=== PATIENT | male | born 1975 | race Caucasian/White ===

== ENCOUNTER 2019-09-16 12:07 | Outpatient (CLI) | payer OTHER, SELFPAY | END 2019-09-16 12:08 | disposition home or self-care (01) | LOC: OPS 18:41 | PROVIDERS: PCP Family Medicine; Visit Provider Surgery | DX: Z76.89 Persons encountering health services in other specified circumstances (principal) ==

== ENCOUNTER 2019-09-16 12:07 | Day surgery (SDC) | payer OTHER, SELFPAY ==
[2019-09-13 11:48] VITALS: BMI 34.4
[2019-09-16] VITALS (26 sets, daily range): BP systolic 115–158; BP diastolic 76–96; PULSE 65–91; RESP 15–24; TEMP 36.5–37.1; O2SAT 90–99
[2019-09-16] MEDS: sodium chloride 0.9% 1,000 ML 30 ML IV (12:28)
--- NOTE | 2019-09-16 12:48 | ANES.PREANE2 ---
Pre-Anesthetic Assessment Pre-Anesthetic Assessment: Height/Weight: Height 1.7 m Weight 99.79 kg Temp Pulse Resp BP Pulse Ox 97.7 F 65 18 115/76 95 09/16/19 12:16 09/16/19 12:16 09/16/19 12:16 09/16/19 12:16 09/16/19 12:16 Preop Diagnosis: Symptomatic cholelithiasis Proposed Procedure: Operation Date: 09/16/19 14:35 Proposed Procedures p Laparoscopic Cholecystectomy 05609/K80.20(Not Applicable) - Nasir Suggs MD Last intake: Intake Last Liquid Date 09/15/19 Last Liquid Time 23:00 Last Solid Date 09/15/19 Last Solid Time 23:00 Social: Social History: Alcohol (occ) and Tobacco Exam: Pre-Anes Outpt Exam: alert, oriented x 3, clear to auscultation bilaterally and regular rate & rhythm Airway: Submandibular: WNL Cervical ROM: WNL MP: 2 Dentition: Other (teeth ok) History/ROS: No significant history except as noted Pulmonary: Pulmonary: None reported CV/HEM: CV/HEM: None reported : : None reported Hepatic: Hepatic: None reported GI: GI: GERD (controlled) Metabolic: Metabolic: None reported Musc/skel: Musc/skel: OA/DJD and RA Neuropsych: Neuropsych: None reported Anesthetic Plan: ASA status: 2 Anesthesia: Anesthesia Evaluation and General Risk of > 500 ml blood loss (7ml/kg in children): No Meds/Allergies Current Medications: Current Medications Generic Name Dose Route Start Last Admin Trade Name Freq PRN Reason Stop Dose Admin Sodium Chloride 1,000 mls @ 30 ml s/hr 09/16/19 12:00 09/16/19 12:28 Sodium Chloride 0.9% IV 09/17/19 11:59 30 mls/hr .Q24H MARIA FERNANDA Administration PFSH Anesthesia PFSH: Medical History Cholelithiasis GERD (gastroesophageal reflux disease) History of colon polyps Hyperlipidemia Surgical History History of colonoscopy with polypectomy (~2018) History of esophagogastroduodenoscopy (EGD) (~2018) History of hernia repair Family History Denies family history of Anesthesia complication Bleeding disorder Social History Smoking and tobacco status: current every day smoker cigarettes Quit status (tobacco): has tried quititng Second hand smoke exposure: No Alcohol intake: current Alcohol intake frequency: holidays/special occasions only Alcohol type: beer Adopted: No Caregiver/support person: Yes Lives independently: Yes Household members: spouse Housing: House Marital status: Highest education level completed: High School Graduate service: No Current occupational status: employed 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
--- NOTE | 2019-09-16 13:41 | PM.HPUD ---
H&P update H&P Update: DATE OF SURGERY/PROCEDURE: 09/16/19 DATE H&P PERFORMED: 09/04/19 H&P UPDATE INFORMATION: H&P completed within last 30 days and No changes to prior documentation PREOP DIAGNOSIS: Symptomatic cholelithiasis PRIMARY INDICATION FOR PROCEDURE: The same PLANNED PROCEDURE: Operation Date: 09/16/19 14:35 Proposed Procedures p Laparoscopic Cholecystectomy 43510/K80.20(Not Applicable) - Nasir Suggs MD Full H&P Medications/Allergies: Current Medications: Current Medications Generic Name Dose Route Start Last Admin Trade Name Freq PRN Reason Stop Dose Admin Sodium Chloride 1,000 mls @ 30 ml s/hr 09/16/19 12:00 09/16/19 12:28 Sodium Chloride 0.9% IV 09/17/19 11:59 30 mls/hr .Q24H MARIA FERNANDA Administration Perinent History: Medical/Surgical History: Medical History (Updated 09/04/19 @ 16:52 by Nasir Suggs MD) Cholelithiasis GERD (gastroesophageal reflux disease) History of colon polyps Hyperlipidemia Family History: Family History (Updated 09/04/19 @ 15:45 by Isela Martins RN) Denies family history of Anesthesia complication Bleeding disorder Social History: Social History Smoking and tobacco status: current every day smoker cigarettes Quit status (tobacco): has tried quititng Second hand smoke exposure: No Alcohol intake: current Alcohol intake frequency: holidays/special occasions only Alcohol type: beer Adopted: No Caregiver/support person: Yes Lives independently: Yes Household members: spouse Housing: House Marital status: Highest education level completed: High School Graduate service: No Current occupational status: employed 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
[2019-09-16] MEDS: lidocaine 2% INJ 20 mL INJECTION (15:10)
--- NOTE | 2019-09-16 16:03 | P.OP_ITS ---
Operative Report Date of procedure: September 16, 2019 Pre-op Diagnosis: Symptomatic cholelithiasis Post-op diagnosis: same Post-op Diagnosis: Fatty liver Scarred down cystic duct Multiple gallbladder stones Post-op Findings: Chronic calculus cholecystitis Procedure Done: Laparoscopic cholecystectomy and placement of large piece of Surgicel and Gel flow for hemostasis Specimens removed/disposition: Gallbladder and contents Surgeon: Nasir Suggs Ice Sculptor: Surgical marlon Rodriguez and Jaycee Medical student Joseluis Event Operations Manager Anesthesia: General (curtains and draperies salesperson Yasmine and Halie) Estimated blood loss (mL): 25 Condition: stable Disposition: same day Brief History: This is a pleasant 44 years old gentleman referred to my office with symptomatic cholelithiasis and history of fatty liver. Plan of care; After thorough history physical examination and reviewing the chart ,I counseled the patient for laparoscopic cholecystectomy possible open, indications risks including but not limited injury to the common bile duct and other viscera.benefits and alternatives all discussed with the patient, and she did agree to proceed. All questions have been answered and all concerns have been addressed to patient's satisfaction. Patient was placed on liquid protein diet prior to surgery to downsize the v olume of the Liver Informed consent per chart Procedure: Patient was identified in the holding area and taken back to the operative suite, placed in supine position intubated by anesthesia . Time-out was done verifying the patient's name/date of /planned procedure and destination after the procedure, all were in agreement. SCDs confirmed to be functioning, preoperative antibiotics administered per protocol, and beta ayanna protocol was confirmed. Patient was appropriately secured to the table, footboard was applied to the OR table, before prep and drape anesthesia was asked to tilt the table back and forth to make sure that the patient is appropriately secured and she was. Prep and drape of the abdomen was done under the usual sterile technique, followed by that supraumbilical skin incision,skin incision was done by a 15 blade knife, and stay sutures were applied to the fascia and Olivares trocar technique was used to enter the abdominal without injuring any abdominal viscera, started by low flow gas insufflation followed by a high flow, started with a 10 mm laparoscope and under direct vision there was no evidence of any i njuries, the scope then switched to a 30? ,10 millimeter scope and under direct visualization 5 millimeter trocar was inserted in the epigastric region followed by two 5 mm trocars were inserted in the right upper quadrant that was done after injection of local lidocaine 2% at all incision sites. Gallbladder showed chronic calculus cholecystitis with extensive scarring &with adhesions Hepatomegaly likely due to fatty liver Patient was then positioned in the head up and tilted to the left dissection started by taking adhesions down using [place] forceps with heat, continued dissection until I identified the critical view of the cystic duct and cystic artery where seen connected to the gallbladder. Clips were applied on the cystic duct towards the common bile duct 1 towards the gallbladder then divided is in sharp scissors, 2 clips were then applied onto the cystic artery and 1 towards the gallbladder and divided by sharp scissors. Endoloop PDS was applied onto the cystic duct stump for extra security Extra clips were applied for traversing vessels Dissection was then carried along of the gallbladder from the gallbladder fossa using cautery as well as sharp dissection with heat energy. The gallbladder then was dissected out from the gallbladder fossa totally , cholecystectomy was then achieved and was placed in an Endo Catch bag and then retrieved from the Olivares trocar site under direct visualization using a 5 mm 30? scope through the epigastric trocar, specimen was then passed to the circulating nurse to go for permanent pathology,irrigation and hemostasis was do ne to the gallbladder fossa after hemostasis was secured, final survey laparoscopy was done that showed no injuries. Suction irrigation was obtained. Gel flow and large piece of Surgicel was applied at the right lobe of the liver where there was small liver laceration after Bovie cauterization was done I elected at this point to place a 15 Turkish round Low drain through the far outer lateral trocar site at the bed of the gallbladder fossa under direct visualization. The supraumbilical fascial defect was then closed using interrupted Vicryl sutures using a fascial closure device ;Balaji Goodman under direct visualization Gas was allowed to deflate,Trocars were then taken out under direct vision there was no evidence of bleeding Specimen was passed to the circulating nurse for permanent pathology. The supraumbilical incision as well as all trocar sites were closed by skin karen to approximate the skin edges of the supraumbilical incision, dressing was applied in the form of Band-Aids and the patient patient got extubated and was taken to recovery area in a stable condition. Count of sponges, needles and instruments were completed at the end of the procedure I was present for the whole entire procedure.
--- NOTE | 2019-09-16 16:14 | SUR.PHASEI ---
PT TO PACU SLEEPY WITH GOOD RESP ORAL AIRWAY IN PLACE ABD LARGE FIRM WITH 4 SITES WITH BANDAIDS AND DRAIN SPONGE TO RT LOWER SITE WITH YAZMIN DRAIN COMPRESSED.
[2019-09-16] MEDS: fentaNYL 50 mcg/mL INJ 2mL IVP ×2 (16:22→16:28)
[2019-09-16] MEDS: morphine 4 mg/mL SDV 1 mL 2 MG IVP ×4 (16:42→16:58)
--- NOTE | 2019-09-16 16:47 | SUR.PHASEI ---
1620 PT AWAKE ABD UNCHANGED YAZMIN DRAIN COMPRESSED PT ORAL AIRWAY OUT , PT ON RA PT RUBBING FACE PT ASSISTED NOT TO RUB FACE SEE PAIN MEDS GIVEN 1645PT STARTING TO RELAX, PT NOW ON 2LNC VSS PT AWAKES EASILY RT DRAIN SITE OOZING, REINFORCED DRAIN SPONGE WITH Abd.tape DR RODRIGUEZ AWARE.
--- NOTE | 2019-09-16 17:34 | SUR.PHASEI ---
1710 PT ALERT SLEEPS OFF AND ON , PT DRAIN SPONGE SATURATED , SOME OOZING TO ABD, PT DRESSING CHANGED WITH NEW DRAIN SPONGE, 4X4 ABD PAPER TAPE, DRAIN COMPRESSED WITH APPROX 15ML NOTED REPORT TO OPS
[2019-09-16] MEDS: HYDROcodone-acetaminophen 5-325 mg Tablet 1 TAB PO (17:45)
--- NOTE | 2019-09-16 18:06 | SUR.PHASEII ---
70 ml serosanguineous drainage emptied
== END 2019-09-16 18:25 | disposition home or self-care (01) ==
LOC: OR 09-18 07:57
PROVIDERS: PCP Family Medicine; Visit Provider Surgery
PROC: 0FT44ZZ Resection of Gallbladder, Percutaneous Endoscopic Approach (ICD-10-PCS; CPT 47562; principal; 2019-09-16 14:35)
DX: K80.10 Calculus of gallbladder with chronic cholecystitis without obstruction (principal); K21.9 Gastro-esophageal reflux disease without esophagitis; M19.90 Unspecified osteoarthritis, unspecified site; M06.9 Rheumatoid arthritis, unspecified; E78.5 Hyperlipidemia, unspecified; F17.210 Nicotine dependence, cigarettes, uncomplicated
CPT/HCPCS: 47562; 12345; 88304; 96365; J0131; J0330; J0690; J1100; J2001; J2270; J2405; J2704; J2710; J3010; J3490; J7030

== ENCOUNTER 2019-09-20 08:40 | Outpatient (REF) | payer OTHER, SELFPAY ==
[2019-09-20 09:09] LABS: Alanine Aminotransferase 60 U/L (0-41); Alkaline Phosphatase 76 IU/L (40-130); Aspartate Amino Transferase 37 U/L (0-40); Globulin 4.1 g/dL (1.3-4.6); Total Bilirubin 0.4 mg/dL (0.15-1.2); Total Protein 8.1 g/dL (6.6-8.7)
== END 2019-09-20 08:41 | disposition home or self-care (01) ==
LOC: LAB 08:40
PROVIDERS: PCP Family Medicine; Visit Provider Surgery
DX: K76.0 Fatty (change of) liver, not elsewhere classified (principal)
CPT/HCPCS: 80076

== ENCOUNTER 2019-10-17 14:41 | Outpatient (CLI) | payer OTHER, SELFPAY ==
--- NOTE | 2019-10-17 15:09 | XR_ITS ---
WS: [id number] Right hand, 3 views, 10/17/2019 Clinical Data: rheumatoid arthritis Comparison: None. Findings: No fractures or dislocations are seen. The soft tissues are unremarkable. The joint space s are normal XR/XR hand RT min 3V* [id number] Impression: Negative right hand.
--- NOTE | 2019-10-17 15:09 | XR_ITS ---
WS: [id number] Left foot, 3 views, 10/17/2019 Clinical Data: rheumatoid arthritis Comparison: None. Findings: No fractures or dislocations are seen. No bone destruction or erosion is noted. The joint spaces and soft tissues are normal. There is a plantar spur. XR/XR foot LT min 3V* [id number] Impression: Negative left foot.
--- NOTE | 2019-10-17 15:09 | XR_ITS ---
WS: [id number] Chest 2 views, 10/17/2019 Clinical Data: rheumatoid arthritis Comparison: None. Findings: No nodules, masses or effusions are seen. The heart is normal. The pulmonary vascularity is not increased. No pneumonia or pneumothorax is seen. XR/XR chest 2V* 13483 Impression: Negative chest.
--- NOTE | 2019-10-17 15:09 | XR_ITS ---
WS: [id number] Left hand, 3 views, 10/17/2019 Clinical Data: rheumatoid arthritis Comparison: None. Findings: No fractures or dislocations are seen. The soft tissues are unremarkable. The joint spaces are normal XR/XR hand LT min 3V* [id number] Impression: Negative left hand.
--- NOTE | 2019-10-17 15:09 | XR_ITS ---
WS: [id number] Right foot, 3 views, 10/17/2019 Clinical Data: rheumatoid arthritis Comparison: None. Findings: No fractures or dislocations are seen. No bone destruction or erosion is noted. The joint spaces and soft tissues are normal. There is a small plantar spur. A small bunion of the head of the right first metatarsal is seen. XR/XR foot RT min 3V* 55085 Impression: Negative right foot.
== END 2019-10-17 14:42 | disposition home or self-care (01) ==
PROVIDERS: PCP Family Medicine; Visit Provider Internal Medicine Rheumatology
DX: Z79.899 Other long term (current) drug therapy; Z11.59 Encounter for screening for other viral diseases; K76.0 Fatty (change of) liver, not elsewhere classified; M05.79 Rheumatoid arthritis with rheumatoid factor of multiple sites without organ or systems involvement; Z11.1 Encounter for screening for respiratory tuberculosis; Z72.89 Other problems related to lifestyle
CPT/HCPCS: 36415; 71046; 73130; 73630; 80076; 82306; 82565; 84550; 85651; 86140; 86480; 86704; 86803; 87340; 99204

== ENCOUNTER → 2019-10-17 14:42 | Outpatient (BNVA) | payer OTHER, SELFPAY | PROVIDERS: PCP Family Medicine; Visit Provider Internal Medicine Rheumatology | DX: M05.9 Rheumatoid arthritis with rheumatoid factor, unspecified (principal); Z79.899 Other long term (current) drug therapy; Z11.59 Encounter for screening for other viral diseases; M05.79 Rheumatoid arthritis with rheumatoid factor of multiple sites without organ or systems involvement; Z71.89 Other specified counseling | CPT/HCPCS: 85025 ==

== ENCOUNTER 2020-05-13 17:30 | Emergency (ER) | payer OTHER, SELFPAY ==
[2020-05-13 17:34] VITALS: BP 133/86; PULSE 106; RESP 20; TEMP 36.6; O2SAT 97; BMI 36.0
[2020-05-13 18:50] LABS: Basophils # 0.1 10^3/uL (0.0-0.1); Basophils % 0.3 %; Eosinophils # 0.1 10^3/uL (0.0-0.8); Eosinophils % 0.5 %; Hematocrit 39.4 % (42.0-52.0); Hemoglobin 13.1 g/dL (11.7-16.6); Lymphocytes % 9.3 %; Mean Corpuscular HGB Conc 33.2 g/dL (30.0-36.0); Mean Corpuscular Hemoglobin 29.8 pg (28.0-34.0); Mean Corpuscular Volume 89.7 fL (80-94); Mean Platelet Volume 9.2 fL (7.4-10.4); Monocytes # 1.4 10^3/uL (0.2-0.9); Monocytes % 6.4 %; Neutrophils # 17.99 10^3/uL (1.8-7.7); Neutrophils % 82.9 %; Nucleated Red Blood Cells % 0 %; Platelet Count 403 10^3/cmm (130-400); Red Blood Count 4.39 10^6/uL (4.1-5.3); Red Cell Distribution Width 12.8 % (12.1-15.1); White Blood Count 21.7 10^3/uL (4.0-10.0)
--- NOTE | 2020-05-13 18:51 | ED_ITS ---
HPI - Abdominal Pain General: Chief Complaint: Abdominal Pain Stated Complaint: ABD PAIN Time Seen by Provider: 05/13/20 18:42 Source: patient Mode of arrival: ambulatory Limitations: no limitations History of Present Illness: HPI narrative: 45-year-old male states he been having lower abdominal pain since yesterday. States pain is sharp in nature and seems to be intermittent. He denies any worsening improving factors. Seen by his PCP and had a high white count since then here. Denies any vomiting. He has had some slight constipation. MD elicited complaint: abdominal pain Associated Symptoms: Denies chills, dysuria and fever(s) Review of Systems Const: Denies: fever(s), chills, body aches or change in appetite Eyes: Denies: blurry vision or eye discomfort ENMT: Denies: throat pain or dental pain Card: Denies: chest pain Resp: Denies: dyspnea GI: Reports: abdominal pain : Denies: dysuria Musc: Denies: neck pain or back pain Skin/Breast: Denies: rash Neuro: Denies: headache(s) Psych: Denies: depression Kelvin/Lymph: Denies: easy bruising All/Imm: Denies: urticaria PFSH ED PFSH: Medical History Cholelithiasis Encounter for screening for other viral diseases GERD (gastroesophageal reflux disease) High risk medication use History of colon polyps Hyperlipidemia Immunization counseling Rheumatoid arthritis with rheumatoid factor Surgical History History of cholecystectomy History of colonoscopy with polypectomy (~2018) History of esophagogastroduodenoscopy (EGD) (~2019) History of hernia repair Family History Other Diabetes Hypertension Denies family history of Systemic lupus erythematosus, unspecified Rheumatoid arthritis Anesthesia complication Bleeding disorder Cancer Stroke Social History Smoking and tobacco status: current every day smoker cigarettes Quit status (tobacco): has tried quititng Second hand smoke exposure: No Alcohol intake: current Alcohol intake frequency: holidays/special occasions only Alcohol type: beer Adopted: No Caregiver/support person: Yes Lives independently: Yes Household members: spouse Housing: House Marital status: Highest education level completed: High School Graduate service: No Current occupational status: employed 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 Current occupational exposures/hazards: No Pets and animals: No History of recent travel: No Sexually active: Yes Current gender identity: Male Neda/Mormonism: Amish Special neda needs: No Agree to transfusion: No Financial difficulty paying for basics: Decline to Answer Physical Exam Const: COMMON NORMALS: no acute distress, patient oriented x3 and healthy appearing HENMT: COMMON NORMALS: normocephalic and atraumatic HEAD & SCALP: normocephalic and atraumatic Eye: COMMON NORMALS: Equal, round and reactive pupils present and EOMs intact bilaterally PUPIL: Yes Equal, round and reactive pupils present Neck/C-Spine: COMMON NORMALS: full ROM and supple Chest: COMMONS NORMALS: normal inspection of the chest and normal palpation of entire chest wall Resp: COMMON NORMALS: normal respiratory effort, No retractions, No use of accessory muscles and clear to auscultation bilaterally AUSCULTATION: clear to auscultation bilaterally Cardio: COMMON NORMALS: regular rate, regular rhythm and No murmurs present ( Cardio) RATE: regular rate RHYTHM: regular rhythm GI: COMMON NORMALS: Normal to inspection, nondistended, normoactive bowel sounds present, Soft to palpation and no masses PALPATION: Yes Soft to palpation OTHER: mild lower abdominal tenderness Extremity: COMMON NORMALS: normal to inspection and full ROM Neuro: COMMON NORMALS: patient oriented x3, moves all extremities and no focal motor deficits Psych: COMMON NORMALS: mental status grossly normal, Normal thought process present and cooperative THOUGHT PROCESS: Normal thought process present Skin: COMMON NORMALS: no rashes or lesions noted and no wounds GENERAL SKIN EXAM: no rashes or lesions noted Course Vital Signs: Vital signs: Vital Signs Temperature 97.8 F 05/13/20 17:34 Pulse Rate 106 H 05/13/20 17:34 Respiratory Rate 20 H 05/13/20 17:34 Blood Pressure 133/86 05/13/20 17:34 Pulse Oximetry 97 05/13/20 17:34 MDM - Abdominal Pain MDM Narrative: Medical decision making narrative: Ciaran presents with abdominal pain. His CT did show diverticulitis. Patient's been pain-free here. I spoke to him about his diverticulitis and offered him admission. He states that he feels much improved like to go home. We will place him on Cipro and Flagyl. I informed her if his pain worsens or he has any vomiting or fever she is to return immediately. He is to follow-up with PCP in 3 to 5 days. He understands and agrees to plan. Lab Data: Labs: Lab Results 05/13/20 05/13/20 Range/Units 18:40 18:40 WBC 21.7 H (4.0-10.0) 10^3/ uL RBC 4.39 (4.1-5.3) 10^6/u L Hgb 13.1 (11.7-16.6) g/dL Hct 39.4 L (42.0-52.0) % MCV 89.7 (80-94) fL MCH 29.8 (28.0-34.0) pg MCHC 33.2 (30.0-36.0) g/dL RDW 12.8 (12.1-15.1) % Plt Count 403 H (130-400) 10^3/c mm MPV 9.2 (7.4-10.4) fL Neut % (Auto) 82.9 % Lymph % (Auto) 9.3 % [place] % (Auto) 6.4 % Eos % (Auto) 0.5 % Baso % (Auto) 0.3 % Neut # (Auto) 17.99 H (1.8-7.7) 10^3/u L Lymph # (Auto) 2.0 (0.8-4.8) 10^3/u L [place] # (Auto) 1.4 H (0.2-0.9) 10^3/u L Eos # (Auto) 0.1 (0.0-0.8) 10^3/u L Baso # (Auto) 0.1 (0.0-0.1) 10^3/u L Nucleated RBC % (a uto) 0 % Nucleated RBCs # 0.0 /100WBC Sodium 130 L (136-145) mmol/L Potassium 3.7 (3.5-5.1) mmol/L Chloride 95 L (98-107) mmol/L Carbon Dioxide 22 (22-29) mmol/L Anion Gap 16.7 (5-19) BUN 16 (6-20) mg/dL Creatinine 1.1 (0.7-1.2) mg/dL GFR Calculation 73.1 L (90-130) mL/min Glucose 118 H (65-115) mg/dL Calculated Osmolal ity 272 L (285-295) mOsm/k g Calcium 9.4 (8.5-10.5) mg/dL Total Bilirubin 0.4 (0.15-1.2) mg/dL AST 14 (0-40) U/L ALT 14 (0-41) U/L Alkaline Phosphata se 84 (40-130) IU/L Total Protein 8.6 (6.6-8.7) g/dL Albumin 3.8 (3.5-5.2) g/dL Globulin 4.8 H (1.3-4.6) g/dL Lipase 30 (13-60) U/L Imaging Data ^: CT Abd/Pel: Attestation: I personally reviewed and interpreted this imaging study as follows: Radiologist's impression: [address] [address] [address] Scan Report Signed with Addenda Patient: Ciaran Lau Unit #: [id number] : 1975 Age/Sex: 45 / M ADM Date: 05/13/20 Loc: ER Room/Bed: Attending Dr: Ordering Provider/Ordering MD: Bandar Adkins MD Date of Service: 05/13/20 Procedure(s): CT abdomen pelvis w con* [id number] Accession Number(s): [id number] Report Number: [id number]/CT abdomen pelvis w con* [id number] THIS REPORT CONTAINS FINDINGS THAT MAY BE CRITICAL TO PATIENT CARE. The findings were verbally communicated via telephone conference with Bandar Field at 8:31 PM CDT on 05/13/2020. The findings were acknowledged and understood. Radiation Dose CTDIVOL = (mGy): DLP = 1571.79 (mGy-cm) Addendum Dictated By: Rajesh Rudd MD Addendum Signed By: Rajesh Rudd MD Signed Date/Time: 05/13/202032 Addendum Cosigned By: PROCEDURE INFORMATION: Exam: CT Abdomen And Pelvis With Contrast Exam date and time: 05/13/2020 8:07 PM Age: 45 years old Clinical indication: Abdominal pain; Localized; Lower; Prior surgery; Surgery type: Egd, hernia, gb TECHNIQUE: Imaging protocol: Computed tomography of the abdomen and pelvis with intravenous contrast. Radiation optimization: All CT scans at this facility use at least one of these dose optimization techniques: automated exposure control; mA and/or kV adjustment per patient size (includes targeted exams where dose is matched to clinical indication); or iterative reconstruction. Contrast material: OMNI 300; Contrast volume: 95 ml; Contrast route: INTRAVENOUS (IV); COMPARISON: ES surgery / GI images 09/16/2019 2:26 PM RADIATION DOSE METRICS: Total DLP (mGy-cm): 1571.79 FINDINGS: Lungs: The lung bases are clear except for subsegmental atelectasis in the right lower lobe. Liver: The liver is mildly fatty but not enlarged. Gallbladder and bile ducts: The gallbladder is surgically absent. Pancreas: Normal. No ductal dilation. Spleen: Incidental splenule near the spleen. Adrenals: Normal. No mass. Kidneys and ureters: Normal. No hydronephrosis. Stomach and bowel: There are multiple diverticula in the distal colon with sigmoid wall thickening and surrounding fatty stranding. There is an extraluminal gas collection in the left lower quadrant near the sigmoid colon consistent with micro perforation. However no generalized free intraperitoneal air and no organized abscess. No bowel obstruction or ileus. Small bowel is normal. The stomach is normal. Appendix: The appendix is normal. Intraperitoneal space: See Stomach and bowel finding. Vasculature: Unremarkable. No abdominal aortic aneurysm. Lymph nodes: Unremarkable. No enlarged lymph nodes. Urinary bladder: Unremarkable as visualized. Reproductive: Unremarkable as visualized. Bones/joints: At L5-S1 there is a unilateral left pars defect with 2 mm of grade 1 degenerative subluxation. Soft tissues: 4.6 cm umbilical hernia consists of noninflamed fatty tissue only. Bilateral small inguinal hernias consist of fatty tissue only. CT/CT abdomen pelvis w con* [id number] IMPRESSION: 1. Acute sigmoid diverticulitis with micro perforation. No abscess or generalized free air. No bowel obstruction or ileus. 2. Other chronic and incidental findings as described. Discharge Plan Discharge Patient Disposition: Home Clinical Impression: Diverticulitis Condition: Stable Prescriptions: [place] 5-325 mg tablet 1 tab PO Q6H PRN (Reason: pain) Qty: 14 RF: 0 ondansetron 4 mg tablet,disintegrating 4 mg PO Q6H PRN (Reason: nausea and vomiting) Qty: 14 RF: 0 Cipro 500 mg tablet 500 mg PO BID Qty: 14 RF: 0 Flagyl 500 mg tablet 500 mg PO Q8H 7 Days Qty: 21 RF: 0 No Action prednisone 2.5 mg tablet 10 mg PO DAILY RF: 0 acetaminophen 500 mg capsule 500 mg PO Q6H PRNRF: 0 sulfasalazine 500 mg tablet 1 gm PO BID Qty: 120 RF: 3 pantoprazole 40 mg tablet,delayed release (DR/EC) 40 mg PO DAILY Qty: 30 RF: 3 ergocalciferol (vitamin D2) [Vitamin D2] 1,250 mcg (50,000 unit) capsule 50,000 unit PO DAILY Qty: 15 RF: 0 Provigil 100 mg tablet 100 mg PO DAILY RF: 0 gemfibrozil 600 mg tablet 600 mg PO BID RF: 0 Discharge Orders: Discharge Order (Routine); Ordered 05/13/20 Ordered By: Bandar Adkins Referrals: Giovanni Oconnell [Primary Care Provider] - 1-3 days Discharge Diet: Advance as tolerated Discharge Activity: Resume usual activity Patient Instructions: Diverticulitis (ED) Coding Level of Care Code ED Evaporator Helper for Chg Fwd Exam Comprehensive
[2020-05-13 19:07] LABS: Alanine Aminotransferase 14 U/L (0-41); Albumin Level 3.8 g/dL (3.5-5.2); Alkaline Phosphatase 84 IU/L (40-130); Anion Gap 16.7 (5-19); Aspartate Amino Transferase 14 U/L (0-40); Blood Urea Nitrogen 16 mg/dL (6-20); Calcium 9.4 mg/dL (8.5-10.5); Carbon Dioxide 22 mmol/L (22-29); Chloride 95 mmol/L (98-107); Globulin 4.8 g/dL (1.3-4.6); Glomerular Filtration Rate 73.1 mL/min (90-130); Glucose 118 mg/dL (65-115); Lipase 30 U/L (13-60); Osmolality Calculated 272 mOsm/kg (285-295); Potassium 3.7 mmol/L (3.5-5.1); Sodium 130 mmol/L (136-145); Total Bilirubin 0.4 mg/dL (0.15-1.2); Total Protein 8.6 g/dL (6.6-8.7)
[2020-05-13] MEDS: morphine 4 mg/mL SDV 1 mL IVP (19:36)
[2020-05-13] MEDS: sodium chloride 0.9% 1,000 ML 999 ML IV (19:36)
[2020-05-13] MEDS: ondansetron 2 mg/ML SDV 2 mL 4 MG IVP (19:36)
[2020-05-13] MEDS: iohexol 300 mg/mL 100 mL Btl IV (20:18)
[2020-05-13] MEDS: metroNIDAZOLE 500 MG Tablet PO (21:11)
[2020-05-13] MEDS: ciprofloxacin 500 mg Tablet PO (21:11)
[2020-05-13 21:13] VITALS: BP 132/76; PULSE 76; RESP 16; O2SAT 99
== END 2020-05-13 21:14 | disposition home or self-care (01) ==
PROVIDERS: Physician Assistant; Emergency Provider Emergency Medicine; PCP Family Medicine
DX: K57.92 Diverticulitis of intestine, part unspecified, without perforation or abscess without bleeding (principal); E78.5 Hyperlipidemia, unspecified; F17.210 Nicotine dependence, cigarettes, uncomplicated
CPT/HCPCS: 12345; 74177; 80053; 83690; 85025; 87040; 96361; 96374; 96375; 99282; 99284; J2270; J2405; J7030; Q9967

== ENCOUNTER 2020-05-17 16:54 | Inpatient (IN) | payer OTHER, MEDICARE, SELFPAY ==
[2020-05-17] VITALS (10 sets, daily range): BP systolic 122–154; BP diastolic 67–99; PULSE 75–90; RESP 17–20; TEMP 36.9–37.2; O2SAT 93–98; BMI 34.4
--- NOTE | 2020-05-17 17:04 | W.ED.ABDPA2 ---
HPI - Abdominal Pain General: Chief Complaint: Abdominal Pain Stated Complaint: Lower Abdominal pain Time Seen by Provider: 05/17/20 17:03 History of Present Illness: HPI narrative: Patient is a 45-year-old male who comes to the ED with left lower quadrant abdominal pain and nausea. Patient was seen here in the ED on May 13 and diagnosed with diverticulitis. He was sent home on Cipro and Flagyl and also a prescription of hydrocodone for pain. Patient has been taking all his medications and his pain has been controlled up until today. Today patient started developing left lower quadrant abdominal pain that became more intense. He did not take hydrocodone today wanted to see if his pain has improved. Pain rated an 8 out of 10. He says the abdominal pain is similar to the level it was when he was seen here in the ED on May 13. Is also feeling nauseous but has not had any episodes of emesis. Reports being constipated but no blood in stool. Denies any fever, chills, hematuria or dysuria. Associated Symptoms: Reports constipation and nausea; Denies chills, diarrhea, dysuria, fever(s), hematochezia, hematuria and vomiting Review of Systems Const: Denies: fever(s), chills or fatigue Eyes: Denies: change in vision or eye discomfort ENMT: Denies: throat pain, odynophagia, nasal discharge or nasal congestion Card: Denies: chest pain, palpitations, edema, swelling of feet/ankles, dyspnea on exertion or orthopnea Resp: Denies: dyspnea, productive cough or non-productive cough GI: Reports: abdominal pain (LLQ), nausea and constipation; Denies: vomiting, diarrhea or hematochezia : Denies: flank pain, difficulty urinating, dysuria or hematuria Musc: Denies: neck pain, back pain or extremity swelling Skin/Breast: Denies: rash or new lesions Neuro: Denies: headache(s), numbness in extremities or weakness in extremities PFSH ED PFSH: Medical History Cholelithiasis Encounter for screening for other viral diseases GERD (gastroesophageal reflux disease) High risk medication use History of colon polyps Hyperlipidemia Immunization counseling Rheumatoid arthritis with rheumatoid factor Surgical History History of cholecystectomy History of colonoscopy with polypectomy (~2019) History of esophagogastroduodenoscopy (EGD) (~2018) History of hernia repair Family History Other Diabetes Hypertension Denies family history of Systemic lupus erythematosus, unspecified Rheumatoid arthritis Anesthesia complication Bleeding disorder Cancer Stroke Social History Smoking and tobacco status: current every day smoker cigarettes Quit status (tobacco): has tried quititng Second hand smoke exposure: No Alcohol intake: current Alcohol intake frequency: holidays/special occasions only Alcohol type: beer Adopted: No Caregiver/support person: Yes Lives independently: Yes Household members: spouse Housing: House Marital status: Highest education level completed: High School Graduate service: No Current occupational status: employed 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 Current occupational exposures/hazards: No Pets and animals: No History of recent travel: No Sexually active: Yes Current gender identity: Male Neda/Adventist: Anabaptist Special neda needs: No Agree to transfusion: No Financial difficulty paying for basics: Decline to Answer Physical Exam Const: COMMON NORMALS: patient oriented x3 and alert GENERAL APPEARANCE: cooperative and in distress (Patient appears to be uncomfortable and in pain) NUTRITIONAL APPEARANCE: overweight HENMT: COMMON NORMALS: normocephalic HEAD & SCALP: normocephalic MOUTH: Normal oral and palatal mucosa present THROAT: posterior oropharynx normal and uvula midline Eye: COMMON NORMALS: Equal, round and reactive pupils present PUPIL: Yes Equal, round and reactive pupils present Neck/C-Spine: COMMON NORMALS: supple GENERAL: Yes normal visual inspection Resp: COMMON NORMALS: normal respiratory effort, No retractions, No use of accessory muscles and clear to auscultation bilaterally AUSCULTATION: clear to auscultation bilaterally Cardio: COMMON NORMALS: regular rate, regular rhythm, S1 normal heart sound present, S2 normal heart sound present, No gallops present (Cardio), No clicks present (Cardio), No murmurs present (Cardio) and Peripheral pulses 2+ throughout RATE: regular rate RHYTHM: regular rhythm HEART SOUNDS: S1 normal heart sound present and S2 normal heart sound present PERIPHERAL PULSES: Peripheral pulses 2+ throughout GI: COMMON NORMALS: Normal to inspection, nondistended, normoactive bowel sounds present, Soft to palpation and no masses INSPECTION: Yes central obesity PALPATION: Yes Soft to palpation and Yes Tenderness to palpation present (GI) Details: LLQ (moderate tenderness) : COMMON NORMALS: Yes no CVA tenderness BLADDER/KIDNEY EXAM: Yes no CVA tenderness Back/Pelvis: COMMON NORMALS: no CVA tenderness Extremity: COMMON NORMALS: normal to inspection and no pedal edema Neuro: COMMON NORMALS: patient oriented x3 SENSORIUM/ORIENTATION: Yes alert GAIT: Yes Normal gait present Skin: COMMON NORMALS: no rashes or lesions noted GENERAL SKIN EXAM: no rashes or lesions noted and dry skin Course Reevaluation(s): Reevaluation #1: Patient's pain was improving with IV fluids, Zofran and 4 mg of morphine. Vital Signs: Vital signs: Vital Signs Temperature 98.8 F 05/17/20 16:55 Pulse Rate 84 05/17/20 19:00 Respiratory Rate 18 05/17/20 19:02 Blood Pressure 124/69 05/17/20 19:00 Pulse Oximetry 98 05/17/20 19:02 MDM - Abdominal Pain MDM Narrative: Medical decision making narrative: Patient is a 45-year-old male who comes to the ED with left lower quadrant abdominal pain and nausea. Patient was seen here in the ED on May 13 and diagnosed with diverticulitis. He was sent home on Cipro and Flagyl and also a prescription of hydrocodone for pain. Patient has been taking all his medications and his pain has been controlled up until today. He decided to not take his pain med today to see how his abdominal pain is improved and says his pain is similar to pain he felt back on May 13. Patient still has moderate to left lower quadrant upon exam. White blood cell count 16.3 which is down from 21.7 on May 13. The rest of CBC and CMP was unremarkable. Lipase 24. CT of the abdomen mid sigmoid acute diverticulitis with perforation. 2. There is been increase in the volume of the extraluminal walled off gas since last evaluation. Increase in the pericolonic fat inflammatory phlegmonous response. Currently no visible loculated fluid collection to suggest formation of any organized abscess. Spoke with Dr. Adkins about patient's case and CT findings and he contacted the Gen surgeon Dr. Toro told him about patient's case. Dr. Toro recommended patient get admitted and put on IV antibiotics. Dr. Adkins contacted hospitalist and placed admitting orders. Lab Data: Attestation: I reviewed the patient's lab results. Labs: Lab Results 05/17/20 05/17/20 05/17/20 Range/Units 17:27 17:27 17:57 WBC 16.3 H (4.0-10.0) 10^3/ uL RBC 4.48 (4.1-5.3) 10^6/u L Hgb 13.2 (11.7-16.6) g/dL Hct 41.2 L (42.0-52.0) % MCV 92.0 (80-94) fL MCH 29.5 (28.0-34.0) pg MCHC 32.0 (30.0-36.0) g/dL RDW 12.9 (12.1-15.1) % Plt Count 478 H (130-400) 10^3/c mm MPV 8.9 (7.4-10.4) fL Neut % (Auto) 76.3 % Lymph % (Auto) 13.6 % [place] % (Auto) 6.8 % Eos % (Auto) 1.4 % Baso % (Auto) 0.6 % Neut # (Auto) 12.48 H (1.8-7.7) 10^3/u L Lymph # (Auto) 2.2 (0.8-4.8) 10^3/u L [place] # (Auto) 1.1 H (0.2-0.9) 10^3/u L Eos # (Auto) 0.2 (0.0-0.8) 10^3/u L Baso # (Auto) 0.1 (0.0-0.1) 10^3/u L Nucleated RBC % (a uto) 0.1 % Nucleated RBCs # 0.0 /100WBC Sodium 133 L (136-145) mmol/L Potassium 4.4 (3.5-5.1) mmol/L Chloride 100 (98-107) mmol/L Carbon Dioxide 23 (22-29) mmol/L Anion Gap 14.4 (5-19) BUN 15 (6-20) mg/dL Creatinine 0.8 (0.7-1.2) mg/dL GFR Calculation 105.5 (90-130) mL/min Glucose 102 (65-115) mg/dL Calculated Osmolal ity 277 L (285-295) mOsm/k g Calcium 9.1 (8.5-10.5) mg/dL Total Bilirubin 0.3 (0.15-1.2) mg/dL AST 24 (0-40) U/L ALT 25 (0-41) U/L Alkaline Phosphata se 78 (40-130) IU/L C-Reactive Protein 56.7 H (0.0-4.9) mg/L Total Protein 8.2 (6.6-8.7) g/dL Albumin 3.9 (3.5-5.2) g/dL Globulin 4.3 (1.3-4.6) g/dL Lipase 24 (13-60) U/L Urine Color Yellow (Yellow) Urine Appearance Clear (CLEAR) Urine pH 5 (5-7) Ur Specific Gravit y 1.020 (1.005-1.030) Urine Protein Neg (Negative) Urine Glucose (UA) Norm (Normal) Urine Ketones Negative (Negative) Urine Blood Neg (Negative) Urine Nitrate Negative (Negative) Urine Bilirubin Neg (Negative) Urine Urobilinogen Norm (Negative) mg/dL Ur Leukocyte Rahel ase Negative (Negative) Imaging Data ^: CT Abd/Pel: Attestation: I personally reviewed and interpreted this imaging study as follows: Radiologist's impression: [address] [address] [address] Scan Report Signed Patient: Ciaran Lau Unit #: [id number] : 1975 Age/Sex: 45 / M ADM Date: 05/17/20 Loc: ER Room/Bed: Attending Dr: Ordering Provider/Ordering MD: Juan Fuentes Date of Service: 05/17/20 Procedure(s): CT abdomen pelvis w con* [id number] Accession Number(s): [id number] Report Number: [id number] PROCEDURE INFORMATION: Exam: CT Abdomen And Pelvis With Contrast Exam date and time: 05/17/2020 6:40 PM Age: 45 years old Clinical indication: Abdominal pain; Localized; Left lower quadrant (llq); Prior surgery; Surgery date: 6+ months; Surgery type: Hernia, gb; Patient HX: C/O worsening llq pain w nausea and diarrhea; Additional info: Llq pain, nause TECHNIQUE: Imaging protocol: Computed tomography of the abdomen and pelvis with intravenous contrast. Radiation optimization: All CT scans at this facility use at least one of these dose optimization techniques: automated exposure control; mA and/or kV adjustment per patient size (includes targeted exams where dose is matched to clinical indication); or iterative reconstruction. Contrast material: OMNI 300; Contrast volume: 95 ml; Contrast route: INTRAVENOUS (IV); COMPARISON: CT abdomen pelvis w con* [id number] 05/13/2020 8:12 PM RADIATION DOSE METRICS: Total DLP (mGy-cm): 1354.82 FINDINGS: Lungs: Minimal dependent right atelectasis. Liver: Hepatomegaly. Liver otherwise unremarkable without visible mass or cystic structure. Gallbladder and bile ducts: Status post cholecystectomy. Pancreas: Normal. No ductal dilation. Spleen: Small splenule. Spleen otherwise unremarkable. Adrenals: Normal. No mass. Kidneys and ureters: Normal. No hydronephrosis. Stomach and bowel: Evidence again of mid sigmoid acute diverticulitis with perforation. There is been increase in the volume of the extraluminal walled off gas since last evaluation. Increase in the pericolonic fat inflammatory phlegmonous response. Currently no visible loculated fluid collection to suggest formation of any organized abscess. No associated bowel obstruction. No visible evidence of significant associated small bowel reactive or adynamic ileus. Appendix: The appendix lies immediately adjacent to the inflammatory sigmoid diverticulitis focus and demonstrates mild reactive inflammatory response. Intraperitoneal space: No visible intraperitoneal ascites. Vasculature: The abdominal aorta is nonaneurysmal. Minimal arterial sclerotic disease. Lymph nodes: No current visible evidence of active mesenteric or retroperitoneal lymphadenopathy. Urinary bladder: Unremarkable as visualized. Reproductive: Unremarkable as visualized. Bones/joints: Degenerative disc disease L5/S1 with vacuum disc phenomenon. No visible acute osseous abnormality. Soft tissues: Small periumbilical hernia containing fat only. Bilateral small inguinal hernias containing fat only. CT/CT abdomen pelvis w con* [id number] IMPRESSION: 1. Evidence again of mid sigmoid acute diverticulitis with perforation. 2. There is been increase in the volume of the extraluminal walled off gas since last evaluation. Increase in the pericolonic fat inflammatory phlegmonous response. Currently no visible loculated fluid collection to suggest formation of any organized abscess. 3. The appendix lies immediately adjacent to the inflammatory sigmoid diverticulitis focus and demonstrates mild reactive inflammatory response. 4. Other nonurgent, nonemergent, chronic, and age related findings as detailed in text above. Radiation Dose CTDIVOL = (mGy): DLP = 1354.82 (mGy-cm) Dictated By: Jacob Juarez Signed By: Jacob Juarez Signed Date/Time: 05/17/201925 DD/ 23 Discharge Plan Discharge Admit Provider: Inna Cerna Coding Level of Care Code ED Commercial Hvac Technician for Chg Fwd Exam Comprehensive
[2020-05-17 17:43] LABS: Basophils # 0.1 10^3/uL (0.0-0.1); Basophils % 0.6 %; Eosinophils # 0.2 10^3/uL (0.0-0.8); Eosinophils % 1.4 %; Hematocrit 41.2 % (42.0-52.0); Hemoglobin 13.2 g/dL (11.7-16.6); Lymphocytes # 2.2 10^3/uL (0.8-4.8); Lymphocytes % 13.6 %; Mean Corpuscular Hemoglobin 29.5 pg (28.0-34.0); Mean Platelet Volume 8.9 fL (7.4-10.4); Monocytes # 1.1 10^3/uL (0.2-0.9); Monocytes % 6.8 %; Neutrophils # 12.48 10^3/uL (1.8-7.7); Neutrophils % 76.3 %; Nucleated Red Blood Cells % 0.1 %; Platelet Count 478 10^3/cmm (130-400); Red Blood Count 4.48 10^6/uL (4.1-5.3); Red Cell Distribution Width 12.9 % (12.1-15.1); White Blood Count 16.3 10^3/uL (4.0-10.0)
[2020-05-17] MEDS: ondansetron 2 mg/ML SDV 2 mL 4 MG IVP (17:47)
[2020-05-17] MEDS: sodium chloride 0.9% 1,000 ML 999 ML IV (17:47)
[2020-05-17] MEDS: morphine 4 mg/mL SDV 1 mL IVP ×2 (17:47→19:02)
[2020-05-17 18:00] LABS: Add Urine Microscopic? NO
[2020-05-17 18:03] LABS: Alanine Aminotransferase 25 U/L (0-41); Albumin Level 3.9 g/dL (3.5-5.2); Alkaline Phosphatase 78 IU/L (40-130); Aspartate Amino Transferase 24 U/L (0-40); Blood Urea Nitrogen 15 mg/dL (6-20); C Reactive Protein 56.7 mg/L (0.0-4.9); Calcium 9.1 mg/dL (8.5-10.5); Carbon Dioxide 23 mmol/L (22-29); Chloride 100 mmol/L (98-107); Globulin 4.3 g/dL (1.3-4.6); Glomerular Filtration Rate 105.5 mL/min (90-130); Glucose 102 mg/dL (65-115); Lipase 24 U/L (13-60); Osmolality Calculated 277 mOsm/kg (285-295); Sodium 133 mmol/L (136-145); Total Bilirubin 0.3 mg/dL (0.15-1.2); Total Protein 8.2 g/dL (6.6-8.7)
[2020-05-17 18:21] LABS: Bilirubin Urine Neg (Negative); Blood Urine Neg (Negative); Glucose Urine UA Norm (Normal); Ketones Urine Negative (Negative); Leukocyte Esterase Urine Negative (Negative); Nitrate Urine Negative (Negative); Protein Urine Neg (Negative); Urine Appearance Clear (CLEAR); Urine Color Yellow (Yellow); Urobilinogen Urine Norm (Negative); pH Urine 5 (5-7)
[2020-05-17 18:27] LABS: Anion Gap 14.4 (5-19); Potassium 4.4 mmol/L (3.5-5.1)
--- NOTE | 2020-05-17 18:29 | CTR_ITS ---
PROCEDURE INFORMATION: Exam: CT Abdomen And Pelvis With Contrast Exam date and time: 05/17/2020 6:40 PM Age: 45 years old Clinical indication: Abdominal pain; Localized; Left lower quadrant (llq); Prior surgery; Surgery date: 6+ months; Surgery type: Hernia, gb; Patient HX: C/O worsening llq pain w nausea and diarrhea; Additional info: Llq pain, nause TECHNIQUE: Imaging protocol: Computed tomography of the abdomen and pelvis with intravenous contrast. Radiation optimization: All CT scans at this facility use at least one of these dose optimization techniques: automated exposure control; mA and/or kV adjustment per patient size (includes targeted exams where dose is matched to clinical indication); or iterative reconstruction. Contrast material: OMNI 300; Contrast volume: 95 ml; Contrast route: INTRAVENOUS (IV); COMPARISON: CT abdomen pelvis w con* [id number] 05/13/2020 8:12 PM RADIATION DOSE METRICS: Total DLP (mGy-cm): 1354.82 FINDINGS: Lungs: Minimal dependent right atelectasis. Liver: Hepatomegaly. Liver otherwise unremarkable without visible mass or cystic structure. Gallbladder and bile ducts: Status post cholecystectomy. Pancreas: Normal. No ductal dilation. Spleen: Small splenule. Spleen otherwise unremarkable. Adrenals: Normal. No mass. Kidneys and ureters: Normal. No hydronephrosis. Stomach and bowel: Evidence again of mid sigmoid acute diverticulitis with perforation. There is been increase in the volume of the extraluminal walled off gas since last evaluation. Increase in the pericolonic fat inflammatory phlegmonous response. Currently no visible loculated fluid collection to suggest formation of any organized abscess. No associated bowel obstruction. No visible evidence of significant associated small bowel reactive or adynamic ileus. Appendix: The appendix lies immediately adjacent to the inflammatory sigmoid diverticulitis focus and demonstrates mild reactive inflammatory response. Intraperitoneal space: No visible intraperitoneal ascites. Vasculature: The abdominal aorta is nonaneurysmal. Minimal arterial sclerotic disease. Lymph nodes: No current visible evidence of active mesenteric or retroperitoneal lymphadenopathy. Urinary bladder: Unremarkable as visualized. Reproductive: Unremarkable as visualized. Bones/joints: Degenerative disc disease L5/S1 with vacuum disc phenomenon. No visible acute osseous abnormality. Soft tissues: Small periumbilical hernia containing fat only. Bilateral small inguinal hernias containing fat only. CT/CT abdomen pelvis w con* [id number] IMPRESSION: 1. Evidence again of mid sigmoid acute diverticulitis with perforation. 2. There is been increase in the volume of the extraluminal walled off gas since last evaluation. Increase in the pericolonic fat inflammatory phlegmonous response. Currently no visible loculated fluid collection to suggest formation of any organized abscess. 3. The appendix lies immediately adjacent to the inflammatory sigmoid diverticulitis focus and demonstrates mild reactive inflammatory response. 4. Other nonurgent, nonemergent, chronic, and age related findings as detailed in text above. Radiation Dose CTDIVOL = (mGy): DLP = 1354.82 (mGy-cm)
[2020-05-17] MEDS: iohexol 300 mg/mL 100 mL Btl IV (18:46)
--- NOTE | 2020-05-17 19:35 | PM.HP ---
Providers/Chief Complaint Primary Care Provider: Giovanni Oconnell Chief Complaint: Lower Abdominal pain History of Present Illness Ciaran Lau is a 45 year old male who carries history of seropositive rheumatoid arthritis, diverticular bleed June 2019 status post colonoscopy with polyp removal (no history of malignancy), came in today for worsening abdominal pain. Patient was seen in the ER about 4 days ago for lower abdominal pain, he was discharged on metronidazole and ciprofloxacin for diverticulitis. He returned today for worsening abdominal pain, he has not noticed any fever, blood bleed per rectum, vomiting. He has been tolerating p.o. diet, he reduced his opioids in fear of masking his worsening of pain. Of note, he started sulfasalazine in October of this year, methotrexate and leflunomide was avoided secondary to hepatic steatosis, he was gaining weight on prednisone. Today diagnosis in the ER revealed leukocytosis, chest improved from last visit, no signs of sepsis, microperforation evident on CT abdomen, Dr. Toro has been consulted, we have started Zosyn along with D5 half-normal saline fluid resuscitation at the time of evaluation patient was stable without any active distress Review of Systems Const: Reports: chills, body aches, change in appetite and fatigue; Denies: fever(s) Eyes: Denies: change in vision ENMT: Denies: throat pain Card: Denies: chest pain Resp: Denies: dyspnea GI: Reports: abdominal pain, nausea and constipation; Denies: vomiting or diarrhea : Denies: flank pain Musc: Reports: back pain, extremity pain, joint pain and joint stiffness; Denies: joint redness or joint warmth Skin/Breast: Denies: rash Neuro: Denies: headache(s) Psych: Denies: anxiety Endo: Denies: polyuria [place]vin/Lymph: Denies: easy bruising All/Imm: Denies: urticaria Medications/Allergies Home Medications Medication Instructions Recorded Confirmed Last Taken Type modafinil 100 mg tablet 100 mg PO DAILY 09/23/19 11/20/19 Unknown History gemfibrozil 600 mg tablet 600 mg PO BID tab 10/17/19 11/20/19 Unknown History pantoprazole 40 mg tablet,delayed 40 mg PO DAILY #30 tab 10/17/19 11/20/19 Unknown Rx release ergocalciferol (vitamin D2) 1,250 50,000 unit PO DAILY #15 cap 10/21/19 11/20/19 Unknown Rx mcg (50,000 unit) capsule acetaminophen 500 mg capsule 500 mg PO Q6H PRN 11/20/19 11/20/19 Unknown History prednisone 2.5 mg tablet 10 mg PO DAILY tab 11/20/19 11/20/19 Unknown History sulfasalazine 500 mg tablet 1 gm PO BID #120 tab 11/20/19 11/20/19 Unknown Rx ciprofloxacin HCl [Cipro] 500 mg PO BID #14 tab 05/13/20 Unknown Rx hydrocodone-acetaminophen [[place]] 1 tab PO Q6H PRN #14 tab 05/13/20 Unknown Rx metronidazole [Flagyl] 500 mg PO Q8H 7 Days #21 tab 05/13/20 Unknown Rx ondansetron 4 mg PO Q6H PRN #14 tab 05/13/20 Unknown Rx Allergies Allergy/AdvReac Type Severity Reaction Status Date / Time No Known Allergies Allergy Verified 05/13/20 17:36 PFSH Acute PFSH: Medical History Cholelithiasis Encounter for screening for other viral diseases GERD (gastroesophageal reflux disease) High risk medication use History of colon polyps Hyperlipidemia Immunization counseling Rheumatoid arthritis with rheumatoid factor Surgical History History of cholecystectomy History of colonoscopy with polypectomy (~2018) History of esophagogastroduodenoscopy (EGD) (~2018) History of hernia repair Family History Other Diabetes Hypertension Denies family history of Systemic lupus erythematosus, unspecified Rheumatoid arthritis Anesthesia complication Bleeding disorder Cancer Stroke Social History Smoking and tobacco status: current every day smoker cigarettes Quit status (tobacco): has tried quititng Second hand smoke exposure: No Alcohol intake: current Alcohol intake frequency: holidays/special occasions only Alcohol type: beer Adopted: No Caregiver/support person: Yes Lives independently: Yes Household members: spouse Housing: House Marital status: Highest education level completed: High School Graduate service: No Current occupational status: employed 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 Current occupational exposures/hazards: No Pets and animals: No History of recent travel: No Sexually active: Yes Current gender identity: Male Neda/Presybeterian: Caodaism Special neda needs: No Agree to transfusion: No Financial difficulty paying for basics: Decline to Answer Vitals/I&O/Wt Last Vital Signs Temp 98.8 F 05/17/20 16:55 Pulse 84 05/17/20 19:00 Resp 18 05/17/20 19:02 BP 124/69 05/17/20 19:00 Pulse Ox 98 05/17/20 19:02 Weight last 48 hrs Weight 102.965 kg Physical Exam Narrative: EXAM NARRATIVE: Patient was laying comfortable in his bed in right lateral position Normal hemodynamics Does not look dehydrated No active respiratory distress Appears stated age EOMI, PERRLA, no neurological deficit S1, S2 no tachycardia or heart failure Abdomen soft distended tenderness on deep palpation, hypogastric region and left lower quadrant, bowel sounds sluggish Lungs are clear to auscultation No active joint swelling or redness No lower extremity edema gangrene or ulcer Appropriate mood and affect Data : 05/17/20 17:27 05/17/20 17:27 A&P Assessment and plan (1) Diverticulitis: Status: Acute (2) Rheumatoid arthritis with rheumatoid factor: Status: Acute Qualifiers: Rheumatoid arthritis location: multiple sites Qualified Code(s): M05.79 - Rheumatoid arthritis with rheumatoid factor of multiple sites without organ or systems involvement (3) High risk medication use: Status: Acute Additional A&P Information Diverticulitis with microabscess Failed outpatient therapy came in with worsening abdominal pain, CT abdomen is revealing microperforations with diverticulitis without abscess formation, He is not septic on admission N.p.o., D5 half-normal saline fluid resuscitation along Zosyn Dr. Toro consulted Conservative management for now He will need another colonoscopy in next few weeks(last colonoscopy was done when he had bright bleed per rectum, diverticular bleed, benign polyp) Rheumatoid arthritis currently on disease modifying agents Started sulfasalazine in October No acute flare Nicotine dependence: Smoking half a pack a day, need reinforcement to quit smoking N.p.o. DVT prophylaxis SCDs in case he would require any surgical intervention because of microabscesses on CT abdomen Full code Attestations Medical Necessity Statement*: He failed outpatient therapy, I am suspecting he will need more than 2 midnights in the hospital for management of micro abscesses and diverticulitis Time Spent in Patient Care: (>than 50% of time spent in counselling and/or direct pt care on unit). 50mins Coding Level of Care Code Acute Sign Shop Supervisor for Svetag Fwd Diagnoses Diverticulitis K57.92 Rheumatoid arthritis with rheumatoid factor M05.79 Rheumatoid arthritis location: multiple sites High risk medication use Z79.899
--- NOTE | 2020-05-17 19:51 | PC.NURSE ---
Blood cultures drawn 1948
[2020-05-17] MEDS: metroNIDAZOLE IV 500 MG/100 ML PREMIX 100 MG IV (20:05)
[2020-05-17] MEDS: levofloxacin-dextrose 5 % 750 MG/150 ML PREMIX 100 MG IV (20:05)
[2020-05-17] MEDS: piperacillin-tazobactam 3.375 GM in sodium chloride 0.9% (plus) 50 ML IV (21:29)
[2020-05-17] MEDS: dextrose 5%-sod chloride 0.45% 1,000 ML 75 ML IV (21:30)
[2020-05-17] MEDS: HYDROmorphone 1 mg/mL INJ 1 mL 2 MG IVP (21:34)
[2020-05-18] VITALS (8 sets, daily range): BP systolic 126–135; BP diastolic 77–86; PULSE 65–87; RESP 16–18; TEMP 36.4–37.7; O2SAT 95–98
[2020-05-18] MEDS: HYDROmorphone 1 mg/mL INJ 1 mL 2 MG IVP ×3 (04:05→19:52)
[2020-05-18] MEDS: acetaminophen 325 mg Tablet 650 MG PO (04:48)
[2020-05-18] MEDS: piperacillin-tazobactam 3.375 GM in sodium chloride 0.9% (plus) 50 ML IV ×3 (04:50→21:23)
[2020-05-18 05:12] LABS: Basophils # 0.1 10^3/uL (0.0-0.1); Basophils % 0.5 %; Eosinophils # 0.2 10^3/uL (0.0-0.8); Hemoglobin 12.3 g/dL (11.7-16.6); Lymphocytes # 2.1 10^3/uL (0.8-4.8); Lymphocytes % 11.6 %; Mean Corpuscular HGB Conc 31.5 g/dL (30.0-36.0); Mean Corpuscular Hemoglobin 29.6 pg (28.0-34.0); Mean Corpuscular Volume 93.8 fL (80-94); Mean Platelet Volume 8.8 fL (7.4-10.4); Monocytes # 1.3 10^3/uL (0.2-0.9); Monocytes % 7.2 %; Neutrophils # 14.54 10^3/uL (1.8-7.7); Neutrophils % 78.6 %; Nucleated Red Blood Cells % 0 %; Platelet Count 421 10^3/cmm (130-400); Red Blood Count 4.16 10^6/uL (4.1-5.3); Red Cell Distribution Width 12.9 % (12.1-15.1); White Blood Count 18.5 10^3/uL (4.0-10.0)
[2020-05-18 05:32] LABS: Anion Gap 14.2 (5-19); Blood Urea Nitrogen 13 mg/dL (6-20); Calcium 9.2 mg/dL (8.5-10.5); Carbon Dioxide 24 mmol/L (22-29); Chloride 102 mmol/L (98-107); Glomerular Filtration Rate 73.1 mL/min (90-130); Glucose 116 mg/dL (65-115); Osmolality Calculated 283 mOsm/kg (285-295); Potassium 4.2 mmol/L (3.5-5.1); Sodium 136 mmol/L (136-145)
--- NOTE | 2020-05-18 07:25 | P.CONIM_ITS ---
Providers/Reason For Consult Consulting Physican/Specialty*: General Surgery David Toro MD Reason for Consult*: Perforated sigmoid diverticulitis. Attending Physician: Rancho Boyer MD Primary Care Provider: Giovanni Oconnell History of Present Illness History of Present Illness Ciaran Lau is a 45 year old male who says he awoke a week ago today with some lower abdominal discomfort. He thought he was constipated and so he took some laxatives. He does not normally have to do this. He was still having problems 2 days later so he was seen at his primary care physician's office. A plain x-ray apparently revealed some mild constipation. His white blood cell count was elevated, however, so he was sent subsequently to the emergency room where a CAT scan showed sigmoid diverticulitis with early evidence of a perforation. He was started on ciprofloxacin and metronidazole as an outpatient. It sounds like he never did really get significantly better. He does mention that he stopped taking pain medication a couple of days ago and woke up yesterday actually feeling better. The pain returned yesterday afternoon, however. He says he ran a fever of a little over 101 degrees last week but otherwise has not noticed any obvious fevers or chills. He is having loose stool without evidence of hematochezia. The patient came back to the emergency room yesterday and another CAT scan showed slightly worsening appearance to the sigmoid colon with more extraluminal air. The patient says he is actually feeling a little bit better today, but has had some pain medication. He is wondering if he can have something to drink. Review of Systems General: Reports: 10 or more systems reviewed and unremarkable except in HPI and below Const: Reports: fever(s) Resp: Reports: non-productive cough GI: Reports: abdominal pain and diarrhea; Denies: hematochezia Meds/Allergies Home Medications and Allergies Home Medications Medication Instructions Recorded Confirmed Last Taken Type ciprofloxacin HCl 500 mg PO BID 05/17/20 05/17/20 1 Day Ago History ~05/16/20 hydrocodone-acetaminophen 1 tab PO Q6H PRN 05/17/20 05/17/20 1 Day Ago History ~05/16/20 metronidazole 500 mg PO Q8H 05/17/20 05/17/20 1 Day Ago History ~05/16/20 Allergies Allergy/AdvReac Type Severity Reaction Status Date / Time No Known Allergies Allergy Verified 05/13/20 17:36 Current Medications Current Medications Generic Name Dose Route Start Last Admin Trade Name Freq PRN Reason Stop Dose Admin Hydromorphone HCl 2 mg 05/17/20 20:41 05/18/20 04:05 Dilaudid Inj IVP 2 mg Q4H PRN Administration abd pain Dextrose/Sodium Chloride 1,000 mls @ 75 mls/hr 05/17/20 20:41 05/17/20 21:30 Dextrose 5%-Sod Chloride 0.45% IV 75 mls/hr .[id number] MARIA FERNANDA Administration Piperacillin Sod/Tazobactam 50 mls @ 12.5 mls/hr 05/17/20 21:00 05/18/20 04:50 Sod 3.375 gm/ Sodium Chloride IV 12.5 mls/hr Q8H MARIA FERNANDA Administration Protocol As Directed PFSH Acute PFSH: Medical History (Updated 05/18/20 @ 08:06 by David Toro MD) Cholelithiasis Colon polyps Encounter for screening for other viral diseases GERD (gastroesophageal reflux disease) High risk medication use History of colon polyps Hyperlipidemia Immunization counseling Rheumatoid arthritis with rheumatoid factor Surgical History (Updated 05/18/20 @ 08:04 by David Toro MD) History of cholecystectomy History of colonoscopy with polypectomy (~2018) Diverticular bleed 2019 status post colonoscopy with polyp removal, benign as per the patient History of esophagogastroduodenoscopy (EGD) (~2019) History of hernia repair Right inguinal hernia repair as a child Family History Other Diabetes Hypertension Denies family history of Systemic lupus erythematosus, unspecified Rheumatoid arthritis Anesthesia complication Bleeding disorder Cancer Stroke Social History Smoking and tobacco status: current every day smoker cigarettes Quit status (tobacco): has tried quititng Second hand smoke exposure: No Alcohol intake: current Alcohol intake frequency: holidays/special occasions only Alcohol type: beer Adopted: No Caregiver/support person: Yes Lives independently: Yes Household members: spouse Housing: House Marital status: Highest education level completed: High School Graduate service: No Current occupational status: employed 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 Current occupational exposures/hazards: No Pets and animals: No History of recent travel: No Sexually active: Yes Current gender identity: Male Neda/Baptist: Mosque Special neda needs: No Agree to transfusion: No Financial difficulty paying for basics: Decline to Answer Vitals/I&O/Wt Last Vital Signs Temp 97.6 F 05/18/20 04:00 Pulse 66 05/18/20 04:00 Resp 16 05/18/20 04:05 BP 134/86 05/18/20 04:00 Pulse Ox 95 05/18/20 04:05 05/17/20 05/18/20 05/18/20 22:59 06:59 14:59 Intake Total 1100 / 1150 50 / 1150 Output Total 0 / 300 300 / 300 Balance 1100 / 850 -250 / 850 Weight last 48 hrs Weight 227 lb Physical Exam Narrative: EXAM NARRATIVE: The patient was encountered in his hospital room. He does not appear to be in any distress. His pupils are equal. No carotid bruits are heard. The lungs are clear anteriorly. The heart is regular. The abdomen is moderately obese and reveals hypoactive bowel sounds. It is soft, but the patient does have some mild to moderate tenderness in the lower midline and left lower quadrant. No obvious masses are palpated. The extremities reveal no edema. Neurologically the patient appears to be grossly intact. Data Micro: Micro: Microbiology 05/17/20 19:50 Blood Culture - Pr eliminary Blood SPECIMEN [facility] Imaging^: CT Abd/Pel: Radiologist's impression: CT abdomen/pelvis 05/17/2020 IMPRESSION: 1. Evidence again of mid sigmoid acute diverticulitis with perforation. 2. There is been increase in the volume of the extraluminal walled off gas since last evaluation. Increase in the pericolonic fat inflammatory phlegmonous response. Currently no visible loculated fluid collection to suggest formation of any organized abscess. 3. The appendix lies immediately adjacent to the inflammatory sigmoid diverticulitis focus and demonstrates mild reactive inflammatory response. A&P Assessment and plan (1) Perforation of sigmoid colon due to diverticulitis: CT reviewed. I agree with the assessment of mid sigmoid diverticulitis with localized perforation. I discussed diverticulitis with the patient in some detail today. We discussed how we always hope these episodes get better with antibiotics alone or surgery has to be entertained and that includes possibilities of colostomies, etc. The patient just had a colonoscopy in June 2019. This was done in [place]. Some polyps were removed and he was told to have another colonoscopy in several years. Continue Zosyn. Subcutaneous heparin. I am going to allow the patient clear liquids for now. Status: Acute Consult Attestations Medical Necessity Statement: See admitting service's notation. Coding Level of Care Code Acute Gun Number for Dillon Kessler Diagnoses Perforation of sigmoid colon due to diverticulitis K57.20
[2020-05-18] MEDS: pantoprazole 40 mg SDV IVP (08:24)
[2020-05-18] MEDS: heparin 5,000 unit/mL INJ 1 mL 5000 UNIT SUBCUT ×2 (08:25→19:58)
[2020-05-18] MEDS: dextrose 5%-sod chloride 0.45% 1,000 ML 75 ML IV (09:02)
--- NOTE | 2020-05-18 09:15 | PC.RESP ---
SMOKING CESSATION INFORMATION SENT TO PATIENT.
--- NOTE | 2020-05-18 09:54 | PC.CHAP ---
Pastoral Care Encounter/Spiritual Assessment Type of Contact [] Declined territory account representative visit [] Patient/Family/Request visit [] Outpatient visit [] Follow-up visit [] Physician referral [] Code/Alert [x] Routine visit [] Staff referral [] Actively dying [] Patient sleeping [] Family support [] [] Out of room [] Palliative care [] [] Receiving care in room [] Pre-surgical visit [] Trauma [] Long length of stay [] ICU visit [] Other: Relational/Emotional Strength [] Patient feels connected with others/family/visitors/staff [] Distress [] Loneliness/isolation [] Abandonment Spirituality of Patient [] Person of Neda [] Attends Mosque of their Neda [] Believes in Prayer [] Reads Bible or Christian materials [] There are Spiritual issues to be addressed Electronic Coils Supervisor Interventions [x] Prayer [x] Active listening [x] Non-anxious presence [x] Spiritual/emotional support [] Crisis/trauma care [] Spiritual counseling [] Bereavement support [] Provided bereavement packet [] Provided Bible/devotional materials [] Provided toy/stuffed animal, coloring book to patient or family member [] Provided Communion [] Anointing/[place] [] Salvation [x] Completed spiritual assessment [] Other: Impact on Illness or Injury [] Angry [] Fearful [] Anxious [] Often cries [] Exhaustion [] Unable to work [] Unable to attend holiness [] Unable to walk/stand [] Unable to read [] Unable to drive [] Unable to eat/drink [] Unable to sleep [] Unable to be with family [] Patient intubated [] Other: Summary discussed causes and dietary changes. Time spent with patient 10 min
[2020-05-18 10:03] LABS: Estmated Average Glucose 120; Hemoglobin A1C 5.8 % (4.0-6.0)
--- NOTE | 2020-05-18 11:16 | P.PN_ITS ---
Subjective Subjective: Interval history: This morning, patient was examined, he is laying in bed, currently with a clear liquid diet tray in front of him, he has tried a little bit, has kept it down, no nausea, no vomiting, did have a bowel movement this morning, clear liquidy green-colored, abdomen feels a bit better, but still having abdominal pain, no fevers, no chills Vitals/I&O/Wt Last Vital Signs Temp 97.5 F L 05/18/20 07:33 Pulse 69 05/18/20 07:33 Resp 18 05/18/20 07:33 BP 130/78 05/18/20 07:33 Pulse Ox 98 05/18/20 07:33 05/17/20 05/18/20 05/18/20 22:59 06:59 14:59 Intake Total 1100 / 1100 50 / 1150 1065 / 1065 Output Total 0 / 0 300 / 300 200 / 200 Balance 1100 / 1100 -250 / 850 865 / 865 Weight last 48 hrs Weight 102.965 kg Physical Exam Const: COMMON NORMALS: no acute distress and patient oriented x3 HENMT: COMMON NORMALS: normocephalic HEAD & SCALP: normocephalic Neck/C-Spine: COMMON NORMALS: no JVD Resp: COMMON NORMALS: normal respiratory effort, No retractions, No use of accessory muscles and clear to auscultation bilaterally AUSCULTATION: clear to auscultation bilaterally Cardio: COMMON NORMALS: no JVD, regular rate, regular rhythm, S1 normal heart sound present and S2 normal heart sound present RATE: regular rate RHYTHM: regular rhythm HEART SOUNDS: S1 normal heart sound present and S2 normal heart sound present GI: COMMON NORMALS: Normal to inspection, nondistended, normoactive bowel sounds present AUSCULTATION: Yes Hypoactive bowel sounds present PALPATION: Yes Tenderness to palpation present (GI) Details: LLQ, RLQ, LUQ and RUQ, No Guarding due to palpation present (GI) and No Rigid due to palpation Extremity: COMMON NORMALS: capillary refill normal, no clubbing, cyanosis or edema, no calf tenderness and no pedal edema Neuro: COMMON NORMALS: patient oriented x3 Psych: COMMON NORMALS: mental status grossly normal Data : 05/18/20 04:28 05/18/20 04:28 Micro: Microbiology 05/17/20 19:50 Blood Culture - Preliminary Blood SPECIMEN COLLECTED A&P Assessment and plan (1) Diverticulitis: Status: Acute (2) Rheumatoid arthritis with rheumatoid factor: Status: Acute Qualifiers: Rheumatoid arthritis location: multiple sites Qualified Code(s): M05.79 - Rheumatoid arthritis with rheumatoid factor of multiple sites without organ or systems involvement (3) High risk medication use: Status: Acute Additional A&P Information Diverticulitis with microabscess Failed outpatient therapy came in with worsening abdominal pain, CT abdomen is revealing microperforations with diverticulitis without abscess formation, He was not septic on admission, white blood cell count 18.5, remains afebrile, CRP 56.7 Currently on a clear liquid diet, continue D5 half-normal saline fluid resuscitation, continue Zosyn Dr. Toro consulted Conservative management for now He will need another colonoscopy in next few weeks(last colonoscopy was done when he had bright bleed per rectum, diverticular bleed, benign polyp) Rheumatoid arthritis currently on disease modifying agents Started sulfasalazine in October No acute flare Nicotine dependence: Smoking half a pack a day, need reinforcement to quit smoking N.p.o. DVT prophylaxis Heparin Full code Attestations Medical Necessity Statement*: Patient requires hospitalization for acute diverticulitis with microperforation Coding Level of Care Code Acute Telephone Interviewer for Dillon Kessler Diagnoses Diverticulitis K57.92 Rheumatoid arthritis with rheumatoid factor M05.79 Rheumatoid arthritis location: multiple sites High risk medication use Z79.899
--- NOTE | 2020-05-18 18:32 | PC.NURSE ---
Addendum entered by Debbie Carpio RN 05/18/20 18:37: pt is A/Ox4 Original Note: END OF SHIFT SUMMARY pt has had an uneventful day with minor pain. pain relieved with dilaudid (see MAR) and has not had pain since. pt is very pleasant and is SBA. patent IV. pt had a two loose, green stools today. pt currently laying in bed, eating, watching TV with call light within reach.
[2020-05-19] VITALS (9 sets, daily range): BP systolic 112–149; BP diastolic 68–104; PULSE 68–89; RESP 16–22; TEMP 36.7–37; O2SAT 93–98
[2020-05-19] MEDS: HYDROmorphone 1 mg/mL INJ 1 mL 2 MG IVP ×3 (02:06→20:06)
[2020-05-19 05:02] LABS: Basophils # 0.1 10^3/uL (0.0-0.1); Basophils % 0.4 %; Eosinophils # 0.2 10^3/uL (0.0-0.8); Eosinophils % 1.1 %; Lymphocytes % 12.4 %; Mean Corpuscular HGB Conc 32.5 g/dL (30.0-36.0); Mean Corpuscular Hemoglobin 29.9 pg (28.0-34.0); Mean Platelet Volume 8.7 fL (7.4-10.4); Monocytes # 1.2 10^3/uL (0.2-0.9); Monocytes % 7.4 %; Neutrophils # 12.41 10^3/uL (1.8-7.7); Neutrophils % 77.7 %; Nucleated Red Blood Cells % 0 %; Platelet Count 443 10^3/cmm (130-400); Red Blood Count 4.35 10^6/uL (4.1-5.3); Red Cell Distribution Width 12.7 % (12.1-15.1)
[2020-05-19] MEDS: piperacillin-tazobactam 3.375 GM in sodium chloride 0.9% (plus) 50 ML IV ×3 (05:25→20:36)
[2020-05-19 05:27] LABS: Anion Gap 11.8 (5-19); Blood Urea Nitrogen 10 mg/dL (6-20); Calcium 9.4 mg/dL (8.5-10.5); Carbon Dioxide 25 mmol/L (22-29); Chloride 98 mmol/L (98-107); Glomerular Filtration Rate 73.1 mL/min (90-130); Glucose 108 mg/dL (65-115); Osmolality Calculated 272 mOsm/kg (285-295); Potassium 3.8 mmol/L (3.5-5.1); Sodium 131 mmol/L (136-145)
[2020-05-19] MEDS: dextrose 5%-sod chloride 0.45% 1,000 ML 75 ML IV (05:51)
[2020-05-19] MEDS: heparin 5,000 unit/mL INJ 1 mL 5000 UNIT SUBCUT ×2 (06:27→20:33)
--- NOTE | 2020-05-19 07:05 | PM.PN ---
Subjective Subjective: Interval history: The patient says he feels better today. He is still having some loose stool. Vitals/I&O/Wt Last Vital Signs Temp 98.3 F 05/19/20 04:00 Pulse 68 05/19/20 04:00 Resp 17 05/19/20 04:00 BP 126/80 05/19/20 04:00 Pulse Ox 93 05/19/20 04:00 05/18/20 05/19/20 05/19/20 22:59 06:59 14:59 Intake Total 1650 / 3065 50 / 3065 Output Total 300 / 2380 1200 / 2380 Balance 1350 / 685 -1150 / 685 Weight last 48 hrs Weight 227 lb Physical Exam Narrative: EXAM NARRATIVE: Patient remains afebrile. Abdomen seems less tender today. Data : 05/19/20 04:09 05/19/20 04:09 Micro: Microbiology 05/17/20 19:50 Blood Culture - Preliminary Blood NEGATIVE TO DATE A&P Assessment and plan (1) Perforation of sigmoid colon due to diverticulitis: Patient appears to be improving. Continue Zosyn. Status: Acute Attestations Medical Necessity Statement*: See admitting service's notation. Coding Level of Care Code Acute Glass Loading Equipment Tender for Dillon Kessler Diagnoses Perforation of sigmoid colon due to diverticulitis K57.20
[2020-05-19] MEDS: pantoprazole 40 mg SDV IVP (09:44)
[2020-05-19] MEDS: sodium chloride 0.9% 1,000 ML 75 ML IV ×2 (12:06→23:50)
--- NOTE | 2020-05-19 15:13 | PM.PN ---
Subjective Subjective: Interval history: Overall patient is doing better this morning, had liquidy bowel movements, abdomen is still a bit tender, tolerating clear liquid diet well, no fevers, no chills, no nausea, no vomiting Vitals/I&O/Wt Last Vital Signs Temp 98.1 F 05/19/20 12:00 Pulse 75 05/19/20 12:00 Resp 16 05/19/20 12:27 BP 112/72 05/19/20 12:00 Pulse Ox 95 05/19/20 12:27 05/19/20 05/19/20 05/19/20 06:59 14:59 22:59 Intake Total 50 / 3065 1010 / 1010 Output Total 1200 / 2380 Balance -1150 / 685 1010 / 1010 Weight last 48 hrs Weight 102.965 kg Physical Exam Const: COMMON NORMALS: no acute distress and patient oriented x3 HENMT: COMMON NORMALS: normocephalic HEAD & SCALP: normocephalic Neck/C-Spine: COMMON NORMALS: no JVD Resp: COMMON NORMALS: normal respiratory effort, No retractions, No use of accessory muscles and clear to auscultation bilaterally AUSCULTATION: clear to auscultation bilaterally Cardio: COMMON NORMALS: no JVD, regular rate, regular rhythm, S1 normal heart sound present and S2 normal heart sound present RATE: regular rate RHYTHM: regular rhythm HEART SOUNDS: S1 normal heart sound present and S2 normal heart sound present GI: COMMON NORMALS: Normal to inspection, nondistended, normoactive bowel sounds present, Soft to palpation, non-tender, No hepatosplenomegaly present, no masses and no bruits AUSCULTATION: Yes Hypoactive bowel sounds present PALPATION: Yes Soft to palpation and Yes No hepatosplenomegaly present Extremity: COMMON NORMALS: capillary refill normal, no clubbing, cyanosis or edema, no calf tenderness and no pedal edema Neuro: COMMON NORMALS: patient oriented x3 Psych: COMMON NORMALS: mental status grossly normal Data : 05/19/20 04:09 05/19/20 04:09 Micro: Microbiology 05/17/20 19:50 Blood Culture - Preliminary Blood NEGATIVE TO DATE A&P Assessment and plan (1) Diverticulitis: Status: Acute (2) Rheumatoid arthritis with rheumatoid factor: Status: Acute Qualifiers: Rheumatoid arthritis location: multiple sites Qualified Code(s): M05.79 - Rheumatoid arthritis with rheumatoid factor of multiple sites without organ or systems involvement (3) High risk medication use: Status: Acute Additional A&P Information Diverticulitis with microabscess Failed outpatient therapy came in with worsening abdominal pain, CT abdomen is revealing microperforations with diverticulitis without abscess formation, He was not septic on admission, white blood cell count 16.0, remains afebrile, CRP 56.7 Currently on a clear liquid diet, continue D5 half-normal saline fluid resuscitation, continue Zosyn Dr. Toro consulted Conservative management for now He will need another colonoscopy in next few weeks(last colonoscopy was done when he had bright bleed per rectum, diverticular bleed, benign polyp) Hyponatremia, sodium 131, switch to normal saline Rheumatoid arthritis currently on disease modifying agents Started sulfasalazine in October No acute flare Nicotine dependence: Smoking half a pack a day, need reinforcement to quit smoking N.p.o. DVT prophylaxis Heparin Full code Attestations Medical Necessity Statement*: Patient requires continued hospitalization for diverticulitis with perforation Coding Level of Care Code Acute Interactive Media Marketing Strategist for iDllon Kessler Diagnoses Diverticulitis K57.92 Rheumatoid arthritis with rheumatoid factor M05.79 Rheumatoid arthritis location: multiple sites High risk medication use Z79.899
[2020-05-20] VITALS (10 sets, daily range): BP systolic 111–146; BP diastolic 65–92; PULSE 73–97; RESP 16–19; TEMP 36.1–37.2; O2SAT 94–97
[2020-05-20] MEDS: HYDROmorphone 1 mg/mL INJ 1 mL 2 MG IVP ×4 (02:40→21:11)
[2020-05-20 02:49] LABS: Basophils # 0.1 10^3/uL (0.0-0.1); Basophils % 0.5 %; Eosinophils # 0.1 10^3/uL (0.0-0.8); Eosinophils % 1.1 %; Hematocrit 39.9 % (42.0-52.0); Hemoglobin 12.8 g/dL (11.7-16.6); Lymphocytes # 2.1 10^3/uL (0.8-4.8); Lymphocytes % 15.7 %; Mean Corpuscular HGB Conc 32.1 g/dL (30.0-36.0); Mean Corpuscular Hemoglobin 29.6 pg (28.0-34.0); Mean Corpuscular Volume 92.4 fL (80-94); Mean Platelet Volume 8.7 fL (7.4-10.4); Monocytes # 1.2 10^3/uL (0.2-0.9); Monocytes % 9.1 %; Neutrophils # 9.58 10^3/uL (1.8-7.7); Neutrophils % 72.7 %; Nucleated Red Blood Cells % 0 %; Platelet Count 424 10^3/cmm (130-400); Red Blood Count 4.32 10^6/uL (4.1-5.3); Red Cell Distribution Width 12.6 % (12.1-15.1); White Blood Count 13.2 10^3/uL (4.0-10.0)
[2020-05-20 03:16] LABS: Anion Gap 12.7 (5-19); Blood Urea Nitrogen 9 mg/dL (6-20); Calcium 9.2 mg/dL (8.5-10.5); Carbon Dioxide 25 mmol/L (22-29); Chloride 100 mmol/L (98-107); Glomerular Filtration Rate 66.1 mL/min (90-130); Glucose 83 mg/dL (65-115); Osmolality Calculated 276 mOsm/kg (285-295); Potassium 3.7 mmol/L (3.5-5.1); Sodium 134 mmol/L (136-145)
[2020-05-20] MEDS: piperacillin-tazobactam 3.375 GM in sodium chloride 0.9% (plus) 50 ML IV ×3 (05:54→20:54)
--- NOTE | 2020-05-20 07:45 | P.PN_ITS ---
Subjective Subjective: Interval history: The patient says he is doing better daily. He ended up getting a little bit more pain yesterday afternoon but it is better again this morning. He continues to have some loose stool. Vitals/I&O/Wt Last Vital Signs Temp 97.3 F L 05/20/20 07:32 Pulse 92 05/20/20 07:32 Resp 18 05/20/20 07:32 BP 141/92 05/20/20 07:32 Pulse Ox 97 05/20/20 07:32 05/19/20 05/20/20 05/20/20 22:59 06:59 14:59 Intake Total 530 / 2470 930 / 2470 Output Total 1250 / 2225 975 / 2225 Balance -720 / 245 -45 / 245 Physical Exam Narrative: EXAM NARRATIVE: The patient remains afebrile. Bowel sounds remain hypoactive but he does appear to be getting less tender daily. Data : 05/20/20 01:45 05/20/20 01:45 A&P Assessment and plan (1) Perforation of sigmoid colon due to diverticulitis: The patient appears to be making progress. I have recommended he stay in the hospital for more intravenous antibiotic therapy and he is agreeable. I am going to start the patient on some oral Augmentin in anticipation of discharge, as he appeared to fail initial outpatient therapy on oral ciprofloxacin and metronidazole. Status: Acute Attestations Medical Necessity Statement*: See admitting service's notation. Coding Level of Care Code Acute Network Coordinator for Dillon Kessler Diagnoses Perforation of sigmoid colon due to diverticulitis K57.20
[2020-05-20] MEDS: heparin 5,000 unit/mL INJ 1 mL 5000 UNIT SUBCUT ×2 (08:09→20:53)
[2020-05-20] MEDS: pantoprazole 40 mg SDV IVP (08:09)
[2020-05-20] MEDS: amoxicillin-clav 875-125 mg Tablet 1 TAB PO ×2 (08:09→17:31)
--- NOTE | 2020-05-20 09:15 | PC.SOCIAL ---
IMM Page 2 of IMM explained to and signed by patient. Initialed, dated, and timed and placed in chart. Copy provided to patient.
--- NOTE | 2020-05-20 15:14 | PM.PN ---
Subjective Subjective: Interval history: Patient remains afebrile overnight, still having left lower quadrant abdominal pain, but improved, passing liquidy bowel movements, passing gas Vitals/I&O/Wt Last Vital Signs Temp 97.0 F L 05/20/20 11:15 Pulse 97 05/20/20 11:15 Resp 18 05/20/20 11:15 BP 146/82 05/20/20 11:15 Pulse Ox 97 05/20/20 11:15 05/20/20 05/20/20 05/20/20 06:59 14:59 22:59 Intake Total 930 / 2470 650 / 650 Output Total 975 / 2225 Balance -45 / 245 650 / 650 Physical Exam Const: COMMON NORMALS: no acute distress and patient oriented x3 HENMT: COMMON NORMALS: normocephalic HEAD & SCALP: normocephalic Neck/C-Spine: COMMON NORMALS: no JVD Resp: COMMON NORMALS: normal respiratory effort, No retractions, No use of accessory muscles and clear to auscultation bilaterally AUSCULTATION: clear to auscultation bilaterally Cardio: COMMON NORMALS: no JVD, regular rate, regular rhythm, S1 normal heart sound present and S2 normal heart sound present RATE: regular rate RHYTHM: regular rhythm HEART SOUNDS: S1 normal heart sound present and S2 normal heart sound present GI: COMMON NORMALS: Normal to inspection, nondistended, normoactive bowel sounds present, Soft to palpation, No hepatosplenomegaly present, no masses and no bruits AUSCULTATION: Yes Hypoactive bowel sounds present PALPATION: Yes Soft to palpation, Yes Tenderness to palpation present (GI) Details: LLQ and Yes No hepatosplenomegaly present Extremity: COMMON NORMALS: capillary refill normal, no clubbing, cyanosis or edema, no calf tenderness and no pedal edema Neuro: COMMON NORMALS: patient oriented x3 Psych: COMMON NORMALS: mental status grossly normal Data : 05/20/20 01:45 05/20/20 01:45 A&P Assessment and plan (1) Diverticulitis: Status: Acute (2) Rheumatoid arthritis with rheumatoid factor: Status: Acute Qualifiers: Rheumatoid arthritis location: multiple sites Qualified Code(s): M05.79 - Rheumatoid arthritis with rheumatoid factor of multiple sites without organ or systems involvement (3) High risk medication use: Status: Acute Additional A&P Information Diverticulitis with microabscess Failed outpatient therapy came in with worsening abdominal pain, CT abdomen is revealing microperforations with diverticulitis without abscess formation, He was not septic on admission, white blood cell count 16.0, remains afebrile, CRP 56.7 Currently on a clear liquid diet, stop IV fluids continue Zosyn Dr. Toor consulted Conservative management for now He will need another colonoscopy in next few weeks(last colonoscopy was done when he had bright bleed per rectum, diverticular bleed, benign polyp) Hyponatremia, sodium 134, switch to normal saline Rheumatoid arthritis currently on disease modifying agents Started sulfasalazine in October No acute flare Nicotine dependence: Smoking half a pack a day, need reinforcement to quit smoking Clear liquid diet DVT prophylaxis Heparin Full code Discharge in the next 24 hours Attestations Medical Necessity Statement*: Patient requires hospitalization for acute diverticulitis with micro perforation Coding Level of Care Code Acute Supervisor Prop Making for Dillon Kessler Diagnoses Diverticulitis K57.92 Rheumatoid arthritis with rheumatoid factor M05.79 Rheumatoid arthritis location: multiple sites High risk medication use Z79.899
[2020-05-21] VITALS (7 sets, daily range): BP systolic 117–135; BP diastolic 72–84; PULSE 72–77; RESP 16–20; TEMP 36.8–37; O2SAT 94–96
[2020-05-21] MEDS: HYDROmorphone 1 mg/mL INJ 1 mL 2 MG IVP ×2 (03:10→08:47)
[2020-05-21 05:11] LABS: Basophils # 0.1 10^3/uL (0.0-0.1); Basophils % 0.5 %; Eosinophils # 0.2 10^3/uL (0.0-0.8); Hematocrit 38.8 % (42.0-52.0); Hemoglobin 12.9 g/dL (11.7-16.6); Lymphocytes # 1.9 10^3/uL (0.8-4.8); Lymphocytes % 11.7 %; Mean Corpuscular HGB Conc 33.2 g/dL (30.0-36.0); Mean Corpuscular Hemoglobin 29.9 pg (28.0-34.0); Mean Platelet Volume 8.5 fL (7.4-10.4); Monocytes # 1.1 10^3/uL (0.2-0.9); Monocytes % 6.7 %; Neutrophils # 12.83 10^3/uL (1.8-7.7); Neutrophils % 79.3 %; Nucleated Red Blood Cells % 0 %; Platelet Count 468 10^3/cmm (130-400); Red Blood Count 4.31 10^6/uL (4.1-5.3); Red Cell Distribution Width 12.5 % (12.1-15.1); White Blood Count 16.2 10^3/uL (4.0-10.0)
[2020-05-21] MEDS: piperacillin-tazobactam 3.375 GM in sodium chloride 0.9% (plus) 50 ML IV (05:42)
[2020-05-21 05:49] LABS: Anion Gap 14.9 (5-19); Blood Urea Nitrogen 10 mg/dL (6-20); Calcium 9.6 mg/dL (8.5-10.5); Carbon Dioxide 23 mmol/L (22-29); Chloride 97 mmol/L (98-107); Glomerular Filtration Rate 66.1 mL/min (90-130); Glucose 113 mg/dL (65-115); Osmolality Calculated 272 mOsm/kg (285-295); Potassium 3.9 mmol/L (3.5-5.1); Sodium 131 mmol/L (136-145)
--- NOTE | 2020-05-21 07:33 | PM.PN ---
Subjective Subjective: Interval history: Patient says his abdomen continues to feel better. He is complaining of right foot/great toe pain this morning. Vitals/I&O/Wt Last Vital Signs Temp 98.2 F 05/21/20 07:21 Pulse 74 05/21/20 07:21 Resp 18 05/21/20 07:21 BP 117/72 05/21/20 07:21 Pulse Ox 96 05/21/20 07:21 05/20/20 05/21/20 05/21/20 22:59 06:59 14:59 Intake Total 530 / 1590 410 / 1590 Output Total 350 / 550 200 / 550 Balance 180 / 1040 210 / 1040 Physical Exam Narrative: EXAM NARRATIVE: The abdomen remains with minimal/mild tenderness in the left lower quadrant/lower midline. The patient's right foot has some swelling and some erythema over the proximal joint at the great toe. Data : 05/21/20 04:41 05/21/20 04:41 A&P Assessment and plan (1) Perforation of sigmoid colon due to diverticulitis: The patient's abdomen continues to improve, but his foot is giving him trouble. He says someone told him in the past that he had gout but he has never had treatment for it. He also has the history of rheumatoid arthritis. Await hospitalist evaluation. I will check a uric acid. Assuming continued improvement of the patient's abdomen, I would recommend he consider a colonoscopy in 6 to 8 weeks. I will be away starting later today, but would be happy to follow-up with him in my office as an outpatient at some point if desired. If he develops further trouble in the hospital, the surgeon evaluation assistant will need to be involved in my absence. Status: Acute Attestations Medical Necessity Statement*: See admitting service's notation. Coding Level of Care Code Acute Gauge Maker Apprentice for [facility] [place] Diagnoses Perforation of sigmoid colon due to diverticulitis K57.20
[2020-05-21] MEDS: amoxicillin-clav 875-125 mg Tablet 1 TAB PO (08:28)
[2020-05-21] MEDS: heparin 5,000 unit/mL INJ 1 mL 5000 UNIT SUBCUT (08:28)
[2020-05-21] MEDS: pantoprazole 40 mg SDV IVP (08:28)
[2020-05-21] MEDS: naproxen 500 mg Tablet PO (08:59)
[2020-05-21] MEDS: predniSONE 20 mg Tablet 40 MG PO (08:59)
--- NOTE | 2020-05-21 11:54 | P.DS_ITS ---
Discharge Providers Date of Admission: 05/17/20 19:35 Date of Discharge: May 21, 2020 Attending Provider at Admission: Inna Cerna MD Attending Provider at Discharge: Murphy Vaughn MD Primary Care Provider: Giovanni Oconnell Diagnoses at Discharge Discharge Diagnosis (1) Perforation of sigmoid colon due to diverticulitis: Status: Acute Reason for Visit Reason for Visit: Lower Abdominal pain Hospital Course Discharge Summary: This is a 45-year-old male with a past medical history of rheumatoid arthritis, who presents to [facility] due to left lower quadrant pain, and failure of outpatient therapy for diverticulitis. Patient was admitted to [facility] for diverticulitis with microabscess, CT abdomen showed microperforations with diverticulitis without abscess formation, he is not septic on admission, received broad-spectrum antibiotics, kept n.p.o., surgery was consulted. Patient clinically improved, abdominal symptoms improved, had regular bowel movements, remained afebrile. On discharge patient had some degree of left lower quadrant pain, but significantly improved compared to admission, discharged on 14 days of Augmentin, [place] for pain, and a close follow-up with primary care provider in 1 week, follow-up with Dr. Toro in 1 month. Patient was advised if he were to have fevers, worsening abdominal pain, decreased stooling come back to the emergency room. Patient also had a gouty attack in his right great toe during his hospitalization, which is not uncommon during times of infection, received prednisone, naproxen. Patient was advised to follow-up with primary care provider in 1 month for consideration of allopurinol therapy. Discharged on prednisone and naproxen. Physical Exam Const: COMMON NORMALS: no acute distress and patient oriented x3 HENMT: COMMON NORMALS: normocephalic HEAD & SCALP: normocephalic Neck/C-Spine: COMMON NORMALS: no JVD Resp: COMMON NORMALS: normal respiratory effort, No retractions, No use of accessory muscles and clear to auscultation bilaterally AUSCULTATION: clear to auscultation bilaterally Cardio: COMMON NORMALS: no JVD, regular rate, regular rhythm, S1 normal heart sound present and S2 normal heart sound present RATE: regular rate RHYTHM: regular rhythm HEART SOUNDS: S1 normal heart sound present and S2 normal heart sound present GI: COMMON NORMALS: Normal to inspection, nondistended, normoactive bowel sounds present, Soft to palpation, no masses and no bruits PALPATION: Yes Soft to palpation and Yes Tenderness to palpation present (GI) Details: LLQ Extremity: COMMON NORMALS: capillary refill normal, no clubbing, cyanosis or edema, no calf tenderness and no pedal edema OTHER: right toe swelling, hot, warm, right ankle swelling Neuro: COMMON NORMALS: patient oriented x3 Psych: COMMON NORMALS: mental status grossly normal Discharge Data Data Completed and Pending: Completed Studies During Hospitalization Category Date Time Status CT abdomen pelvis w con* [id number] Urge nt Cat Scan 05/17/20 18:29 Completed Pending at discharge Category Date Time Status Blood Culture Sta t Lab 05/17/20 19:50 Results Uric Acid Routine Lab 05/21/20 07:33 Ordered Labs from last 24 hours 05/21/20 05/21/20 04:41 04:41 WBC 16.2 H RBC 4.31 Hgb 12.9 Hct 38.8 L MCV 90.0 MCH 29.9 MCHC 33.2 RDW 12.5 Plt Count 468 H MPV 8.5 Neut % (Auto) 79.3 Lymph % (Auto) 11.7 [place] % (Auto) 6.7 Eos % (Auto) 1.0 Baso % (Auto) 0.5 Neut # (Auto) 12.83 H Lymph # (Auto) 1.9 [place] # (Auto) 1.1 H Eos # (Auto) 0.2 Baso # (Auto) 0.1 Nucleated RBC % (a uto) 0 Nucleated RBCs # 0.0 Sodium 131 L Potassium 3.9 Chloride 97 L Carbon Dioxide 23 Anion Gap 14.9 BUN 10 Creatinine 1.2 GFR Calculation 66.1 L Glucose 113 Calculated Osmolal ity 272 L Calcium 9.6 Vitals: Last Vital Signs Temp 98.2 F 05/21/20 11:21 Pulse 72 05/21/20 11:21 Resp 18 05/21/20 11:21 BP 128/80 05/21/20 11:21 Pulse Ox 96 05/21/20 11:21 Discharge Plan Discharge Patient Disposition: Home Condition: Stable Prescriptions: New prednisone 20 mg Tablet 40 mg PO DAILY 5 Days Qty: 5 RF: 0 naproxen 500 mg Tablet 500 mg PO Q12H PRN (Reason: Pain) 14 Days Qty: 28 RF: 0 amoxicillin-pot clavulanate 875-125 mg Tablet 1 tab PO BID 14 Days Qty: 28 RF: 0 hydrocodone-acetaminophen 5-325 mg tablet 1 tab PO Q8H PRN (Reason: Abdominal Pain) 7 Days Qty: 21 RF: 0 Discontinued ciprofloxacin HCl 500 mg tablet 500 mg PO BID RF: 0 metronidazole 500 mg tablet 500 mg PO Q8H RF: 0 Discharge Orders: Discharge Order (Routine); Ordered 05/21/20 Ordered By: Murphy Vaughn Referrals: David Toro MD [Physician] - 1 month Discharge Diet: GI Soft Discharge Activity: Resume usual activity Patient Instructions: Diverticulitis (DC) Activity Restrictions/Additional Instructions: -Monitor for fevers or chills and if so come back to the emergency room -If you have sudden worsening of abdominal pain, and he stopped stooling come back to the emergency room -Continue Augmentin for the next 14 days -Hydrocodone as needed for pain -For of gouty attack take prednisone 40 mg for the next 5 days, naproxen as needed -Follow-up with primary care for consideration for allopurinol therapy -Follow-up with Dr. 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
--- NOTE | 2020-05-21 13:49 | PC.NURSE ---
IV removed from right AC, catheter intact, discharge teaching provided, patient verbalized understanding, denies questions or needs at this time, signature obtained, paper scripts given
== END 2020-05-21 14:20 | disposition home or self-care (01) | DRG 392 ==
LOC: ER 17:05 → MEDSURG 20:05
PROVIDERS: Physician Assistant; Surgery; Admitting Provider Internal Medicine; PCP Family Medicine; Visit Provider Family Medicine
DX: K57.20 Diverticulitis of large intestine with perforation and abscess without bleeding (principal); E87.1 Hypo-osmolality and hyponatremia; M05.9 Rheumatoid arthritis with rheumatoid factor, unspecified; K76.0 Fatty (change of) liver, not elsewhere classified; K21.9 Gastro-esophageal reflux disease without esophagitis; E78.5 Hyperlipidemia, unspecified; F17.210 Nicotine dependence, cigarettes, uncomplicated; Z79.899 Other long term (current) drug therapy; M10.9 Gout, unspecified
CPT/HCPCS: 12345; 36415; 74177; 80048; 80053; 81003; 83036; 83690; 85025; 86140; 87040; 96372; 96375; 99283; C9113; J1170; J1644; J1956; J2270; J2405; J2543; J7030; J7512; J7799; Q9967; S0030

== ENCOUNTER 2020-06-05 12:47 | Outpatient (CLI) | payer OTHER, SELFPAY ==
--- NOTE | 2020-06-05 12:52 | CT_ITS ---
WS: [id number] CT scan of the abdomen and pelvis with Oral and with and without IV contrast. Additional two-dimensio nal coronal and sagittal reconstruction was performed. 06/05/2020 Clinical Data: DIVERTICULITIS Comparison: CT abdomen and pelvis, 05/17/2020. DLP: 1668.[address] scans at [facility] use at least one of these dose optimization techniques: automat ed exposure control; mA and/or kV adjustment per patient size (includes targeted exams where dose is matched to clinical indication); or iterative reconstruction. Findings: The lower lungs show no nodules, masses or effusions. The liver, spleen, adrenal glands and pancreas are normal. There are clips in the gallbladder fossa f rom a cholecystectomy. The kidneys show equal bilateral contrast excretion with no cyst or masses. No renal calculi or hydro nephrosis is seen. The abdominal aorta is normal in size. No appendicitis is noted. However there is still sigmoid diverticulitis with evidence of perforation and mesenteric fluid. No definite abscess is seen. Oral contrast is in the stomach and small bowel an d there is no bowel dilatation. No abscess, adenopathy, ascites, mass, obstruction or free air is see n. The bladder is unremarkable. No inguinal hernia is seen. The bones of the lower thorax, lumbar spine, pelvis, and hips show minimal osteoarthritis of the lowe r thoracic vertebral bodies.. CT/CT abdomen pelvis wo/w [id number] Impression: 1. Sigmoid diverticulitis with perforation but no abscess unchanged. 2. No other acute abdominal or pelvic changes are seen.
[2020-06-05] MEDS: iohexol 300 mg/mL 50 mL Btl PO (13:21)
[2020-06-05] MEDS: iohexol 300 mg/mL 100 mL Btl IV (14:18)
== END 2020-06-05 12:48 | disposition home or self-care (01) ==
PROVIDERS: PCP Family Medicine; Visit Provider Nurse Practitioner
DX: K57.92 Diverticulitis of intestine, part unspecified, without perforation or abscess without bleeding (principal)
CPT/HCPCS: 74178; Q9967

== ENCOUNTER 2020-07-08 09:03 | Outpatient (CLI) | payer OTHER, SELFPAY ==
--- NOTE | 2020-07-08 09:09 | CT_ITS ---
WS: [id number] CT ABDOMEN PELVIS TECHNIQUE: Noncontrast CT of the abdomen and contrast-enhanced CT of the abdomen and pelvis with anthony nal and sagittal reformatted images. CLINICAL INFORMATION: FOLLOW UP ACUTE DIVERTICULITIS WITH PERFORATION COMPARISON: June 05, 2020, May 17, 2020, and May 13, 2020 DLP: 1790.[address] scans at [facility] use at least one of these dose optimization techniques: automat ed exposure control; mA and/or kV adjustment per patient size (includes targeted exams where dose is matched to clinical indication); or iterative reconstruction. FINDINGS: Previously described sigmoid diverticulitis has improved with mild residual thickening and surroundin g inflammation. Small diverticular perforation with abscess has improved. No drainable fluid collecti ons. Small air-fluid collection measures 10 mm. No evidence of high-grade small or large bowel obstruction. Diffuse fatty infiltration of the liver. Cholecystectomy clips. Normal spleen. Normal GE junction. Mild fatty atrophy of the pancreas. Adrenal glands are normal. No hydronephrosis in either kidney. Normal caliber abdominal aorta. Lung bases are well aerated. Slight anterolisthesis L5 on S1 with chr onic bilateral pars defects. Incidental fat-containing umbilical hernia CT/CT abdomen pelvis wo/w [id number] IMPRESSION: 1. Improved sigmoid diverticulitis with improved small adjacent fluid collecti on. No evidence of drainable abscess or fluid collection. 2. Diffuse fatty infiltration liver. Cholecystectomy clips. 3. Slight anterolisthesis L5 on S1 with chronic bilateral pars defects. 4. No other significant changes from previous.
[2020-07-08] MEDS: iohexol 300 mg/mL 50 mL Btl PO (09:41)
[2020-07-08] MEDS: iohexol 300 mg/mL 100 mL Btl IV (10:51)
== END 2020-07-08 09:04 | disposition home or self-care (01) ==
LOC: RADWPI 09:08
PROVIDERS: PCP Family Medicine; Visit Provider Family Medicine
DX: K57.92 Diverticulitis of intestine, part unspecified, without perforation or abscess without bleeding (principal); K76.0 Fatty (change of) liver, not elsewhere classified
CPT/HCPCS: 74178; Q9967

== ENCOUNTER 2021-04-29 00:41 | Emergency (ER) | payer OTHER, SELFPAY ==
[2021-04-29 01:21] VITALS: BP 163/100; PULSE 81; RESP 16; TEMP 37.6; O2SAT 96; BMI 34.0
--- NOTE | 2021-04-29 01:33 | ED_ITS ---
Documented by User: RANDY Del Rio 04/29/21 03:35 HPI - Abdominal Pain General: Chief Complaint: Abdominal Pain Stated Complaint: abd pain,trouble having a BM Time Seen by Provider: 04/29/21 00:57 History of Present Illness: HPI narrative: Patient is a 46-year-old male comes to the ED with abdominal pain. Patient has a history of diverticulitis. Abdominal pain started on Monday. Pain is located in the left lower quadrant of the abdomen. He rates the pain currently a 7 out of 10. Says he has been constipated for the past couple days and said he is only had 2 bowel movements since Monday and his last bowel movement was this morning. Took some Benefiber over the past couple days along with his bowel movements. Denies any blood in the stool or any diarrhea. He does endorse having some nausea but denies any emesis. Denies fever, chills, chest pain, shortness of breath, bladder symptoms. Associated Symptoms: Reports constipation and nausea; Denies chills, diarrhea, dysuria, fever(s), hematochezia, hematuria and vomiting Review of Systems Const: Denies: fever(s), chills or fatigue Eyes: Denies: change in vision or eye discomfort ENMT: Denies: throat pain, odynophagia, nasal discharge or nasal congestion Card: Denies: chest pain, palpitations, edema, swelling of feet/ankles, dyspnea on exertion or orthopnea Resp: Denies: dyspnea, productive cough or non-productive cough GI: Reports: abdominal pain (LLQ), nausea and constipation; Denies: vomiting, diarrhea or hematochezia : Denies: flank pain, difficulty urinating, dysuria or hematuria Musc: Denies: neck pain, back pain or extremity swelling Skin/Breast: Denies: rash or new lesions Neuro: Denies: headache(s), numbness in extremities or weakness in extremities PFSH ED PFSH: Medical History Acute diverticulitis Cholelithiasis Colon polyps Encounter for screening for other viral diseases GERD (gastroesophageal reflux disease) High risk medication use History of colon polyps Hyperlipidemia Immunization counseling Rheumatoid arthritis with rheumatoid factor Surgical History History of cholecystectomy History of colonoscopy with polypectomy (~2019) Diverticular bleed 2019 status post colonoscopy with polyp removal, benign as per the patient History of esophagogastroduodenoscopy (EGD) (~2019) History of hernia repair Right inguinal hernia repair as a child Family History Other Diabetes Hypertension Denies family history of Systemic lupus erythematosus, unspecified Rheumatoid arthritis Anesthesia complication Bleeding disorder Cancer Stroke Social History Smoking and tobacco status: current every day smoker cigarettes Quit status (tobacco): has tried quititng Second hand smoke exposure: No Alcohol intake: current Alcohol intake frequency: holidays/special occasions only Alcohol type: beer Adopted: No Caregiver/support person: Yes Lives independently: Yes Household members: spouse Housing: House Marital status: Highest education level completed: High School Graduate service: No Current occupational status: employed 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 Current occupational exposures/hazards: No Pets and animals: No History of recent travel: No Sexually active: Yes Current gender identity: Male Neda/Anabaptism: Zoroastrianism Special neda needs: No Agree to transfusion: No Financial difficulty paying for basics: Decline to Answer Physical Exam Const: COMMON NORMALS: no acute distress, patient oriented x3 and alert GENERAL APPEARANCE: cooperative and comfortable HENMT: COMMON NORMALS: normocephalic HEAD & SCALP: normocephalic MOUTH: Normal oral and palatal mucosa present THROAT: posterior oropharynx normal and uvula midline Eye: COMMON NORMALS: Equal, round and reactive pupils present PUPIL: Yes Equal, round and reactive pupils present Neck/C-Spine: COMMON NORMALS: supple GENERAL: Yes normal visual inspection Resp: COMMON NORMALS: normal respiratory effort, No retractions, No use of accessory muscles and clear to auscultation bilaterally AUSCULTATION: clear to auscultation bilaterally Cardio: COMMON NORMALS: regular rate, regular rhythm, S1 normal heart sound present, S2 normal heart sound present, No gallops present (Cardio), No clicks present (Cardio), No murmurs present (Cardio) and Peripheral pulses 2+ throughout RATE: regular rate RHYTHM: regular rhythm HEART SOUNDS: S1 normal heart sound present and S2 normal heart sound present PERIPHERAL PULSES: Peripheral pulses 2+ throughout GI: COMMON NORMALS: Normal to inspection, nondistended, normoactive bowel sounds present, Soft to palpation and no masses INSPECTION: Yes central obesity PALPATION: Yes Soft to palpation and Yes Tenderness to palpation present (GI) Details: LLQ and RLQ : COMMON NORMALS: Yes no CVA tenderness BLADDER/KIDNEY EXAM: Yes no CVA tenderness Back/Pelvis: COMMON NORMALS: no CVA tenderness Extremity: COMMON NORMALS: normal to inspection Neuro: COMMON NORMALS: patient oriented x3 SENSORIUM/ORIENTATION: Yes alert GAIT: Yes Normal gait present Skin: GENERAL SKIN EXAM: dry skin Course ED course: Patient case was transferred over to Dr. Ghosh at 330. I told Dr. Ghosh about patient case and that I am awaiting the CT results. Dr. Ghosh accepted care of patient @0331. Juan Fuentes PA-C Reevaluation(s): Reevaluation #1: Patient's pain has improved and better controlled after the IV fluids, morphine and Zofran. Time: 03:25 Vital Signs: Vital signs: Vital Signs Temperature 99.7 F H 04/29/21 01:21 Pulse Rate 84 04/29/21 04:44 Respiratory Rate 16 04/29/21 04:44 Blood Pressure 154/78 04/29/21 04:44 Pulse Oximetry 96 04/29/21 04:44 MDM - Abdominal Pain Lab Data: Attestation: I reviewed the patient's lab results. Labs: Lab Results 04/29/21 04/29/21 04/29/21 01:30 01:50 01:50 WBC 12.7 10^3/uL H 10 ^3/uL (4.0-10.0) RBC 4.78 10^6/uL 10^6 /uL (4.1-5.3) Hgb 14.5 g/dL g/dL (11.7-16.6) Hct 42.7 % % (42.0-52.0) MCV 89.3 fl fl (80-94) MCH 30.3 pg pg (28.0-34.0) MCHC 34.0 g/dL g/dL (30.0-36.0) RDW 12.3 % % (12.1-15.1) Plt Count 314 10^3/cmm 10^3 /cmm (130-400) MPV 9.3 fL fL (7.4-10.4) Neut % (Auto) 75.6 % % Lymph % (Auto) 14.0 % % [place] % (Auto) 8.3 % % Eos % (Auto) 1.4 % % Baso % (Auto) 0.5 % % Neut # (Auto) 9.59 10^3/uL H 10 ^3/uL (1.8-7.7) Lymph # (Auto) 1.8 10^3/uL 10^3/ uL (0.8-4.8) [place] # (Auto) 1.1 10^3/uL H 10^ 3/uL (0.2-0.9) Eos # (Auto) 0.2 10^3/uL 10^3/ uL (0.0-0.8) Baso # (Auto) 0.1 10^3/uL 10^3/ uL (0.0-0.1) Nucleated RBC % (a uto) 0 % % Nucleated RBCs # 0.0 /100WBC /100W BC Sodium 136 mmol/L mmol/L (136-145) Potassium 3.7 mmol/L mmol/L (3.5-5.1) Chloride 100 mmol/L mmol/L (98-107) Carbon Dioxide 26 mmol/L mmol/L (22-29) Anion Gap 13.7 (5-19) BUN 11 mg/dL mg/dL (6-20) Creatinine 0.8 mg/dL mg/dL (0.7-1.2) GFR Calculation 105.0 mL/min mL/m in (90-130) Glucose 120 mg/dL H mg/dL (65-115) Calculated Osmolal ity 283 mOsm/kg L mOs m/kg (285-295) Calcium 9.0 mg/dL mg/dL (8.5-10.5) Total Bilirubin 0.5 mg/dL mg/dL (0.15-1.2) AST 21 U/L U/L (0-40) ALT 30 U/L U/L (0-41) Alkaline Phosphata se 66 IU/L IU/L (40-130) Total Protein 7.8 g/dL g/dL (6.6-8.7) Albumin 3.9 g/dL g/dL (3.5-5.2) Globulin 3.9 g/dL g/dL (1.3-4.6) Lipase 29 U/L U/L (13-60) Urine Color Yellow (Yellow) Urine Appearance Clear (CLEAR) Urine pH 6.5 (5-7) Ur Specific Gravit y 1.015 (1.005-1.030) Urine Protein Neg (Negative) Urine Glucose (UA) Norm (Normal) Urine Ketones Negative (Negative) Urine Blood Neg (Negative) Urine Nitrate Negative (Negative) Urine Bilirubin Neg (Negative) Urine Urobilinogen Norm mg/dL mg/dL (Negative) Ur Leukocyte Rahel ase Negative (Negative) Discharge Plan Discharge Patient Disposition: Home Clinical Impression: Diverticulitis Condition: Stable Prescriptions: New Augmentin 875-125 mg tablet 1 tab PO BID 10 Days Qty: 20 RF: 0 Zofran 4 mg tablet 4 mg PO Q8H PRN (Reason: nausea and vomiting) 4 Days Qty: 12 RF: 0 No Action amoxicillin-pot clavulanate 875-125 mg tablet 1 tab PO BID 10 Days Qty: 20 RF: 0 prednisone 20 mg tablet 60 mg PO DAILY 5 Days Qty: 15 RF: 0 Discharge Orders: Discharge ED (Routine); Ordered 04/29/21 Ordered By: Maria Ghosh Referrals: Giovanni Oconnell [Primary Care Provider] - Discharge Diet: Advance as tolerated Discharge Activity: Resume usual activity Patient Instructions: Diverticulitis (ED) Activity Restrictions/Additional Instructions: Come back to the emergency room if you have any fever/chills, difficulty tolerating p.o., or any new concerning complaints. You have diverticulitis toda y. Sign Out Sign Out Data: Patient Sign Out occurred on 04/29/21 at 03:30. Patient's care was discussed, and care was transferred from to Maria Ghosh MD. Coding Level of Care Code ED Rn Procedures for Chg Fwd Exam Comprehensive Documented by User: Maria Ghosh MD 04/30/21 01:44 HPI - Abdominal Pain General: Chief Complaint: Abdominal Pain Stated Complaint: abd pain,trouble having a BM Time Seen by Provider: 04/29/21 00:57 PFSH ED PFSH: Medical History Acute diverticulitis Cholelithiasis Colon polyps Encounter for screening for other viral diseases GERD (gastroesophageal reflux disease) High risk medication use History of colon polyps Hyperlipidemia Immunization counseling Rheumatoid arthritis with rheumatoid factor Surgical History History of cholecystectomy History of colonoscopy with polypectomy (~2018) Diverticular bleed 2019 status post colonoscopy with polyp removal, benign as per the patient History of esophagogastroduodenoscopy (EGD) (~2018) History of hernia repair Right inguinal hernia repair as a child Family History Other Diabetes Hypertension Denies family history of Systemic lupus erythematosus, unspecified Rheumatoid arthritis Anesthesia complication Bleeding disorder Cancer Stroke Social History Smoking and tobacco status: current every day smoker cigarettes Quit status (tobacco): has tried quititng Second hand smoke exposure: No Alcohol intake: current Alcohol intake frequency: holidays/special occasions only Alcohol type: beer Adopted: No Caregiver/support person: Yes Lives independently: Yes Household members: spouse Housing: House Marital status: Highest education level completed: High School Graduate service: No Current occupational status: employed 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 Current occupational exposures/hazards: No Pets and animals: No History of recent travel: No Sexually active: Yes Current gender identity: Male Neda/Anabaptism: Zoroastrianism Special neda needs: No Agree to transfusion: No Financial difficulty paying for basics: Decline to Answer Course Vital Signs: Vital signs: Vital Signs Temperature 99.7 F H 04/29/21 01:21 Pulse Rate 84 04/29/21 04:44 Respiratory Rate 16 04/29/21 04:44 Blood Pressure 154/78 04/29/21 04:44 Pulse Oximetry 96 04/29/21 04:44 MDM - Abdominal Pain Lab Data: Lab results narrative: CT scan patient was found to have diverticulitis. Patient is afebrile, white count noted to be 12.7. Patient is able to tolerate p.o. Pain is well controlled. We will treat outpatient with Augmentin BID x 7 days. Disposition: Discharge. Patient is given strict precautions for any signs of fever/chills, nausea/vomiting, any new or concerning complaints. Labs: Lab Results 04/29/21 04/29/21 04/29/21 01:30 01:50 01:50 WBC 12.7 10^3/uL H 10 ^3/uL (4.0-10.0) RBC 4.78 10^6/uL 10^6 /uL (4.1-5.3) Hgb 14.5 g/dL g/dL (11.7-16.6) Hct 42.7 % % (42.0-52.0) MCV 89.3 fl fl (80-94) MCH 30.3 pg pg (28.0-34.0) MCHC 34.0 g/dL g/dL (30.0-36.0) RDW 12.3 % % (12.1-15.1) Plt Count 314 10^3/cmm 10^3 /cmm (130-400) MPV 9.3 fL fL (7.4-10.4) Neut % (Auto) 75.6 % % Lymph % (Auto) 14.0 % % [place] % (Auto) 8.3 % % Eos % (Auto) 1.4 % % Baso % (Auto) 0.5 % % Neut # (Auto) 9.59 10^3/uL H 10 ^3/uL (1.8-7.7) Lymph # (Auto) 1.8 10^3/uL 10^3/ uL (0.8-4.8) [place] # (Auto) 1.1 10^3/uL H 10^ 3/uL (0.2-0.9) Eos # (Auto) 0.2 10^3/uL 10^3/ uL (0.0-0.8) Baso # (Auto) 0.1 10^3/uL 10^3/ uL (0.0-0.1) Nucleated RBC % (a uto) 0 % % Nucleated RBCs # 0.0 /100WBC /100W BC Sodium 136 mmol/L mmol/L (136-145) Potassium 3.7 mmol/L mmol/L (3.5-5.1) Chloride 100 mmol/L mmol/L (98-107) Carbon Dioxide 26 mmol/L mmol/L (22-29) Anion Gap 13.7 (5-19) BUN 11 mg/dL mg/dL (6-20) Creatinine 0.8 mg/dL mg/dL (0.7-1.2) GFR Calculation 105.0 mL/min mL/m in (90-130) Glucose 120 mg/dL H mg/dL (65-115) Calculated Osmolal ity 283 mOsm/kg L mOs m/kg (285-295) Calcium 9.0 mg/dL mg/dL (8.5-10.5) Total Bilirubin 0.5 mg/dL mg/dL (0.15-1.2) AST 21 U/L U/L (0-40) ALT 30 U/L U/L (0-41) Alkaline Phosphata se 66 IU/L IU/L (40-130) Total Protein 7.8 g/dL g/dL (6.6-8.7) Albumin 3.9 g/dL g/dL (3.5-5.2) Globulin 3.9 g/dL g/dL (1.3-4.6) Lipase 29 U/L U/L (13-60) Urine Color Yellow (Yellow) Urine Appearance Clear (CLEAR) Urine pH 6.5 (5-7) Ur Specific Gravit y 1.015 (1.005-1.030) Urine Protein Neg (Negative) Urine Glucose (UA) Norm (Normal) Urine Ketones Negative (Negative) Urine Blood Neg (Negative) Urine Nitrate Negative (Negative) Urine Bilirubin Neg (Negative) Urine Urobilinogen Norm mg/dL mg/dL (Negative) Ur Leukocyte Rahel ase Negative (Negative) Imaging Data ^: Other Imaging: Radiologist's impression: [address] [id number] Scan ReportSigned Patient: Ciaran LauUnit #: [id number]: [id number]#:[id number]/Sex: 46 / MADM Date: 04/29/21Loc: ERRoom/Bed:Attending Dr: Ordering Provider/Ordering MD: Juan Fuentes Date of Service: 04/29/21 Procedure(s): CT abdomen pelvis w con* [id number] Accession Number(s): [id number] Report Number: [id number] PROCEDURE INFORMATION: Exam: CT Abdomen And Pelvis With Contrast Exam date and time: 04/29/2021 1:41 AM Age: 46 years old Clinical indication: Abdominal pain; Localized; Left lower quadrant (llq); Prior surgery; Surgery type: Gb; Patient HX: Llq pain. History of diverticulitis. ; Additional info: Llq tenderness and nausea, history of diverticulitis TECHNIQUE: Imaging protocol: Computed tomography of the abdomen and pelvis with contrast. Radiation optimization: All CT scans at this facility use at least one of these dose optimization techniques: automated exposure control; mA and/or kV adjustment per patient size (includes targeted exams where dose is matched to clinical indication); or iterative reconstruction. Contrast material: OMNI 300; Contrast volume: 95 ml; Contrast route: INTRAVENOUS (IV); COMPARISON: CT abdomen pelvis wo/w [id number] 07/08/2020 10:46 AM RADIATION DOSE METRICS: Total DLP (mGy-cm): 1928.3 FINDINGS: Lungs: Atelectasis and linear scarring at the lung bases. Liver: There is diffuse low attenuation throughout the liver consistent with fatty infiltration. No masses. The liver is enlarged, measuring 20.4 cm. Gallbladder and bile ducts: The patient has had a cholecystectomy. Pancreas: Normal. No ductal dilation. Spleen: Normal. No splenomegaly. Adrenal glands: Normal. No mass. Kidneys and ureters: Normal. No hydronephrosis. Stomach and bowel: Scattered diverticula throughout the colon with moderate wall thickening and surrounding inflammation in the sigmoid colon consistent with diverticulitis. No evidence of perforation or abscess. Appendix: No evidence of appendicitis. Intraperitoneal space: Unremarkable. No free air. No significant fluid collection. Vasculature: Unremarkable. No abdominal aortic aneurysm. Lymph nodes: Unremarkable. No enlarged lymph nodes. Urinary bladder: Unremarkable as visualized. Reproductive: Unremarkable as visualized. Bones/joints: Bilateral pars defects at L5. Soft tissues: Small para umbilical ventral hernia containing mesenteric fat but no bowel. CT/CT abdomen pelvis w con* [id number] IMPRESSION: Diverticulitis in the sigmoid colon without evidence of perforation or abscess. Scarring in the adjacent mesentery at the site of the previous abscess. Fatty hepatomegaly. Status post cholecystectomy. Pars defects at L5. Para umbilical ventral hernia. Radiation Dose CTDIVOL = (mGy): DLP = 1928.3 (mGy-cm) Dictated By:Torin Guevara MDSigned By:Torin Guevara MDSigned Date/Time:04/29/21 0403DD/ 0401 Discharge Plan Discharge Patient Disposition: Home Clinical Impression: Diverticulitis Condition: Stable Prescriptions: New Augmentin 875-125 mg tablet 1 tab PO BID 10 Days Qty: 20 RF: 0 Zofran 4 mg tablet 4 mg PO Q8H PRN (Reason: nausea and vomiting) 4 Days Qty: 12 RF: 0 No Action amoxicillin-pot clavulanate 875-125 mg tablet 1 tab PO BID 10 Days Qty: 20 RF: 0 prednisone 20 mg tablet 60 mg PO DAILY 5 Days Qty: 15 RF: 0 Discharge Orders: Discharge ED (Routine); Ordered 04/29/21 Ordered By: Maria Ghosh Referrals: Giovanni Oconnell [Primary Care Provider] - Discharge Diet: Advance as tolerated Discharge Activity: Resume usual activity Patient Instructions: Diverticulitis (ED) Activity Restrictions/Additional Instructions: Come back to the emergency room if you have any fever/chills, difficulty tolerating p.o., or any new concerning complaints. You have diverticulitis today. Sign Out Sign Out Data: Patient Sign Out occurred on 04/29/21 at 03:30. Patient's care was discussed, and care was transferred from to Maria Ghosh MD. Coding Level of Care Code ED Rn Procedures for Svetag Fwd Exam Comprehensive
[2021-04-29 01:39] LABS: Add Urine Microscopic? NO; Charge for UA Resulting for Rev
--- NOTE | 2021-04-29 01:41 | CTR_ITS ---
PROCEDURE INFORMATION: Exam: CT Abdomen And Pelvis With Contrast Exam date and time: 04/29/2021 1:41 AM Age: 46 years old Clinical indication: Abdominal pain; Localized; Left lower quadrant (llq); Prior surgery; Surgery type: Gb; Patient HX: Llq pain. History of diverticulitis. ; Additional info: Llq tenderness and nausea, history of diverticulitis TECHNIQUE: Imaging protocol: Computed tomography of the abdomen and pelvis with contrast. Radiation optimization: All CT scans at this facility use at least one of these dose optimization techniques: automated exposure control; mA and/or kV adjustment per patient size (includes targeted exams where dose is matched to clinical indication); or iterative reconstruction. Contrast material: OMNI 300; Contrast volume: 95 ml; Contrast route: INTRAVENOUS (IV); COMPARISON: CT abdomen pelvis wo/w [id number] 07/08/2020 10:46 AM RADIATION DOSE METRICS: Total DLP (mGy-cm): 1928.3 FINDINGS: Lungs: Atelectasis and linear scarring at the lung bases. Liver: There is diffuse low attenuation throughout the liver consistent with fatty infiltration. No masses. The liver is enlarged, measuring 20.4 cm. Gallbladder and bile ducts: The patient has had a cholecystectomy. Pancreas: Normal. No ductal dilation. Spleen: Normal. No splenomegaly. Adrenal glands: Normal. No mass. Kidneys and ureters: Normal. No hydronephrosis. Stomach and bowel: Scattered diverticula throughout the colon with moderate wall thickening and surrounding inflammation in the sigmoid colon consistent with diverticulitis. No evidence of perforation or abscess. Appendix: No evidence of appendicitis. Intraperitoneal space: Unremarkable. No free air. No significant fluid collection. Vasculature: Unremarkable. No abdominal aortic aneurysm. Lymph nodes: Unremarkable. No enlarged lymph nodes. Urinary bladder: Unremarkable as visualized. Reproductive: Unremarkable as visualized. Bones/joints: Bilateral pars defects at L5. Soft tissues: Small para umbilical ventral hernia containing mesenteric fat but no bowel. CT/CT abdomen pelvis w con* [id number] IMPRESSION: Diverticulitis in the sigmoid colon without evidence of perforation or abscess. Scarring in the adjacent mesentery at the site of the previous abscess. Fatty hepatomegaly. Status post cholecystectomy. Pars defects at L5. Para umbilical ventral hernia. Radiation Dose CTDIVOL = (mGy): DLP = 1928.3 (mGy-cm)
[2021-04-29 01:43] LABS: Bilirubin Urine Neg (Negative); Blood Urine Neg (Negative); Glucose Urine UA Norm (Normal); Ketones Urine Negative (Negative); Leukocyte Esterase Urine Negative (Negative); Nitrate Urine Negative (Negative); Protein Urine Neg (Negative); Specific Gravity, Urine 1.015 (1.005-1.030); Urine Appearance Clear (CLEAR); Urine Color Yellow (Yellow); Urobilinogen Urine Norm (Negative); pH Urine 6.5 (5-7)
[2021-04-29] MEDS: iohexol 300 mg/mL 100 mL Btl IV (02:22)
[2021-04-29 02:23] LABS: Basophils # 0.1 10^3/uL (0.0-0.1); Basophils % 0.5 %; Eosinophils # 0.2 10^3/uL (0.0-0.8); Eosinophils % 1.4 %; Hematocrit 42.7 % (42.0-52.0); Hemoglobin 14.5 g/dL (11.7-16.6); Lymphocytes # 1.8 10^3/uL (0.8-4.8); Mean Corpuscular Hemoglobin 30.3 pg (28.0-34.0); Mean Corpuscular Volume 89.3 fl (80-94); Mean Platelet Volume 9.3 fL (7.4-10.4); Monocytes # 1.1 10^3/uL (0.2-0.9); Monocytes % 8.3 %; Neutrophils # 9.59 10^3/uL (1.8-7.7); Neutrophils % 75.6 %; Nucleated Red Blood Cells % 0 %; Platelet Count 314 10^3/cmm (130-400); Red Blood Count 4.78 10^6/uL (4.1-5.3); Red Cell Distribution Width 12.3 % (12.1-15.1); White Blood Count 12.7 10^3/uL (4.0-10.0)
[2021-04-29] MEDS: morphine 4 mg/mL SDV 1 mL IVP (02:25)
[2021-04-29] MEDS: ondansetron 2 mg/ML SDV 2 mL 4 MG IVP (02:26)
[2021-04-29] MEDS: sodium chloride 0.9% 1,000 ML 999 ML IV (02:29)
[2021-04-29 02:43] LABS: Alanine Aminotransferase 30 U/L (0-41); Albumin Level 3.9 g/dL (3.5-5.2); Alkaline Phosphatase 66 IU/L (40-130); Anion Gap 13.7 (5-19); Aspartate Amino Transferase 21 U/L (0-40); Blood Urea Nitrogen 11 mg/dL (6-20); Carbon Dioxide 26 mmol/L (22-29); Chloride 100 mmol/L (98-107); Creatinine Clr Calc Pharmacy 140.2507; Globulin 3.9 g/dL (1.3-4.6); Glucose 120 mg/dL (65-115); Lipase 29 U/L (13-60); Osmolality Calculated 283 mOsm/kg (285-295); Potassium 3.7 mmol/L (3.5-5.1); Sodium 136 mmol/L (136-145); Total Bilirubin 0.5 mg/dL (0.15-1.2); Total Protein 7.8 g/dL (6.6-8.7)
[2021-04-29 03:12] VITALS: BP 146/89; PULSE 84; RESP 14; O2SAT 93
[2021-04-29 04:10] VITALS: RESP 18; O2SAT 98
[2021-04-29] MEDS: HYDROmorphone 1 mg/mL INJ 1 mL 0.5 MG IVP (04:10)
[2021-04-29] MEDS: amoxicillin-clav 875-125 mg Tablet 1 TAB PO (04:43)
[2021-04-29 04:44] VITALS: BP 154/78; PULSE 84; RESP 16; O2SAT 96
== END 2021-04-29 04:40 | disposition home or self-care (01) ==
PROVIDERS: Physician Assistant; Emergency Provider Emergency Medicine; PCP Family Medicine
DX: K57.92 Diverticulitis of intestine, part unspecified, without perforation or abscess without bleeding (principal); E78.5 Hyperlipidemia, unspecified; F17.210 Nicotine dependence, cigarettes, uncomplicated
CPT/HCPCS: 74177; 80053; 81003; 83690; 85025; 87040; 96361; 96374; 96375; 99283; J1170; J2270; J2405; J7030; Q9967

== ENCOUNTER → 2021-07-15 10:49 | Outpatient (BNVA) | payer MEDICARE, SELFPAY | PROVIDERS: PCP Family Medicine; Visit Provider Internal Medicine | DX: R76.8 Other specified abnormal immunological findings in serum (principal); M25.50 Pain in unspecified joint; Z11.59 Encounter for screening for other viral diseases; Z11.1 Encounter for screening for respiratory tuberculosis; Z87.891 Personal history of nicotine dependence | CPT/HCPCS: 99214 ==

== ENCOUNTER 2021-09-06 13:37 | Emergency (ER) | payer OTHER, SELFPAY ==
[2021-09-06 13:47] VITALS: BP 153/101; PULSE 71; RESP 18; TEMP 36.7; O2SAT 97; BMI 34.3
[2021-09-06 14:40] LABS: Basophils # 0.1 10^3/uL (0.0-0.1); Basophils % 0.7 %; Eosinophils # 0.3 10^3/uL (0.0-0.8); Eosinophils % 2.7 %; Hemoglobin 15.5 g/dL (11.7-16.6); Lymphocytes % 19.5 %; Mean Corpuscular HGB Conc 33.7 g/dL (30.0-36.0); Mean Corpuscular Hemoglobin 30.3 pg (28.0-34.0); Mean Platelet Volume 9.2 fL (7.4-10.4); Monocytes # 0.6 10^3/uL (0.2-0.9); Monocytes % 5.7 %; Neutrophils # 7.37 10^3/uL (1.8-7.7); Neutrophils % 70.9 %; Nucleated Red Blood Cells % 0 %; Platelet Count 306 10^3/cmm (130-400); Red Blood Count 5.11 10^6/uL (4.1-5.3); Red Cell Distribution Width 12.4 % (12.1-15.1); White Blood Count 10.4 10^3/uL (4.0-10.0)
--- NOTE | 2021-09-06 15:27 | ED_ITS ---
Documented by User: RANDY Del Rio 09/07/21 07:07 HPI - Abdominal Pain General: Chief Complaint: Abdominal Pain Stated Complaint: Upper right abd pain Time Seen by Provider: 09/06/21 15:14 History of Present Illness: Patient is a 46-year-old male that comes to the ED with abdominal pain. Patient has a past medical history of diverticulitis and has had cholecystectomy. Abdominal pain started last night and around 3 AM. Pain is similar to his previous gallbladder issues before it was removed. Pain is rated an 8 out of 10 and is in the right upper quadrant of the abdomen. Pain then radiates to his back as well. Endorses having nausea but has not had any episodes of emesis. Denies any fever, chills, diarrhea, constipation, dysuria or hematuria. Associated Symptoms: Reports nausea; Denies chills, constipation, diarrhea, dysuria, fever(s), hematochezia, hematuria and vomiting Review of Systems Const: Denies: fever(s), chills or fatigue Eyes: Denies: change in vision or eye discomfort ENMT: Denies: throat pain, odynophagia, nasal discharge or nasal congestion Card: Denies: chest pain, palpitations, edema, swelling of feet/ankles, dyspnea on exertion or orthopnea Resp: Denies: dyspnea, productive cough or non-productive cough GI: Reports: abdominal pain and nausea; Denies: vomiting, diarrhea, constipation or hematochezia : Denies: flank pain, difficulty urinating, dysuria or hematuria Musc: Denies: neck pain, back pain or extremity swelling Skin/Breast: Denies: rash or new lesions Neuro: Denies: headache(s) PFS ED PFSH: Medical History Acute diverticulitis Cholelithiasis Colon polyps Encounter for screening for other viral diseases GERD (gastroesophageal reflux disease) High risk medication use History of colon polyps Hyperlipidemia Immunization counseling Rheumatoid arthritis with rheumatoid factor Surgical History History of cholecystectomy History of colonoscopy with polypectomy (~2018) Diverticular bleed 2019 status post colonoscopy with polyp removal, benign as per the patient History of esophagogastroduodenoscopy (EGD) (~2018) History of hernia repair Right inguinal hernia repair as a child Family History Brother Cancer prostate Father Diabetes Hypertension Hyperlipidemia Grandmother Hypertension Heart attack Denies family history of Systemic lupus erythematosus, unspecified Rheumatoid arthritis Lupus Anesthesia complication Bleeding disorder Stroke Social History Quit status (tobacco): has quit using tobacco Second hand smoke exposure: No Alcohol intake: current Alcohol intake frequency: few times a week Alcohol type: beer Adopted: No Caregiver/support person: Yes Lives independently: Yes Household members: spouse Housing: House Marital status: Highest education level completed: High School Graduate service: No Current occupational status: employed 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 Current occupational exposures/hazards: No Pets and animals: No History of recent travel: No Sexually active: Yes Current gender identity: Male Neda/Hinduism: [employer] Special neda needs: No Agree to transfusion: No Financial difficulty paying for basics: Decline to Answer Physical Exam Const: COMMON NORMALS: patient oriented x3 and alert GENERAL APPEARANCE: cooperative HENMT: COMMON NORMALS: normocephalic HEAD & SCALP: normocephalic MOUTH: Normal oral and palatal mucosa present THROAT: posterior oropharynx normal and uvula midline Eye: COMMON NORMALS: Equal, round and reactive pupils present and conjunctivae normal CONJUNCTIVA: Yes conjunctivae normal PUPIL: Yes Equal, round and reactive pupils present Neck/C-Spine: COMMON NORMALS: supple GENERAL: Yes normal visual inspection Resp: COMMON NORMALS: normal respiratory effort, No retractions, No use of accessory muscles and clear to auscultation bilaterally AUSCULTATION: clear to auscultation bilaterally Cardio: COMMON NORMALS: regular rate, regular rhythm, S1 normal heart sound present, S2 normal heart sound present, No gallops present (Cardio), No clicks present (Cardio), No murmurs present (Cardio) and Peripheral pulses 2+ throughout RATE: regular rate RHYTHM: regular rhythm HEART SOUNDS: S1 normal heart sound present and S2 normal heart sound present PERIPHERAL PULSES: Peripheral pulses 2+ throughout GI: COMMON NORMALS: Normal to inspection, nondistended, normoactive bowel sounds present, Soft to palpation and no masses PALPATION: Yes Soft to palpation and Yes Tenderness to palpation present (GI) Details: RUQ : COMMON NORMALS: Yes no CVA tenderness BLADDER/KIDNEY EXAM: Yes no CVA tenderness Back/Pelvis: COMMON NORMALS: no CVA tenderness Extremity: COMMON NORMALS: normal to inspection Neuro: COMMON NORMALS: patient oriented x3 SENSORIUM/ORIENTATION: Yes alert GAIT: Yes Normal gait present Skin: GENERAL SKIN EXAM: dry skin Course Vital Signs: Vital signs: Vital Signs Temperature 98.1 F 09/06/21 13:47 Pulse Rate 70 09/06/21 18:48 Respiratory Rate 16 09/06/21 18:48 Blood Pressure 150/97 09/06/21 18:48 Pulse Oximetry 96 09/06/21 18:48 MDM - Abdominal Pain Lab Data I reviewed the patient's lab results. : 09/06/21 14:29 09/06/21 16:50 Labs/Radiology: Radiology Impressions Gallbladder Ultrasound 09/06/21 15:28 IMPRESSION: 1. Technically limited evaluation of RIGHT upper quadrant due to the habitus. 2. Prior cholecystectomy. 3. Severe hepatic steatosis and hepatomegaly. Abdomen/Pelvis CT 09/06/21 16:32 IMPRESSION: 1. Mild sigmoid diverticulitis. 2. Mild hepatomegaly and hepatic steatosis. Laboratory Results WBC 10.4 10^3/uL (4.0-10.0) H 09/06/21 14:29 RBC 5.11 10^6/uL (4.1-5.3) 09/06/21 14:29 Hgb 15.5 g/dL (11.7-16.6) 09/06/21 14:29 Hct 46.0 % (42.0-52.0) 09/06/21 14:29 MCV 90.0 fl (80-94) 09/06/21 14:29 MCH 30.3 pg (28.0-34.0) 09/06/21 14:29 MCHC 33.7 g/dL (30.0-36.0) 09/06/21 14:29 RDW 12.4 % (12.1-15.1) 09/06/21 14:29 Plt Count 306 10^3/cmm (130-400) 09/06/21 14:29 MPV 9.2 fL (7.4-10.4) 09/06/21 14:29 Neut % (Auto) 70.9 % 09/06/21 14:29 Lymph % (Auto) 19.5 % 09/06/21 14:29 [place] % (Auto) 5.7 % 09/06/21 14:29 Eos % (Auto) 2.7 % 09/06/21 14:29 Baso % (Auto) 0.7 % 09/06/21 14:29 Neut # (Auto) 7.37 10^3/uL (1.8-7.7) 09/06/21 14: Lymph # (Auto) 2.0 10^3/uL (0.8-4.8) 09/06/21 14:29 [place] # (Auto) 0.6 10^3/uL (0.2-0.9) 09/06/21 14: Eos # (Auto) 0.3 10^3/uL (0.0-0.8) 09/06/21 14: Baso # (Auto) 0.1 10^3/uL (0.0-0.1) 09/06/21 14: Nucleated RBC % (auto) 0 % 09/06/21 14: Nucleated RBCs # 0.0 /100WBC 09/06/21 14:29 Sodium 139 mmol/L (136-145) 09/06/21 16:50 Potassium 3.5 mmol/L (3.5-5.1) 09/06/21 16:50 Chloride 104 mmol/L (98-107) 09/06/21 16:50 Carbon Dioxide 22 mmol/L (22-29) 09/06/21 16:50 Anion Gap 16.5 (5-19) 09/06/21 16:50 BUN 9 mg/dL (6-20) 09/06/21 16:50 Creatinine 0.7 mg/dL (0.7-1.2) 09/06/21 16:50 GFR Calculation 122.5 mL/min (90-130) 09/06/21 16:50 Glucose 83 mg/dL (65-115) 09/06/21 16:50 Calculated Osmolality 286 mOsm/kg (285-295) 09/06/21 16:50 Calcium 9.0 mg/dL (8.5-10.5) 09/06/21 16:50 Total Bilirubin 0.4 mg/dL (0.15-1.2) 09/06/21 16:50 AST 38 U/L (0-40) 09/06/21 16:50 ALT 59 U/L (0-41) H 09/06/21 16:50 Alkaline Phosphatase 60 IU/L (40-130) 09/06/21 16:50 Total Protein 7.1 g/dL (6.6-8.7) 09/06/21 16:50 Albumin 4.1 g/dL (3.5-5.2) 09/06/21 16:50 Globulin 3.0 g/dL (1.3-4.6) 09/06/21 16:50 Lipase 20 U/L (13-60) 09/06/21 16:50 Urine Color Yellow (Yellow) 09/06/21 15:26 Urine Appearance Clear (CLEAR) 09/06/21 15:26 Urine pH 8 (5-7) H 09/06/21 15:26 Ur Specific [place] 1.010 (1.005-1.030) 09/06/21 15:26 Urine Protein Neg (Negative) 09/06/21 15:26 Urine Glucose (UA) Norm (Normal) 09/06/21 15:26 Urine Ketones Negative (Negative) 09/06/21 15:26 Urine Blood Neg (Negative) 09/06/21 15:26 Urine Nitrate Negative (Negative) 09/06/21 15:26 Urine Bilirubin Neg (Negative) 09/06/21 15:26 Prot Sulfosalicylic Acd Negative (Negative) 09/06/21 15:26 Urine Urobilinogen Norm mg/dL (Negative) 09/06/21 15:26 Ur Leukocyte Esterase Negative (Negative) 09/06/21 15:26 Discharge Plan Discharge Patient Disposition: Home Clinical Impression: Right upper quadrant abdominal pain of unknown etiology, Diverticulitis of sigmoid colon Condition: Stable Prescriptions: New Zofran 4 mg tablet 4 mg PO Q6H PRN (Reason: nausea and vomiting) Qty: 14 0RF tramadol 50 mg tablet 50 mg PO Q6H PRN (Reason: pain) Qty: 10 0RF No Action ibuprofen 200 mg tablet 1,000 mg PO BID PRN0RF naproxen 250 mg tablet 500 mg PO BID PRN0RF Label Comments: Pt says he takes 2-3 QD as needed acetaminophen 500 mg capsule 1,000 mg PO BID PRN0RF omeprazole 40 mg capsule,delayed release(DR/EC) 40 mg PO DAILY 0RF tamsulosin 0.4 mg capsule 0.4 mg PO DAILY 0RF Discharge Orders: Discharge ED (Routine); Ordered 09/06/21 Ordered By: Amy Cooper Referrals: Giovanni Oconnell [Primary Care Provider] - Patient Instructions: Abdominal Pain (ED), Opioid Safety Activity Restrictions/Additional Instructions: [facility] is committed to fighting the nationwide opiate epidemic. We are providing ALL patients with information regarding opiate safety. If you received opiate pain medication during your stay or if you received a prescription for opiate pain medication-please review this handout. If not, you may disregard. Thank you. As we discussed please follow-up with Dr. Suggs on Monday as scheduled. You may do a bland liquid diet over the next 24 to 48 hours and advance as tolerated to see if this helps with your abdominal discomfort. As we discussed your CT imaging and labs today are unremarkable but that clinical courses can change abruptly. You need to return to the emergency department for worsening abdominal pains, fevers, inability to hold down food or medications, repetitive episodes of vomiting or diarrhea, or any other concerns you may have. Hope you begin to feel better soon. Sign Out Sign Out Data: Patient Sign Out occurred on 09/06/21 at 17:05. Patient's care was discussed, and care was transferred from to RANDY Mari. Coding Level of Care Code ED Rest Room Attendant for Chg Fwd Exam Comprehensive Documented by User: RANDY Mari 09/06/21 18:14 HPI - Abdominal Pain General: Chief Complaint: Abdominal Pain Stated Complaint: Upper right abd pain Time Seen by Provider: 09/06/21 15:14 PFS ED PFSH: Medical History Acute diverticulitis Cholelithiasis Colon polyps Encounter for screening for other viral diseases GERD (gastroesophageal reflux disease) High risk medication use History of colon polyps Hyperlipidemia Immunization counseling Rheumatoid arthritis with rheumatoid factor Surgical History History of cholecystectomy History of colonoscopy with polypectomy (~2019) Diverticular bleed 2019 status post colonoscopy with polyp removal, benign as per the patient History of esophagogastroduodenoscopy (EGD) (~2019) History of hernia repair Right inguinal hernia repair as a child Family History Brother Cancer prostate Father Diabetes Hypertension Hyperlipidemia Grandmother Hypertension Heart attack Denies family history of Systemic lupus erythematosus, unspecified Rheumatoid arthritis Lupus Anesthesia complication Bleeding disorder Stroke Social History Quit status (tobacco): has quit using tobacco Second hand smoke exposure: No Alcohol intake: current Alcohol intake frequency: few times a week Alcohol type: beer Adopted: No Caregiver/support person: Yes Lives independently: Yes Household members: spouse Housing: House Marital status: Highest education level completed: High School Graduate service: No Current occupational status: employed 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 Patient is a 46-year-old male who presented to the ED today with right upper quadrant abdominal pain starting today. He has had nausea but no episodes of emesis. He has not noticed any changes to bowel movements. He is not having any urinary complaints. No fevers, chills, body aches. Patient is not having any shortness of breath, cough, or difficulty breathing. Patient does have a history of recurrent/chronic sigmoid diverticulitis that he is following up with Dr. Suggs for. He has a plan for upcoming sigmoid colectomy. He actually has a follow-up appointment with Dr. Suggs on Monday. Patient states he still continues to have intermittent left lower quadrant pain related to this but this has not changed in frequency or intensity recently. Patient's vital signs are stable. His labs are overall unremarkable. CT imaging shows mild sigmoid diverticulitis. Patient states his pain today is not characteristic of the diverticulitis pains he has had in the past. At this point I do not think we need to place patient on antibiotics for this finding as again this seems to be an ongoing chronic issue for patient and his pain to his left lower abdomen has not changed at all. We will treat patient's RUQ pain and nausea and recommend he follow-up with Dr. Suggs on Monday as scheduled. Strict return to ED precautions given. Lab Data : 09/06/21 14:29 09/06/21 16:50 Labs/Radiology: Radiology Impressions Gallbladder Ultrasound 09/06/21 15:28 IMPRESSION: 1. Technically limited evaluation of RIGHT upper quadrant due to the habitus. 2. Prior cholecystectomy. 3. Severe hepatic steatosis and hepatomegaly. Abdomen/Pelvis CT 09/06/21 16:32 IMPRESSION: 1. Mild sigmoid diverticulitis. 2. Mild hepatomegaly and hepatic steatosis. Laboratory Results WBC 10.4 10^3/uL (4.0-10.0) H 09/06/21 14: RBC 5.11 10^6/uL (4.1-5.3) 09/06/21 14:29 Hgb 15.5 g/dL (11.7-16.6) 09/06/21 14:29 Hct 46.0 % (42.0-52.0) 09/06/21 14:29 MCV 90.0 fl (80-94) 09/06/21 14:29 MCH 30.3 pg (28.0-34.0) 09/06/21 14:29 MCHC 33.7 g/dL (30.0-36.0) 09/06/21 14:29 RDW 12.4 % (12.1-15.1) 09/06/21 14:29 Plt Count 306 10^3/cmm (130-400) 09/06/21 14:29 MPV 9.2 fL (7.4-10.4) 09/06/21 14:29 Neut % (Auto) 70.9 % 09/06/21 14:29 Lymph % (Auto) 19.5 % 09/06/21 14:29 [place] % (Auto) 5.7 % 09/06/21 14:29 Eos % (Auto) 2.7 % 09/06/21 14:29 Baso % (Auto) 0.7 % 09/06/21 14:29 Neut # (Auto) 7.37 10^3/uL (1.8-7.7) 09/06/21 14:29 Lymph # (Auto) 2.0 10^3/uL (0.8-4.8) 09/06/21 14:29 [place] # (Auto) 0.6 10^3/uL (0.2-0.9) 09/06/21 14:29 Eos # (Auto) 0.3 10^3/uL (0.0-0.8) 09/06/21 14: Baso # (Auto) 0.1 10^3/uL (0.0-0.1) 09/06/21 14: Nucleated RBC % (auto) 0 % 09/06/21 14: Nucleated RBCs # 0.0 /100WBC 09/06/21 14:29 Sodium 139 mmol/L (136-145) 09/06/21 16:50 Potassium 3.5 mmol/L (3.5-5.1) 09/06/21 16:50 Chloride 104 mmol/L (98-107) 09/06/21 16:50 Carbon Dioxide 22 mmol/L (22-29) 09/06/21 16:50 Anion Gap 16.5 (5-19) 09/06/21 16:50 BUN 9 mg/dL (6-20) 09/06/21 16:50 Creatinine 0.7 mg/dL (0.7-1.2) 09/06/21 16:50 GFR Calculation 122.5 mL/min (90-130) 09/06/21 16:50 Glucose 83 mg/dL (65-115) 09/06/21 16:50 Calculated Osmolality 286 mOsm/kg (285-295) 09/06/21 16:50 Calcium 9.0 mg/dL (8.5-10.5) 09/06/21 16:50 Total Bilirubin 0.4 mg/dL (0.15-1.2) 09/06/21 16:50 AST 38 U/L (0-40) 09/06/21 16:50 ALT 59 U/L (0-41) H 09/06/21 16:50 Alkaline Phosphatase 60 IU/L (40-130) 09/06/21 16:50 Total Protein 7.1 g/dL (6.6-8.7) 09/06/21 16:50 Albumin 4.1 g/dL (3.5-5.2) 09/06/21 16:50 Globulin 3.0 g/dL (1.3-4.6) 09/06/21 16:50 Lipase 20 U/L (13-60) 09/06/21 16:50 Urine Color Yellow (Yellow) 09/06/21 15:26 Urine Appearance Clear (CLEAR) 09/06/21 15:26 Urine pH 8 (5-7) H 09/06/21 15:26 Ur Specific [place] 1.010 (1.005-1.030) 09/06/21 15:26 Urine Protein Neg (Negative) 09/06/21 15:26 Urine Glucose (UA) Norm (Normal) 09/06/21 15:26 Urine Ketones Negative (Negative) 09/06/21 15:26 Urine Blood Neg (Negative) 09/06/21 15:26 Urine Nitrate Negative (Negative) 09/06/21 15:26 Urine Bilirubin Neg (Negative) 09/06/21 15:26 Prot Sulfosalicylic Acd Negative (Negative) 09/06/21 15:26 Urine Urobilinogen Norm mg/dL (Negative) 09/06/21 15:26 Ur Leukocyte Esterase Negative (Negative) 09/06/21 15:26 Discharge Plan Discharge Patient Disposition: Home Clinical Impression: Right upper quadrant abdominal pain of unknown etiology, Diverticulitis of sigmoid colon Condition: Stable Prescriptions: New Zofran 4 mg tablet 4 mg PO Q6H PRN (Reason: nausea and vomiting) Qty: 14 0RF tramadol 50 mg tablet 50 mg PO Q6H PRN (Reason: pain) Qty: 10 0RF No Action ibuprofen 200 mg tablet 1,000 mg PO BID PRN0RF naproxen 250 mg tablet 500 mg PO BID PRN0RF Label Comments: Pt says he takes 2-3 QD as needed acetaminophen 500 mg capsule 1,000 mg PO BID PRN0RF omeprazole 40 mg capsule,delayed release(DR/EC) 40 mg PO DAILY 0RF tamsulosin 0.4 mg capsule 0.4 mg PO DAILY 0RF Discharge Orders: Discharge ED (Routine); Ordered 09/06/21 Ordered By: Amy Cooper Referrals: Giovanni Oconnell [Primary Care Provider] - Patient Instructions: Abdominal Pain (ED), Opioid Safety Activity Restrictions/Additional Instructions: [facility] is committed to fighting the nationwide opiate epidemic. We are providing ALL patients with information regarding opiate safety. If you received opiate pain medication during your stay or if you received a prescription for opiate pain medication-please review this handout. If not, you may disregard. Thank you. As we discussed please follow-up with Dr. Suggs on Monday as scheduled. You may do a bland liquid diet over the next 24 to 48 hours and advance as tolerated to see if this helps with your abdominal discomfort. As we discussed your CT imaging and labs today are unremarkable but that clinical courses can change abruptly. You need to return to the emergency department for worsening abdominal pains, fevers, inability to hold down food or medications, repetitive episodes of vomiting or diarrhea, or any other concerns you may have. Hope you begin to feel better soon. Sign Out Sign Out Data: Patient Sign Out occurred on 09/06/21 at 17:05. Patient's care was discussed, and care was transferred from to RANDY Mari. Coding Level of Care Code ED Rest Room Attendant for [place] Fwd Exam Comprehensive
--- NOTE | 2021-09-06 15:28 | US_ITS ---
WS: [id number] RIGHT UPPER QUADRANT ULTRASOUND HISTORY: RUQ pain and nausea COMPARISON: None available. Liver: 21.3 cm in length. Markedly enlarged liver with increased echogenicity and poor penetration fr om hepatic steatosis. The entire liver is not very well visualized. No mass identified. Portal Vein: Normal hepatopetal flow with monophasic waveform. Gallbladder: Prior cholecystectomy. CBD: 0.4 cm Pancreas: Head and tail are poorly visualized. The body is normal. Right kidney: 11.8 cm in length. Normal size and echogenicity. No hydronephrosis or mass. Aorta and IVC: Unremarkable abdominal aorta and IVC. No ascites. US/US gall bladder [id number] IMPRESSION: 1. Technically limited evaluation of RIGHT upper quadrant due to the habitus. 2. Prior cholecystectomy. 3. Severe hepatic steatosis and hepatomegaly.
[2021-09-06 15:41] LABS: Add Urine Microscopic? NO; Charge for UA Resulting for Rev
[2021-09-06 15:47] LABS: Bilirubin Urine Neg (Negative); Blood Urine Neg (Negative); Glucose Urine UA Norm (Normal); Ketones Urine Negative (Negative); Leukocyte Esterase Urine Negative (Negative); Nitrate Urine Negative (Negative); Protein Urine Neg (Negative); Sulfosalicylic Acid Urine Negative (Negative); Urine Appearance Clear (CLEAR); Urine Color Yellow (Yellow); Urobilinogen Urine Norm (Negative); pH Urine 8 (5-7)
[2021-09-06 16:23] VITALS: RESP 16
[2021-09-06] MEDS: morphine 4 mg/mL SDV 1 mL IVP ×2 (16:23→18:10)
[2021-09-06] MEDS: sodium chloride 0.9% 500 ML 999 ML IV (16:23)
[2021-09-06] MEDS: ondansetron 2 mg/ML SDV 2 mL 4 MG IVP (16:24)
--- NOTE | 2021-09-06 16:32 | CTR_ITS ---
PROCEDURE INFORMATION: Exam: CT Abdomen And Pelvis With Contrast Exam date and time: 09/06/2021 4:32 PM Age: 46 years old Clinical indication: Abdominal pain; Localized; Right upper quadrant (ruq); Prior surgery; Surgery type: Gb; Additional info: Ruq pain and nausea TECHNIQUE: Imaging protocol: Computed tomography of the abdomen and pelvis with contrast. Radiation optimization: All CT scans at this facility use at least one of these dose optimization techniques: automated exposure control; mA and/or kV adjustment per patient size (includes targeted exams where dose is matched to clinical indication); or iterative reconstruction. Contrast material: OMNI 300; Contrast volume: 95 ml; Contrast route: INTRAVENOUS (IV); COMPARISON: CT abdomen pelvis w con* [id number] 04/29/2021 2:18 AM RADIATION DOSE METRICS: Total DLP (mGy-cm): 1928.3 FINDINGS: Liver: The liver is mildly enlarged and demonstrates fatty infiltration changes. No parenchymal lesion is visualized. Gallbladder and bile ducts: The gallbladder has been removed. No biliary ductal dilatation. Pancreas: Normal. No ductal dilation. Spleen: Normal. No splenomegaly. Adrenal glands: Normal. No mass. Kidneys and ureters: Normal. No hydronephrosis. Stomach and bowel: Mild sigmoid diverticulitis is noted. No intestinal obstruction. Mild scarring is again seen in the sigmoid mesocolon. Appendix: The appendix is normal. Intraperitoneal space: No abscess or free air is detected. Vasculature: Unremarkable. No abdominal aortic aneurysm. Lymph nodes: Unremarkable. No enlarged lymph nodes. Urinary bladder: Unremarkable as visualized. Reproductive: Unremarkable as visualized. Bones/joints: Left sided L5 spondylolysis, mild anterolisthesis of L5 over S1, and mild L5-S1 degenerative changes are appreciated. No acute fracture is visualized. Soft tissues: A small umbilical hernia containing fat is noted. CT/CT abdomen pelvis w con* [id number] IMPRESSION: 1. Mild sigmoid diverticulitis. 2. Mild hepatomegaly and hepatic steatosis.
[2021-09-06] MEDS: iohexol 300 mg/mL 100 mL Btl IV (17:17)
[2021-09-06 17:37] LABS: Alanine Aminotransferase 59 U/L (0-41); Albumin Level 4.1 g/dL (3.5-5.2); Alkaline Phosphatase 60 IU/L (40-130); Anion Gap 16.5 (5-19); Aspartate Amino Transferase 38 U/L (0-40); Blood Urea Nitrogen 9 mg/dL (6-20); Carbon Dioxide 22 mmol/L (22-29); Chloride 104 mmol/L (98-107); Glomerular Filtration Rate 122.5 mL/min (90-130); Glucose 83 mg/dL (65-115); Lipase 20 U/L (13-60); Osmolality Calculated 286 mOsm/kg (285-295); Potassium 3.5 mmol/L (3.5-5.1); Sodium 139 mmol/L (136-145); Total Bilirubin 0.4 mg/dL (0.15-1.2); Total Protein 7.1 g/dL (6.6-8.7)
[2021-09-06 18:10] VITALS: RESP 12
[2021-09-06 18:48] VITALS: BP 150/97; PULSE 70; RESP 16; O2SAT 96
== END 2021-09-06 18:50 | disposition home or self-care (01) ==
PROVIDERS: Physician Assistant; Emergency Provider Physician Assistant; PCP Family Medicine
DX: K57.32 Diverticulitis of large intestine without perforation or abscess without bleeding (principal); E78.5 Hyperlipidemia, unspecified; Z87.891 Personal history of nicotine dependence
CPT/HCPCS: 74177; 76705; 80053; 81003; 83690; 85025; 96374; 96375; 96376; 99284; J2270; J2405; J7040; Q9967

== ENCOUNTER → 2021-09-16 09:01 | Outpatient (BNVA) | payer OTHER, SELFPAY | PROVIDERS: PCP Family Medicine; Visit Provider Surgery | DX: Z20.822 Contact with and (suspected) exposure to COVID-19 (principal) | CPT/HCPCS: 87635 ==

== ENCOUNTER 2021-09-20 15:43 | Inpatient (IN) | payer OTHER, SELFPAY ==
[2021-09-17 07:57] VITALS: BMI 36.0
--- NOTE | 2021-09-17 08:50 | P.ANESASSM_ITS ---
Pre-Anesthetic Assessment Height/Weight: Height 1.7 m Weight 104.326 kg Preop Diagnosis: Symptomatic cholelithiasis Operation Date: 09/20/21 07:00 Proposed Procedures p Laparoscopic [id number]/K57.32(Not Applicable) - Nasir Suggs MD s flexible Sigmoidoscopy(Not Applicable) - Nasir Suggs MD s Cystoscopy(Not Applicable) - Theo Huffman MD s Ureteral Stent Placement(Bilateral) - Theo Huffman MD Familial anesthetic complications: Has woken up extremely combative in past Was Beta Will taken within 24 hours: N/A Was Clonidine taken within 24 hours: N/A Social Tobacco (Marijuana, chewing tobacco use) Exam alert, oriented x 3, clear to auscultation bilaterally and regular rate & rhythm Airway Submandibular: within normal limits Cervical ROM: within normal limits Mallampati: Class II Dentition: chipped Comments: Comments: Tonsillar hypertrophy, bifid uvula Pulmonary None reported CV/HEM Hypertension DLD METS > 4 None reported Hepatic CISNEROS GI Gastroesophageal Reflux Disease Recurrent diverticulitis CISNEROS Colon Polyps Barretts esophagus GERD Metabolic None reported Musc/skel Rheumatoid Arthritis (Patient states has been told he has RA or other form of inflammatory arthritis) Neuropsych None reported Anesthetic Plan ASA status: 2 Anesthesia: Anesthesia Evaluation and General Other: We discussed risk and benefits of general anesthesia including PONV, sore throat (sometimes severe), corneal abrasion, positioning and peripheral nerve injuries, life threatening allergic reaction, post operative ICU admission requiring prolonged intubation, stroke, heart attack, , and rare incidences of recall. Patient consents to proceed with general anesthesia. Risk of > 500 ml blood loss (7ml/kg in children): No Medications/Allergies Home Medications Medication Instructions Recorded Confirmed Last Taken Type acetaminophen 500 mg capsule 1,000 mg PO BID PRN cap 07/15/21 09/17/21 Unknown History ibuprofen 200 mg tablet 1,000 mg PO BID PRN tab 07/15/21 09/17/21 Unknown History naproxen 250 mg tablet 500 mg PO BID PRN tab 07/15/21 09/17/21 Unknown History omeprazole 40 mg capsule,delayed 40 mg PO DAILY 08/12/21 09/17/21 Unknown History release neomycin 500 mg tablet 1 g PO ONCE 1 Days #6 tab 09/09/21 09/17/21 Unknown Rx erythromycin 500 mg tablet 1,000 mg PO ONCE 09/17/21 09/17/21 Unknown History hydrochlorothiazide 12.5 mg tablet 12.5 mg PO DAILY 09/17/21 09/17/21 Unknown History Allergies Allergy/AdvReac Type Severity Reaction Status Date / Time No Known Allergies Allergy Verified 09/17/21 07:50 [facility] Anesthesia Medical History Acute diverticulitis Cholelithiasis Colon polyps Encounter for screening for other viral diseases GERD (gastroesophageal reflux disease) High risk medication use History of colon polyps Hyperlipidemia Immunization counseling Rheumatoid arthritis with rheumatoid factor Surgical History History of cholecystectomy History of colonoscopy with polypectomy (~2018) Diverticular bleed 2019 status post colonoscopy with polyp removal, benign as per the patient History of esophagogastroduodenoscopy (EGD) (~2018) History of hernia repair Right inguinal hernia repair as a child Family History Brother Cancer prostate Father Diabetes Hypertension Hyperlipidemia Grandmother Hypertension Heart attack Denies family history of Systemic lupus erythematosus, unspecified Rheumatoid arthritis Lupus Anesthesia complication Bleeding disorder Stroke Social History Smoking and tobacco status: former smoker Quit status (tobacco): has quit using tobacco Second hand smoke exposure: No Alcohol intake: current Alcohol intake frequency: few times a week Alcohol type: beer Adopted: No Caregiver/support person: Yes Lives independently: Yes Household members: spouse Housing: House Marital status: Highest education level completed: High School Graduate service: No Current occupational status: employed 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
[2021-09-20] VITALS (33 sets, daily range): BP systolic 103–179; BP diastolic 72–106; PULSE 73–102; RESP 18–22; TEMP 36.4–37.4; O2SAT 90–98; BMI 36.0
--- NOTE | 2021-09-20 | SCC_ITS ---
Procedure done: 1. Bilateral lighted ureteral stents placed 16.3 seconds of fluoroscopic guidance, for a cumulative dose of 5.84 mGy, was provided to Dr. Huffman by the radiology department. C-arm images of the abdomen were saved for the patient's permanent record. [facility]
--- NOTE | 2021-09-20 05:55 | SC_ITS ---
WS: [id number] Exam: C-arm FL for Urology Date/Time of Exam: 09/20/2021 5:55 AM Reason For Exam: Cystoscopy ureteral stent placement Single intraoperative AP C-arm image of the right abdomen is submitted for evaluation. A guidewire is looped in the mid to upper right abdomen in the expected region of the right kidney. A second opaque length of tubing is seen more laterally. Significance of this is undetermined. No othe r significant finding on this limited image.
--- NOTE | 2021-09-20 06:11 | W.PM.OPSUD ---
Surgery/Procedure H&P Update DATE OF PROCEDURE: September 20, 2021 DATE H&P PERFORMED: 09/09/21 PREOP DIAGNOSIS: Chronic sigmoid diverticulitis PRIMARY INDICATION FOR PROCEDURE: The same PLANNED PROCEDURE: Operation Date: 09/20/21 07:00 Proposed Procedures p Laparoscopic [id number]/K57.32(Not Applicable) - Nasir Suggs MD s flexible Sigmoidoscopy(Not Applicable) - Nasir Suggs MD s Cystoscopy(Not Applicable) - Theo Huffman MD s Ureteral Stent Placement(Bilateral) - Theo Huffman MD
[2021-09-20] MEDS: sodium chloride 0.9% 1,000 ML 30 ML IV (06:33)
[2021-09-20] MEDS: acetaminophen 1,000 MG/100 ML PIGGYBACK 400 MG IV ×3 (06:33→23:59)
--- NOTE | 2021-09-20 06:40 | P.ANESUD_ITS ---
Pre-Anesthetic Update Pre-Anesthetic Assessment: Date of Surgery/Procedure: 09/20/21 Preop Molly gnosis: Chronic sigmoid diverticulitis Proposed Procedure: Operation Date: 09/20/21 07:00 Proposed Procedures p Laparoscopic [id number]/K57.32(Not Applicable) - Nasir Suggs MD s flexible Sigmoidoscopy(Not Applicable) - MD jaymie Stanley Cystoscopy(Not Applicable) - Theo Huffman MD s Ureteral Stent Placement(Bilateral) - Theo Huffman MD Any changes to Pre-Anesthetic Assessment?: No Last Intake: Intake Last Liquid Date 09/19/21 Last Liquid Time 22:30 Last Solid Date 09/18/21 Last Solid Time 19:00 Vitals: Temperature 98.0 F 09/20/21 06:06 Temperature Source Temporal Artery S can 09/20/21 06:06 Pulse Rate 73 09/20/21 06:06 Respiratory Rate 18 09/20/21 06:06 Blood Pressure 128/88 09/20/21 06:06 Blood Pressure Susie n 101 09/20/21 06:06 Pulse Oximetry 95 09/20/21 06:06 Oxygen Delivery Me thod 09/20/21 06:18 Exam: Pre-Anes Outpt Exam: alert, oriented x 3, clear to auscultation bilaterally and regular rate & rhythm Cardiac Studies: No Data to Display
--- NOTE | 2021-09-20 06:43 | P.CONIM_ITS ---
Providers/Reason For Consult Consulting Physician/Specialty*: Urology/Huffman Reason for Consult*: Request for ureteral stent Requesting Physician: Es Attending Physician: Nasir Suggs MD Primary Care Provider: Anastasia Villagomez MD History of Present Illness History of Present Illness Ciaran Lau is a 46 year old male with sigmoid diverticulitis. He is scheduled for laparoscopic partial sigmoidectomy and I was requested to place stents to help facilitate ureteral identification during the procedure. We reviewed both lighted and routine double-J ureteral stent will be prepared to what ever is preferred by primary surgeon Dr. Suggs. Urinary tract problems including infections, stones, catheters, and urethral issues. He states that he voids well. Has no renal colic or gross hematuria. Patient denies a history of Proceed as above Review of Systems Const: Denies: fever(s) or chills Eyes: Denies: eye discharge Card: Denies: chest pain Resp: Denies: dyspnea or wheezing GI: Reports: abdominal pain : Denies: flank pain, difficulty urinating or hematuria Neuro: Denies: confusion Psych: Denies: anxiety Kelvin/Lymph: Denies: easy bleeding All/Imm: Denies: urticaria or acute wheezing Medications/Allergies Home Medications Medication Instructions Recorded Confirmed Last Taken Type acetaminophen 500 mg capsule 1,000 mg PO BID PRN cap 07/15/21 09/17/21 Unknown History ibuprofen 200 mg tablet 1,000 mg PO BID PRN tab 07/15/21 09/17/21 Unknown History naproxen 250 mg tablet 500 mg PO BID PRN tab 07/15/21 09/17/21 Unknown History omeprazole 40 mg capsule,delayed 40 mg PO DAILY 08/12/21 09/20/21 09/15/21 History release neomycin 500 mg tablet 1 g PO ONCE 1 Days #6 tab 09/09/21 09/20/21 09/19/21 Rx erythromycin 500 mg tablet 1,000 mg PO ONCE 09/17/21 09/20/21 09/19/21 History hydrochlorothiazide 12.5 mg tablet 12.5 mg PO DAILY 09/17/21 09/20/21 09/17/21 History Allergies Allergy/AdvReac Type Severity Reaction Status Date / Time No Known Allergies Allergy Verified 09/17/21 07:50 Current Medications Generic Name Dose Route Start Last Admin Trade Name Freq PRN Reason Stop Dose Admin Sodium Chloride 1,000 mls @ 30 mls/hr 09/20/21 06:00 09/20/21 06:33 Sodium Chloride 0.9% IV 09/21/21 05:59 30 mls/hr .Q24H MARIA FERNANDA Administration PFSH Acute PFSH: Medical History Acute diverticulitis Cholelithiasis Colon polyps Encounter for screening for other viral diseases GERD (gastroesophageal reflux disease) High risk medication use History of colon polyps Hyperlipidemia Immunization counseling Rheumatoid arthritis with rheumatoid factor Surgical History History of cholecystectomy History of colonoscopy with polypectomy (~2018) Diverticular bleed 2019 status post colonoscopy with polyp removal, benign as per the patient History of esophagogastroduodenoscopy (EGD) (~2018) History of hernia repair Right inguinal hernia repair as a child Family History Brother Cancer prostate Father Diabetes Hypertension Hyperlipidemia Grandmother Hypertension Heart attack Denies family history of Systemic lupus erythematosus, unspecified Rheumatoid arthritis Lupus Anesthesia complication Bleeding disorder Stroke Social History Smoking and tobacco status: former smoker Quit status (tobacco): has quit using tobacco Second hand smoke exposure: No Alcohol intake: current Alcohol intake frequency: few times a week Alcohol type: beer Adopted: No Caregiver/support person: Yes Lives independently: Yes Household members: spouse Housing: House Marital status: Highest education level completed: High School Graduate service: No Current occupational status: employed 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 Current occupational exposures/hazards: No Pets and animals: No History of recent travel: No Sexually active: Yes Current gender identity: Male Neda/Buddhist: Spiritism Special neda needs: No Agree to transfusion: No Financial difficulty paying for basics: Decline to Answer Vitals/I&O/Wt Last Vital Signs Temp 98.0 F 09/20/21 06:06 Pulse 73 09/20/21 06:06 Resp 18 09/20/21 06:06 BP 128/88 09/20/21 06:06 Pulse Ox 95 09/20/21 06:06 Physical Exam Const: COMMON NORMALS: no acute distress and patient oriented x3 HENMT: COMMON NORMALS: normocephalic and atraumatic HEAD & SCALP: normocephalic and atraumatic Eye: COMMON NORMALS: conjunctivae normal and no scleral icterus CONJUNCTIVA: Yes conjunctivae normal Neck/C-Spine: COMMON NORMALS: full ROM Resp: COMMON NORMALS: normal respiratory effort and clear to auscultation bilaterally AUSCULTATION: clear to auscultation bilaterally Cardio: COMMON NORMALS: regular rate and regular rhythm RATE: regular rate RHYTHM: regular rhythm GI: COMMON NORMALS: Normal to inspection, nondistended, normoactive bowel sounds present, Soft to palpation and non-tender PALPATION: Yes Soft to palpation : COMMON NORMALS: Yes no CVA tenderness BLADDER/KIDNEY EXAM: Yes no CVA tenderness Back/Pelvis: COMMON NORMALS: no CVA tenderness Neuro: COMMON NORMALS: patient oriented x3 Psych: COMMON NORMALS: mental status grossly normal, Normal thought process present, cooperative and speech normal SPEECH: Yes normal speech THOUGHT PROCESS: Normal thought process present A&P Assessment and plan (1) Diverticulitis of sigmoid colon: Request made by general surgery to pass lighted stents to help facilitate ureteral identification during the procedure. Informed consent obtained. Procedure explained. Benefits and risks discussed. They seemed comfortable with my explanation. No further concerns expressed by patient or . Status: Chronic Coding Level of Care Code Acute Cloth Shrinker for [facility] Fwd Diagnoses Diverticulitis of sigmoid colon K57.32
[2021-09-20] MEDS: piperacillin-tazobactam 3.375 GM in sodium chloride 0.9% (plus) 50 ML IV ×2 (07:05→16:58)
--- NOTE | 2021-09-20 07:46 | PM.OP ---
Operative Report Date of procedure: September 20, 2021 Pre-op diagnosis: Preop Diagnosis Chronic sigmoid diverticulitis Post-op diagnosis: Chronic sigmoid diverticulitis Procedure done: 1. Bilateral lighted ureteral stents placed Specimens removed/disposition: None Pathology: None Surgeon: Armida Estimated blood loss: None Urine output: Not measured Findings: Lighted stents placed in appropriate position as per protocol. Brief History: Ciaran is a very pleasant 46-year-old white male with chronic sigmoid diverticulitis and schedule laparoscopic sigmoidectomy. Because of the concern for inflammatory changes around the ureters it was decided by the surgeon to request the lighted ureteral stents. Procedure: After routine preoperative evaluation examination and obtaining of informed consent he was taken to the operating suite on 09/20/2021 where general anesthesia was administered without difficulty after appropriate timeout was performed, SCDs confirmed to be functioning, preoperative antibiotics administered, beta-ayanna protocol confirmed. Prepped and draped in usual sterile fashion in dorsolithotomy position paying careful attention to avoiding pressure points. Fluoroscopic landmarks obtained. 21 Estonian cystoscope with 30 degree lens was introduced into the urethra meatus and advanced into the bladder under videoscopy. The bladder was systematically examined and found to be within normal limits. Both ureteral orifices were easily identified. The left ureteral sheath was passed first. A flexible tip guidewire was advanced up the left ureter without difficulty with its position confirmed via fluoroscopy. The left ureteral sheath was then advanced over the guidewire to the 20 cm vipul without difficulty. The wire was removed. The wire was then passed up the right ureter into appropriate position as confirmed via fluoroscopy and the RIGHT ureteral sheath was advanced over the guidewire into appropriate position at 20 cm. The wire was removed. Paying careful attention to avoiding pulling either sheath out the scope was disconnected and then removed. Sheaths were confirmed to be in appropriate position. A Rose catheter was in place and the sheaths were secured to the Rose with Tegaderm. The lighted fiber was then passed up each sheath to the appropriate distance. A Tegaderm was used to secure the fibers to the sheaths. Rose catheter was confirmed to be functioning well and patient was carefully undraped to avoid displacing any of the implanted material. He tolerated procedure well without complications and was turned over to Dr. Suggs for his repositioning and procedure as scheduled PLANS: 1. Remove the sheaths and fibers as indicated 2. No further urologic work-up recommended.
[2021-09-20] MEDS: heparin,porcine 1,000 unit/mL INJ 1 mL 2000 UNIT INJECTION (07:49)
[2021-09-20] MEDS: lidocaine 2% INJ 20 mL INJECTION (08:24)
--- NOTE | 2021-09-20 08:49 | SUR.OPER ---
0830 family updated of surgical status
--- NOTE | 2021-09-20 10:35 | SUR.OPER ---
1032 family updated of surgical status
--- NOTE | 2021-09-20 12:22 | SUR.OPER ---
1222 family updated of surgical status
--- NOTE | 2021-09-20 12:58 | P.OP_ITS ---
Operative Report Date of procedure: September 20, 2021 Pre-op diagnosis: Preop Diagnosis Chronic sigmoid diverticulitis Preop Diagnosis Chronic sigmoid diverticulitis Post-op diagnosis: Extensive scarring towards the left lateral pelvic wall Procedure done: 1-Laparoscopic sigmoid colectomy with colorectal anastomosis 2-Extensive adhesiolysis 3-Flex sigmoidoscopy Specimens removed/disposition: Sigmoid colon resection sutures marked proximal Staple line Proximal and distal complete donuts Intraperitoneal fecalith Surgeon: Nasir Suggs MD Non Licensed Operator Surgeon Dr Mcdonald Non Licensed Operator: Surgical techs Nohemy Rodriguez and Gladis Roque Circulating nurses Nery and Elizabeth Mclean Anesthesia: General (PRAVEEN Valdovinos, Dr. Chi and Karina HYDE) Estimated blood loss (mL): 100 IV fluids: 1500 Urine output: 200 Findings: Severe scarred sigmoid colon towards the left lateral pelvic wall encasing the left ureter Brief History: Recurrent sigmoid diverticulitis required laparoscopic sigmoid colectomy. Patient is aware prior to surgery about the ICG injection and he approved it prior to any intervention. Procedure: Laparoscopic sigmoid colectomy ICG dye injection placed by urology service please see separate dictation there were taken out at the end of the procedure The patient was brought to the operating room and was placed in a supine position on the operating room table.General endotracheal anesthesia was induced.Time-out was done verifying the patient's name/date of /planned procedure and destination after the procedure, all were in agreement. SCDs confirmed to be functioning, preoperative antibiotics administered per protocol, and beta ayanna protocol was confirmed The patient was then moved to a modified lithotomy position. At this point Dr. Huffman started with a cystoscopy and application of bilateral lightened ureteric stents(Bilateral infrared ureteric stents), to prevent and/or identify any potential injury intraoperatively for the ureters, particularly the left ureter as the patient has well-known complicated diverticulosis of sigmoid colon, A Rose catheter was inserted revealing clear urine. Catheters were tied down to the Rose catheter by Urology service. Please find separate dictation for Dr. Huffman's operative note. Following that the position of the patient was adjusted in a low lithotomy and all pressure points were padded. Patient was appropriately secured to the bed. I did ask anesthesia provider to move the bed [id number] before prepping to make sure that the patient was appropriately secured to the bed and it was the case. The abdomen was then prepped and draped in a sterile fashion. Also multiple flushes of Betadine via the rectum was done. Started by longitudinal skin incision supraumbilical using a Olivares trocar technique safe entry to the abdominal cavity was achieved verified by using 10 mm zero degree laparoscopy, switched to a 30? scope, a 12 mm trocar was inserted at the right lower direct visualization, look by a 5 mm trocar was inserted at the right upper quadrant under direct visualization and another 5 mm trocar was inserted to the left side of the abdomen under direct visualization. Extensive intra-abdominal adhesions were adhesio lysed and the left lower abdominal quadrant, time taken exceeded 1 hour, particularly the scar tissues and adhesions were between the sigmoid colon and the left lateral pelvic wall. I started by mobilizing the sigmoid colon through the line of Toldt using the Enseal device and the left ureter was identified there was severe desmoplastic reaction between the sigmoid colon and left ureter, dissection was done safely without injuring the left ureter. Both ureters were recognized by the lightened stents and also identified by palpation.I was able to identify and skeletonized the ERWIN pedicle and 45 mm vascular load was applied to secure the ERWIN pedicle to help mobilizing the sigmoid colon. At that point I continued dissection and mobilizing the left side of the colon proximally without causing any injury or harm to the spleen, followed by that via the 12 mm trocar introduced and endoscopic stapler device using gold load 60 mm and was angled in a way to divide the junction between the distal sigmoid and the healthy upper rectum, division was achieved after few loads of the gold load as the sigmoid colon was thick at this point.And a final blue load for the remaining residual tissues. Hemostasis was achieved. At that point I created transverse incision at the left 5 mm trocar site were and the wound protection device was placed, I was able to deliver the distal sigmoid colon Inclusive for the diseased sigmoid colon segment,. Extracorporeal evaluation of the blood flow after injection of ICG dye by the anesthesia provid er, a good blood flow was appreciated to the sigmoid colon and even after the resection the proximal part showed good blood flow. A 60 mm blue load [place] stapler was applied to the proximal part of the sigmoid colon after the rest of the mesentery was divided by Enseal device and there was some bleeders 3-0 silk [id number] sutures were placed for appropriate hemostasis. And the specimen was marked by sutures to identify proximal and specimen was passed to the circulating nurse for permanent pathology. Attention was deviated at the proximal colon were the staple line was taken off with Jethro scissors and sent also for pathology.The colon was sized and a size 29 EEA stapler was decided upon.The anvil was sewn into the proximal sigmoid with a running suture of 3-0 Prolene and 3-0 Vicryl ,that part of the colon was dropped back into the abdominal cavity,.And a good seal was obtained by the wound protection device.Gloves were changed,at this point additional mobilization was obtained due to the adherence of the omentum to the proximal part of the colon to allow tension-free anastomosis.at that point my public services assistant the EEA was introduced through the rectum by him and the EEA was opened through the distal staple line. The anvil was connected and was slowly screwed down until the 2 limbs of bowel were contacting each other with good orientation of the mesentery of the colon. The Surrounding structures were again confirmed to be out of the area and the EEA was fired.The EEA was removed and 2 solid intact colonic rings of tissue were found in the EEA.Both doughnuts as well as the proximal sigmoid staple line were sent to pathology. The pelvis was again irrigated and while some irrigation was still in the pelvis a flexible sigmoidoscope was introduced by my partner Dr. Gunderson whom he joined me to inflate the distal colon via the rectum, at the same time I placed a bowel grasper was clamped proximal to the staple line on the sigmoid. The colon filled very well and no air leaks were seen under a level of saline in the pelvis. Further irrigation and suction of abdomen and pelvis . No ongoing bleeding or other problems were seen anywhere in the abdomen. Except for minor bruising towards the staple line. At that point I did apply a [id number] 2-0 silk suture that was placed laparoscopically, onto the anterior aspect of the anastomosis. For completion hemostasis and the staple line was invaginated. Also bleeding and 5 mm clips were applied towards the pelvis Bilateral TAP (transversus abdominous plain peripheral nerve block )block using Exparel 20 mL Exparel 40 ml Normal saline 20 ml bupivacaine 0.25% 30 mL on each side injected 20 mL injected the port sites A final look laparoscopy showed no injuries or bleeding All trocars were taken out under direct visualization and closure of the left lateral incision was done in 2 layers using PDS and Vicryl sutures, as well as the supraumbilical trocar site was closed by Vicryl sutures and all trocar sites were closed by skin karen, dressing was applied, all wounds were thoroughly irrigated prior to closure. All incisions were irrigated prior to closure. Double counts of sponges,needles and instruments were completed at the end of the procedure. Both ureteric stents were taken out without complications under direct visualization prior to closure and a Rose catheter was left in place Patient tolerated the procedure well and got extubated and was taken directly to the intensive care unit. I was present for the whole entire procedure. Due to medical necessity. Non Licensed Operator surgeon is required to assist in this procedure in the form of; Introduced the flex sigmoidoscopy to rule out potential leak or bleeding
[2021-09-20] MEDS: labetalol 5 mg/mL SDV 20mL 100 MG ×2 (14:20→14:30)
[2021-09-20] MEDS: HYDROmorphone 1 mg/mL INJ 1 mL 0.5 MG IVP (14:25)
--- NOTE | 2021-09-20 15:11 | XR_ITS ---
WS: [id number] Exam: XR chest 1V portable [id number] Date/Time of Exam: 09/20/2021 3:11 PM Reason For Exam: post op low 02 saturations Comparison 10/17/2019. The lungs are clear and fully inflated. Normal cardiomediastinal silhouette. Low lung volumes due to Limited inspiration. Monitoring leads superimpose the chest. Regional bony structures are intact. XR/XR chest 1V portable [id number] IMPRESSION: 1. No acute cardiopulmonary finding.
--- NOTE | 2021-09-20 15:34 | ANE.PACU2 ---
Inpatient post-anesthesia follow up: Airway intact: Yes Vital signs: Temperature 98.0 F Pulse Rate 94 Respiratory Rate 22 Blood Pressure 134/87 Pulse Oximetry 92 Oxygen Delivery Me thod Simple Mask Oxygen Flow Rate 6 Fraction of Inspir ed Oxygen Hydration adequate: Yes Nausea and vomiting: No Pain level: 4 Mental status: Baseline Additional Comments: Required 0.2 mg narcan after 1.5 hrs of remaining asleep. Awoke quickly. Satting 89 to 92% on 3 L NC. Obtained CXR d/t decreased O2 sat intraop as well. CXR currently clear. Will send up to floor on continuous pulse ox. Surgeon notified of patient's status.
[2021-09-20] MEDS: naloxone 0.4 mg/ml SDV (15:39)
[2021-09-20] MEDS: famotidine 20 mg/2 mL INJ IVP (16:47)
[2021-09-20] MEDS: lactated ringers 1,000 ML 125 ML IV (16:55)
[2021-09-20] MEDS: morphine 4 mg/mL SDV 1 mL 2 MG IVP ×2 (17:04→22:27)
[2021-09-20] MEDS: HYDROmorphone 1 mg/mL INJ 1 mL IVP (19:28)
[2021-09-20] MEDS: ondansetron 2 mg/ML SDV 2 mL 4 MG IVP (22:31)
[2021-09-21] VITALS (15 sets, daily range): BP systolic 136–142; BP diastolic 76–86; PULSE 71–94; RESP 16–20; TEMP 36.4–37.2; O2SAT 94–98
[2021-09-21] MEDS: lactated ringers 1,000 ML 125 ML IV ×3 (00:18→15:37)
[2021-09-21] MEDS: piperacillin-tazobactam 3.375 GM in sodium chloride 0.9% (plus) 50 ML IV ×2 (00:18→08:24)
[2021-09-21] MEDS: HYDROmorphone 1 mg/mL INJ 1 mL IVP ×7 (00:24→21:26)
[2021-09-21] MEDS: famotidine 20 mg/2 mL INJ IVP ×2 (00:25→13:31)
[2021-09-21 05:30] LABS: Hematocrit 39.3 % (42.0-52.0); Hemoglobin 13.3 g/dL (11.7-16.6)
[2021-09-21 05:50] LABS: Anion Gap 14.5 (5-19); Blood Urea Nitrogen 11 mg/dL (6-20); Calcium 8.2 mg/dL (8.5-10.5); Carbon Dioxide 22 mmol/L (22-29); Chloride 109 mmol/L (98-107); Glomerular Filtration Rate 91.7 mL/min (90-130); Glucose 127 mg/dL (65-115); Osmolality Calculated 293 mOsm/kg (285-295); Potassium 4.5 mmol/L (3.5-5.1); Sodium 141 mmol/L (136-145)
[2021-09-21] MEDS: heparin 5,000 unit/mL INJ 1 mL 5000 UNIT SUBCUT ×2 (06:03→17:12)
--- NOTE | 2021-09-21 06:28 | P.PN_ITS ---
Subjective Subjective: Overall patient seems to be doing well yet sore and pain medication has been adjusted. Adequate urine output. Urine output is clearing. Medications: Reviewed: Yes Vitals/I&O/Wt Last Vital Signs Temp 99.0 F 09/21/21 04:00 Pulse 94 09/21/21 04:00 Resp 18 09/21/21 04:21 BP 140/85 09/21/21 04:00 Pulse Ox 95 09/21/21 04:00 09/20/21 09/20/21 09/21/21 14:59 22:59 06:59 Intake Total 2550 / 2550 150 / 2700 1072.917 / 3772.917 Output Total 100 / 100 1050 / 1150 500 / 1650 Balance 2450 / 2450 -900 / 1550 572.917 / 2122.917 Weight last 48 hrs Weight 230 lb 9.6 oz Weight 230 lb Physical Exam Narrative: Patient is conscious alert oriented X3 No apparent distress except for mild soreness at the incision site BMI 36.1 Head and neck examination PERRLA no masses no cervical lymphadenopathy no jaundice Cardiac examination audible S1-S2 no murmurs no gallops no arrhythmias Chest is clear bilateral,abscence of Rhonchi or wheezes,no surgical emphysema Abdomen nontender except at the incision site nondistended soft no organomegaly guarding or rigidity/no signs of peritonitis, dressing in place. Rose catheter in place with clearer urine Extremities no cyanosis no clubbing no edema Urinary Catheter Management: Rose Latex: Cath Placed During This Visit: yes Reason for Continuing Indwelling Catheter: Perioperative Use in Selected Surgeries Urinary Catheter Date of Insertion: 09/20/21 Urinary Catheter Time of Insertion: 07:40 Data : 09/21/21 05:15 09/21/21 05:15 A&P Assessment and plan (1) S/P laparoscopic colectomy: Assessment 46 years old gentleman status post laparoscopic sigmoid colectomy and placement of bilateral ureteric stents 09/20/2021 for recurrent diverticulitis. Plan Encourage ambulation Continue antimicrobial therapy for 2 more doses after surgery then will DC Continue Rose catheter Incentive spirometer every hour Pharmacologic DVT prophylaxis Awaiting bowel function Assurance and education All questions have been answered and all concerns have been addressed to patient's satisfaction. Status: Acute Attestations Medical Necessity Statement*: Patient requiring inpatient hospitalization passing 2 midnights to await bowel function and for postoperative pain control. Coding Level of Care Code Acute Management Associate for Chg Fwd Diagnoses S/P laparoscopic colectomy Z90.49
[2021-09-21] MEDS: ipratropium-albuterol 3 mL Neb INHALATION (09:55)
[2021-09-21] MEDS: acetaminophen 1,000 MG/100 ML PIGGYBACK 400 MG IV ×2 (11:18→18:09)
--- NOTE | 2021-09-21 15:26 | PC.NURSE ---
Patient vitals stable. Pain control has been better controlled since change in pain regiment. Rose intact and clean with adequate output. Patient has got out of bed a few times this shift. Patient was okayed to have popsicles. Surgical incision dressings are clean, dry, and intact. Will continue to monitor and give report to night nurse.
[2021-09-21] MEDS: ondansetron 2 mg/ML SDV 2 mL 4 MG IVP (18:14)
[2021-09-22] VITALS (15 sets, daily range): BP systolic 117–166; BP diastolic 79–98; PULSE 63–102; RESP 16–20; TEMP 36.6–36.9; O2SAT 94–97
[2021-09-22] MEDS: lactated ringers 1,000 ML 125 ML IV ×2 (00:18→08:08)
[2021-09-22] MEDS: famotidine 20 mg/2 mL INJ IVP ×2 (01:23→13:00)
[2021-09-22] MEDS: HYDROmorphone 1 mg/mL INJ 1 mL IVP ×5 (01:24→20:26)
[2021-09-22 02:06] LABS: Hematocrit 38.3 % (42.0-52.0); Hemoglobin 12.7 g/dL (11.7-16.6)
[2021-09-22 02:32] LABS: Anion Gap 14.2 (5-19); Blood Urea Nitrogen 10 mg/dL (6-20); Calcium 8.4 mg/dL (8.5-10.5); Carbon Dioxide 25 mmol/L (22-29); Chloride 107 mmol/L (98-107); Glomerular Filtration Rate 91.7 mL/min (90-130); Glucose 87 mg/dL (65-115); Osmolality Calculated 292 mOsm/kg (285-295); Potassium 4.2 mmol/L (3.5-5.1); Sodium 142 mmol/L (136-145)
[2021-09-22] MEDS: acetaminophen 1,000 MG/100 ML PIGGYBACK 400 MG IV (04:05)
[2021-09-22] MEDS: ondansetron 2 mg/ML SDV 2 mL 4 MG IVP ×2 (06:16→15:06)
[2021-09-22] MEDS: heparin 5,000 unit/mL INJ 1 mL 5000 UNIT SUBCUT ×2 (06:17→17:37)
--- NOTE | 2021-09-22 07:45 | PC.NURSE ---
Removed hauser catheter at 0720. Patient tolerated well and catheter intact.
--- NOTE | 2021-09-22 12:05 | P.PN_ITS ---
Subjective Subjective: Feels better, patient denies any flank pains. Medications: Reviewed: Yes Vitals/I&O/Wt Last Vital Signs Temp 98.5 F 09/22/21 07:31 Pulse 88 09/22/21 08:05 Resp 18 09/22/21 11:38 BP 152/89 09/22/21 07:31 Pulse Ox 96 09/22/21 11:38 09/21/21 09/22/21 09/22/21 22:59 06:59 14:59 Intake Total 1000 / 2150 1100 / 3250 979.167 / 979.167 Output Total 1050 / 1050 2200 / 3250 700 / 700 Balance -50 / 1100 -1100 / 0 279.167 / 279.167 Weight last 48 hrs Weight 230 lb 9.6 oz Weight 230 lb Physical Exam Narrative: Patient is conscious alert oriented X3 No apparent distress except for mild soreness at the incision site BMI 36.1 Head and neck examination PERRLA no masses no cervical lymphadenopathy no jaundice Cardiac examination audible S1-S2 no murmurs no gallops no arrhythmias Chest is clear bilateral,abscence of? Rhonchi or wheezes,no surgical emphysema Abdomen nontender except at the incision site nondistended soft no organomegaly guarding or rigidity/no signs of peritonitis, dressing is removed,skin karen in place. Rose catheter in place with clearer urine Extremities no cyanosis no clubbing no edema Urinary Catheter Management: Rose Latex: Cath Placed During This Visit: yes Reason for Continuing Indwelling Catheter: Required Immobilization for Trauma or Surgery or Anesthesia Urinary Catheter Date of Insertion: 09/20/21 Urinary Catheter Time of Insertion: 07:40 Data : 09/22/21 02:00 09/22/21 02:00 A&P Assessment and plan (1) S/P laparoscopic colectomy: Assessment 46 years old gentleman status post laparoscopic sigmoid colectomy and placement of bilateral ureteric stents 09/20/2021 for recurrent diverticulitis. Plan Encourage ambulation DC Rose catheter Incentive spirometer every hour Pharmacologic DVT prophylaxis Awaiting bowel function Popsicles, once patient starts passing gas we will switch to clear liquid diet and start him on oral pain medications. Assurance and education All questions have been answered and all concerns have been addressed to patient's satisfaction. Status: Acute Attestations Medical Necessity Statement*: Patient requiring inpatient hospitalization passing 2 midnights to await bowel function and for postoperative pain control. Coding Level of Care Code Acute Dental Surgery Doctor for Chg Fwd Diagnoses S/P laparoscopic colectomy Z90.49
[2021-09-22] MEDS: D5-NS 0.45% + KCL 20 mEq 20 MEQ/1,000 ML BAG 100 MEQ IV (13:00)
--- NOTE | 2021-09-22 17:10 | PC.NURSE ---
Patient has improved today. He is passing gas, on clear liquid diet, and is taking oral pain medications now. Vitals stable. Patient showered today. IVs patent. Patient ambulated around the unit multiple times this shift. Patient had a smear of a bowel movement. Will continue to monitor and give report to night nurse.
[2021-09-22] MEDS: HYDROcodone-acetaminophen 5-325 mg Tablet 1 TAB PO (17:36)
[2021-09-22] MEDS: famotidine 20 mg Tablet 40 MG PO (20:17)
[2021-09-23] VITALS (7 sets, daily range): BP systolic 149–156; BP diastolic 88–100; PULSE 73–89; RESP 15–17; TEMP 36.8–37.2; O2SAT 94–96
[2021-09-23] MEDS: HYDROcodone-acetaminophen 5-325 mg Tablet 1 TAB PO ×6 (00:29→21:34)
[2021-09-23] MEDS: heparin 5,000 unit/mL INJ 1 mL 5000 UNIT SUBCUT ×2 (05:02→17:27)
[2021-09-23 05:17] LABS: Hematocrit 38.7 % (42.0-52.0)
[2021-09-23 05:33] LABS: Anion Gap 11.6 (5-19); Blood Urea Nitrogen 9 mg/dL (6-20); Calcium 8.7 mg/dL (8.5-10.5); Carbon Dioxide 23 mmol/L (22-29); Chloride 103 mmol/L (98-107); Glomerular Filtration Rate 122.5 mL/min (90-130); Glucose 101 mg/dL (65-115); Osmolality Calculated 277 mOsm/kg (285-295); Potassium 3.6 mmol/L (3.5-5.1); Sodium 134 mmol/L (136-145)
[2021-09-23] MEDS: tamsulosin 0.4 mg Capsule PO (08:10)
[2021-09-23] MEDS: dextrose 5%-ns + KCl 20 20 MEQ/1,000 ML BAG 50 MEQ IV (09:13)
--- NOTE | 2021-09-23 09:38 | PM.DCS ---
Discharge Providers Date of Admission: 09/20/21 15:43 Date of Discharge: September 23, 2021 Attending Provider at Admission: Nasir Suggs MD Attending Provider at Discharge: Nasir Suggs MD Primary Care Provider: Anastasia Villagomez MD Diagnoses at Discharge Discharge Diagnosis (1) S/P laparoscopic colectomy: Details from hospital stay: History of chronic sigmoid diverticulitis Status: Acute Reason for Visit Reason for Visit: diverticulitis of sigmoid colon k57.32 Brief History: This is a pleasant with recurrent episodes of sigmoid colon diverticulitis. Required frequent visits to the emergency department and CT scans. Patient was scheduled electively for laparoscopic sigmoid colectomy possible open and bilateral ureteric stents. Hospital Course Hospital Course Overall patient is doing well, tolerating by mouth intake, stable vital signs, good urine output and has been passing gas and having brown liquid bowel movements. Has been on heparin subcu for pharmacologic DVT prophylaxis. And has been ambulating and working on the incentive spirometer. Pain has been under control. Patient is able to void patient is able to void urine without Rose catheter insertion and urine has been nonbloody. Patient also denies any flank pains. Patient overall is meeting the appropriate and safe criteria for discharge home. Yet because of the weather and the snow, it is quite challenging to find appropriate and safe transportation for the patient, so we will plan to keep him one more night in the hospital till the weather clears up. We will plan to discharge patient home today 09/24/2021 Physical Exam Narrative: Patient is conscious alert oriented X3 No apparent distress BMI 36.1 Head and neck examination PERRLA no masses no cervical lymphadenopathy no jaundice Cardiac examination audible S1-S2 no murmurs no gallops no arrhythmias Chest is clear bilateral,abscence of Rhonchi or wheezes,no surgical emphysema Abdomen nontender except mildly at the incision sites. Nondistended soft no organomegaly guarding or rigidity/no signs of peritonitis. Skin karen in place without complications Extremities no cyanosis no clubbing no edema Urinary Catheter Management: Rose Latex: Cath Placed During This Visit: yes Reason for Continuing Indwelling Catheter: Required Immobilization for Trauma or Surgery or Anesthesia Urinary Catheter Date of Insertion: 09/20/21 Urinary Catheter Time of Insertion: 07:40 Discharge Data Studies Completed and Pending Completed Studies During Hospitalization Category Date Time Status XR chest 1V portable [id number] Routine Exams 09/20/21 15:11 Completed Pending at discharge Category Date Time Status Pathology: Surgical [PTH] Routine Pth 09/20/21 13:04 Received Radiology Impressions Chest X-Ray 09/20/21 15:11 IMPRESSION: 1. No acute cardiopulmonary finding. Laboratory Results Hgb 13.0 g/dL (11.7-16.6) 09/23/21 04:26 Hct 38.7 % (42.0-52.0) L 09/23/21 04:26 Sodium 134 mmol/L (136-145) L 09/23/21 04:26 Potassium 3.6 mmol/L (3.5-5.1) 09/23/21 04:26 Chloride 103 mmol/L (98-107) 09/23/21 04:26 Carbon Dioxide 23 mmol/L (22-29) 09/23/21 04:26 Anion Gap 11.6 (5-19) 09/23/21 04:26 BUN 9 mg/dL (6-20) 09/23/21 04:26 Creatinine 0.7 mg/dL (0.7-1.2) 09/23/21 04:26 GFR Calculation 122.5 mL/min (90-130) 09/23/21 04:26 Glucose 101 mg/dL (65-115) 09/23/21 04:26 Calculated Osmolality 277 mOsm/kg (285-295) L 09/23/21 04:26 Calcium 8.7 mg/dL (8.5-10.5) 09/23/21 04:26 Vitals Last Vital Signs Temp 98.6 F 09/23/21 07:37 Pulse 81 09/23/21 08:13 Resp 16 09/23/21 08:13 BP 155/94 09/23/21 07:37 Pulse Ox 96 09/23/21 08:13 Discharge Plan Discharge Condition: Stable Prescriptions: New hydrocodone-acetaminophen 5-325 mg tablet 1 tab PO Q6H PRN (Reason: pain) Qty: 28 0RF ondansetron HCl [Zofran] 4 mg tablet 4 mg PO Q8H PRN (Reason: nausea and vomiting) 4 Days Qty: 20 1RF Continued acetaminophen 500 mg capsule 1,000 mg PO BID PRN (Reason: Pain) 0RF omeprazole 40 mg capsule,delayed release(DR/EC) 40 mg PO DAILY 0RF hydrochlorothiazide 12.5 mg tablet 12.5 mg PO DAILY 0RF erythromycin 500 mg tablet 1,000 mg PO ONCE 0RF Rx Instructions: Take one tablet at 3PM, 4PM, and 10 PM on 09/19/21 the day before your surgery. Held ibuprofen 200 mg tablet 1,000 mg PO BID PRN (Reason: Pain) 0RF Hold Instructions: Resume on 09/30/21. naproxen 250 mg tablet 500 mg PO BID PRN (Reason: Pain) 0RF Hold Instructions: Resume on 09/30/21. Label Comments: Pt says he takes 2-3 QD as needed Discontinued neomycin 500 mg tablet 1 g PO ONCE 1 Days Qty: 6 0RF Rx Instructions: Take two tablets at 3PM, 4PM, and 10 PM on 09/19/21 the day before your surgery. Referrals: Nasir Suggs MD [Physician] - (Return to surgery office in 10 days in person) Discharge Diet: As Directed Discharge Activity: Limit activity as instructed Patient Instructions: Opioid Safety Activity Restrictions/Additional Instructions: Post discharge instructions: 1. Patient can shower after 48 hours from surgery. Do not soak in bathtub, swimming pool or hot tub for 4 weeks after surgery. 2. Leave incisions open to air, do not apply triple antibiotic ointment or medications on the incisions. 3. Up and walking as tolerated. Activity 4. Do not lift more than 5 pounds first 2 weeks after surgery and not more than 25 pounds 6 to 8 weeks after surgery. Driving 5. Do not operate heavy machinery or drive while using pain medications Diet Full liquid diet for today and tomorrow and start to advance to soft GI diet thereafter. Pain control Patient was given a prescription for hydrocodone as a limited amount till is being evaluated by his pain management team this coming Monday. Nausea Nausea is common after surgery, take nausea medications as needed and stay on a liquid bland diet until nausea resolves. Breathing Patient was encouraged and was given incentive spirometer to use at home 10 times an hour while awake Call the office at [phone] during office hours or go the Emergency Room after hours for - ?Fever to 100.4 or greater ?Shaking chills ?Pain that increases over time ?Redness, warmth, or pus draining from incision sites ?Persistent nausea or inability to take in liquids Discharge Attestations Time Spent in Discharge Care*: greater than 30 min Quality Metrics Clinical Quality Measures [ No reported AMI, CVA or VTE this stay] Coding Level of Care Code Acute Chg FW DC note Diagnoses S/P laparoscopic colectomy Z90.49
--- NOTE | 2021-09-23 10:15 | PC.NURSE ---
Patient is stable for discharge but unable to find a ride home. Patient will need to stay another night due to lack of ride.
[2021-09-23] MEDS: famotidine 20 mg Tablet 40 MG PO (20:11)
[2021-09-24] VITALS: BP 148/72; PULSE 80; RESP 17; TEMP 37; O2SAT 94
[2021-09-24] MEDS: HYDROcodone-acetaminophen 5-325 mg Tablet 1 TAB PO ×3 (03:21→14:19)
[2021-09-24 04:00] VITALS: BP 142/68; PULSE 76; RESP 17; TEMP 36.9; O2SAT 93
[2021-09-24] MEDS: heparin 5,000 unit/mL INJ 1 mL 5000 UNIT SUBCUT (05:43)
--- NOTE | 2021-09-24 07:38 | PM.PN ---
Subjective Subjective: Patient overall is doing well, continues to pass gas and having bowel movements and tolerating p.o. intake. Patient was supposed to be discharged home yesterday but because of the weather safe transportation was not available so I elected to keep the patient in the hospital for 1 more night. Medications: Reviewed: Yes Vitals/I&O/Wt Last Vital Signs Temp 98.4 F 09/24/21 04:00 Pulse 76 09/24/21 04:00 Resp 17 09/24/21 04:00 BP 142/68 09/24/21 04:00 Pulse Ox 93 09/24/21 04:00 09/23/21 09/24/21 09/24/21 22:59 06:59 14:59 Intake Total 1400 / 1400 300 / 1700 Output Total 250 / 250 680 / 930 Balance 1150 / 1150 -380 / 770 Physical Exam Narrative: Patient is conscious alert oriented X3 No apparent distress BMI 36.1 Head and neck examination PERRLA no masses no cervical lymphadenopathy no jaundice Cardiac examination audible S1-S2 no murmurs no gallops no arrhythmias Chest is clear bilateral,abscence of?Rhonchi or wheezes,no surgical emphysema Abdomen nontender except mildly at the incision sites.? Nondistended soft no organomegaly guarding or rigidity/no signs of peritonitis.? Skin karen in place without complications Extremities no cyanosis no clubbing no edema Urinary Catheter Management: Rose Latex: Cath Placed During This Visit: yes Reason for Continuing Indwelling Catheter: Required Immobilization for Trauma or Surgery or Anesthesia Urinary Catheter Date of Insertion: 09/20/21 Urinary Catheter Time of Insertion: 07:40 Data : 09/23/21 04:26 09/23/21 04:26 A&P Assessment and plan (1) S/P laparoscopic colectomy: Assessment 46 years old gentleman status post laparoscopic sigmoid colectomy and placement of bilateral ureteric stents 09/20/2021 for recurrent diverticulitis. Plan We will plan to discharge patient home today Specific instructions were given to the patient Education about avoiding constipation by using Metamucil or Benefiber as needed Assurance and education All questions have been answered and all concerns have been addressed to patient's satisfaction. Status: Acute Attestations Medical Necessity Statement*: Patient required inpatient hospitalization for perioperative care. And was supposed to be discharged home yesterday based on appropriate and safe criteria yet because of the weather, patient was kept in the hospital as there was a lack of safe transportation. Coding Level of Care Code Acute Senior Licensing Manager for Chg Fwd Diagnoses S/P laparoscopic colectomy Z90.49
[2021-09-24 07:49] VITALS: BP 142/97; PULSE 75; RESP 17; TEMP 36.7; O2SAT 97
[2021-09-24] MEDS: hydroCHLOROthiazide 25 mg Tablet 12.5 MG PO (08:03)
[2021-09-24] MEDS: tamsulosin 0.4 mg Capsule PO (08:03)
[2021-09-24 08:20] VITALS: PULSE 102; RESP 16; O2SAT 99
[2021-09-24 12:00] VITALS: BP 143/96; PULSE 98; RESP 16; TEMP 36.4; O2SAT 98
--- NOTE | 2021-09-24 14:27 | PC.NURSE ---
Discharge teaching and education given to patient and , all questions were answered at this time. IV discontinued. Medications were set to patients home pharmacy. All belongings were accounted for. Patient refused help out to the car.
[2021-09-24 14:28] VITALS: BP 143/96; PULSE 98; RESP 16; TEMP 36.4; O2SAT 98
== END 2021-09-24 14:30 | disposition home or self-care (01) | DRG 331 ==
LOC: MEDSURG 09-21 10:10
PROVIDERS: Surgery; Urology; Admitting Provider Surgery; PCP Family Medicine; Visit Provider Surgery
PROC: 0DTN4ZZ Resection of Sigmoid Colon, Percutaneous Endoscopic Approach (ICD-10-PCS; CPT 44204; principal; 2021-09-20 07:00)
PROC: 0DJD8ZZ Inspection of Lower Intestinal Tract, Via Natural or Artificial Opening Endoscopic (ICD-10-PCS; CPT 45330; 2021-09-20 07:00)
PROC: 0TJB8ZZ Inspection of Bladder, Via Natural or Artificial Opening Endoscopic (ICD-10-PCS; CPT 52000; 2021-09-20 07:00)
PROC: 0T788DZ Dilation of Bilateral Ureters with Intraluminal Device, Via Natural or Artificial Opening Endoscopic (ICD-10-PCS; CPT 50605; 2021-09-20 07:00)
DX: K57.32 Diverticulitis of large intestine without perforation or abscess without bleeding (principal); K76.0 Fatty (change of) liver, not elsewhere classified; K21.9 Gastro-esophageal reflux disease without esophagitis; Z86.010 Personal history of colon polyps; E78.5 Hyperlipidemia, unspecified; M05.9 Rheumatoid arthritis with rheumatoid factor, unspecified; Z87.891 Personal history of nicotine dependence; K56.41 Fecal impaction; K66.0 Peritoneal adhesions (postprocedural) (postinfection)
CPT/HCPCS: 36415; 71045; 76000; 80048; 85014; 85018; 88300; 88309; 94640; 94664; 96372; C9290; J1100; J1170; J1644; J2250; J2270; J2310; J2405; J2543; J2704; J2710; J3010; J3490; J7030

== ENCOUNTER → 2021-11-03 13:15 | Outpatient (BNVA) | payer OTHER, SELFPAY | PROVIDERS: PCP Family Medicine; Visit Provider Surgery | DX: Z98.890 Other specified postprocedural states (principal); Z90.49 Acquired absence of other specified parts of digestive tract ==

== ENCOUNTER → 2021-11-30 08:43 | Outpatient (BNVA) | payer OTHER, SELFPAY | PROVIDERS: PCP Family Medicine; Referring Provider Emergency Medicine Emergency Medical Services; Visit Provider Orthopaedic Surgery | DX: S46.911A Strain of unspecified muscle, fascia and tendon at shoulder and upper arm level, right arm, initial encounter (principal); X58.XXXA Exposure to other specified factors, initial encounter; Z87.891 Personal history of nicotine dependence | CPT/HCPCS: 99204 ==

== ENCOUNTER 2021-12-16 10:49 | Outpatient (CLI) | payer OTHER, SELFPAY ==
--- NOTE | 2021-12-16 11:00 | MR_ITS ---
WS: [id number] MRI RIGHT SHOULDER HISTORY: pain COMPARISON: RIGHT shoulder radiograph 10/20/2021 TECHNIQUE: Multiplanar sequences of the shoulder joint are submitted. Moderate AC joint hypertrophy. Soft tissue and bone hypertrophy at the AC joint. There is a 4 mm oste ophyte causing mild encroachment upon the supraspinatus at the myotendinous insertion site. Increased T2 signal involving the capsule of the AC joint. There is mild osteophyte encroachment upon the supr aspinatus directly over the humeral head. Biceps tendon remains in normal position. No os acromion. No muscle atrophy or edema involving the muscles. There is a very tiny insertion site tear involving the supraspinatus. There is also increased T2 signal extending along the distal supraspinatus muscle. No muscle retraction or edema. No atrophy. There is a small amount of fluid within the distal subsca pularis tendon. No fracture or marrow edema. No labral tear. No joint space narrowing. MR/MR shoulder RT wo con* [id number] IMPRESSION: 1. Very tiny, 4 to 5 mm insertion site tear supraspinatus. 2. No muscle atrophy or edema. 3. Moderate AC joint arthritis with mild encroachment upon the myotendinous ju nction of the supraspinatus. 4. Mild subacromial impingement by osteophyte.
== END 2021-12-16 10:50 | disposition home or self-care (01) ==
LOC: RAD 10:51
PROVIDERS: PCP Family Medicine; Visit Provider Orthopaedic Surgery
DX: S46.911A Strain of unspecified muscle, fascia and tendon at shoulder and upper arm level, right arm, initial encounter (principal); X58.XXXA Exposure to other specified factors, initial encounter
CPT/HCPCS: 73221

== ENCOUNTER 2021-12-29 16:54 | Emergency (ER) | payer OTHER, SELFPAY ==
[2021-12-29] VITALS (7 sets, daily range): BP systolic 115–128; BP diastolic 70–87; PULSE 59–67; RESP 18; TEMP 36.4; O2SAT 90–96
--- NOTE | 2021-12-29 19:10 | CTR_ITS ---
PROCEDURE INFORMATION: Exam: CT Abdomen And Pelvis Without Contrast Exam date and time: 12/29/2021 8:07 PM Age: 46 years old Clinical indication: Abdominal pain; Generalized; Additional info: Abd pain TECHNIQUE: Imaging protocol: Computed tomography of the abdomen and pelvis without contrast. Radiation optimization: All CT scans at this facility use at least one of these dose optimization techniques: automated exposure control; mA and/or kV adjustment per patient size (includes targeted exams where dose is matched to clinical indication); or iterative reconstruction. COMPARISON: CT abdomen pelvis w con* [id number] 09/06/2021 5:17 PM RADIATION DOSE METRICS: Total DLP (mGy-cm): 1879.62 FINDINGS: Liver: The liver is mildly enlarged and demonstrates mild fatty infiltration changes. No parenchymal lesion is visualized. Gallbladder and bile ducts: The gallbladder has been removed. No biliary ductal dilatation. Pancreas: Normal. No ductal dilation. Spleen: Normal. No splenomegaly. Adrenal glands: Normal. No mass. Kidneys and ureters: Normal. No renal stone or hydronephrosis. Stomach and bowel: Surgical changes of sigmoidectomy with anastomosis are noted. No intestinal obstruction. Diverticulosis coli is seen, without evidence of diverticulitis. Appendix: The appendix is normal. Intraperitoneal space: Unremarkable. No free air. No significant fluid collection. Vasculature: Surgical clips are present in the left periaortic region. The abdominal aorta appears normal. No aneurysm. Lymph nodes: Unremarkable. No enlarged lymph nodes. Urinary bladder: Mild urinary bladder wall thickening is appreciated. Reproductive: Unremarkable as visualized. Bones/joints: Unremarkable. No acute fracture. Soft tissues: A small umbilical hernia containing fat is noted. Mild scarring is present in the infraumbilical anterior abdominal wall. CT/CT abdomen pelvis wo con [id number] IMPRESSION: 1. Possible mild cystitis, correlate with urinalysis. 2. Mild hepatomegaly and hepatic steatosis. 3. Diverticulosis coli.
[2021-12-29 19:15] LABS: Basophils # 0.1 10^3/uL (0.0-0.1); Basophils % 0.8 %; Eosinophils # 0.4 10^3/uL (0.0-0.8); Eosinophils % 3.1 %; Hematocrit 43.7 % (42.0-52.0); Hemoglobin 14.6 g/dL (11.7-16.6); Lymphocytes # 3.2 10^3/uL (0.8-4.8); Mean Corpuscular HGB Conc 33.4 g/dL (30.0-36.0); Mean Corpuscular Hemoglobin 30.7 pg (28.0-34.0); Mean Platelet Volume 9.4 fL (7.4-10.4); Monocytes # 0.8 10^3/uL (0.2-0.9); Monocytes % 6.5 %; Neutrophils # 7.27 10^3/uL (1.8-7.7); Neutrophils % 62.3 %; Nucleated Red Blood Cells % 0 %; Platelet Count 297 10^3/cmm (130-400); Red Blood Count 4.75 10^6/uL (4.1-5.3); Red Cell Distribution Width 12.3 % (12.1-15.1); White Blood Count 11.7 10^3/uL (4.0-10.0)
--- NOTE | 2021-12-29 19:23 | ED_ITS ---
HPI - Abdominal Pain General: Chief Complaint: Abdominal Pain Stated Complaint: abdominal pain/lethargic/dizziness Time Seen by Provider: 12/29/21 19:07 Source: patient Mode of arrival: ambulatory Limitations: no limitations History of Present Illness: 46-year-old male who has a history of diverticulitis he had a colectomy due to his diverticulitis last year. He states has been having some right lower quadrant abdominal pain over the last week states that it waxed and waned but today it is gotten much worse. He states that he is had increasing pain throughout the day rates pain a 7 out of 10 currently denies any fever states he has had some constipation denies any vomiting. Associated Symptoms: Denies chills, dysuria and fever(s) Review of Systems Const: Denies: fever(s), chills, body aches or change in appetite Eyes: Denies: blurry vision or eye discomfort ENMT: Denies: throat pain or dental pain Card: Denies: chest pain Resp: Denies: dyspnea GI: Reports: abdominal pain : Denies: dysuria Musc: Denies: neck pain or back pain Skin/Breast: Denies: rash Neuro: Denies: headache(s) Psych: Denies: depression Kelvin/Lymph: Denies: easy bruising All/Imm: Denies: urticaria PFSH ED PFSH: Medical History Acute diverticulitis Cholelithiasis Colon polyps Encounter for screening for other viral diseases GERD (gastroesophageal reflux disease) High risk medication use History of colon polyps Hyperlipidemia Immunization counseling Rheumatoid arthritis with rheumatoid factor Surgical History History of cholecystectomy History of colonoscopy with polypectomy (~2018) Diverticular bleed 2019 status post colonoscopy with polyp removal, benign as per the patient History of esophagogastroduodenoscopy (EGD) (~2019) History of hernia repair Right inguinal hernia repair as a child S/P laparoscopic colectomy Family History Brother Cancer prostate Father Diabetes Hypertension Hyperlipidemia Grandmother Hypertension Heart attack Denies family history of Systemic lupus erythematosus, unspecified Rheumatoid arthritis Lupus Anesthesia complication Bleeding disorder Stroke Social History Smoking and tobacco status: former smoker Quit status (tobacco): has quit using tobacco Second hand smoke exposure: No Alcohol intake: current Alcohol intake frequency: few times a week Alcohol type: beer Adopted: No Caregiver/support person: Yes Lives independently: Yes Household members: spouse Housing: House Marital status: Highest education level completed: High School Graduate service: No Current occupational status: employed 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 Current occupational exposures/hazards: No Pets and animals: No History of recent travel: No Sexually active: Yes Current gender identity: Male Neda/Anabaptist: Anabaptism Special neda needs: No Agree to transfusion: No Financial difficulty paying for basics: Decline to Answer Physical Exam Const: COMMON NORMALS: no acute distress, patient oriented x3 and healthy appearing HENMT: COMMON NORMALS: normocephalic and atraumatic HEAD & SCALP: normocephalic and atraumatic Eye: COMMON NORMALS: Equal, round and reactive pupils present and EOMs intact bilaterally PUPIL: Yes Equal, round and reactive pupils present Neck/C-Spine: COMMON NORMALS: full ROM and supple Chest: COMMONS NORMALS: normal inspection of the chest and normal palpation of entire chest wall Resp: COMMON NORMALS: normal respiratory effort, No retractions, No use of accessory muscles and clear to auscultation bilaterally AUSCULTATION: clear to auscultation bilaterally Cardio: COMMON NORMALS: regular rate, regular rhythm and No murmurs present (Cardio) RATE: regular rate RHYTHM: regular rhythm GI: COMMON NORMALS: Normal to inspection, nondistended, normoactive bowel sounds present, Soft to palpation and no masses PALPATION: Yes Soft to palpation and Yes Tenderness to palpation present (GI) Details: RLQ Extremity: COMMON NORMALS: normal to inspection and full ROM Neuro: COMMON NORMALS: patient oriented x3, moves all extremities and no focal motor deficits Psych: COMMON NORMALS: mental status grossly normal, Normal thought process present and cooperative THOUGHT PROCESS: Normal thought process present Skin: COMMON NORMALS: no rashes or lesions noted and no wounds GENERAL SKIN EXAM: no rashes or lesions noted Course Vital Signs: Vital signs: Vital Signs Temperature 97.6 F 12/29/21 17:25 Pulse Rate 59 L 12/29/21 19:59 Respiratory Rate 18 12/29/21 19:59 Blood Pressure 125/87 12/29/21 19:59 Pulse Oximetry 95 12/29/21 19:59 MDM - Abdominal Pain Medical Decision Making Patient presents here with abdominal pain CT shows no acute findings blood work is normal his pain is improved here we will place him on hydrocodone and Zofran get him follow-up with surgery he understands agrees to plan. Lab Data : 12/29/21 18:45 12/29/21 18:45 Labs/Radiology: Radiology Impressions Abdomen/Pelvis CT 12/29/21 19:10 IMPRESSION: 1. Possible mild cystitis, correlate with urinalysis. 2. Mild hepatomegaly and hepatic steatosis. 3. Diverticulosis coli. Laboratory Results WBC 11.7 10^3/uL (4.0-10.0) H 12/29/21 18:45 RBC 4.75 10^6/uL (4.1-5.3) 12/29/21 18:45 Hgb 14.6 g/dL (11.7-16.6) 12/29/21 18:45 Hct 43.7 % (42.0-52.0) 12/29/21 18:45 MCV 92.0 fl (80-94) 12/29/21 18:45 MCH 30.7 pg (28.0-34.0) 12/29/21 18:45 MCHC 33.4 g/dL (30.0-36.0) 12/29/21 18:45 RDW 12.3 % (12.1-15.1) 12/29/21 18:45 Plt Count 297 10^3/cmm (130-400) 12/29/21 18:45 MPV 9.4 fL (7.4-10.4) 12/29/21 18:45 Neut % (Auto) 62.3 % 12/29/21 18:45 Lymph % (Auto) 27.0 % 12/29/21 18:45 [place] % (Auto) 6.5 % 12/29/21 18:45 Eos % (Auto) 3.1 % 12/29/21 18:45 Baso % (Auto) 0.8 % 12/29/21 18:45 Neut # (Auto) 7.27 10^3/uL (1.8-7.7) 12/29/21 18:45 Lymph # (Auto) 3.2 10^3/uL (0.8-4.8) 12/29/21 18:45 [place] # (Auto) 0.8 10^3/uL (0.2-0.9) 12/29/21 18:45 Eos # (Auto) 0.4 10^3/uL (0.0-0.8) 12/29/21 18:45 Baso # (Auto) 0.1 10^3/uL (0.0-0.1) 12/29/21 18:45 Nucleated RBC % (auto) 0 % 12/29/21 18:45 Nucleated RBCs # 0.0 /100WBC 12/29/21 18:45 Sodium 138 mmol/L (136-145) 12/29/21 18:45 Potassium 3.7 mmol/L (3.5-5.1) 12/29/21 18:45 Chloride 101 mmol/L (98-107) 12/29/21 18:45 Carbon Dioxide 25 mmol/L (22-29) 12/29/21 18:45 Anion Gap 15.7 (5-19) 12/29/21 18:45 BUN 16 mg/dL (6-20) 12/29/21 18:45 Creatinine 1.0 mg/dL (0.7-1.2) 12/29/21 18:45 GFR Calculation 81.2 mL/min (90-130) L 12/29/21 18:45 Glucose 89 mg/dL (65-115) 12/29/21 18:45 Calculated Osmolality 287 mOsm/kg (285-295) 12/29/21 18:45 Calcium 9.6 mg/dL (8.5-10.5) 12/29/21 18:45 Total Bilirubin 0.3 mg/dL (0.15-1.2) 12/29/21 18:45 AST 30 U/L (0-40) 12/29/21 18:45 ALT 45 U/L (0-41) H 12/29/21 18:45 Alkaline Phosphatase 58 IU/L (40-130) 12/29/21 18:45 Total Protein 7.7 g/dL (6.6-8.7) 12/29/21 18:45 Albumin 4.6 g/dL (3.5-5.2) 12/29/21 18:45 Globulin 3.1 g/dL (1.3-4.6) 12/29/21 18:45 Lipase 33 U/L (13-60) 12/29/21 18:45 Urine Color Yellow (Yellow) 12/29/21 20:48 Urine Appearance Clear (CLEAR) 12/29/21 20:48 Urine pH 5 (5-7) 12/29/21 20:48 Ur Specific [place] 1.020 (1.005-1.030) 12/29/21 20:48 Urine Protein Neg (Negative) 12/29/21 20:48 Urine Glucose (UA) Norm (Normal) 12/29/21 20:48 Urine Ketones Negative (Negative) 12/29/21 20:48 Urine Blood Neg (Negative) 12/29/21 20:48 Urine Nitrate Negative (Negative) 12/29/21 20:48 Urine Bilirubin Neg (Negative) 12/29/21 20:48 Urine Urobilinogen Norm mg/dL (Negative) 12/29/21 20:48 Ur Leukocyte Esterase Negative (Negative) 12/29/21 20:48 Discharge Plan Discharge Patient Disposition: Home Clinical Impression: Abdominal pain Condition: Stable Prescriptions: New hydrocodone-acetaminophen 5-325 mg tablet 1 tab PO Q6H PRN (Reason: pain) Qty: 14 0RF ondansetron 4 mg tablet,disintegrating 4 mg PO Q6H PRN (Reason: nausea and vomiting) Qty: 14 0RF No Action ibuprofen 200 mg tablet 1,000 mg PO BID PRN (Reason: Pain) 0RF Hold Instructions: Resume on 09/30/21. naproxen 250 mg tablet 500 mg PO BID PRN (Reason: Pain) 0RF Hold Instructions: Resume on 09/30/21. Label Comments: Pt says he takes 2-3 QD as needed acetaminophen 500 mg capsule 1,000 mg PO BID PRN (Reason: Pain) 0RF omeprazole 40 mg capsule,delayed release(DR/EC) 40 mg PO DAILY 0RF hydrochlorothiazide 12.5 mg tablet 12.5 mg PO DAILY 0RF Discharge Orders: Discharge ED (Routine); Ordered 12/29/21 Ordered By: Bandar Adkins Referrals: Anastasia Villagomez MD [Primary Care Provider] - Nasir Suggs MD [Physician] - 1-3 days Discharge Diet: Advance as tolerated Discharge Activity: Resume usual activity Patient Instructions: Abdominal Pain (ED), Opioid Safety Coding Level of Care Code ED Media Relations Specialist for Svetag Fwd Exam Comprehensive
[2021-12-29 19:36] LABS: Alanine Aminotransferase 45 U/L (0-41); Albumin Level 4.6 g/dL (3.5-5.2); Alkaline Phosphatase 58 IU/L (40-130); Aspartate Amino Transferase 30 U/L (0-40); Blood Urea Nitrogen 16 mg/dL (6-20); Calcium 9.6 mg/dL (8.5-10.5); Carbon Dioxide 25 mmol/L (22-29); Chloride 101 mmol/L (98-107); Globulin 3.1 g/dL (1.3-4.6); Glomerular Filtration Rate 81.2 mL/min (90-130); Glucose 89 mg/dL (65-115); Lipase 33 U/L (13-60); Osmolality Calculated 287 mOsm/kg (285-295); Sodium 138 mmol/L (136-145); Total Bilirubin 0.3 mg/dL (0.15-1.2); Total Protein 7.7 g/dL (6.6-8.7)
[2021-12-29 19:41] LABS: Anion Gap 15.7 (5-19); Potassium 3.7 mmol/L (3.5-5.1)
[2021-12-29] MEDS: sodium chloride 0.9% 1,000 ML 999 ML IV (19:50)
[2021-12-29] MEDS: morphine 4 mg/mL SDV 1 mL IVP (19:51)
[2021-12-29] MEDS: ondansetron 2 mg/ML SDV 2 mL 4 MG IVP (19:53)
[2021-12-29 20:57] LABS: Add Urine Microscopic? NO; Charge for UA Resulting for Rev
[2021-12-29 21:06] LABS: Bilirubin Urine Neg (Negative); Blood Urine Neg (Negative); Glucose Urine UA Norm (Normal); Ketones Urine Negative (Negative); Leukocyte Esterase Urine Negative (Negative); Nitrate Urine Negative (Negative); Protein Urine Neg (Negative); Urine Appearance Clear (CLEAR); Urine Color Yellow (Yellow); Urobilinogen Urine Norm (Negative); pH Urine 5 (5-7)
[2021-12-29] MEDS: HYDROmorphone 1 mg/mL INJ 1 mL IVP (21:48)
--- NOTE | 2021-12-30 12:03 | DCPLANNER ---
Addendum entered by Alyssa Salazar 01/17/22 07:36: Patient had a follow up appointment with general surgery - patient did attend appointment. Addendum entered by lAyssa Salazar 01/07/22 07:47: Patient has a followup appointment scheduled for Monday, January 12, 2022 at 3:[address] Suggs at [facility]. Clinic will call patient with appointment information. Original Note: manager secondary had message to schedule a follow up appointment for patient with general surgery. manager secondary sent patients information to the front office staff at general surgery. Patients information will be printed and reviewed. Clinic will call patient with appointment information.
== END 2021-12-29 22:01 | disposition home or self-care (01) ==
PROVIDERS: Emergency Medicine; Emergency Provider Emergency Medicine; PCP Family Medicine
DX: R10.31 Right lower quadrant pain (principal); K57.90 Diverticulosis of intestine, part unspecified, without perforation or abscess without bleeding; R16.0 Hepatomegaly, not elsewhere classified; K76.0 Fatty (change of) liver, not elsewhere classified
CPT/HCPCS: 74176; 80053; 81003; 83690; 85025; 96361; 96374; 96375; 99284; J1170; J2270; J2405; J7030

== ENCOUNTER → 2022-01-11 11:00 | Outpatient (BNVA) | payer OTHER, SELFPAY | PROVIDERS: PCP Family Medicine; Visit Provider Orthopaedic Surgery | DX: S46.911A Strain of unspecified muscle, fascia and tendon at shoulder and upper arm level, right arm, initial encounter (principal); X58.XXXA Exposure to other specified factors, initial encounter | CPT/HCPCS: 99213; 99214 ==

== ENCOUNTER → 2022-01-12 15:20 | Outpatient (BNVA) | payer OTHER, SELFPAY | PROVIDERS: PCP Family Medicine; Visit Provider Surgery | DX: M79.18 Myalgia, other site (principal) | CPT/HCPCS: 99213 ==

== ENCOUNTER 2022-01-19 09:15 | Outpatient (RCR) | payer OTHER, SELFPAY | END 2022-01-27 23:59 | disposition home or self-care (01) | LOC: SPT 09:15 | PROVIDERS: PCP Family Medicine; Referring Provider Emergency Medicine Emergency Medical Services; Visit Provider Emergency Medicine Emergency Medical Services | DX: M25.511 Pain in right shoulder (principal) | CPT/HCPCS: 97161 ==

== ENCOUNTER 2022-01-28 06:00 | Outpatient (RCR) | payer OTHER, SELFPAY | END 2022-02-27 23:59 | disposition home or self-care (01) | LOC: SPT 06:00 | PROVIDERS: PCP Family Medicine; Referring Provider Emergency Medicine Emergency Medical Services; Visit Provider Emergency Medicine Emergency Medical Services | DX: M25.511 Pain in right shoulder (principal) | CPT/HCPCS: 97110; 97530 ==

== ENCOUNTER 2022-06-27 20:49 | Emergency (ER) | payer OTHER, SELFPAY ==
[2022-06-27 20:56] VITALS: BP 157/90; PULSE 73; RESP 16; TEMP 36.2; O2SAT 98
--- NOTE | 2022-06-27 21:01 | W.ED.NAVMDI ---
HPI - Nausea/Vomiting/Diarrhea General: Chief complaint: Nausea/Vomiting/Diarrhea Stated complaint: N/V, dizzzy, bloody stool Time Seen by Provider: 06/27/22 21:01 History of Present Illness: Mr. Lau is a 47-year-old gentleman with significant past medical history for laparoscopic colectomy secondary to diverticulitis presenting to the emergency department due to generalized illness. He reports being at his baseline health the past few days and had sudden onset today of lightheaded feeling with nausea vomiting and bloody stool. He also endorses right-sided abdominal pain. He now describes intermittent episodes of spinning sensation worse with head movement though also still feels lightheaded with any other associated symptoms. Intensity symptoms moderate. Course has persisted. No other specific changes in health, exacerbating, or alleviating factors identified. Onset (ago): hour(s) Description of vomiting: food contents and watery Description of diarrhea: blood Associated nausea: Yes Associated abdominal pain: Yes Location of pain: Diffuse Severity: moderate Exacerbating factors: none Relieving factors: none Associated symtoms: Reports nausea Review of Systems General: Reports: 10 or more systems reviewed and unremarkable except in HPI and below GI: Reports: nausea PFSH ED PFSH: Medical History Acute diverticulitis Cholelithiasis Colon polyps Encounter for screening for other viral diseases GERD (gastroesophageal reflux disease) High risk medication use History of colon polyps Hyperlipidemia Immunization counseling Rheumatoid arthritis with rheumatoid factor Surgical History History of cholecystectomy History of colonoscopy with polypectomy (~2018) Diverticular bleed 2019 status post colonoscopy with polyp removal, benign as per the patient History of esophagogastroduodenoscopy (EGD) (~2019) History of hernia repair Right inguinal hernia repair as a child S/P laparoscopic colectomy Family History Brother Cancer prostate Father Diabetes Hypertension Hyperlipidemia Grandmother Hypertension Heart attack Denies family history of Systemic lupus erythematosus, unspecified Rheumatoid arthritis Lupus Anesthesia complication Bleeding disorder Stroke Social History Smoking and tobacco status: former smoker Quit status (tobacco): has quit using tobacco Second hand smoke exposure: No Alcohol intake: current Alcohol intake frequency: few times a week Alcohol type: beer Adopted: No Caregiver/support person: Yes Lives independently: Yes Household members: spouse Housing: House Marital status: Highest education level completed: High School Graduate service: No Current occupational status: employed 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 Current occupational exposures/hazards: No Pets and animals: No History of recent travel: No Sexually active: Yes Current gender identity: Male Neda/Baptist: Hoahaoism Special neda needs: No Agree to transfusion: No Financial difficulty paying for basics: Decline to Answer Physical Exam Const: COMMON NORMALS: patient oriented x3 and alert GENERAL APPEARANCE: cooperative and well developed HENMT: COMMON NORMALS: normocephalic and atraumatic HEAD & SCALP: normocephalic and atraumatic THROAT: posterior oropharynx normal Eye: COMMON NORMALS: conjunctivae normal CONJUNCTIVA: Yes conjunctivae normal SCLERA: sclerae normal Neck/C-Spine: COMMON NORMALS: supple GENERAL: Yes trachea midline Resp: COMMON NORMALS: clear to auscultation bilaterally EFFORT & INSPECTION: Yes able to speak in complete sentences AUSCULTATION: clear to auscultation bilaterally Cardio: COMMON NORMALS: regular rate and regular rhythm RATE: regular rate RHYTHM: regular rhythm GI: COMMON NORMALS: Soft to palpation PALPATION: Yes Soft to palpation and No Tenderness to palpation present (GI) Extremity: GENERAL: Yes normal exam except as noted and No edema Neuro: COMMON NORMALS: patient oriented x3, CN's II-XII intact bilaterally, moves all extremities, no focal motor deficits and no sensory deficits noted SENSORIUM/ORIENTATION: Yes alert and No Orientation impaired Psych: COMMON NORMALS: mental status grossly normal and Normal thought process present THOUGHT PROCESS: Normal thought process present Course Vital Signs: Vital signs: Vital Signs Temperature 97.2 F L 06/27/22 20:56 Pulse Rate 60 06/28/22 00:19 Respiratory Rate 16 06/28/22 00:19 Blood Pressure 123/78 06/28/22 00:19 Pulse Oximetry 96 06/28/22 00:19 Oxygen Delivery Me thod 06/27/22 20:56 MDM - Nausea/Vomiting/Diarrhea Medical Decision Making 47-year-old gentleman with complex surgical history presenting with sudden onset GI symptoms. No focal neurologic deficits appreciated on exam and patient is nontoxic in appearance. EKG with nonspecific ST segment abnormalities and interventricular conduction delay, no STEMI. Labs with minimal leukocytosis, normal hemoglobin and platelet count. Mild hypokalemia on metabolic panel. Delta troponin is negative at 2 hours. Negative rapid viral studies. Chest x-ray with no lobar consolidation or pneumothorax. CT head negative for acute intracranial process. CT abdomen pelvis without acute pathology. Incidental findings discussed with the patient. Patient feels significant improved with fluids, analgesia, calcium replenishment, antivertigo medication. Most likely cause of patient symptoms is unspecified dizziness and nausea vomiting perhaps related to vertigo. The results of ED evaluation were discussed with the patient including prescriptions and/or symptomatic cares (if applicable) including appropriate and responsible use, followup plan, and return precautions. The patient verbalized understanding and felt safe for discharge. Medical Records I reviewed the patient's medical records. Lab Data I reviewed the patient's lab results. 06/27/22 21:18 06/27/22 21:18 Radiology Impressions Abdomen/Pelvis CT 06/27/22 21:41 IMPRESSION: 1. No acute abdominopelvic findings. 2. Hepatic steatosis. 3. Umbilical and bilateral inguinal hernias consist of noninflamed fatty tissue only. 4. Other chronic findings as described. Chest X-Ray 06/27/22 21:41 IMPRESSION: No change, unremarkable Head CT 06/27/22 21:41 IMPRESSION: Unremarkable Laboratory Results WBC 10.2 10^3/uL (4.0-10.0) H 06/27/22 21:18 RBC 5.00 10^6/uL (4.1-5.3) 06/27/22 21:18 Hgb 15.5 g/dL (11.7-16.6) 06/27/22 21:18 Hct 45.9 % (42.0-52.0) 06/27/22 21:18 MCV 91.8 fl (80-94) 06/27/22 21:18 MCH 31.0 pg (28.0-34.0) 06/27/22 21:18 MCHC 33.8 g/dL (30.0-36.0) 06/27/22 21:18 RDW 12.2 % (12.1-15.1) 06/27/22:18 Plt Count 275 10^3/cmm (130-400) 06/27/22 21:18 MPV 9.0 fL (7.4-10.4) 06/27/22 21:18 Neut % (Auto) 72.0 % 06/27/22 21:18 Lymph % (Auto) 20.7 % 06/27/22 21:18 [place] % (Auto) 5.5 % 06/27/22 21:18 Eos % (Auto) 0.9 % 06/27/22 21:18 Baso % (Auto) 0.6 % 06/27/22 21:18 Neut # (Auto) 7.32 10^3/uL (1.8-7.7) 06/27/22 21:18 Lymph # (Auto) 2.1 10^3/uL (0.8-4.8) 06/27/22 21:18 [place] # (Auto) 0.6 10^3/uL (0.2-0.9) 06/27/22 21:18 Eos # (Auto) 0.1 10^3/uL (0.0-0.8) 06/27/22 21:18 Baso # (Auto) 0.1 10^3/uL (0.0-0.1) 06/27/22 21:18 Nucleated RBC % (auto) 0 % 06/27/22 21:18 Nucleated RBCs # 0.0 /100WBC 06/27/22 21:18 Sodium 137 mmol/L (136-145) 06/27/22 21:18 Potassium 3.4 mmol/L (3.5-5.1) L 06/27/22 21:18 Chloride 99 mmol/L (98-107) 06/27/22 21:18 Carbon Dioxide 26 mmol/L (22-29) 06/27/22 21:18 Anion Gap 15.4 (5-19) 06/27/22 21:18 BUN 13 mg/dL (6-20) 06/27/22 21:18 Creatinine 0.9 mg/dL (0.7-1.2) 06/27/22 21:18 GFR Calculation 91.3 mL/min (90-130) 06/27/22 21:18 Glucose 111 mg/dL (65-115) 06/27/22 21:18 Calculated Osmolality 285 mOsm/kg (285-295) 06/27/22 21:18 Calcium 9.6 mg/dL (8.5-10.5) 06/27/22 21:18 Total Bilirubin 0.7 mg/dL (0.15-1.2) 06/27/22 21:18 AST 21 U/L (0-40) 06/27/22 21:18 ALT 30 U/L (0-41) 06/27/22 21:18 Alkaline Phosphatase 59 U/L (40-130) 06/27/22 21:18 Troponin T Baseline 6 ng/L (0-15) 06/27/22 21:18 Troponin T 120 Minute 6.64 ng/L (0-15) 06/27/22 23:20 Delta Troponin T 0.64 ABS# (0-10) 06/27/22 23:20 Total Protein 8.1 g/dL (6.6-8.7) 06/27/22 21:18 Albumin 4.5 g/dL (3.5-5.2) 06/27/22 21:18 Globulin 3.6 g/dL (1.3-4.6) 06/27/22 21:18 Lipase 24 U/L (13-60) 06/27/22 21:18 TSH 1.53 uIU/mL (0.27-4.20) 06/27/22 21:18 Influenza Type A Ag negative (Negative) 06/27/22 22:30 Influenza Type B Ag negative (Negative) 06/27/22 22:30 SARS-CoV-2 Ag (Rapid) negative (Negative) 06/27/22 22:30 Discharge Plan Discharge Patient Disposition: Home Clinical Impression: Nausea & vomiting, Dizziness Condition: Stable Prescriptions: New meclizine 25 mg tablet 25 mg PO TID PRN (Reason: dizziness) Qty: 10 0RF No Action ibuprofen 200 mg tablet 1,000 mg PO BID PRN (Reason: Pain) Hold Instructions: Resume on 09/30/21. naproxen 250 mg tablet 500 mg PO BID PRN (Reason: Pain) Hold Instructions: Resume on 09/30/21. Label Comments: Pt says he takes 2-3 QD as needed acetaminophen 500 mg capsule 1,000 mg PO BID PRN (Reason: Pain) omeprazole 40 mg capsule,delayed release(DR/EC) 40 mg PO DAILY hydrochlorothiazide 12.5 mg tablet 12.5 mg PO DAILY hydrocodone-acetaminophen 5-325 mg tablet 1 tab PO Q6H PRN (Reason: pain) Qty: 14 0RF ondansetron 4 mg tablet,disintegrating 4 mg PO Q6H PRN (Reason: nausea and vomiting) Qty: 14 0RF Discharge Orders: Discharge ED (Routine); Ordered 06/27/22 Ordered By: Andrew Awan Discharge Diet: Usual diet Discharge Activity: Increase activity as tolerated Patient Instructions: Acute Nausea and Vomiting (ED), Viral Syndrome (ED), Dizziness (ED) Activity Restrictions/Additional Instructions: Thank you for visiting the emergency department. You were seen and evaluated for generalized illness. The exact cause of your symptoms is unclear though does not appear to need hospitalization at this time. You tested negative for COVID and flu however symptom description may be secondary to other viral syndrome. You may use [id number] medications such as acetaminophen and ibuprofen for pain however please do not exceed the daily recommended dosage as listed on the packaging and please keep in mind that many namebrand medications contain the same active ingredients. Please follow-up with a primary care provider. Please return to the emergency department for worsening symptoms, any new neurologic symptoms, or anything else that you are concerned about a feel needs emergency department evaluation. Coding Level of Care Code ED Chain Forming Machine Operator for Dillon Kessler Exam Comprehensive
[2022-06-27 21:25] LABS: Basophils # 0.1 10^3/uL (0.0-0.1); Basophils % 0.6 %; Eosinophils # 0.1 10^3/uL (0.0-0.8); Eosinophils % 0.9 %; Hematocrit 45.9 % (42.0-52.0); Hemoglobin 15.5 g/dL (11.7-16.6); Lymphocytes # 2.1 10^3/uL (0.8-4.8); Lymphocytes % 20.7 %; Mean Corpuscular HGB Conc 33.8 g/dL (30.0-36.0); Mean Corpuscular Volume 91.8 fl (80-94); Monocytes # 0.6 10^3/uL (0.2-0.9); Monocytes % 5.5 %; Neutrophils # 7.32 10^3/uL (1.8-7.7); Nucleated Red Blood Cells % 0 %; Platelet Count 275 10^3/cmm (130-400); Red Cell Distribution Width 12.2 % (12.1-15.1); White Blood Count 10.2 10^3/uL (4.0-10.0)
[2022-06-27 21:27] VITALS: RESP 20
[2022-06-27] MEDS: meclizine 25 mg tablet PO (21:27)
[2022-06-27] MEDS: morphine 4 mg/mL SDV 1 mL IVP (21:27)
[2022-06-27] MEDS: sodium chloride 0.9% 1,000 ML 999 ML IV (21:28)
--- NOTE | 2022-06-27 21:28 | ECG_ITS ---
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 Measurements Intervals [place] Rate: 61 P: 32 NV: 166 QRS: -2 QRSD: 107 T: 28 QT: 414 QTc: 417 Interpretive Statements SINUS RHYTHM MODERATE T-WAVE ABNORMALITY, CONSIDER ANTERIOR ISCHEMIA [-0.1+ mV T-WAVE IN V3/V4] No previous ECG available for comparison Electronically Signed On 06-28-2022 0:00:30 PRESSURE TANK OPERATOR by Alona Chandra M.D. [id number]
--- NOTE | 2022-06-27 21:41 | CTR_ITS ---
PROCEDURE INFORMATION: Exam: CT Head Without Contrast Exam date and time: 06/27/2022 10:05 PM Age: 47 years old Clinical indication: Syncope and collapse; Patient HX: Syncopal episode. C/O severe dizziness. ; Additional info: Dizziness, near syncope TECHNIQUE: Imaging protocol: Computed tomography of the head without contrast. Radiation optimization: All CT scans at this facility use at least one of these dose optimization techniques: automated exposure control; mA and/or kV adjustment per patient size (includes targeted exams where dose is matched to clinical indication); or iterative reconstruction. COMPARISON: No relevant prior studies available. RADIATION DOSE METRICS: Total DLP (mGy-cm): 311 FINDINGS: Brain: Normal. No hemorrhage. Unremarkable white matter. No mass effect. Cerebral ventricles: No ventriculomegaly. Paranasal sinuses: Visualized sinuses are unremarkable. No fluid levels. Mastoid air cells: Visualized mastoid air cells are well aerated. Bones/joints: Unremarkable. No acute fracture. Soft tissues: Unremarkable. CT/CT head wo con* [id number] IMPRESSION: Unremarkable
--- NOTE | 2022-06-27 21:41 | XRR_ITS ---
PROCEDURE INFORMATION: Exam: XR Chest Exam date and time: 06/27/2022 11:00 PM Age: 47 years old Clinical indication: Other: Syncope; Patient HX: Syncopal episode. ; Additional info: Near syncope TECHNIQUE: Imaging protocol: Radiologic exam of the chest. Views: 1 view. COMPARISON: CR XR chest 1V portable [id number] 09/20/2021 3:18 PM FINDINGS: Lungs: As seen in incomplete inspiration, the lungs are clear. No consolidation. Pleural spaces: Unremarkable. No pleural effusion. No pneumothorax. Heart/Mediastinum: Unremarkable. No cardiomegaly. Bones/joints: Unremarkable. XR/XR chest 1V portable [id number] IMPRESSION: No change, unremarkable
--- NOTE | 2022-06-27 21:41 | CTR_ITS ---
PROCEDURE INFORMATION: Exam: CT Abdomen And Pelvis With Contrast Exam date and time: 06/27/2022 10:10 PM Age: 47 years old Clinical indication: Abdominal pain; Localized; Right; Prior surgery; Surgery type: Gb. Sigmoidectomy. RT inguinal hernia. Patient HX: C/O RT sided abd pain. ; Additional info: R flank pain TECHNIQUE: Imaging protocol: Computed tomography of the abdomen and pelvis with contrast. Radiation optimization: All CT scans at this facility use at least one of these dose optimization techniques: automated exposure control; mA and/or kV adjustment per patient size (includes targeted exams where dose is matched to clinical indication); or iterative reconstruction. Contrast material: OMNI 350; Contrast volume: 100 ml; Contrast route: INTRAVENOUS (IV); COMPARISON: CT abdomen pelvis wo con [id number] 12/29/2021 8:07 PM RADIATION DOSE METRICS: Total DLP (mGy-cm): 1107.08 FINDINGS: Lungs: Lung bases are clear except for linear and subpleural atelectasis on the right. Liver: The liver is fatty but not enlarged. Gallbladder and bile ducts: The gallbladder is surgically absent. Pancreas: Normal. No ductal dilation. Spleen: The spleen is normal and there is an incidental left upper quadrant splenule. Adrenal glands: Normal. No mass. Kidneys and ureters: Normal. No hydronephrosis. Stomach and bowel: There is a patent rectosigmoid anastomosis. Scattered gas and fluid in the small bowel without obstruction or ileus. Appendix: No evidence of appendicitis. Intraperitoneal space: Unremarkable. No free air. No significant fluid collection. Vasculature: Unremarkable. No abdominal aortic aneurysm. Lymph nodes: Unremarkable. No enlarged lymph nodes. Urinary bladder: Unremarkable as visualized. Reproductive: Unremarkable as visualized. Bones/joints: L5-S1 3 mm of grade 1 subluxation due to unilateral chronic pars defect. The S1 vertebral body is lumbarized. Chronic lower lumbar degenerative changes. Soft tissues: 3.8 cm umbilical hernia consist of fatty tissue only. Small bilateral fatty inguinal hernias. No bowel involvement or inflammation. CT/CT abdomen pelvis w con* [id number] IMPRESSION: 1. No acute abdominopelvic findings. 2. Hepatic steatosis. 3. Umbilical and bilateral inguinal hernias consist of noninflamed fatty tissue only. 4. Other chronic findings as described.
[2022-06-27 21:45] LABS: Troponin(5th) Baseline 6 ng/L (0-15)
[2022-06-27 21:54] LABS: Alanine Aminotransferase 30 U/L (0-41); Albumin Level 4.5 g/dL (3.5-5.2); Alkaline Phosphatase 59 U/L (40-130); Anion Gap 15.4 (5-19); Aspartate Amino Transferase 21 U/L (0-40); Blood Urea Nitrogen 13 mg/dL (6-20); Calcium 9.6 mg/dL (8.5-10.5); Carbon Dioxide 26 mmol/L (22-29); Chloride 99 mmol/L (98-107); Globulin 3.6 g/dL (1.3-4.6); Glomerular Filtration Rate 91.3 mL/min (90-130); Glucose 111 mg/dL (65-115); Lipase 24 U/L (13-60); Osmolality Calculated 285 mOsm/kg (285-295); Potassium 3.4 mmol/L (3.5-5.1); Sodium 137 mmol/L (136-145); Thyroid Stimulating Hormone 1.53 uIU/mL (0.27-4.20); Total Bilirubin 0.7 mg/dL (0.15-1.2); Total Protein 8.1 g/dL (6.6-8.7)
[2022-06-27] MEDS: iohexol 350 mg/mL 500 mL Btl (per mL) IV (22:15)
[2022-06-27 22:52] LABS: Influenza A by IFA negative (Negative); Influenza B by IFA negative (Negative); SARS Covid-2 Antigen negative (Negative)
--- NOTE | 2022-06-27 23:27 | ECG_ITS ---
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 Measurements Intervals [place] Rate: 56 P: 40 NM: 174 QRS: 5 QRSD: 105 T: 34 QT: 421 QTc: 407 Interpretive Statements SINUS BRADYCARDIA MODERATE T-WAVE ABNORMALITY, CONSIDER ANTEROLATERAL ISCHEMIA [-0.1+ mV T-WAVE IN V3-V6] Compared to ECG 06/27/2022 21:28:26 Sinus rhythm no longer present T-wave abnormality still present Possible ischemia still present Electronically Signed On 06-28-2022 18:12:09 TEAROOM HOSTESS by Marleen Wild M.D. [id number]
[2022-06-27] MEDS: potassium chloride ER 20 mEq Tablet 40 MEQ PO (23:33)
[2022-06-27] MEDS: diphenhydrAMINE 50 mg/mL SDV 1mL 12.5 MG IVP (23:33)
[2022-06-27] MEDS: ketorolac 30 mg/mL INJ 15 MG IVP (23:34)
[2022-06-27] MEDS: metoclopramide 5 mg/mL SDV 2 mL 10 MG IVP (23:34)
[2022-06-27 23:48] LABS: Troponin 5 2HR 6.64 ng/L (0-15)
[2022-06-27 23:54] LABS: Troponin 5 2HR Delta 0.64 ABS# (0-10)
[2022-06-28 00:19] VITALS: BP 123/78; PULSE 60; RESP 16; O2SAT 96
== END 2022-06-28 00:15 | disposition home or self-care (01) ==
PROVIDERS: Emergency Medicine; Emergency Provider Emergency Medicine
DX: R11.2 Nausea with vomiting, unspecified (principal); R42 Dizziness and giddiness
CPT/HCPCS: 70450; 71045; 74177; 80053; 83690; 84443; 84484; 85025; 87426; 87804; 93005; 96361; 96374; 96375; 99285; J1200; J1885; J2270; J2765; J7030; J8597; Q9967

== ENCOUNTER 2023-03-27 13:11 | Emergency (ER) | payer OTHER, SELFPAY ==
[2023-03-27 14:14] VITALS: BP 146/98; PULSE 78; RESP 18; TEMP 36.9; O2SAT 95; BMI 36.0
[2023-03-27 15:48] LABS: Basophils % 0.4 %; Eosinophils # 0.1 10^3/uL (0.0-0.8); Eosinophils % 1.2 %; Hematocrit 46.9 % (37-53); Lymphocytes # 1.2 10^3/uL (0.8-4.8); Lymphocytes % 12.9 %; Mean Corpuscular HGB Conc 33.5 g/dL (30-55); Mean Corpuscular Hemoglobin 30.5 pg (27-33); Mean Corpuscular Volume 91.2 fl (82-101); Mean Platelet Volume 9.2 fL (7.4-10.4); Monocytes # 0.9 10^3/uL (0.2-0.9); Monocytes % 9.3 %; Neutrophils # 7.01 10^3/uL (1.8-7.7); Nucleated Red Blood Cells % 0 %; Platelet Count 254 10^3/cmm (157-399); Red Blood Count 5.14 10^6/uL (3.85-5.65); Red Cell Distribution Width 12.8 % (12.1-15.1); White Blood Count 9.23 10^3/uL (3.29-11.43)
[2023-03-27 16:06] LABS: Alanine Aminotransferase 34 U/L (0-41); Albumin Level 4.5 g/dL (3.5-5.2); Alkaline Phosphatase 63 U/L (40-130); Anion Gap 14.6 (5-19); Aspartate Amino Transferase 23 U/L (0-40); Blood Urea Nitrogen 14 mg/dL (6-20); Calcium 9.3 mg/dL (8.5-10.5); Carbon Dioxide 26 mmol/L (22-29); Chloride 100 mmol/L (98-107); Creatinine Clr Calc Pharmacy 118.0663; Glomerular Filtration Rate 90.8 mL/min (90-130); Glucose 104 mg/dL (65-115); Lipase 18 U/L (13-60); Osmolality Calculated 285 mOsm/kg (285-295); Potassium 3.6 mmol/L (3.5-5.1); Sodium 137 mmol/L (136-145); Total Bilirubin 0.6 mg/dL (0.15-1.2); Total Protein 8.5 g/dL (6.6-8.7)
--- NOTE | 2023-03-27 16:43 | CTR_ITS ---
PROCEDURE INFORMATION: Exam: CT Abdomen And Pelvis With Contrast Exam date and time: 03/27/2023 5:03 PM Age: 48 years old Clinical indication: Abdominal pain; Localized; Right; Prior surgery; Surgery date: 6+ months; Surgery type: Hernia magaly; Additional info: Right sided abd pain, n/v/d, HX diverticulitis, sigmoidectom TECHNIQUE: Imaging protocol: Computed tomography of the abdomen and pelvis with contrast. Radiation optimization: All CT scans at this facility use at least one of these dose optimization techniques: automated exposure control; mA and/or kV adjustment per patient size (includes targeted exams where dose is matched to clinical indication); or iterative reconstruction. Contrast material: OMNI 350; Contrast volume: 100 ml; Contrast route: INTRAVENOUS (IV); REPORTING DATA: Count of CT and Cardiac NM exams in prior 12 months: This patient has received 2 known CTs and 0 known cardiac nuclear medicine studies in the 12 months prior to the current study. COMPARISON: CT abdomen pelvis w con* [id number] 06/27/2022 10:10 PM RADIATION DOSE METRICS: Total DLP (mGy-cm): 939.23 FINDINGS: Liver: Hepatic steatosis. Gallbladder and bile ducts: Cholecystectomy. Pancreas: Normal. No ductal dilation. Spleen: Normal. No splenomegaly. Adrenal glands: Normal. No mass. Kidneys and ureters: Normal. No hydronephrosis. Stomach and bowel: Diffuse colonic wall thickening with minimal surrounding edema, greatest in the sigmoid region may reflect a colitis. Mid sigmoid surgical suture line seen. Appendix: No evidence of appendicitis. Intraperitoneal space: Unremarkable. No free air. No significant fluid collection. Vasculature: Unremarkable. No abdominal aortic aneurysm. Lymph nodes: Unremarkable. No enlarged lymph nodes. Urinary bladder: Possible posterior urinary bladder wall mild thickening versus nondistention, please correlate clinically, cystoscopy could further characterize this. Reproductive: Unremarkable as visualized. 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 Soft tissues: Unremarkable. CT/CT abdomen pelvis w con* [id number] IMPRESSION: 1. Diffuse colonic wall thickening with minimal surrounding edema, greatest in the sigmoid region may reflect a colitis. 2. Mid sigmoid surgical suture line seen. 3. Possible posterior urinary bladder wall mild thickening versus nondistention, please correlate clinically, cystoscopy could further characterize this. 4. 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 5. Hepatic steatosis. 6. Cholecystectomy.
[2023-03-27] MEDS: iohexol 350 mg/mL 500 mL Btl (per mL) IV (17:04)
--- NOTE | 2023-03-27 17:06 | W.ED.ABDPA2 ---
HPI - Abdominal Pain General: Chief Complaint: Abdominal Pain Stated Complaint: abd pain, fever Time Seen by Provider: 03/27/23 16:15 History of Present Illness: 48-year-old male with a history of diverticulosis, intermittent abdominal pain, food allergies, partial sigmoidectomy due to diverticulitis who presents with 48 hours of abdominal pain. He reports nausea, vomiting, diarrhea. Location of the pain is right-sided. He reported a low-grade temperature of 100.6 yesterday. He had a small amount of bright red blood in his stool. This has not recurred. His diarrhea is occurring 3 times per day. He has become dizzy and lightheaded due to not being able to keep anything down. Denies any respiratory symptoms, symptoms of the ears eyes nose throat, rashes, wounds. Patient reports this happens to him intermittently and alludes to the fact that he does have episodes of chronic intermittent abdominal pain. Denies sick contacts. Associated Symptoms: Denies chills, dysuria and syncope Review of Systems General: Reports: 10 or more systems reviewed and unremarkable except in HPI and below Const: Denies: chills Eyes: Denies: change in vision ENMT: Denies: throat pain Card: Denies: chest pain, edema or syncope Resp: Denies: dyspnea or productive cough : Denies: flank pain, dysuria or urinary frequency Musc: Denies: neck pain, back pain, extremity pain or extremity swelling Skin/Breast: Denies: rash or erythema Neuro: Denies: headache(s), numbness in extremities, weakness in extremities, lack of coordination or difficulty walking PFSH ED PFSH: Medical History Acute diverticulitis Cholelithiasis Colon polyps Encounter for screening for other viral diseases GERD (gastroesophageal reflux disease) High risk medication use History of colon polyps Hyperlipidemia Immunization counseling Rheumatoid arthritis with rheumatoid factor Surgical History History of cholecystectomy History of colonoscopy with polypectomy (~2018) Diverticular bleed 2019 status post colonoscopy with polyp removal, benign as per the patient History of esophagogastroduodenoscopy (EGD) (~2018) History of hernia repair Right inguinal hernia repair as a child S/P laparoscopic colectomy Family History Brother Cancer prostate Father Diabetes Hypertension Hyperlipidemia Grandmother Hypertension Heart attack Denies family history of Systemic lupus erythematosus, unspecified Rheumatoid arthritis Lupus Anesthesia complication Bleeding disorder Stroke Social History Smoking and tobacco status: former smoker Quit status (tobacco): has quit using tobacco Second hand smoke exposure: No Alcohol intake: current Alcohol intake frequency: few times a week Alcohol type: beer Substance/Drug Use: never Adopted: No Caregiver/support person: Yes Lives independently: Yes Household members: spouse Housing: House Marital status: Highest education level completed: High School Graduate service: No Current occupational status: employed 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 Current occupational exposures/hazards: No Pets and animals: No Sexually active: Yes Do you think of yourself as: Straight/Heterosexual Current gender identity: Male Neda/Moravian: Orthodox Special neda needs: No Agree to transfusion: No Financial difficulty paying for basics: Decline to Answer Physical Exam Const: COMMON NORMALS: no limitations, alert and well nourished EXAM LIMITATIONS: no altered mental status HENMT: COMMON NORMALS: normocephalic, atraumatic and external ears normal HEAD & SCALP: normocephalic and atraumatic EXTERNAL EAR: Yes external ears normal MOUTH: no muffled voice Eye: COMMON NORMALS: EOMs intact bilaterally, conjunctivae normal and no scleral icterus CONJUNCTIVA: Yes conjunctivae normal Neck/C-Spine: COMMON NORMALS: no JVD GENERAL: Yes normal visual inspection and Yes trachea midline Resp: COMMON NORMALS: normal respiratory effort, No use of accessory muscles and clear to auscultation bilaterally AUSCULTATION: clear to auscultation bilaterally Cardio: COMMON NORMALS: no JVD, regular rate and regular rhythm RATE: regular rate RHYTHM: regular rhythm GI: PALPATION: Yes Tenderness to palpation present (GI) Details: RLQ, RUQ and other (Periumbilical and suprapubic) and Yes Guarding due to palpation present (GI) Extremity: COMMON NORMALS: normal to inspection Neuro: COMMON NORMALS: moves all extremities, no focal motor deficits and no sensory deficits noted SENSORIUM/ORIENTATION: Yes alert SPEECH: speech normal Psych: COMMON NORMALS: mental status grossly normal, Normal thought process present, cooperative, normal affect and speech normal SPEECH: Yes normal speech THOUGHT PROCESS: Normal thought process present Skin: COMMON NORMALS: no rashes or lesions noted, turgor normal and no jaundice GENERAL SKIN EXAM: no rashes or lesions noted and turgor normal Course Vital Signs: Vital signs: Vital Signs Temperature 98.4 F 03/27/23 14:14 Pulse Rate 78 03/27/23 14:14 Respiratory Rate 18 03/27/23 14:14 Blood Pressure 146/98 03/27/23 14:14 Pulse Oximetry 95 03/27/23 14:14 Oxygen Delivery Me thod Room Air 03/27/23 14:14 MDM - Abdominal Pain Medical Decision Making Differential diagnosis includes gastroenteritis, colitis, diverticulitis, colonic rupture, appendicitis, mesenteric adenitis, panniculitis, partial obstruction, and multiple others. The patient is tender in the right upper, middle, and periumbilical region. Plan to give IVF, antiemetics, pain control, obtain CT abd/pelv and labs. Update White blood cell count is normal. Electrolytes are normal. BUN to creatinine ratio is normal. Patient has had no diarrhea or vomiting here. Pain was easily controlled. CT scan of the abdomen and pelvis shows diffuse colonic wall thickening with minimal surrounding edema. Suggestion of possible colitis. I spoke with the patient about these results. We discussed the different causes of colitis including food allergy, autoimmune, infectious, inflammatory bowel disease, etc. We discussed the option of using antibiotics. Patient reports last time he took antibiotics it took him months to recover. We are going to treat expectantly at this time with modified diet and medications for pain and nausea. Patient is established with primary care and gastroenterology. He has capacity for medical decision making and understood return precautions. Feel comfortable with discharge at this time. Lab Data 03/27/23 15:36 03/27/23 15:36 Labs/Radiology: Radiology Impressions Abdomen/Pelvis CT 03/27/23 16:43 IMPRESSION: 1. Diffuse colonic wall thickening with minimal surrounding edema, greatest in the sigmoid region may reflect a colitis. 2. Mid sigmoid surgical suture line seen. 3. Possible posterior urinary bladder wall mild thickening versus nondistention, please correlate clinically, cystoscopy could further characterize this. 4. 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 5. Hepatic steatosis. 6. Cholecystectomy. Laboratory Results WBC 9.23 10^3/uL (3.29-11.43) 03/27/23 15:36 RBC 5.14 10^6/uL (3.85-5.65) 03/27/23 15:36 Hgb 15.70 g/dL (11.27-16.99) 03/27/23 15:36 Hct 46.9 % (37-53) 03/27/23 15:36 MCV 91.2 fl (82-101) 03/27/23 15:36 MCH 30.5 pg (27-33) 03/27/23 15:36 MCHC 33.5 g/dL (30-55) 03/27/23 15:36 RDW 12.8 % (12.1-15.1) 03/27/23 15:36 Plt Count 254 10^3/cmm (157-399) 03/27/23 15:36 MPV 9.2 fL (7.4-10.4) 03/27/23 15:36 Neut % (Auto) 76.0 % 03/27/23 15:36 Lymph % (Auto) 12.9 % 03/27/23 15:36 [place] % (Auto) 9.3 % 03/27/23 15:36 Eos % (Auto) 1.2 % 03/27/23 15:36 Baso % (Auto) 0.4 % 03/27/23 15:36 Neut # (Auto) 7.01 10^3/uL (1.8-7.7) 03/27/23 15:36 Lymph # (Auto) 1.2 10^3/uL (0.8-4.8) 03/27/23 15:36 [place] # (Auto) 0.9 10^3/uL (0.2-0.9) 03/27/23 15:36 Eos # (Auto) 0.1 10^3/uL (0.0-0.8) 03/27/23 15:36 Baso # (Auto) 0.0 10^3/uL (0.0-0.1) 03/27/23 15:36 Nucleated RBC % (auto) 0 % 03/27/23 15:36 Nucleated RBCs # 0.0 /100WBC 03/27/23 15:36 Sodium 137 mmol/L (136-145) 03/27/23 15:36 Potassium 3.6 mmol/L (3.5-5.1) 03/27/23 15:36 Chloride 100 mmol/L (98-107) 03/27/23 15:36 Carbon Dioxide 26 mmol/L (22-29) 03/27/23 15:36 Anion Gap 14.6 (5-19) 03/27/23 15:36 BUN 14 mg/dL (6-20) 03/27/23 15:36 Creatinine 0.9 mg/dL (0.7-1.2) 03/27/23 15:36 GFR Calculation 90.8 mL/min (90-130) 03/27/23 15:36 Glucose 104 mg/dL (65-115) 03/27/23 15:36 Calculated Osmolality 285 mOsm/kg (285-295) 03/27/23 15:36 Lactic Acid 1.0 mmol/L (0.5-2.2) 03/27/23 15:36 Calcium 9.3 mg/dL (8.5-10.5) 03/27/23 15:36 Total Bilirubin 0.6 mg/dL (0.15-1.2) 03/27/23 15:36 AST 23 U/L (0-40) 03/27/23 15:36 ALT 34 U/L (0-41) 03/27/23 15:36 Alkaline Phosphatase 63 U/L (40-130) 03/27/23 15:36 Total Protein 8.5 g/dL (6.6-8.7) 03/27/23 15:36 Albumin 4.5 g/dL (3.5-5.2) 03/27/23 15:36 Globulin 4.0 g/dL (1.3-4.6) 03/27/23 15:36 Lipase 18 U/L (13-60) 03/27/23 15:36 Urine Color Yellow (Yellow) 03/27/23 19:15 Urine Appearance Clear (CLEAR) 03/27/23 19:15 Urine pH 5 (5-7) 03/27/23 19:15 Ur Specific [place] 1.010 (1.005-1.030) 03/27/23 19:15 Urine Protein 1+ (Negative) H 03/27/23 19:15 Urine Glucose (UA) Norm (Normal) 03/27/23 19:15 Urine Ketones Negative (Negative) 03/27/23 19:15 Urine Blood 2+ (Negative) H 03/27/23 19:15 Urine Nitrate Negative (Negative) 03/27/23 19:15 Urine Bilirubin Neg (Negative) 03/27/23 19:15 Urine Urobilinogen Norm mg/dL (Negative) 03/27/23 19:15 Ur Leukocyte Esterase Trace (Negative) H 03/27/23 19:15 Urine RBC 0-4 /hpf (0-2) H 03/27/23 19:15 Urine WBC 0-4 /hpf (0-5) H 03/27/23 19:15 Ur Squamous Epith Cells None /hpf (0-5) 03/27/23 19:15 Amorphous Sediment Not Reportable 03/27/23 19:15 Urine Bacteria Trace /hpf (NONE) 03/27/23 19:15 Urine Mucus 1+ /hpf 03/27/23 19:15 Discharge Plan Discharge Patient Disposition: Home Clinical Impression: Colitis, Abdominal pain Condition: Stable Prescriptions: Continued hydrocodone-acetaminophen 5-325 mg tablet 1 tab PO Q6H PRN (Reason: pain) Qty: 14 0RF ondansetron 4 mg tablet,disintegrating 4 mg PO Q6H PRN (Reason: nausea and vomiting) Qty: 14 0RF Held acetaminophen 500 mg capsule 1,000 mg PO BID PRN (Reason: Pain) Hold Instructions: Resume on 03/30/23. Discontinued ibuprofen 200 mg tablet 1,000 mg PO BID PRN (Reason: Pain) Hold Instructions: Resume on 09/30/21. naproxen 250 mg tablet 500 mg PO BID PRN (Reason: Pain) Hold Instructions: Resume on 09/30/21. Patient Comments: Pt says he takes 2-3 QD as needed No Action omeprazole 40 mg capsule,delayed release(DR/EC) 40 mg PO DAILY hydrochlorothiazide 12.5 mg tablet 12.5 mg PO DAILY meclizine 25 mg tablet 25 mg PO TID PRN (Reason: dizziness) Qty: 10 0RF Discharge Orders: Discharge ED (Routine); Ordered 03/27/23 Ordered By: Brad Hidalgo Discharge Diet: Advance as tolerated and GI Soft Discharge Activity: Increase activity as tolerated Patient Instructions: Abdominal Pain (ED), Colitis (ED), Opioid Safety, Pain Management Activity Restrictions/Additional Instructions: You have inflammation of your distal colon on the CT scan. Be due to autoimmune disease, allergy, infection, trauma and several other causes. In other words, inflammation is nonspecific. At this time we have decided not to initiate antibiotics. If you get worse, have increasing pain, bloody stools, fever greater than 100.8, inability to hydrate or eat, or other worsening symptoms then you need to be reexamined. Please call your vehicle body sander and arrange for a follow-up in 5 to 7 days. Coding Level of Care Code ED Machining Associate for Dillon Kessler
[2023-03-27] MEDS: sodium chloride 0.9% 1,000 ML 999 ML IV (17:20)
[2023-03-27] MEDS: ondansetron 2 mg/ML SDV 2 mL 4 MG IVP (17:21)
[2023-03-27] MEDS: morphine 4 mg/mL SDV 1 mL IVP (17:21)
[2023-03-27 20:02] LABS: Add Urine Microscopic? YES; Bilirubin Urine Neg (Negative); Blood Urine 2+ (Negative); Glucose Urine UA Norm (Normal); Ketones Urine Negative (Negative); Leukocyte Esterase Urine Trace (Negative); Nitrate Urine Negative (Negative); Protein Urine 1+ (Negative); Urine Appearance Clear (CLEAR); Urine Color Yellow (Yellow); Urobilinogen Urine Norm (Negative); pH Urine 5 (5-7)
[2023-03-27 20:03] LABS: Add Urine Culture? No; Bacteria Urine TRACE /hpf; Mucus Urine 1+ /hpf; RBC Urine 0-4 /hpf (0-2); WBC Urine 0-4 /hpf (0-5)
[2023-03-27 20:22] VITALS: BP 146/98; PULSE 78; RESP 18; TEMP 36.9; O2SAT 95
--- NOTE | 2023-03-30 13:51 | DCPLANNER ---
senior manager called patient due to no primary care physician - no answer at this time.
--- NOTE | 2023-04-05 12:39 | DCPLANNER ---
international accounting manager called patient due to no primary care physician - [facility]
== END 2023-03-27 20:23 | disposition home or self-care (01) ==
PROVIDERS: Physician Assistant; Emergency Provider Emergency Medicine; PCP Emergency Medicine Emergency Medical Services
DX: K52.9 Noninfective gastroenteritis and colitis, unspecified (principal); Z87.891 Personal history of nicotine dependence; E78.5 Hyperlipidemia, unspecified
CPT/HCPCS: 36415; 74177; 80053; 81001; 83605; 83690; 85025; 96374; 96375; 99285; J2270; J2405; J7030; Q9967

== ENCOUNTER → 2023-05-29 13:37 | Outpatient (BNVA) | payer OTHER, SELFPAY | PROVIDERS: PCP Emergency Medicine Emergency Medical Services; Visit Provider Otolaryngology | DX: R05.3 Chronic cough (principal); T16.1XXA Foreign body in right ear, initial encounter; T16.2XXA Foreign body in left ear, initial encounter; X58.XXXA Exposure to other specified factors, initial encounter | CPT/HCPCS: 99203 ==

== ENCOUNTER 2023-06-12 09:23 | Outpatient (CLI) | payer OTHER, SELFPAY ==
--- NOTE | 2023-06-12 10:00 | FL_ITS ---
WS: [id number] Exam: FL barium swallow modifd [id number] Date/Time of Exam: 06/12/2023 9:58 AM Reason For Exam: Fluoroscopy time: Modified barium swallow was performed in conjunction with the speech therapy servic rojelio Leong # of spot films: 2 episodes of very mild penetration into the laryngeal inlet were observed when the patient drank thi n liquid barium solutions. The oropharyngeal phase of swallowing was otherwise normal. The patient to lerated nectar, pudding and solid barium mixture foodstuffs without difficulty. The patient ingested a barium tablet without incident. IMPRESSION: 1. The patient experienced minimal penetration into the laryngeal inlet when ingesting thin liquids. 2. There was no aspiration and no other significant finding. A separate report of findings and recommendations will follow from the speech therapy service.
== END 2023-06-12 09:24 | disposition home or self-care (01) ==
LOC: RAD 09:23
PROVIDERS: PCP Emergency Medicine Emergency Medical Services; Visit Provider Otolaryngology
DX: R05.3 Chronic cough (principal)
CPT/HCPCS: 74230; 92611

== ENCOUNTER → 2023-12-19 10:54 | Outpatient (BNVA) | payer OTHER, SELFPAY | PROVIDERS: PCP Emergency Medicine Emergency Medical Services; Visit Provider Otolaryngology | DX: G47.33 Obstructive sleep apnea (adult) (pediatric) (principal); Q67.4 Other congenital deformities of skull, face and jaw; J34.3 Hypertrophy of nasal turbinates; J34.89 Other specified disorders of nose and nasal sinuses; K14.8 Other diseases of tongue; J35.1 Hypertrophy of tonsils; E66.9 Obesity, unspecified; Z87.730 Personal history of (corrected) cleft lip and palate; Z68.37 Body mass index [BMI] 37.0-37.9, adult | CPT/HCPCS: 99214 ==

== ENCOUNTER 2024-01-26 17:27 | Emergency (ER) | payer OTHER, SELFPAY ==
[2024-01-26] VITALS (7 sets, daily range): BP systolic 140–170; BP diastolic 71–110; PULSE 65–71; RESP 16–18; TEMP 36.7; O2SAT 94–98
--- NOTE | 2024-01-26 17:42 | ECG_ITS ---
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 Measurements Intervals [place] Rate: 69 P: 27 ME: 161 QRS: -13 QRSD: 102 T: 74 QT: 382 QTc: 411 Interpretive Statements SINUS RHYTHM MODERATE T-WAVE ABNORMALITY, CONSIDER LATERAL ISCHEMIA [-0.1+ mV T-WAVE IN I/aVL/V5/V6] Compared to ECG 06/27/2022 23:27:40 Sinus bradycardia no longer present T-wave abnormality still present Possible ischemia still present Electronically Signed On 01-26-2024 20:44:23 CDT by Alona Chandra M.D. [email or web address]
--- NOTE | 2024-01-26 17:42 | XRR_ITS ---
PROCEDURE INFORMATION: Exam: XR Chest Exam date and time: 01/26/2024 6:44 PM Age: 48 years old Clinical indication: Pain; Chest pressure; Additional info: Cp TECHNIQUE: Imaging protocol: Radiologic exam of the chest. Views: 1 view. COMPARISON: CR XR chest 1V portable [id number] 27/06/2022 23:00 FINDINGS: Lungs: There is no consolidation. Pleural spaces: No pleural effusion or pneumothorax. Heart/Mediastinum: The heart and mediastinum are normal in size. Bones/joints: Unremarkable. XR/XR chest 1V portable [id number] IMPRESSION: No acute findings.
[2024-01-26 18:02] LABS: Basophils # 0.1 10^3/uL (0.0-0.1); Basophils % 0.9 %; Eosinophils # 0.4 10^3/uL (0.0-0.8); Eosinophils % 3.7 %; Hematocrit 44.4 % (37-53); Lymphocytes # 2.4 10^3/uL (0.8-4.8); Lymphocytes % 22.4 %; Mean Corpuscular Hemoglobin 31.2 pg (27-33); Mean Corpuscular Volume 91.7 fl (82-101); Mean Platelet Volume 8.9 fL (7.4-10.4); Monocytes # 0.9 10^3/uL (0.2-0.9); Monocytes % 7.9 %; Neutrophils # 6.97 10^3/uL (1.8-7.7); Neutrophils % 64.4 %; Nucleated Red Blood Cells % 0 %; Platelet Count 320 10^3/cmm (157-399); Red Blood Count 4.84 10^6/uL (3.85-5.65); Red Cell Distribution Width 12.5 % (12.1-15.1); White Blood Count 10.82 10^3/uL (3.29-11.43)
[2024-01-26 18:19] LABS: INR 0.97 (0.8-1.2)
[2024-01-26 18:23] LABS: Alanine Aminotransferase 43 U/L (0-41); Albumin Level 4.3 g/dL (3.5-5.2); Alkaline Phosphatase 85 U/L (40-130); Aspartate Amino Transferase 33 U/L (0-40); Blood Urea Nitrogen 12 mg/dL (6-20); Calcium 9.3 mg/dL (8.5-10.5); Carbon Dioxide 24 mmol/L (22-29); Chloride 102 mmol/L (98-107); Creatinine Clr Calc Pharmacy 157.5522; Globulin 3.5 g/dL (1.3-4.6); Glomerular Filtration Rate 121.4 mL/min (90-130); Glucose 96 mg/dL (65-115); Osmolality Calculated 286 mOsm/kg (285-295); Sodium 138 mmol/L (136-145); Total Bilirubin 0.3 mg/dL (0.15-1.2); Total Protein 7.8 g/dL (6.6-8.7)
[2024-01-26 18:30] LABS: Anion Gap 15.7 (5-19); Potassium 3.7 mmol/L (3.5-5.1)
--- NOTE | 2024-01-26 18:37 | ED_ITS ---
HPI - Chest Pain 2 General: Chief Complaint: Chest Pain Stated Complaint: high bp, SOB, chest pain Time Seen by Provider: 01/26/24 18:34 Source: patient Mode of arrival: ambulatory Limitations: no limitations History of Present Illness: 48-year-old male states has been having chest pain since this morning states that his pain is a pressure type pain around his chest he had hypertension throughout the day as well as had a history of hypertension. States he is also had vertigo for the last 2 weeks he had been admitted in [place] 2 weeks ago for the vertigo and states that it has persisted. He states its much worse with movement. Denies any headache denies any cough or fever. Associated symptoms: Deny abdominal pain, dyspnea, fever(s), nausea or vomiting Review of Systems 2 Const: Denies: fever(s), chills, body aches or change in appetite Eyes: Denies: blurry vision or eye discomfort ENMT: Denies: throat pain or dental pain Card: Reports: chest pain Resp: Denies: dyspnea GI: Denies: abdominal pain, nausea, vomiting or diarrhea Musc: Denies: neck pain or back pain Skin/Breast: Denies: rash Neuro: Denies: headache(s) PFSH ED 2 PFSH: Medical History Cleft palate Acute diverticulitis Colon polyps Rheumatoid arthritis with rheumatoid factor High risk medication use Immunization counseling Encounter for screening for other viral diseases Cholelithiasis Hyperlipidemia GERD (gastroesophageal reflux disease) History of colon polyps Surgical History S/P laparoscopic colectomy History of cholecystectomy History of hernia repair Right inguinal hernia repair as a child History of colonoscopy with polypectomy (~2018) Diverticular bleed 2019 status post colonoscopy with polyp removal, benign as per the patient History of esophagogastroduodenoscopy (EGD) (~2019) Family History Brother Cancer prostate Father Diabetes Hypertension Hyperlipidemia Grandmother Hypertension Heart attack Denies family history of Lupus (systemic lupus erythematosus) Rheumatoid arthritis Lupus Anesthesia complication Bleeding disorder Stroke Social History Smoking and tobacco/nicotine status: former use of tobacco/nicotine Quit status (tobacco/nicotine): has quit using Second hand smoke exposure: No Alcohol intake: current Alcohol intake frequency: few times a week Alcohol type: beer Substance/Drug Use: current Substance/Drug use frequency: daily Adopted: No Caregiver/support person: Yes Lives independently: Yes Household members: spouse Housing: House Marital status: Highest education level completed: High School Graduate service: No Current occupational status: employed 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 Current occupational exposures/hazards: No Pets and animals: No Sexually active: Yes Do you think of yourself as: Straight/Heterosexual Current gender identity: Male Neda/Catholic: Pentecostal Special neda needs: No Agree to transfusion: No Physical Exam 2 Const: COMMON NORMALS: no acute distress, patient oriented x3 and healthy appearing HENMT: COMMON NORMALS: normocephalic and atraumatic HEAD & SCALP: n ormocephalic and atraumatic Eye: COMMON NORMALS: Equal, round and reactive pupils present and EOMs intact bilaterally PUPIL: Yes Equal, round and reactive pupils present Neck/C-Spine: COMMON NORMALS: full ROM and supple Chest: COMMONS NORMALS: normal inspection of the chest and normal palpation of entire chest wall Resp: COMMON NORMALS: normal respiratory effort, No retractions, No use of accessory muscles and clear to auscultation bilaterally AUSCULTATION: clear to auscultation bilaterally Cardio: COMMON NORMALS: regular rate, regular rhythm and No murmurs present (Cardio) RATE: regular rate RHYTHM: regular rhythm GI: COMMON NORMALS: Normal to inspection, nondistended, normoactive bowel sounds present, Soft to palpation, non-tender and no masses PALPATION: Yes Soft to palpation Extremity: COMMON NORMALS: normal to inspection and full ROM Neuro: COMMON NORMALS: patient oriented x3, moves all extremities and no focal motor deficits Psych: COMMON NORMALS: mental status grossly normal, Normal thought process present and cooperative THOUGHT PROCESS: Normal thought process present Skin: COMMON NORMALS: no rashes or lesions noted and no wounds GENERAL SKIN EXAM: no rashes or lesions noted Course 2 Vital Signs: Vital signs: Vital Signs Temperature 98.1 F 01/26/24 17:36 Pulse Rate 688 H 01/26/24 19:32 Respiratory Rate 16 01/26/24 19:32 Blood Pressure 146/100 01/26/24 19:32 Pulse Oximetry 97 01/26/24 19:32 Oxygen Delivery Me thod Room Air 01/26/24 17:36 MDM - Chest Pain Medical Decision Making Patient presents with chest pain been going on for days his initial repeat troponin here is negative his pains improved here he had some mild vertigo as well as head CT is normal his vertigo improved with Antivert no signs of posterior stroke we will get him follow-up with cardiology he is return if worsening he understands agrees to plan he has no signs of ACS or pulmonary embolism. Medical Records I reviewed the patient's medical records. Lab Data I reviewed the patient's lab results. 01/26/24 17:52 01/26/24 17:52 Radiology Impressions Chest X-Ray 01/26/24 17:42 IMPRESSION: No acute findings. Head CT 01/26/24 18:39 IMPRESSION: 1. No acute findings. 2. A 5 mm retention cyst in the right sphenoid sinus. Laboratory Results WBC 10.82 10^3/uL (3.29-11.43) 01/26/24 17:52 RBC 4.84 10^6/uL (3.85-5.65) 01/26/24 17:52 Hgb 15.10 g/dL (11.27-16.99) 01/26/24 17:52 Hct 44.4 % (37-53) 01/26/24 17:52 MCV 91.7 fl (82-101) 01/26/24 17:52 MCH 31.2 pg (27-33) 01/26/24 17:52 MCHC 34.0 g/dL (30-55) 01/26/24 17:52 RDW 12.5 % (12.1-15.1) 01/26/24 17:52 Plt Count 320 10^3/cmm (157-399) 01/26/24 17:52 MPV 8.9 fL (7.4-10.4) 01/26/24 17:52 Neut % (Auto) 64.4 % 01/26/24 17:52 Lymph % (Auto) 22.4 % 01/26/24 17:52 [place] % (Auto) 7.9 % 01/26/24 17:52 Eos % (Auto) 3.7 % 01/26/24 17:52 Baso % (Auto) 0.9 % 01/26/24 17:52 Neut # (Auto) 6.97 10^3/uL (1.8-7.7) 01/26/24 17:52 Lymph # (Auto) 2.4 10^3/uL (0.8-4.8) 01/26/24 17:52 [place] # (Auto) 0.9 10^3/uL (0.2-0.9) 01/26/24 17:52 Eos # (Auto) 0.4 10^3/uL (0.0-0.8) 01/26/24 17:52 Baso # (Auto) 0.1 10^3/uL (0.0-0.1) 01/26/24 17:52 Nucleated RBC % (auto) 0 % 01/26/24 17:52 Nucleated RBCs # 0.0 /100WBC 01/26/24 17:52 PT 13.20 SECONDS (12.1-14.9) 01/26/24 17:52 INR 0.97 (0.8-1.2) 01/26/24 17:52 Sodium 138 mmol/L (136-145) 01/26/24 17:52 Potassium 3.7 mmol/L (3.5-5.1) 01/26/24 17:52 Chloride 102 mmol/L (98-107) 01/26/24 17:52 Carbon Dioxide 24 mmol/L (22-29) 01/26/24 17:52 Anion Gap 15.7 (5-19) 01/26/24 17:52 BUN 12 mg/dL (6-20) 01/26/24 17:52 Creatinine 0.7 mg/dL (0.7-1.2) 01/26/24 17:52 GFR Calculation 121.4 mL/min (90-130) 01/26/24 17:52 Glucose 96 mg/dL (65-115) 01/26/24 17:52 Calculated Osmolality 286 mOsm/kg (285-295) 01/26/24 17:52 Calcium 9.3 mg/dL (8.5-10.5) 01/26/24 17:52 Total Bilirubin 0.3 mg/dL (0.15-1.2) 01/26/24 17:52 AST 33 U/L (0-40) 01/26/24 17:52 ALT 43 U/L (0-41) H 01/26/24 17:52 Alkaline Phosphatase 85 U/L (40-130) 01/26/24 17:52 Troponin T Baseline 7 ng/L (0-15) 01/26/24 17:52 Troponin T 120 Minute 7.43 ng/L (0-15) 01/26/24 19:36 Delta Troponin T 0.43 ABS# (0-10) 01/26/24 19:36 Total Protein 7.8 g/dL (6.6-8.7) 01/26/24 17:52 Albumin 4.3 g/dL (3.5-5.2) 01/26/24 17:52 Globulin 3.5 g/dL (1.3-4.6) 01/26/24 17:52 Lipase 28 U/L (13-60) 01/26/24 17:52 All radiology interpretation(s) finalized by discharge EKG Data EKG 1: I personally reviewed and interpreted this EKG as follows: EKG interpretation date: 01/26/24 EKG interpretation time: 17:34 Interpretation: nsr hr [address] elevation qrs 1020 qtc 401 EKG 2: I personally reviewed and interpreted this EKG as follows: EKG interpretation date: 01/26/24 EKG interpretation time: 19:31 Interpretation: nsr hr [address] elevation qrs 106 qtc 396 Discharge Plan Discharge Patient Disposition: Home Clinical Impression: Chest pain, Vertigo, Hypertension Condition: Stable Prescriptions: No Action acetaminophen 500 mg capsule 1,000 mg PO BID PRN (Reason: Pain) Hold Instructions: Resume on 03/30/23. omeprazole 40 mg capsule,delayed release(DR/EC) 40 mg PO DAILY paroxetine HCl 40 mg tablet PO rosuvastatin 20 mg tablet PO hydroxyzine HCl 25 mg tablet PO fluticasone propionate 50 mcg/actuation spray,suspension 2 spray intranasal DAILY 360 Days Qty: 16 11RF Rx Instructions: administer into each nostril albuterol sulfate 90 mcg/actuation HFA aerosol inhaler inhalation benzonatate 200 mg capsule 200 mg PO ONCE hydrochlorothiazide 12.5 mg tablet 12.5 mg PO DAILY meclizine 25 mg tablet 25 mg PO TID PRN (Reason: dizziness) Qty: 10 0RF ondansetron 4 mg tablet,disintegrating 4 mg PO Q6H PRN (Reason: nausea and vomiting) Qty: 14 0RF Discharge Orders: Discharge ED (Routine); Ordered 01/26/24 Ordered By: Bandar Adkins Referrals: Tk Akbar DO [Primary Care Provider] - 4-7 days Discharge Activity: Resume usual activity Patient Instructions: Chest Pain (ED), Vertigo (ED) Coding Level of Care Code ED Medical Reimbursement Specialist for Dillon Kessler
--- NOTE | 2024-01-26 18:39 | CTR_ITS ---
PROCEDURE INFORMATION: Exam: CT Head Without Contrast Exam date and time: 01/26/2024 6:49 PM Age: 48 years old Clinical indication: Patient HX: C/O dizziness with hypertension. ; Additional info: Dizzy TECHNIQUE: Imaging protocol: Computed tomography of the head without contrast. Radiation optimization: All CT scans at this facility use at least one of these dose optimization techniques: automated exposure control; mA and/or kV adjustment per patient size (includes targeted exams where dose is matched to clinical indication); or iterative reconstruction. COMPARISON: CT head wo con* [id number] 27/06/2022 22:05 RADIATION DOSE METRICS: Total DLP (mGy-cm): 1112.48 FINDINGS: Brain: There is no evidence of intracranial hemorrhage. No mass effect or midline shift. No territorial edema. Unremarkable white matter. Cerebral ventricles: The ventricles and sulci are appropriate for the patient's age. Paranasal sinuses: There are no air-fluid levels. A 5 mm retention cyst in the right sphenoid sinus. Mastoid air cells: The visualized mastoid air cells are well aerated. Bones: Unremarkable. No acute fracture. Soft tissues: Unremarkable. CT/CT head wo con* [id number] IMPRESSION: 1. No acute findings. 2. A 5 mm retention cyst in the right sphenoid sinus.
[2024-01-26 18:41] LABS: Troponin(5th) Baseline 7 ng/L (0-15)
[2024-01-26] MEDS: meclizine 25 mg tablet 50 MG PO (18:50)
[2024-01-26] MEDS: aspirin 81 mg Chew Tablet 324 MG PO (18:50)
[2024-01-26] MEDS: nitroglycerin 0.4 mg sublingual Tablet 0.400000000000000022 MG SUBLINGUAL ×3 (18:56→19:13)
[2024-01-26 19:31] LABS: Lipase 28 U/L (13-60)
--- NOTE | 2024-01-26 19:31 | ECG_ITS ---
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 Measurements Intervals [place] Rate: 62 P: 44 AL: 162 QRS: -5 QRSD: 106 T: 74 QT: 390 QTc: 398 Interpretive Statements SINUS RHYTHM NONSPECIFIC T-WAVE ABNORMALITY Compared to ECG 01/26/2024 17:34:36 Possible ischemia no longer present T-wave abnormality still present Electronically Signed On 01-27-2024 19:18:28 CDT by Alona Chandra M.D. [id number]
[2024-01-26 19:57] LABS: Troponin 5 2HR 7.43 ng/L (0-15); Troponin 5 2HR Delta 0.43 ABS# (0-10)
--- NOTE | 2024-01-29 14:47 | DCPLANNER ---
messaged heart/lung for er f/u
== END 2024-01-26 20:13 | disposition home or self-care (01) ==
PROVIDERS: Emergency Provider Emergency Medicine; PCP Emergency Medicine Emergency Medical Services
DX: R07.9 Chest pain, unspecified (principal); R42 Dizziness and giddiness; I10 Essential (primary) hypertension; Z87.891 Personal history of nicotine dependence; E78.5 Hyperlipidemia, unspecified
CPT/HCPCS: 36415; 70450; 71045; 80053; 83690; 84484; 85025; 85610; 93005; 96374; 99285; J8597

== ENCOUNTER → 2024-03-19 16:12 | Outpatient (CLI) | payer OTHER, SELFPAY | LOC: RAD 03-20 13:15 | PROVIDERS: PCP Emergency Medicine Emergency Medical Services; Visit Provider Internal Medicine Cardiovascular Disease | DX: R06.9 Unspecified abnormalities of breathing (principal); Z98.61 Coronary angioplasty status; R07.9 Chest pain, unspecified; R94.31 Abnormal electrocardiogram [ECG] [EKG]; I10 Essential (primary) hypertension; E78.5 Hyperlipidemia, unspecified; E11.9 Type 2 diabetes mellitus without complications; Z87.891 Personal history of nicotine dependence | CPT/HCPCS: 99205 ==

== ENCOUNTER 2024-04-26 12:57 | Outpatient (CLI) | payer OTHER, SELFPAY ==
--- NOTE | 2024-04-26 13:02 | USCV_ITS ---
Sid Ciaran Age: 49 Gender: M : 1975 Exam Date: 04/26/2024 13:37 Ordering Phys: Alona Chandra MD ([email or web address]) Technologist: FRANNIE [place]am [place] [facility] [place] [facility] [place] Indication: CHEST PAIN BP: 142 / 82 HR: 61 Rhythm: Sinus Technical Quality: Adequate MEASUREMENTS (Male / Female) Normal Values 2D ECHO LV Diastolic Diameter PLAX 5.3 cm 4.2 - 5.9 / 3.9 - 5.3 cm IVS Diastolic Thickness 1.3 cm 0.6 - 1.0 / 0.6 - 0.9 cm IVS Systolic Thickness 1.9 cm LVPW Diastolic Thickness 1.8 cm 0.6 - 1.0 / 0.6 - 0.9 cm LVPW Systolic Thickness 2.6 cm LVOT Diameter 2.0 cm LV Ejection Fraction 2D Teich 59.7 % LV Ejection Fraction MOD 4C 75.9 % LV Ejection Fraction MOD 2C 64.0 % LV Ejection Fraction 2C AL 65.7 % LA Diameter 3.3 cm RA Systolic Volume 4C AL 18.0 ml RA Systolic Volume 4C MOD 17.9 ml LA Sys Volume AL 29.6 cm cubed LA Sys Volume Index AL 12.8 cm cubed/m squared Aorta at Sinotubular Diameter 3.0 cm IVC Diameter 1.6 cm M-MODE LA Ao Ratio MM 1.2 AV Cusp Separation MM 2.2 cm DOPPLER AV Peak Velocity 106.0 cm/s LVOT Peak Velocity 101.0 cm/s AV Area Cont Eq vti 3.1 cm squared AV Area Cont Eq pk 3.1 cm squared MV Peak Velocity 98.0 cm/s MV Area PHT 3.3 cm squared Mitral E to A Ratio 1.1 TR Peak Velocity 110.0 cm/s TR Peak Gradient 4.8 mmHg TR Mean Velocity 92.0 cm/s TR Mean Gradient 3.5 mmHg TR Velocity Time Integral 34.8 cm TV Peak E Velocity 67.0 cm/s Right Atrial Pressure 3.0 mmHg Pulmonary Artery Systolic Pressu 7.8 mmHg PV Peak Velocity 108.0 cm/s RV Ejection Time 0.4 s FINDINGS Left Ventricle Normal left ventricular size and systolic function, EF 66% no regional wall motion abnormalities. Right Ventricle The right ventricle is normal in size and function. Right Atrium The right atrium is normal in size. Left Atrium The left atrium is normal in size. Mitral Valve Trace mitral valve regurgitation. Aortic Valve No gross abnormalities noted Tricuspid Valve Trace tricuspid valve regurgitation. Pulmonic Valve Trace pulmonary valve regurgitation. Pericardium Normal pericardium without effusion. Aorta Normal ascending aorta dimension. IVC Normal inferior vena cava. CONCLUSIONS Normal left ventricular size and systolic function, EF 66% no regional wall motion abnormalities. Trace mitral valve regurgitation. Trace tricuspid and pulmonic valve regurgitation. Estimated pulmonary artery peak systolic pressure within normal limits There is no pericardial effusion. There are no intracardiac masses. No similar previous studies are available for comparison Dr Alona Chandra MD [facility] (Electronically Signed) Final Date: 03 May 2024 13:32 S
== END 2024-04-26 12:58 | disposition home or self-care (01) ==
LOC: RAD 12:57
PROVIDERS: PCP Family Medicine; Visit Provider Internal Medicine Cardiovascular Disease
DX: R06.09 Other forms of dyspnea (principal)
CPT/HCPCS: 93306

== ENCOUNTER 2024-04-29 08:29 | Outpatient (CLI) | payer OTHER, SELFPAY ==
[2024-04-29 08:39] VITALS: BMI 38.3
--- NOTE | 2024-04-29 08:51 | NMCV_ITS ---
NM nirali perf SPECT r/s* [id number] Ciaran Lau Age: 49 Gender: M : 1975 Exam Date: 04/29/2024 08:51 Ordering Phys: Alona Chandra MD ([email or web address]) Technologist: ROSS Sánchez Exam Location: [facility] Indications: cp STRESS TEST Please see separate stress test report in [facility] for full findings IMAGE PROTOCOL Rest/Stress 1 Lexiscan Day Radiopharmaceutical Dose (mCi) Administration Site Administered by Rest: Tc-99m 11 IV Matilde Lan [employer]ACH[employer] Sestamibi Stress:Tc-99m 32.8 IV Matilde Lan, [employer]ACH[employer] Sestamibi Rest: 29-Apr-2024 60 Discovery 630 Stress: 29-Apr-2024 30 Discovery 630 0.4mg Lexiscan. Images obtained in supine and prone position. SPECT RESULTS Technical Quality: Good Raw Data Analysis: Normal Image Corrections: No attenuation or motion correction applied Summed Stress Score: 0 Summed Rest Score: 0 Summed Difference Score: 0 PERFUSION FINDINGS Fairly uniform myocardial tracer uptake with no significant perfusion abnormalities. FUNCTIONAL RESULTS (calculated via Gated SPECT) Stress Image LV EF (%): 76 Stress EDV (mL):109 TID: 1.09 Stress ESV (mL):26 FUNCTIONAL FINDINGS: Segmental wall motion analysis revealing no gross wall motion abnormalities IMPRESSIONS 1. Myocardial perfusion imaging revealing uniform myocardial tracer uptake with no significant Perfusion abnormalities 2. Normal LV ejection fraction of 76%. 3. LV wall motion analysis revealing no gross wall motion abnormalities. 4. Normal LV volume Low probability for coronary ischemia, based on the above findings No similar previous studies are available for comparison Dr Alona Chandra MD [facility] (Electronically Signed) Final Date: 29 April 2024 22:25 S
--- NOTE | 2024-04-29 08:51 | ECG_ITS ---
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 Interpretive Statements PROCEDURE: At the baseline, the EKG revealed normal sinus rhythm with diffuse nonspecific T wave changes. The baseline heart was 67 bpm with a blood pressue of 120/82 mm of Hg Lexiscan was infused over a period of 20 seconds. A total of 0.4 milligrams of Lexiscan was infused. The stress phase was continued for a total of 5 minutes. Heart rate at the end of the stress phase was 95 bpm with a blood pressure 123/92 mm of Hg. The EKG at the peak infusion revealed no significant changes. Sestamibi was injected 20 seconds after the Lexiscan infusion. Heart rate at the end of the recovery phase was 76 bpm with a blood pressure of 125/77 mm of Hg. CONCLUSION: 1. No significant EKG changes with the LexiScan infusion 2. No LexiScan induced chest pain or cardiac arrhythmia 3. Normal blood pressure and heart rate response 4. Sestamibi/sestamibi perfusion scan pending; see separate report. N.B: Lung unchanged pre/post procedure; Intraprocedure shortess of breath; Symptoms resoled by discharge Electronically Signed On 05-02-2024 08:45:27 CDT by Alona Chandra M.D. [id number]
--- NOTE | 2024-04-29 10:26 | PC.NURSE ---
Patient unable to meet target heart rate; Dr. Chandra notified. Lexiscan mibi ordered.
[2024-04-29] MEDS: regadenoson 0.4 Mg/5 ml Syringe IVP (10:33)
[2024-04-29] MEDS: ondansetron 2 mg/ML SDV 2 mL 4 MG IVP (10:39)
[2024-04-29] MEDS: aminophylline 25 mg/mL SDV 10 mL IVP (10:41)
[2024-04-29 10:48] VITALS: BP 125/77; PULSE 76
== END 2024-04-29 08:30 | disposition home or self-care (01) ==
LOC: CDL 08:30
PROVIDERS: PCP Family Medicine; Visit Provider Internal Medicine Cardiovascular Disease
DX: Z98.61 Coronary angioplasty status (principal)
CPT/HCPCS: 36415; 78452; 93017; 96374; 96375; A9500; J0280; J2405; J2785

== ENCOUNTER → 2024-06-19 11:05 | Outpatient (BNVA) | payer OTHER, SELFPAY | PROVIDERS: PCP Family Medicine; Visit Provider Nurse Practitioner Family | DX: I10 Essential (primary) hypertension (principal) | CPT/HCPCS: 99214 ==

== ENCOUNTER 2024-08-06 18:42 | Emergency (ER) | payer OTHER, MEDICARE, SELFPAY ==
[2024-08-06 18:48] VITALS: BP 146/99; PULSE 71; TEMP 36.8; O2SAT 97; BMI 37.9
--- NOTE | 2024-08-06 19:56 | XRR_ITS ---
PROCEDURE INFORMATION: Exam: XR Abdomen Exam date and time: 08/06/2024 8:21 PM Age: 49 years old Clinical indication: Abdominal pain; Acute; Prior surgery; Surgery date: 6+ months; Surgery type: Gb hernia colectomy; Additional info: Abd pain TECHNIQUE: Imaging protocol: Radiologic exam of the abdomen. Views: Frontal supine view of the abdomen. 1 View. COMPARISON: CT abdomen pelvis w con* [id number] 03/27/2023 5:03 PM FINDINGS: Gastrointestinal tract: Evaluation of the bowel gas pattern is limited due to a paucity of bowel gas. Intraperitoneal space: Additional surgical clips present within the right pelvis and left lower abdomen. Organs: Surgical karen present in the right upper quadrant from remote cholecystectomy. Vasculature: Calcified phleboliths present. Bones/joints: Unremarkable. XR/XR abdomen 1V* [id number] IMPRESSION: No acute abnormality.
[2024-08-06 21:37] LABS: Basophils # 0.1 10^3/uL (0.0-0.1); Basophils % 0.4 %; Eosinophils # 0.2 10^3/uL (0.0-0.8); Eosinophils % 1.5 %; Hematocrit 50.5 % (37-53); Lymphocytes # 2.3 10^3/uL (0.8-4.8); Lymphocytes % 19.9 %; Mean Corpuscular HGB Conc 32.3 g/dL (30-55); Mean Corpuscular Hemoglobin 29.7 pg (27-33); Mean Platelet Volume 8.9 fL (7.4-10.4); Monocytes # 0.8 10^3/uL (0.2-0.9); Monocytes % 7.1 %; Neutrophils # 8.31 10^3/uL (1.8-7.7); Neutrophils % 70.7 %; Nucleated Red Blood Cells % 0 %; Platelet Count 304 10^3/cmm (157-399); Red Blood Count 5.49 10^6/uL (3.85-5.65); Red Cell Distribution Width 13.5 % (12.1-15.1); White Blood Count 11.76 10^3/uL (3.29-11.43)
[2024-08-06 21:51] LABS: INR 0.91 (0.8-1.2)
[2024-08-06 21:52] LABS: Partial Thromboplastin Time 29.7 SECONDS (23.9-36.7)
[2024-08-06 21:58] LABS: Lactic Sepsis W/Reflex 1.4 mmol/L (0.5-2.2)
[2024-08-06 21:59] LABS: Alanine Aminotransferase 39 U/L (0-41); Albumin Level 4.4 g/dL (3.5-5.2); Alkaline Phosphatase 99 U/L (40-130); Aspartate Amino Transferase 37 U/L (0-40); Blood Urea Nitrogen 20 mg/dL (6-20); Calcium 9.9 mg/dL (8.5-10.5); Carbon Dioxide 20 mmol/L (22-29); Chloride 98 mmol/L (98-107); Creatinine Clr Calc Pharmacy 130.6482; Globulin 4.3 g/dL (1.3-4.6); Glomerular Filtration Rate 103.6 mL/min (90-130); Glucose 89 mg/dL (65-115); Osmolality Calculated 284 mOsm/kg (285-295); Sodium 136 mmol/L (136-145); Total Bilirubin 0.7 mg/dL (0.15-1.2); Total Protein 8.7 g/dL (6.6-8.7)
[2024-08-06 22:04] LABS: Anion Gap 21.5 (5-19); Potassium 3.5 mmol/L (3.5-5.1)
--- NOTE | 2024-08-06 22:11 | CTR_ITS ---
PROCEDURE INFORMATION: Exam: CT Abdomen And Pelvis With Contrast Exam date and time: 08/06/2024 11:20 PM Age: 49 years old Clinical indication: Abdominal pain; Generalized; Prior surgery; Surgery date: 6+ months; Surgery type: Choley, hernia repair TECHNIQUE: Imaging protocol: Computed tomography of the abdomen and pelvis with contrast. Radiation optimization: All CT scans at this facility use at least one of these dose optimization techniques: automated exposure control; mA and/or kV adjustment per patient size (includes targeted exams where dose is matched to clinical indication); or iterative reconstruction. Contrast material: OMNI 350; Contrast volume: 100 ml; Contrast route: INTRAVENOUS (IV); COMPARISON: CT abdomen pelvis w con* [id number] 03/27/2023 5:03 PM RADIATION DOSE METRICS: Total DLP (mGy-cm): 1014.16 FINDINGS: Liver: Mild diffuse hepatic steatosis. There is focal fatty infiltration near the falciform ligament. Gallbladder and biliary ducts: The gallbladder is surgically absent. Pancreas: Normal. No ductal dilation. Spleen: Normal. No splenomegaly. Adrenal glands: Normal. No mass. Kidneys and ureters: Normal. No hydronephrosis. Stomach and bowel: Postsurgical changes from sigmoidectomy with anastomosis. There is increased soft tissue nodularity near the anastomosis measuring 1.9 x 1.2 cm. There is mild rectal wall thickening with abnormal mucosal enhancement. No signs of bowel obstruction. Appendix: No evidence of appendicitis. Intraperitoneal space: Unremarkable. No free air. No significant fluid collection. Vasculature: Scattered calcific plaque involves the abdominal aorta. Lymph nodes: Unremarkable. No enlarged lymph nodes. Left retroperitoneal surgical clips noted. Urinary bladder: Unremarkable as visualized. Reproductive: Unremarkable as visualized. Bones/joints: Unremarkable. No acute fracture. Soft tissues: Unremarkable. CT/CT abdomen pelvis w con* [id number] IMPRESSION: 1. Findings compatible with a mild proctitis. 2. Increased soft tissue nodularity near the colorectal anastomosis. Etiology uncertain. This finding may be related to granulation tissue. If this patient has a history of colon cancer, local recurrence can have this appearance. 3. Diffuse hepatic steatosis. 4. Additional chronic findings as above.
[2024-08-06 23:00] VITALS: BP 136/91; PULSE 63; O2SAT 95
--- NOTE | 2024-08-06 23:03 | W.ED.ABDPA2 ---
HPI - Abdominal Pain General: Chief Complaint: Abdominal Pain Stated Complaint: ABD Pain Time Seen by Provider: 08/06/24 22:36 Source: patient Mode of arrival: ambulatory Limitations: no limitations History of Present Illness: Patient is a 49-year-old male with past medical history of diverticulitis with abscess, as well as sigmoid colectomy who is presenting to the emergency department with acute onset left lower quadrant pain began this morning. Patient states the surgery for his colectomy was in 2021, he has had issues with spasms since but he has never had 1 as severe as this morning. He states that he was felt a bulge to his left lower quadrant and it was moving. Also notes 1 episode of black tarry stool, though states he did have his tonsils removed within the past couple of days. Notes that his stool was very loose, however has had multiple stools in no distention of his abdomen that would indicate any obstructive process. He has not been running any fevers, no vomiting but states he does feel pretty nauseous. He is currently taking oxycodone for his pain after the tonsillectomy. His vitals are stable at this time. He is stating with the pain it is located solely to the left lower quadrant does not radiate anywhere. Denies any blood in the stool or urinary symptoms. MD elicited complaint: abdominal pain Pertinent past history: diverticulitis Onset (ago): hour(s) Pain Consistency: constant Location: LLQ Severity: moderate Quality: stabbing Radiation: none Exacerbating factors: nothing Relieving factors: nothing Context: recent surgery/procedure Associated Symptoms: Reports change in stool character, melena and nausea; Denies bloating, chills, constipation, diarrhea, dysuria, fever(s), hematochezia, hematemesis and vomiting Related Data Home Medications Medication Instructions Recorded Confirmed acetaminophen 500 mg capsule 1,000 mg PO BID PRN Pain 07/15/21 12/19/23 omeprazole 40 mg capsule,delayed 40 mg PO DAILY 08/12/21 06/19/24 release albuterol sulfate 90 mcg/actuation g inhalation 05/29/23 06/19/24 aerosol inhaler amlodipine 10 mg tablet 10 mg PO DAILY 03/19/24 06/19/24 empagliflozin 25 mg tablet 25 mg PO DAILY 03/19/24 06/19/24 (Jardiance) paroxetine HCl 10 mg tablet 10 mg PO DAILY 06/19/24 06/19/24 paroxetine HCl 40 mg tablet 40 mg PO DAILY 06/19/24 06/19/24 rosuvastatin 20 mg tablet 20 mg PO DAILY 06/19/24 06/19/24 Previous Rx's Medication Instructions Recorded fluticasone propionate 50 2 spray intranasal DAILY 12 months 12/19/23 mcg/actuation nasal #16 grams spray,suspension carvedilol 6.25 mg tablet 6.25 mg PO BID 30 days #60 tabs 03/19/24 ciprofloxacin HCl 500 mg tablet 500 mg PO BID 10 days #20 tabs 08/07/24 (Cipro) metronidazole 500 mg tablet 500 mg PO BID 7 days #14 tabs 08/07/24 Allergies Allergy/AdvReac Type Severity Reaction Status Date / Time Alpha-Gal Allergy Severe ADR-Gastrointestinal Verified 08/06/24 18:52 ([id number],3-Gala Upset gluten Allergy Mild ADR-Gastrointestinal Verified 08/06/24 18:52 Upset Review of Systems General: Reports: 10 or more systems reviewed and unremarkable except in HPI and below Const: Denies: fever(s), chills, change in appetite, change in weight or diaphoresis ENMT: Denies: throat pain or hoarseness Card: Denies: chest pain, palpitations or lightheadedness Resp: Denies: dyspnea, productive cough or wheezing GI: Reports: abdominal pain, nausea, change in stool character and melena; Denies: vomiting, hematemesis, diarrhea, constipation, bloating or hematochezia : Denies: flank pain, difficulty urinating, dysuria, urinary frequency or urinary urgency Musc: Denies: neck pain or back pain Skin/Breast: Denies: rash or new lesions Neuro: Denies: headache(s) or dizziness PFSH ED PFSH: Medical History Cleft palate Acute diverticulitis Colon polyps Rheumatoid arthritis with rheumatoid factor High risk medication use Immunization counseling Encounter for screening for other viral diseases Cholelithiasis Hyperlipidemia GERD (gastroesophageal reflux disease) History of colon polyps Surgical History S/P laparoscopic colectomy History of cholecystectomy History of hernia repair Right inguinal hernia repair as a child History of colonoscopy with polypectomy (~2019) Diverticular bleed 2019 status post colonoscopy with polyp removal, benign as per the patient History of esophagogastroduodenoscopy (EGD) (~2019) Family History Brother Cancer prostate Father Diabetes Hypertension Hyperlipidemia Grandmother Hypertension Heart attack Denies family history of Lupus (systemic lupus erythematosus) Rheumatoid arthritis Lupus Anesthesia complication Bleeding disorder Stroke Social History Smoking and tobacco/nicotine status: former use of tobacco/nicotine Quit status (tobacco/nicotine): has quit using Second hand smoke exposure: No Alcohol intake: current Alcohol intake frequency: few times a week Alcohol type: beer Substance/Drug Use: current Substance/Drug use frequency: daily Adopted: No Caregiver/support person: Yes Lives independently: Yes Household members: spouse Housing: House Marital status: Highest education level completed: High School Graduate service: No Current occupational status: employed 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 Current occupational exposures/hazards: No Pets and animals: No Sexually active: Yes Do you think of yourself as: Straight/Heterosexual Current gender identity: Male Neda/Hoahaoism: Jewish Special neda needs: No Agree to transfusion: No Physical Exam Const: COMMON NORMALS: no acute distress, average body habitus, patient oriented x3, no limitations, healthy appearing, alert and well nourished GENERAL APPEARANCE: cooperative and comfortable ORIENTATION/CONSCIOUSNESS: Yes awake HENMT: COMMON NORMALS: normocephalic, atraumatic, hearing grossly normal bilaterally, external ears normal, Normal external nose present, Normal nasal mucous membranes and turbinates present and moist oral mucous membranes HEAD & SCALP: normocephalic and atraumatic NOSE: Normal external nose present and Normal nasal mucous membranes and turbinates present EXTERNAL EAR: Yes external ears normal Eye: COMMON NORMALS: Equal, round and reactive pupils present, EOMs intact bilaterally, conjunctivae normal and normal visual felder by confrontation CONJUNCTIVA: Yes conjunctivae normal PUPIL: Yes Equal, round and reactive pupils present Neck/C-Spine: COMMON NORMALS: full ROM, supple, no meningeal signs and no JVD Resp: COMMON NORMALS: normal respiratory effort, No retractions, No use of accessory muscles and clear to auscultation bilaterally AUSCULTATION: clear to auscultation bilaterally, no crackles, no rales, no rhonchi and no wheezes Cardio: COMMON NORMALS: no JVD, regular rate, regular rhythm, S1 normal heart sound present, S2 normal heart sound present, No gallops present (Cardio), No clicks present (Cardio), No murmurs present (Cardio), No rub (Cardio) and Peripheral pulses 2+ throughout RATE: regular rate RHYTHM: regular rhythm HEART SOUNDS: S1 normal heart sound present and S2 normal heart sound present PERIPHERAL PULSES: Peripheral pulses 2+ throughout GI: COMMON NORMALS: Normal to inspection, nondistended, normoactive bowel sounds present, Soft to palpation, No hepatosplenomegaly present and no masses AUSCULTATION: Yes normoactive bowel sounds PALPATION: Yes Soft to palpation, No Guarding due to palpation present (GI), No Rigid due to palpation and Yes No hepatosplenomegaly present RECTAL EXAM: Yes deferred OTHER: Left lower quadrant tenderness to palpation, postoperative scar present. No palpable mass. : COMMON NORMALS: Yes no CVA tenderness BLADDER/KIDNEY EXAM: Yes no CVA tenderness Back/Pelvis: COMMON NORMALS: no CVA tenderness Extremity: COMMON NORMALS: normal to inspection and full ROM Neuro: COMMON NORMALS: patient oriented x3, moves all extremities, no focal motor deficits and no sensory deficits noted SENSORIUM/ORIENTATION: Yes alert MENINGEAL SIGNS: Yes no meningeal signs Psych: COMMON NORMALS: mental status grossly normal, cooperative and speech normal SPEECH: Yes normal speech Skin: COMMON NORMALS: no rashes or lesions noted GENERAL SKIN EXAM: no rashes or lesions noted Course Vital Signs: Vital signs: Vital Signs Temperature 98.3 F 08/06/24 18:48 Pulse Rate 76 08/06/24 23:30 Respiratory Rate 20 H 08/06/24 23:12 Blood Pressure 166/95 08/06/24 23:30 Pulse Oximetry 96 08/06/24 23:30 Oxygen Delivery Me thod Room Air 08/06/24 23:30 MDM - Abdominal Pain Medical Decision Making This patient has a history of colectomy after diverticulitis with abscess. Has still been having stools, 1 episode of black tarry stool today, he last had tonsillectomy and I believe that bleeding postoperatively from this could contribute to this. Pain was to left lower quadrant on exam, nonradiating. Vitals have been stable. He was reporting some associated nausea, IV was placed he was given nausea medication as well as pain medication, states this dropped his pain to a 2/10 at time of discharge. Lab work obtained and unremarkable, normal lactic and synthetic liver testing. CT showing signs of some mucosal thickening about the sigmoid colon, consistent with a mild proctitis. With his history of extensive diverticulitis and severe worsening of pain, we will go ahead and treat with antibiotics with Cipro Flagyl. Dose of Decadron given to the IV for the inflammation. [facility], he is comfortable with discharge home at this time and strict return precautions are given. Discussed case with Dr. Trevino. Lab Data 08/06/24 21:12 08/06/24 21:12 Labs/Radiology: Radiology Impressions Abdomen X-Ray 08/06/24 19:56 IMPRESSION: No acute abnormality. Abdomen/Pelvis CT 08/06/24 22:11 IMPRESSION: 1. Findings compatible with a mild proctitis. 2. Increased soft tissue nodularity near the colorectal anastomosis. Etiology uncertain. This finding may be related to granulation tissue. If this patient has a history of colon cancer, local recurrence can have this appearance. 3. Diffuse hepatic steatosis. 4. Additional chronic findings as above. Laboratory Results WBC 11.76 10^3/uL (3.29-11.43) H 08/06/24 21:12 RBC 5.49 10^6/uL (3.85-5.65) 08/06/24 21:12 Hgb 16.30 g/dL (11.27-16.99) 08/06/24 21:12 Hct 50.5 % (37-53) 08/06/24 21:12 MCV 92.0 fl (82-101) 08/06/24 21:12 MCH 29.7 pg (27-33) 08/06/24 21:12 MCHC 32.3 g/dL (30-55) 08/06/24 21:12 RDW 13.5 % (12.1-15.1) 08/06/24 21:12 Plt Count 304 10^3/cmm (157-399) 08/06/24 21:12 MPV 8.9 fL (7.4-10.4) 08/06/24 21:12 Neut % (Auto) 70.7 % 08/06/24 21:12 Lymph % (Auto) 19.9 % 08/06/24 21:12 [place] % (Auto) 7.1 % 08/06/24 21:12 Eos % (Auto) 1.5 % 08/06/24 21:12 Baso % (Auto) 0.4 % 08/06/24 21:12 Neut # (Auto) 8.31 10^3/uL (1.8-7.7) H 08/06/24 21:12 Lymph # (Auto) 2.3 10^3/uL (0.8-4.8) 08/06/24 21:12 [place] # (Auto) 0.8 10^3/uL (0.2-0.9) 08/06/24 21:12 Eos # (Auto) 0.2 10^3/uL (0.0-0.8) 08/06/24 21:12 Baso # (Auto) 0.1 10^3/uL (0.0-0.1) 08/06/24 21:12 Nucleated RBC % (auto) 0 % 08/06/24 21: Nucleated RBCs # 0.0 /100WBC 08/06/24 21:12 PT 12.90 SECONDS (12.1-14.9) 08/06/24 21:12 INR 0.91 (0.8-1.2) 08/06/24 21:12 APTT 29.7 SECONDS (23.9-36.7) 08/06/24 21:12 Sodium 136 mmol/L (136-145) 08/06/24 21:12 Potassium 3.5 mmol/L (3.5-5.1) 08/06/24 21:12 Chloride 98 mmol/L (98-107) 08/06/24 21:12 Carbon Dioxide 20 mmol/L (22-29) L 08/06/24 21:12 Anion Gap 21.5 (5-19) H 08/06/24 21:12 BUN 20 mg/dL (6-20) 08/06/24 21:12 Creatinine 0.8 mg/dL (0.7-1.2) 08/06/24 21:12 GFR Calculation 103.6 mL/min (90-130) 08/06/24 21:12 Glucose 89 mg/dL (65-115) 08/06/24 21:12 Calculated Osmolality 284 mOsm/kg (285-295) L 08/06/24 21:12 Lactic Acid 1.4 mmol/L (0.5-2.2) 08/06/24 21:12 Calcium 9.9 mg/dL (8.5-10.5) 08/06/24 21:12 Total Bilirubin 0.7 mg/dL (0.15-1.2) 08/06/24 21:12 AST 37 U/L (0-40) 08/06/24 21:12 ALT 39 U/L (0-41) 08/06/24 21:12 Alkaline Phosphatase 99 U/L (40-130) 08/06/24 21:12 Total Protein 8.7 g/dL (6.6-8.7) 08/06/24 21:12 Albumin 4.4 g/dL (3.5-5.2) 08/06/24 21:12 Globulin 4.3 g/dL (1.3-4.6) 08/06/24 21:12 Urine Color Yellow (Yellow) 08/06/24 22:51 Urine Appearance Clear (CLEAR) 08/06/24 22:51 Urine pH 5.0 (5-7) 08/06/24 22:51 Ur Specific [place] 1.040 (1.005-1.030) H 08/06/24 22:51 Urine Protein Trace (Negative) A 08/06/24 22:51 Urine Glucose (UA) 3+ (Normal) H 08/06/24 22:51 Urine Ketones 3+ (Negative) H 08/06/24 22:51 Urine Blood Negative (Negative) 08/06/24 22:51 Urine Nitrate Negative (Negative) 08/06/24 22:51 Urine Bilirubin Negative (Negative) 08/06/24 22:51 Urine Urobilinogen 0.2 mg/dL (Negative) 08/06/24 22:51 Ur Leukocyte Esterase Negative (Negative) 08/06/24 22:51 Urine RBC 0-2 /hpf (0-2) 08/06/24 22:51 Urine WBC 0-5 /hpf (0-5) 08/06/24 22:51 Ur Squamous Epith Cells 0-5 /hpf (0-5) 08/06/24 22:51 Amorphous Sediment Not Reportable 08/06/24 22:51 Urine Bacteria None seen /hpf (NONE) 08/06/24 22:51 Hyaline Casts 0-4 /lpf H 08/06/24 22:51 All radiology interpretation(s) finalized by discharge Discharge Plan Discharge Patient Disposition: Home Clinical Impression: Acute proctitis Condition: Stable Prescriptions: New metronidazole 500 mg tablet 500 mg PO BID 7 Days Qty: 14 0RF ciprofloxacin HCl [Cipro] 500 mg tablet 500 mg PO BID 10 Days Qty: 20 0RF No Action acetaminophen 500 mg capsule 1,000 mg PO BID PRN (Reason: Pain) Hold Instructions: Resume on 03/30/23. omeprazole 40 mg capsule,delayed release(DR/EC) 40 mg PO DAILY fluticasone propionate 50 mcg/actuation spray,suspension 2 spray intranasal DAILY 360 Days Qty: 16 11RF Rx Instructions: administer into each nostril rosuvastatin 20 mg tablet 20 mg PO DAILY paroxetine HCl 10 mg tablet 10 mg PO DAILY paroxetine HCl 40 mg tablet 40 mg PO DAILY Patient Comments: total 50mg daily, 40mg tab plus 10mg tab albuterol sulfate 90 mcg/actuation HFA aerosol inhaler inhalation amlodipine 10 mg tablet 10 mg PO DAILY Jardiance 25 mg tablet 25 mg PO DAILY carvedilol 6.25 mg tablet 6.25 mg PO BID 30 Days Qty: 60 5RF Rx Instructions: must administer with a meal/food Discharge Orders: Discharge ED (Routine); Ordered 08/07/24 Ordered By: Washington Kimbrough Referrals: Rachel Schaffer MD [Primary Care Provider] - Patient Instructions: Proctitis (ED) Activity Restrictions/Additional Instructions: Take Cipro and Flagyl as prescribed. [facility] Continue taking your pain medication at home. Please return with any high fever, bright red blood in your stool, or other concerning symptoms. Please see attached patient instructions for any further education. Coding Level of Care Code ED Transportation Engineering Technician for Dillon Kessler
[2024-08-06 23:08] LABS: Bilirubin Urine Negative (Negative); Blood Urine Negative (Negative); Glucose Urine UA 3+ (Normal); Ketones Urine 3+ (Negative); Leukocyte Esterase Urine Negative (Negative); Nitrate Urine Negative (Negative); Protein Urine Trace (Negative); Urine Appearance Clear (CLEAR); Urine Color Yellow (Yellow); Urobilinogen Urine 0.2 mg/dL (Negative)
[2024-08-06 23:12] VITALS: RESP 20
[2024-08-06] MEDS: HYDROmorphone 1 mg/mL INJ 1 mL IVP (23:12)
[2024-08-06] MEDS: ondansetron 2 mg/ML SDV 2 mL 8 MG IVP (23:12)
[2024-08-06 23:13] LABS: Bacteria Urine None Seen /hpf; Hyaline Casts Urine 0-4 /lpf; RBC Urine 0-2 /hpf (0-2); Squamous Epithelial Cell Urine 0-5 /hpf (0-5); WBC Urine 0-5 /hpf (0-5)
[2024-08-06] MEDS: iohexol 350 mg/mL 500 mL Btl (per mL) IV (23:22)
[2024-08-06 23:30] VITALS: BP 166/95; PULSE 76; O2SAT 96
[2024-08-07] VITALS: BP 140/83; PULSE 66; O2SAT 93
[2024-08-07] MEDS: dexamethasone 10 mg/mL INJ IVP (00:29)
[2024-08-07] MEDS: cefTRIAXone 1,000 mg SDV 1000 MG IVP (00:29)
[2024-08-07 00:30] VITALS: BP 131/75; PULSE 66; O2SAT 93
[2024-08-07 00:55] VITALS: BP 124/82; PULSE 69; O2SAT 94
== END 2024-08-07 00:40 | disposition home or self-care (01) ==
PROVIDERS: Emergency Medicine; Emergency Provider Physician Assistant; PCP Family Medicine
DX: K62.89 Other specified diseases of anus and rectum (principal); Z87.891 Personal history of nicotine dependence
CPT/HCPCS: 36415; 74018; 74177; 80053; 81001; 83605; 85025; 85610; 85730; 87040; 96374; 96375; 99285; J0696; J1100; J1171; J2405

== ENCOUNTER 2024-10-23 12:50 | Emergency (ER) | payer OTHER, MEDICARE, SELFPAY ==
--- NOTE | 2024-10-23 12:52 | ECG_ITS ---
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 Measurements Intervals Baker Rate: 71 P: 39 VA: 158 QRS: 0 QRSD: 106 T: 34 QT: 381 QTc: 416 Interpretive Statements SINUS RHYTHM NONSPECIFIC T-WAVE ABNORMALITY Compared to ECG 01/26/2024 19:31:58 No significant changes Electronically Signed On 10-23-2024 19:26:28 CDT by Alona Chandra M.D. [email or web address]
--- NOTE | 2024-10-23 12:53 | XR_ITS ---
WS: [id number] Exam: XR chest 1V portable [id number] Date/Time of Exam: 10/23/2024 1:01 PM Reason For Exam: cp Comparison 01/26/2024. Lungs are clear and fully expanded. Normal cardiomediastinal silhouette. Bony structures are unremarkable. No pleural effusion. XR/XR chest 1V portable [id number] IMPRESSION: 1. Negative chest.
[2024-10-23 12:54] VITALS: BP 135/89; PULSE 71; RESP 18; TEMP 36.7; O2SAT 94; BMI 37.5
--- NOTE | 2024-10-23 13:08 | W.ED.SOB ---
HPI - SOB/Dyspnea General: Chief Complaint: Shortness of Breath/Dyspnea Stated Complaint: CP/SOB Time Seen by Provider: 10/23/24 12:54 Source: patient Mode of arrival: ambulatory Limitations: no limitations History of Present Illness: HPI Narrative: 49-year-old male states since Monday has been having cough congestion he states he has had a nonproductive cough with head congestion fevers body aches. States he is also had some wheezing and sharp pains with his cough. He denies any vomiting or diarrhea denies any worse improving factors. No history of COPD. Associated symptoms: Reports chest pain and fever(s); Deny abdominal pain, nausea or vomiting Related Data Home Medications ?Medication ?Instructions ?Recorded ?Confirmed acetaminophen 500 mg capsule 1,000 mg PO BID PRN Pain 07/15/21 12/19/23 Held on 03/27/23. Instructions: Resume on 03/30/23. omeprazole 40 mg capsule,delayed 40 mg PO DAILY 08/12/21 06/19/24 release albuterol sulfate 90 mcg/actuation g inhalation 05/29/23 06/19/24 aerosol inhaler amlodipine 10 mg tablet 10 mg PO DAILY 03/19/24 06/19/24 empagliflozin 25 mg tablet 25 mg PO DAILY 03/19/24 06/19/24 (Jardiance) paroxetine HCl 10 mg tablet 10 mg PO DAILY 06/19/24 06/19/24 paroxetine HCl 40 mg tablet 40 mg PO DAILY 06/19/24 06/19/24 rosuvastatin 20 mg tablet 20 mg PO DAILY 06/19/24 06/19/24 Previous Rx's ?Medication ?Instructions ?Recorded fluticasone propionate 50 2 spray intranasal DAILY 12 months 12/19/23 mcg/actuation nasal #16 grams spray,suspension carvedilol 6.25 mg tablet 6.25 mg PO BID 30 days #60 tabs 03/19/24 albuterol sulfate 90 mcg/actuation 2 inh inhalation Q6H PRN shortness 10/23/24 aerosol inhaler of breath or wheezing #8 grams cephalexin 500 mg capsule 500 mg PO TID 7 days #21 caps 10/23/24 prednisone 50 mg tablet 50 mg PO DAILY #5 tabs 10/23/24 Allergies Allergy/AdvReac Type Severity Reaction Status Date / Time Alpha-Gal Allergy Severe ADR-Gastrointestinal Verified 08/06/24 18:52 (Uchvnzmhy-Yuabj-3,3-Gala Upset gluten Allergy Mild ADR-Gastrointestinal Verified 08/06/24 18:52 Upset Review of Systems Const: Reports: fever(s), chills and body aches ENMT: Denies: throat pain or dental pain Card: Reports: chest pain Resp: Reports: dyspnea, non-productive cough and wheezing GI: Denies: abdominal pain, nausea, vomiting or diarrhea Musc: Denies: neck pain or back pain Skin/Breast: Denies: rash Neuro: Denies: headache(s) PFSH ED PFSH: Medical History Cleft palate Acute diverticulitis Colon polyps Rheumatoid arthritis with rheumatoid factor High risk medication use Immunization counseling Encounter for screening for other viral diseases Cholelithiasis Hyperlipidemia GERD (gastroesophageal reflux disease) History of colon polyps Surgical History S/P laparoscopic colectomy History of cholecystectomy History of hernia repair Right inguinal hernia repair as a child History of colonoscopy with polypectomy (~2018) Diverticular bleed 2019 status post colonoscopy with polyp removal, benign as per the patient History of esophagogastroduodenoscopy (EGD) (~2018) Family History Brother Cancer prostate Father Diabetes Hypertension Hyperlipidemia Grandmother Hypertension Heart attack Denies family history of Lupus (systemic lupus erythematosus) Rheumatoid arthritis Lupus Anesthesia complication Bleeding disorder Stroke Social History Smoking and tobacco/nicotine status: former use of tobacco/nicotine Quit status (tobacco/nicotine): has quit using Second hand smoke exposure: No Alcohol intake: current Alcohol intake frequency: few times a week Alcohol type: beer Substance/Drug Use: current Substance/Drug use frequency: daily Adopted: No Caregiver/support person: Yes Lives independently: Yes Household members: spouse Housing: House Marital status: Highest education level completed: High School Graduate service: No Current occupational status: employed 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 Current occupational exposures/hazards: No Pets and animals: No Sexually active: Yes Do you think of yourself as: Straight/Heterosexual Current gender identity: Male Neda/Jain: Bahai Special neda needs: No Agree to transfusion: No Physical Exam Const: COMMON NORMALS: patient oriented x3 HENMT: COMMON NORMALS: normocephalic and atraumatic HEAD & SCALP: normocephalic and atraumatic Eye: COMMON NORMALS: Equal, round and reactive pupils present and EOMs intact bilaterally PUPIL: Yes Equal, round and reactive pupils present Neck/C-Spine: COMMON NORMALS: full ROM and supple Chest: COMMONS NORMALS: normal inspection of the chest Resp: COMMON NORMALS: No retractions and No use of accessory muscles AUSCULTATION: wheezes Cardio: COMMON NORMALS: regular rate, regular rhythm and No murmurs present (Cardio) RATE: regular rate RHYTHM: regular rhythm Extremity: COMMON NORMALS: normal to inspection and full ROM Neuro: COMMON NORMALS: patient oriented x3, moves all extremities and no focal motor deficits Psych: COMMON NORMALS: mental status grossly normal, Normal thought process present and cooperative THOUGHT PROCESS: Normal thought process present Skin: COMMON NORMALS: no rashes or lesions noted and no wounds GENERAL SKIN EXAM: no rashes or lesions noted Course Vital Signs: Vital signs: Vital Signs Temperature 98.0 F 10/23/24 12:54 Pulse Rate 65 10/23/24 13:52 Respiratory Rate 20 H 10/23/24 13:48 Blood Pressure 135/89 10/23/24 12:54 Pulse Oximetry 94 10/23/24 13:48 Oxygen Delivery Me thod Room Air 10/23/24 13:48 MDM - SOB/Dyspnea Medical Decision Making Patient presents with cough congestion likely bronchitis he did have some wheezing here x-ray showed no pneumonia COVID flu are negative we will place him on antibiotics along with steroids and an inhaler he is follow-up with PCP return if worsening. Medical Records I reviewed the patient's medical records. Lab Data I reviewed the patient's lab results. 10/23/24 13:16 10/23/24 13:16 Labs/Radiology: Radiology Impressions Chest X-Ray 10/23/24 12:53 IMPRESSION: 1. Negative chest. Laboratory Results WBC 6.43 10^3/uL (3.29-11.43) 10/23/24 13:16 RBC 4.95 10^6/uL (3.85-5.65) 10/23/24 13:16 Hgb 14.80 g/dL (11.27-16.99) 10/23/24 13:16 Hct 44.3 % (37-53) 10/23/24 13:16 MCV 89.5 fl (82-101) 10/23/24 13:16 MCH 29.9 pg (27-33) 10/23/24 13:16 MCHC 33.4 g/dL (30-55) 10/23/24 13:16 RDW 13.6 % (12.1-15.1) 10/23/24 13:16 Plt Count 244 10^3/cmm (157-399) 10/23/24 13:16 MPV 9.0 fL (7.4-10.4) 10/23/24 13:16 Neut % (Auto) 51.7 % 10/23/24 13:16 Lymph % (Auto) 37.9 % 10/23/24 13:16 [place] % (Auto) 8.1 % 10/23/24 13:16 Eos % (Auto) 1.4 % 10/23/24 13:16 Baso % (Auto) 0.6 % 10/23/24 13:16 Neut # (Auto) 3.32 10^3/uL (1.8-7.7) 10/23/24 13:16 Lymph # (Auto) 2.4 10^3/uL (0.8-4.8) 10/23/24 13:16 [place] # (Auto) 0.5 10^3/uL (0.2-0.9) 10/23/24 13:16 Eos # (Auto) 0.1 10^3/uL (0.0-0.8) 10/23/24 13:16 Baso # (Auto) 0.0 10^3/uL (0.0-0.1) 10/23/24 13:16 Nucleated RBC % (auto) 0 % 10/23/24 13:16 Nucleated RBCs # 0.0 /100WBC 10/23/24 13:16 Sodium 133 mmol/L (136-145) L 10/23/24 13:16 Potassium 3.8 mmol/L (3.5-5.1) 10/23/24 13:16 Chloride 98 mmol/L (98-107) 10/23/24 13:16 Carbon Dioxide 23 mmol/L (22-29) 10/23/24 13:16 Anion Gap 15.8 (5-19) 10/23/24 13:16 BUN 11 mg/dL (6-20) 10/23/24 13:16 Creatinine 0.9 mg/dL (0.7-1.2) 10/23/24 13:16 GFR Calculation 90.4 mL/min (90-130) 10/23/24 13:16 Glucose 136 mg/dL (65-115) H 10/23/24 13:16 Calculated Osmolality 277 mOsm/kg (285-295) L 10/23/24 13:16 Calcium 9.2 mg/dL (8.5-10.5) 10/23/24 13:16 Total Bilirubin 0.5 mg/dL (0.15-1.2) 10/23/24 13:16 AST 29 U/L (0-40) 10/23/24 13:16 ALT 30 U/L (0-41) 10/23/24 13:16 Alkaline Phosphatase 82 U/L (40-130) 10/23/24 13:16 Troponin T Baseline < 6 ng/L (0-15) 10/23/24 13:16 NT-Pro-B Natriuret Pep < 36 pg/mL (0-125) 10/23/24 13:16 Total Protein 7.4 g/dL (6.6-8.7) 10/23/24 13:16 Albumin 4.4 g/dL (3.5-5.2) 10/23/24 13:16 Globulin 3.0 g/dL (1.3-4.6) 10/23/24 13:16 Influenza A (PCR) Negative (Negative) 10/23/24 13:16 Influenza Type B (PCR) Negative (Negative) 10/23/24 13:16 RSV (PCR) Negative (Negative) 10/23/24 13:16 SARS-CoV-2 (PCR) Negative (Negative) 10/23/24 13:16 All radiology interpretation(s) finalized by discharge EKG Data EKG 1: I personally reviewed and interpreted this EKG as follows: EKG Interpretation Date: 10/23/24 EKG interpretation time: 12:56 Interpretation: nsr hr [address] elevation qrs 106 qtc 404 Discharge Plan Discharge Patient Disposition: Home Clinical Impression: Bronchitis Condition: Stable Prescriptions: New cephalexin 500 mg capsule 500 mg PO TID 7 Days Qty: 21 0RF prednisone 50 mg tablet 50 mg PO DAILY Qty: 5 0RF albuterol sulfate 90 mcg/actuation HFA aerosol inhaler 2 inh INHALATION Q6H PRN (Reason: shortness of breath or wheezing) Qty: 8 0RF No Action acetaminophen 500 mg capsule 1,000 mg PO BID PRN (Reason: Pain) omeprazole 40 mg capsule,delayed release(DR/EC) 40 mg PO DAILY fluticasone propionate 50 mcg/actuation spray,suspension 2 spray intranasal DAILY 360 Days Qty: 16 11RF Rx Instructions: administer into each nostril rosuvastatin 20 mg tablet 20 mg PO DAILY paroxetine HCl 10 mg tablet 10 mg PO DAILY paroxetine HCl 40 mg tablet 40 mg PO DAILY Patient Comments: total 50mg daily, 40mg tab plus 10mg tab albuterol sulfate 90 mcg/actuation HFA aerosol inhaler inhalation amlodipine 10 mg tablet 10 mg PO DAILY Jardiance 25 mg tablet 25 mg PO DAILY carvedilol 6.25 mg tablet 6.25 mg PO BID 30 Days Qty: 60 5RF Rx Instructions: must administer with a meal/food Discharge Orders: Discharge ED (Routine); Ordered 10/23/24 Ordered By: Bandar Adkins Referrals: Rachel Schaffer MD [Primary Care Provider] - 4-7 days Discharge Diet: Advance as tolerated Discharge Activity: Resume usual activity Patient Instructions: Acute Bronchitis (ED) Print Language: Serbian Coding Level of Care Code ED 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
[2024-10-23 13:22] LABS: Basophils % 0.6 %; Eosinophils # 0.1 10^3/uL (0.0-0.8); Eosinophils % 1.4 %; Hematocrit 44.3 % (37-53); Lymphocytes # 2.4 10^3/uL (0.8-4.8); Lymphocytes % 37.9 %; Mean Corpuscular HGB Conc 33.4 g/dL (30-55); Mean Corpuscular Hemoglobin 29.9 pg (27-33); Mean Corpuscular Volume 89.5 fl (82-101); Monocytes # 0.5 10^3/uL (0.2-0.9); Monocytes % 8.1 %; Neutrophils # 3.32 10^3/uL (1.8-7.7); Neutrophils % 51.7 %; Nucleated Red Blood Cells % 0 %; Platelet Count 244 10^3/cmm (157-399); Red Blood Count 4.95 10^6/uL (3.85-5.65); Red Cell Distribution Width 13.6 % (12.1-15.1); White Blood Count 6.43 10^3/uL (3.29-11.43)
[2024-10-23 13:42] LABS: Troponin(5th) Baseline < 6 ng/L (0-15)
[2024-10-23] MEDS: ipratropium-albuterol 3 mL Neb INHALATION (13:46)
[2024-10-23 13:48] VITALS: PULSE 69; RESP 20; O2SAT 94
[2024-10-23 13:52] VITALS: PULSE 65
[2024-10-23 13:52] LABS: Alanine Aminotransferase 30 U/L (0-41); Albumin Level 4.4 g/dL (3.5-5.2); Alkaline Phosphatase 82 U/L (40-130); Aspartate Amino Transferase 29 U/L (0-40); Blood Urea Nitrogen 11 mg/dL (6-20); Calcium 9.2 mg/dL (8.5-10.5); Carbon Dioxide 23 mmol/L (22-29); Chloride 98 mmol/L (98-107); Creatinine Clr Calc Pharmacy 119.4143; Glomerular Filtration Rate 90.4 mL/min (90-130); Glucose 136 mg/dL (65-115); NT Pro B Type Natriuretic Pept < 36 pg/mL (0-125); Osmolality Calculated 277 mOsm/kg (285-295); Sodium 133 mmol/L (136-145); Total Bilirubin 0.5 mg/dL (0.15-1.2); Total Protein 7.4 g/dL (6.6-8.7)
[2024-10-23 13:53] LABS: Anion Gap 15.8 (5-19); Potassium 3.8 mmol/L (3.5-5.1)
--- NOTE | 2024-10-23 14:03 | PC.PHAR ---
[facility] 10/23/24 2pm
[2024-10-23] MEDS: methylPREDNISolone sod succ 125 mg/2 mL INJ IVP (14:16)
[2024-10-23] MEDS: ketorolac 30 mg/mL INJ 15 MG IVP (14:16)
[2024-10-23 14:35] LABS: Influenza A NEGATIVE (Negative); Influenza B NEGATIVE (Negative); Respiratory Syncytial Virus Ce NEGATIVE (Negative); SARS-CoV-2 PCR NEGATIVE (Negative)
[2024-10-23 15:39] VITALS: BP 148/96; PULSE 76; O2SAT 99
[2024-10-23 15:43] LABS: Troponin 5 2HR 6.73 ng/L (0-15); Troponin 5 2HR Delta 0.73001 ABS# (0-10)
== END 2024-10-23 15:40 | disposition home or self-care (01) ==
PROVIDERS: Emergency Provider Emergency Medicine; PCP Family Medicine
DX: J40 Bronchitis, not specified as acute or chronic (principal); Z11.52 Encounter for screening for COVID-19; Z87.891 Personal history of nicotine dependence; E78.5 Hyperlipidemia, unspecified
CPT/HCPCS: 36415; 71045; 80053; 83880; 84484; 85025; 87637; 93005; 94640; 96374; 96375; 99285; J1885; J2919; J9999

== ENCOUNTER → 2025-04-17 11:30 | Outpatient (BNVA) | payer OTHER, SELFPAY | PROVIDERS: PCP Family Medicine; Visit Provider Internal Medicine Cardiovascular Disease | DX: R06.09 Other forms of dyspnea (principal); R94.31 Abnormal electrocardiogram [ECG] [EKG]; I10 Essential (primary) hypertension; E78.5 Hyperlipidemia, unspecified; E11.9 Type 2 diabetes mellitus without complications; F12.90 Cannabis use, unspecified, uncomplicated; Z87.891 Personal history of nicotine dependence | CPT/HCPCS: 99214 ==

== ENCOUNTER 2025-06-24 15:17 | Emergency (ER) | payer OTHER, SELFPAY ==
--- NOTE | 2025-06-24 15:33 | CTR_ITS ---
PROCEDURE INFORMATION: Exam: CT Abdomen And Pelvis With Contrast Exam date and time: 06/24/2025 4:00 PM Age: 50 years old Clinical indication: Abdominal pain; Prior surgery; Surgery date: 6+ months; Surgery type: Gallbladder, sigmoid colon; Additional info: Abd pain TECHNIQUE: Imaging protocol: Computed tomography of the abdomen and pelvis with contrast. Radiation optimization: All CT scans at this facility use at least one of these dose optimization techniques: automated exposure control; mA and/or kV adjustment per patient size (includes targeted exams where dose is matched to clinical indication); or iterative reconstruction. Contrast material: [id number]; Contrast volume: 100 ml; Contrast route: INTRAVENOUS (IV); COMPARISON: CT abdomen pelvis w con* [id number] 08/06/2024 11:20 PM RADIATION DOSE METRICS: Total DLP (mGy-cm): 1080.13 FINDINGS: Lungs: Mild bibasilar atelectasis. Liver: Diffuse hepatic steatosis. Gallbladder and biliary ducts: Cholecystectomy with mild, likely related, CBD dilatation. Pancreas: Unremarkable. No pancreatic ductal dilatation. Spleen: Unremarkable. Adrenal glands: The adrenal glands are unremarkable. Kidneys and ureters: Symmetric bilateral renal enhancement. No hydronephrosis. No radiopaque renal or urinary tract stones. Stomach and bowel: The stomach is unremarkable. No bowel obstruction. 2.1 x 1.8 cm enhancing nodule adjacent to the rectosigmoid anastomosis, increased in size since prior CT on 08/06/2024 (previously 1.9 x 1.4 cm), and not visualized on prior CT 03/27/2023. Appendix: No evidence of appendicitis. Intraperitoneal space: No ascites or intraperitoneal free air. Vasculature: Minimal aortoiliac calcifications. Lymph nodes: No abdominal or pelvic adenopathy. No abdominal or pelvic adenopathy. Urinary bladder: The urinary bladder is underdistended, limiting its evaluation. Reproductive: Prostate gland is unremarkable. Bones/joints: Grade 1 anterolisthesis L5 on S1. Chronic left L5 pars defect. Soft tissues: Small bilateral fat-containing inguinal hernias. Moderate fat containing umbilical hernia. CT/CT abdomen pelvis w con* [id number] IMPRESSION: 1. No acute findings. 2. Enhancing nodule adjacent to the rectosigmoid anastomosis is slightly increased in size since 08/06/2024. Correlate for cancer history as this may reflect recurrence. Consider PET-CT and/or tissue sampling.
[2025-06-24 15:34] VITALS: BP 144/89; PULSE 70; RESP 18; TEMP 37.2; O2SAT 94
--- NOTE | 2025-06-24 15:34 | W.ED.ABDPA2 ---
HPI - Abdominal Pain General: Chief Complaint: Abdominal Pain Stated Complaint: Teresa toro side abd pain, bloating Time Seen by Provider: 06/24/25 15:30 Source: patient Mode of arrival: ambulatory Limitations: no limitations History of Present Illness: 50-year-old male states he been having diffuse abdominal pains going on for 2 weeks. States he had a history of diverticulitis in the past had to have a partial colectomy in 2022. States that pain is mainly upper he states he also feels bloated he denies any vomiting has had some nausea denies any fever rates his pain a 7 out of 10 denies any worse or improving factors. Related Data Home Medications ?Medication ?Instructions ?Recorded ?Confirmed omeprazole 40 mg capsule,delayed 40 mg PO QAM 08/12/21 06/24/25 release amlodipine 10 mg tablet 10 mg PO DAILY 03/19/24 06/24/25 empagliflozin 25 mg tablet 25 mg PO DAILY 03/19/24 06/24/25 (Jardiance) cholecalciferol (vitamin D3) 50 100 mcg PO DAILY 10/23/24 06/24/25 mcg (2,000 unit) tablet hydroxyzine HCl 25 mg tablet 25 mg PO TID PRN bp 10/23/24 06/24/25 paroxetine HCl 20 mg tablet 50 mg PO DAILY 10/23/24 06/24/25 tadalafil 5 mg tablet 2.5 mg PO Q7D PRN Erectile 10/23/24 06/24/25 Dysfunction testosterone (AndroGel) 2 pump topical DAILY 10/23/24 06/24/25 rosuvastatin 20 mg tablet 10 mg PO QPM 04/17/25 06/24/25 apple cider vinegar 500 mg tablet 500 mg PO DAILY 06/24/25 06/24/25 folic acid 400 mcg tablet 0.4 mg PO DAILY 06/24/25 06/24/25 Previous Rx's ?Medication ?Instructions ?Recorded carvedilol 6.25 mg tablet 6.25 mg PO BID 30 days #60 tabs 03/19/24 albuterol sulfate 90 mcg/actuation 2 inh inhalation Q6H PRN shortness 10/23/24 aerosol inhaler of breath or wheezing #8 grams dicyclomine 20 mg tablet 20 mg PO TID PRN abdominal pain 06/24/25 #20 tabs ondansetron 4 mg disintegrating 4 mg PO Q6H PRN nausea and 06/24/25 tablet vomiting #14 tabs Allergies Allergy/AdvReac Type Severity Reaction Status Date / Time Alpha-Gal Allergy Severe ADR-Gastrointestinal Verified 08/06/24 18:52 (Ojsbfklip-Uivmd-5,3-Gala Upset gluten Allergy Mild ADR-Gastrointestinal Verified 08/06/24 18:52 Upset Review of Systems GI: Reports: abdominal pain PFSH ED PFSH: Medical History Cleft palate Acute diverticulitis Colon polyps Rheumatoid arthritis with rheumatoid factor High risk medication use Immunization counseling Encounter for screening for other viral diseases Cholelithiasis Hyperlipidemia GERD (gastroesophageal reflux disease) History of colon polyps Surgical History S/P laparoscopic colectomy History of cholecystectomy History of hernia repair Right inguinal hernia repair as a child History of colonoscopy with polypectomy (~2018) Diverticular bleed 2019 status post colonoscopy with polyp removal, benign as per the patient History of esophagogastroduodenoscopy (EGD) (~2018) Family History Brother Cancer prostate Father Diabetes Hypertension Hyperlipidemia Grandmother Hypertension Heart attack Denies family history of Lupus (systemic lupus erythematosus) Rheumatoid arthritis Lupus Anesthesia complication Bleeding disorder Stroke Social History Smoking and tobacco/nicotine status: former use of tobacco/nicotine Quit status (tobacco/nicotine): has quit using Second hand smoke exposure: No Alcohol intake: current Alcohol intake frequency: few times a week Alcohol type: beer Substance/Drug Use: current Substance/Drug use frequency: daily Adopted: No Caregiver/support person: Yes Lives independently: Yes Household members: spouse Housing: House Marital status: Highest education level completed: High School Graduate service: No Current occupational status: employed 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 Current occupational exposures/hazards: No Pets and animals: No Sexually active: Yes Do you think of yourself as: Straight/Heterosexual Current gender identity: Male Neda/Rastafarian: Jew Special neda needs: No Agree to transfusion: No Physical Exam Const: COMMON NORMALS: no acute distress, patient oriented x3 and healthy appearing HENMT: COMMON NORMALS: normocephalic and atraumatic HEAD & SCALP: normocephalic and atraumatic Eye: COMMON NORMALS: Equal, round and reactive pupils present PUPIL: Yes Equal, round and reactive pupils present Neck/C-Spine: COMMON NORMALS: full ROM and supple Chest: COMMONS NORMALS: normal inspection of the chest Resp: COMMON NORMALS: normal respiratory effort, No retractions, No use of accessory muscles and clear to auscultation bilaterally AUSCULTATION: clear to auscultation bilaterally Cardio: COMMON NORMALS: regular rate, regular rhythm and No murmurs present (Cardio) RATE: regular rate RHYTHM: regular rhythm GI: COMMON NORMALS: Normal to inspection, nondistended, normoactive bowel sounds present, Soft to palpation and no masses PALPATION: Yes Soft to palpation OTHER: diffuse mild tenderness Extremity: COMMON NORMALS: normal to inspection and full ROM Neuro: COMMON NORMALS: patient oriented x3, moves all extremities and no focal motor deficits Psych: COMMON NORMALS: mental status grossly normal, Normal thought process present and cooperative THOUGHT PROCESS: Normal thought process present Skin: COMMON NORMALS: no rashes or lesions noted and no wounds GENERAL SKIN EXAM: no rashes or lesions noted Course Vital Signs: Vital signs: Vital Signs Temperature 98.9 F 06/24/25 15:34 Pulse Rate 65 06/24/25 16:42 Respiratory Rate 16 06/24/25 16:42 Blood Pressure 123/79 06/24/25 16:42 Pulse Oximetry 94 06/24/25 16:42 Oxygen Delivery Me thod Room Air 06/24/25 15:34 MDM - Abdominal Pain Medical Decision Making Patient presents here with abdominal pain differential includes pancreatitis, small bowel obstruction, diverticulitis, appendicitis. These were ruled out here CT scan was reviewed by me showed no acute abnormalities did inform him of the nodule was seen and that needs followed up. His lab work here showed no significant abnormalities abdominal exam at discharge is benign we will prescribe him Bentyl along with Zofran for home he is to follow-up with his PCP in 2 to 4 days and return if worsening he understands agrees to plan. Medical Records I reviewed the patient's medical records. Lab Data I reviewed the patient's lab results. 06/24/25 15:36 06/24/25 15:36 Labs/Radiology: Radiology Impressions Abdomen/Pelvis CT 06/24/25 15:33 IMPRESSION: 1. No acute findings. 2. Enhancing nodule adjacent to the rectosigmoid anastomosis is slightly increased in size since 08/06/2024. Correlate for cancer history as this may reflect recurrence. Consider PET-CT and/or tissue sampling. Laboratory Results WBC 8.59 10^3/uL (3.29-11.43) 06/24/25 15:36 RBC 5.88 10^6/uL (3.85-5.65) H 06/24/25 15:36 Hgb 17.20 g/dL (11.27-16.99) H 06/24/25 15:36 Hct 51.6 % (37-53) 06/24/25 15:36 MCV 87.8 fl (82-101) 06/24/25 15:36 MCH 29.3 pg (27-33) 06/24/25 15:36 MCHC 33.3 g/dL (30-55) 06/24/25 15:36 RDW 13.8 % (12.1-15.1) 06/24/25 15:36 Plt Count 275 10^3/cmm (157-399) 06/24/25 15:36 MPV 9.7 fL (7.4-10.4) 06/24/25 15:36 Neut % (Auto) 70.3 % 06/24/25 15:36 Lymph % (Auto) 18.7 % 06/24/25 15:36 [place] % (Auto) 6.6 % 06/24/25 15:36 Eos % (Auto) 3.3 % 06/24/25 15:36 Baso % (Auto) 0.8 % 06/24/25 15:36 Neut # (Auto) 6.03 10^3/uL (1.8-7.7) 06/24/25 15:36 Lymph # (Auto) 1.6 10^3/uL (0.8-4.8) 06/24/25 15:36 [place] # (Auto) 0.6 10^3/uL (0.2-0.9) 06/24/25 15:36 Eos # (Auto) 0.3 10^3/uL (0.0-0.8) 06/24/25 15:36 Baso # (Auto) 0.1 10^3/uL (0.0-0.1) 06/24/25 15:36 Nucleated RBC % (auto) 0 % 06/24/25 15:36 Nucleated RBCs # 0.0 /100WBC 06/24/25 15:36 Sodium 139 mmol/L (136-145) 06/24/25 15:36 Potassium 4.1 mmol/L (3.5-5.1) 06/24/25 15:36 Chloride 103 mmol/L (98-107) 06/24/25 15:36 Carbon Dioxide 24 mmol/L (22-29) 06/24/25 15:36 Anion Gap 16.1 (5-19) 06/24/25 15:36 BUN 15 mg/dL (6-20) 06/24/25 15:36 Creatinine 0.9 mg/dL (0.7-1.2) 06/24/25 15:36 GFR Calculation 90.1 mL/min (90-130) 06/24/25 15:36 Glucose 91 mg/dL (65-115) 06/24/25 15:36 Calculated Osmolality 288 mOsm/kg (285-295) 06/24/25 15:36 Calcium 9.8 mg/dL (8.5-10.5) 06/24/25 15:36 Total Bilirubin 0.7 mg/dL (0.15-1.2) 06/24/25 15:36 AST 23 U/L (0-40) 06/24/25 15:36 ALT 29 U/L (0-41) 06/24/25 15:36 Alkaline Phosphatase 95 U/L (40-130) 06/24/25 15:36 Total Protein 8.6 g/dL (6.6-8.7) 06/24/25 15:36 Albumin 4.7 g/dL (3.5-5.2) 06/24/25 15:36 Globulin 3.9 g/dL (1.3-4.6) 06/24/25 15:36 Lipase 19 U/L (13-60) 06/24/25 15:36 All radiology interpretation(s) finalized by discharge Discharge Plan Discharge Patient Disposition: Home Clinical Impression: Abdominal pain Condition: Stable Prescriptions: New ondansetron 4 mg tablet,disintegrating 4 mg PO Q6H PRN (Reason: nausea and vomiting) Qty: 14 0RF dicyclomine 20 mg tablet 20 mg PO TID PRN (Reason: abdominal pain) Qty: 20 0RF No Action omeprazole 40 mg capsule,delayed release(DR/EC) 40 mg PO QAM rosuvastatin 20 mg tablet 10 mg PO QPM amlodipine 10 mg tablet 10 mg PO DAILY Jardiance 25 mg tablet 25 mg PO DAILY carvedilol 6.25 mg tablet 6.25 mg PO BID 30 Days Qty: 60 5RF Rx Instructions: must administer with a meal/food albuterol sulfate 90 mcg/actuation HFA aerosol inhaler 2 inh INHALATION Q6H PRN (Reason: shortness of breath or wheezing) Qty: 8 0RF paroxetine HCl 20 mg Tablet 50 mg PO DAILY hydroxyzine HCl 25 mg Tablet 25 mg PO TID PRN (Reason: bp) tadalafil 5 mg Tablet 2.5 mg PO Q7D PRN (Reason: Erectile Dysfunction) Rx Instructions: administer approximately 30min before sexual activity; do not use more than 1 dose per 24hrs cholecalciferol (vitamin D3) 50 mcg (2,000 unit) Tablet 100 mcg PO DAILY testosterone [AndroGel] 20.25 mg/1.25 gram (1.62 %) Gel In Metered-Dose Pump 2 pump TOPICAL DAILY Rx Instructions: apply 1 pump amount over max area of ONE upper arm and shoulder folic acid 400 mcg Tablet 0.4 mg PO DAILY apple cider vinegar 500 mg Tablet 500 mg PO DAILY Discharge Orders: Discharge ED (Routine); Ordered 06/24/25 Ordered By: Bandar Adkins Referrals: Rachel Schaffer MD [Primary Care Provider, Family Practice] - 4-7 days Discharge Diet: Advance as tolerated Discharge Activity: Resume usual activity Patient Instructions: Abdominal Pain (ED) Print Language: Frisian Coding Level of Care Code ED 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
[2025-06-24] MEDS: morphine 4 mg/mL SDV 1 mL IVP (15:44)
[2025-06-24] MEDS: ondansetron 2 mg/ML SDV 2 mL 4 MG IVP (15:44)
--- OUTSIDE RECORDS SUMMARY | 2025-06-24 15:44 | XMS_ITS | Clinical Summary ---
Author Organization [facility] Address [address] [place] [address] Care Team Providers Care Die Engraver Name Role Phone Neptali Chaudhari MD Primary Care Provider [phone] Allergies No known active allergies Medications ibuprofen (MOTRIN) 200 mg tablet Take 600 mg by mouth every 6 hours as needed for Pain, Mild. Active naproxen sodium (ALEVE) 220 mg Tablet Take 220 mg by mouth every 4 hours as needed for Pain, Moderate. Active omeprazole (PRILOSEC) 40 mg Capsule, Delayed Release(E.C.) Take 1 Capsule (40 mg) by mouth daily. 15 Capsule None 10/08/2015 Active phentermine (ADIPEX P) 37.5 mg tabletIndicatio ns:Obesity (BMI 35.0-39.9 without comorbidity),Ab normal weight gain Take 1 Tablet (37.5 mg) by mouth daily before breakfast. 30 Tablet 01/08/2021 Active Active Problems Problem Noted Date Diagnosed Date History of traumatic brain injury 06/11/2019 Tobacco use 10/08/2015 Fibromyalgia 08/22/2014 PTSD (post-traumatic stress disorder) 08/22/2014 Rheumatoid arthritis 01/01/2010 Gout 01/01/2010 Pain in joint involving multiple sites 0 Resolved Problems Problem Noted Date Diagnosed Date Resolved Date Alcohol dependence in remission 10/08/2015 04/29/2020 Immunizations Immunization Administration Dates Next Due (TDVAX)(7 YRS UP) TETANUS AN D DIPHTHERIA TOXOIDS, ADSORBED (2 LF OF TETANUS TOXOID AND 2 LF OF DIPHTHERIA TOXOID), 0.5ML (PF), IM 01/09/2011 Family History Medical History Relation Name Comments Healthy Father Unknown Maternal Grandfather Unknown Maternal Grandmother Healthy Mother Cancer Paternal Grandfather Cancer Paternal Grandmother Breast Cancer Neg Hx Colon Cancer Neg Hx Relation Name Status Comments Father Alive Maternal Grandfather Maternal Grandmother Mother Alive Paternal Grandfather Paternal Grandmother Social History Tobacco Use Types Packs/Day Years Used Date Smoking Tobacco: Every Day Cigarettes 0.5 3 Smokeless Tobacco: Current Tobacco Cessation:Ready to Q uit: No; Counseling Given: Yes Comments:one can per week x 20 years, no chewing since 03-31-2020 Alcohol Use Standard Drinks/Week Comments Yes 0.8 (1 standard drink = 0.6 oz p ure alcohol) q 2 weeks Sex and Gender Information Value Date Recorded Sex Assigned at Not on file Legal Sex Male 3:20 AM [employer] Gender Identity Not on file Sexual Orientation Not on file Occupation Industry Job Start Date Job End Date Not on file Not on file Not on file Not on file Last Filed Vital Signs Vital Sign Reading Time Taken Comments Blood Pressure 126/88 01/07/2021 2:27 PM CDT after sitting approximately 10 minutes Pulse 77 12/07/2020 1:28 PM CDT Temperature 36.5 C (97.7 F) 12/07/2020 1:28 PM CDT Respiratory Rate 19 12/07/2020 1:28 PM CDT Oxygen Saturation 98% 12/07/2020 1:2 8 PM CDT Inhaled Oxygen Concentration - - Weight 108.1 kg (238 lb 6.4 oz) 01/07/2021 2:27 PM CDT Height 170.2 cm (5' 7 ) 12/07/2020 1:28 PM CDT Body Mass Index 37.34 12/07/2020 1:28 PM CDT Plan of Treatment Health Maintenance Due Date Last Done Comments Pre-Diabetes and Diabetes Screening 1977 FIT/ DNA Q 3 YEARS (AUTO ORDER) 1995 FIT/FOBT Q 1 YEAR (AUTO ORDER) 1995 FLEX SIG/CT COLONOGRAPHY Q 5 YEARS (AUTO ORDER) 1995 HEPATITIS B VACCINES (1 of 3 - 19+ 3-dose series) 02/24/1996 Traditional Medicare (ACO) A nnual Wellness Visit 02/24/1996 COLORECTAL CANCER SCREENING (AUTO ORDER) 2022 COLORECTAL SCREENING 2022 Colorectal Cancer Screening (AUTO ORDER) 2022 Colorectal Cancer Screening 2022 FIT-DNA Q 3 years 2022 FIT/FOBT Q 1 year 2022 Flex Sig/CT Colonography Q 5 years 2022 DTAP/TDAP/TD VACCINES (2 - Td or Tdap) 07/23/2023, 01/09/2011 INFLUENZA VACCINE (#1) 2025 05/08/2020, 2018 Insurance MEDICARE PART A AND B Care Teams Die Engraver Relationship Specialty Start Date End Date Neptali Chaudhari MD [address] [place] [address] PCP - General Family Practice 12/04/20
--- OUTSIDE RECORDS SUMMARY | 2025-06-24 15:45 | XMS_ITS | Data Portability ---
Author Organization [place] [facility] [place], ADMIN Address [address] [place] [id number] Assessment Encounter Date Assessment Date Assessment LastModified by Organization Details LastModified Time 07/17/2020 07/17/2020 Impression: 1. History of acute sigmoid diverticulitis with perforation - much improved --CT abd/pelvis 07/08/2020 revealed improved sigmoid diverticulitis with improved small adjacent fluid collection. No evidence of drainable abscess or fluid collection. Diffuse fatty infiltration of liver. Cholecystectomy clips. Slight anterolisthesis L5 on S1 with chronic bilateral pars defects, no other significant changes from previous CT --CT abd/pelvis 06/05/2020 revealed sigmoid diverticulitis with perforation but no abscess unchanged. --CT abd/pelvis 05/17/2020 from [place] revealed evidence again of mid sigmoid acute diverticulitis with perforation. There has been increase in the volume of the extraluminal walled-off gas since last evaluation. This increase in the pericolonic fat inflammatory phlegmonhoud response. Currently no visible ovulation fluid collection to suggest formation of any organized abscess. The appendix lies immediately adjacent to the inflammatory sigmoid diverticulitis focus and demonstrates mild reactive inflammatory response. --CT abd/pelvis 1 the from [place] revealed acute sigmoid diverticulitis with micro perforation. No abscess or generalized free air. No bowel obstruction or ileus --patient reports he was in [facility] 1-2 weeks ago for diverticulitis and was treated with IV Cipro and Flagyl and sent home with amoxicillin and prednisone and reports he is almost finished with ease to oral medications. Patient complains of nausea, left lower quadrant abdominal pain, and diarrhea and increase in diarrhea may be related to antibiotic therapy 2. GERD w/hiatal hernia 4 cm (07/29/2019) - controlled --omeprazole 40 mg daily --EGD 07/29/2019 revealed hiatal hernia 4 cm, mild nonerosive gastritis --acid reflux with history of pyrosis, nausea, vomiting, bloating, nocturnal regurgitation and symptomatic since 2003 --currently on omeprazole 20 mg 2 tablets daily at bedtime --previously treated with Zantac 3. Chronic diarrhea x 12 years - improved --Metamucil daily --colonoscopy 07/29/2019 revealed moderate size internal hemorrhoids, 10 mm sigmoid polyp removed, 12 mm left colon polyp removed, 10 mm hepatic flexure polyp removed, mild cooper diverticulosis --biopsies reveal sessile serrated adenoma --07/19/2019 glucose 135, otherwise unremarkable --history of unexplained diarrhea - improving with 1-2 BM daily with some consistency 4. Adenomatous polyp; serrated adenoma (07/29/2019)-repeat colonoscopy in 2-3 years 5. Diverticulosis; mild (07/29/2019) 6. History of fatty liver 7. History of dyslipidemia 8. History of cholecystectomy August 2019 9. Elevated BMI 10. Tobacco use 1/2 ppd and smokeless tobacco 11. No known family history of esophageal, gastric or colon cancer Recommendations: 1. Start OTC probiotics daily 2. Continue OTC omeprazole 40 mg daily (30 minutes before supper) 3. Continue Metamucil daily 4. Anti-reflux precautions 5. Avoid NSAIDs as medically possible 6. GERD diet 7. Low FODMAP diet 8. Low-fat diet 9. High-fiber diet 10. Strict diverticulosis diet 11. Avoid eating or drinking anything but water 2 hours prior to bedtime 12. Avoid tobacco use 1-2 hours prior to bedtime 13. Increase physical activity to promote 10-20% loss of body mass 14. Advised to discontinue all tobacco use 15. Discussed repeating antibiotics for 14 days or general surgery referral for possible colectomy; patient declined 16. Repeat screening/surveilla nce colonoscopy in 2 years (2021) 17. Follow-up based on clinical course Not available 07/17/2020 15:52:21 05/26/2021 05/26/2021 This is a 46-year-old male who presents for follow-up. Patient reports that another bout of diverticulitis. Patient has completed antibiotic therapy. Clinical symptoms improved. Patient was eating peanuts prior to the onset of his clinical symptoms. Impression: 1. Recurrent diverticulitis --CT abd/pelvis 07/08/2020 revealed improved sigmoid diverticulitis with improved small adjacent fluid collection. No evidence of drainable abscess or fluid collection. Diffuse fatty infiltration of liver. Cholecystectomy clips. Slight anterolisthesis L5 on S1 with chronic bilateral pars defects, no other significant changes from previous CT --CT abd/pelvis 06/05/2020 revealed sigmoid diverticulitis with perforation but no abscess unchanged. --CT abd/pelvis 05/17/2020 from [place] revealed evidence again of mid sigmoid acute diverticulitis with perforation. There has been increase in the volume of the extraluminal walled-off gas since last evaluation. This increase in the pericolonic fat inflammatory phlegmonhoud response. Currently no visible ovulation fluid collection to suggest formation of any organized abscess. The appendix lies immediately adjacent to the inflammatory sigmoid diverticulitis focus and demonstrates mild reactive inflammatory response. --CT abd/pelvis 1 the the from [place] revealed acute sigmoid diverticulitis with micro perforation. No abscess or generalized free air. No bowel obstruction or ileus --patient reports he was in [facility] 1-2 weeks ago for diverticulitis and was treated with IV Cipro and Flagyl and sent home with amoxicillin and prednisone and reports he is almost finished with ease to oral medications. Patient complains of nausea, left lower quadrant abdominal pain, and diarrhea and increase in diarrhea may be related to antibiotic therapy 2. GERD w/hiatal hernia 4 cm (07/29/2019) - controlled --omeprazole 40 mg daily --EGD 07/29/2019 revealed hiatal hernia 4 cm, mild nonerosive gastritis --acid reflux with history of pyrosis, nausea, vomiting, bloating, nocturnal regurgitation and symptomatic since 2004 --currently on omeprazole 20 mg 2 tablets daily at bedtime --previously treated with Zantac 3. Chronic diarrhea x 12 years - improved --Metamucil daily --colonoscopy 07/29/2019 revealed moderate size internal hemorrhoids, 10 mm sigmoid polyp removed, 12 mm left colon polyp removed, 10 mm hepatic flexure polyp removed, mild cooper diverticulosis --biopsies reveal sessile serrated adenoma --07/19/2019 glucose 135, otherwise unremarkable --history of unexplained diarrhea - improving with 1-2 BM daily with some consistency 4. Adenomatous polyp; serrated adenoma (07/29/2019)-repeat colonoscopy in 2-3 years 5. Diverticulosis; mild (07/29/2019) 6. History of fatty liver 7. History of dyslipidemia 8. History of cholecystectomy August 2019 9. Elevated BMI 10. Tobacco use 1/2 ppd and smokeless tobacco 11. No known family history of esophageal, gastric or colon cancer Recommendations: 1. Increase oral hydration and dietary fiber 2. Fiber supplementation daily with Metamucil or Citrucel 3. Schedule screening/surveilla nce colonoscopy 4. Continue omeprazole 40 mg p.o. daily 5. Follow-up in 2 weeks for clinical reassessment. [email or web address] Not available 05/26/2021 19:31:59 06/29/2021 06/29/2021 Impression: 1. Left lower quadrant pain with tenderness on exam 2. History of recurrent diverticulitis --CT abd/pelvis 07/08/2020 revealed improved sigmoid diverticulitis with improved small adjacent fluid collection. No evidence of drainable abscess or fluid collection. Diffuse fatty infiltration of liver. Cholecystectomy clips. Slight anterolisthesis L5 on S1 with chronic bilateral pars defects, no other significant changes from previous CT --CT abd/pelvis 06/05/2020 revealed sigmoid diverticulitis with perforation but no abscess unchanged. --CT abd/pelvis 05/17/2020 from [place] revealed evidence again of mid sigmoid acute diverticulitis with perforation. There has been increase in the volume of the extraluminal walled-off gas since last evaluation. This increase in the pericolonic fat inflammatory phlegmonhoud response. Currently no visible ovulation fluid collection to suggest formation of any organized abscess. The appendix lies immediately adjacent to the inflammatory sigmoid diverticulitis focus and demonstrates mild reactive inflammatory response. --CT abd/pelvis 1 the the from [place] revealed acute sigmoid diverticulitis with micro perforation. No abscess or generalized free air. No bowel obstruction or ileus --patient reports he was in [facility] 1-2 weeks ago for diverticulitis and was treated with IV Cipro and Flagyl and sent home with amoxicillin and prednisone and reports he is almost finished with ease to oral medications. Patient complains of nausea, left lower quadrant abdominal pain, and diarrhea and increase in diarrhea may be related to antibiotic therapy 3. Chronic diarrhea --Metamucil daily --colonoscopy 07/29/2019 revealed moderate size internal hemorrhoids, 10 mm sigmoid polyp removed, 12 mm left colon polyp removed, 10 mm hepatic flexure polyp removed, mild cooper diverticulosis. Biopsies reveal sessile serrated adenoma --07/19/2019 glucose 135, otherwise unremarkable --history of unexplained diarrhea - improving with 1-2 BM daily with some consistency 4. Adenomatous polyp; serrated adenoma (07/29/2019)-repeat colonoscopy in 2-3 years -- Colonoscopy 06/22/2021 revealed moderate-sized internal hemorrhoids. Mild sigmoid diverticulosis. 5. GERD w/hiatal hernia 4 cm (07/29/2019) - controlled --omeprazole 40 mg daily --EGD 07/29/2019 revealed hiatal hernia 4 cm, mild nonerosive gastritis --acid reflux with history of pyrosis, nausea, vomiting, bloating, nocturnal regurgitation and symptomatic since 2003 --currently on omeprazole 20 mg 2 tablets daily at bedtime --previously treated with Zantac 6. History of fatty liver 7. History of dyslipidemia 8. History of cholecystectomy August 2019 9. Elevated BMI 10. Tobacco use 1/2 ppd and smokeless tobacco 11. No known family history of esophageal, gastric or colon cancer Recommendations: 1. schedule CT scan with contrast abdomen and pelvis for left lower quadrant pain 2. Obtain CBC, CMP, ESR, CRP today 3. Start Cipro 500 mg PO BID and Flagyl 500 mg PO TID x 10 days 4. Low Fiber diet 5. Metamucil 1 tbsp in 8 oz glass of water daily. 6. Consider using cholestyramine powder for post cholecystectomy diarrhea. 7. Repeat screening/ surveillance colonoscopy 5 years history of adenomatous colon polyp May 2026. 8. Follow up 2 weeks for clinical reassessment. [email or web address] Not available 06/29/2021 17:39:21 01/26/2023 01/26/2023 Impression: 1. Hematochezia. -- Colonoscopy 06/22/2021 revealed moderate-sized internal hemorrhoids. Mild sigmoid diverticulosis. 2. Abdominal bloating 3. Altered bowel function constipation alternates with diarrhea 4. Nausea 5. CISNEROS 6. History of colon resection 11 inches removed Aug 2021 due to diverticulutitis. -- Colonoscopy 06/22/2021 revealed moderate-sized internal hemorrhoids. Mild sigmoid diverticulosis. --colonoscopy 07/29/2019 revealed moderate size internal hemorrhoids, 10 mm sigmoid polyp removed, 12 mm left colon polyp removed, 10 mm hepatic flexure polyp removed, mild cooper diverticulosis. Biopsies reveal sessile serrated adenoma --07/19/2019 glucose 135, otherwise unremarkable --history of unexplained diarrhea - improving with 1-2 BM daily with some consistency 7. Adenomatous polyp; serrated adenoma 8. GERD w/hiatal hernia 4 cm --omeprazole 40 mg daily --EGD 07/29/2019 revealed hiatal hernia 4 cm, mild nonerosive gastritis --acid reflux with history of pyrosis, nausea, vomiting, bloating, nocturnal regurgitation and symptomatic since 2003 --currently on omeprazole 20 mg 2 tablets daily at bedtime --previously treated with Zantac 9. History of cholecystectomy August 2019 10. Elevated BMI 11. Former smoker 2019 12. No known family history of esophageal, gastric or colon cancer Recommendations: 1. Schedule EGD and Colonoscopy for further evaluation of nausea, abdominal bloating, altered bowel function. 2. Obtain chronic liver workup 3. Schedule CT scan of abdomen and pelvis with contrast. 4. Continue omeprazole 40 mg PO daily 5. Continue Fiber supplement Metamucil 1 tbsp in 8 oz glass of water daily 6. Follow up in 3 weeks for clinical reassessment. Not available 01/26/2023 17:05:41 03/13/2023 03/13/2023 Impression: 1. Hematochezia. --Colonoscopy 02/20/2023 revealed small internal hemorrhoids. Mild sigmoid diverticulosis. Random colon biopsies obtained.Pathology no histopathological abnormality. -- Colonoscopy 06/22/2021 revealed moderate-sized internal hemorrhoids. Mild sigmoid diverticulosis. --colonoscopy 07/29/2019 revealed moderate size internal hemorrhoids, 10 mm sigmoid polyp removed, 12 mm left colon polyp removed, 10 mm hepatic flexure polyp removed, mild cooper diverticulosis. Biopsies reveal sessile serrated adenoma 2. Abdominal bloating 3. Altered bowel function constipation alternates with diarrhea 4. Nausea 5. CISNEROS --01/26/2023 hemoglobin 15.1, hematocrit 43.3, MCV 91.3, platelets 269, PT 10.3, INR 0.9, alk phos 60, ALT 59, AST 28, bilirubin 0.5, iron 114, iron saturation 34, iron binding capacity 331, TSH 1.83, cholesterol 180, triglycerides 144, AFP 5.5, CLAY negative, serum plasmin 20, ferritin 156, hepatitis (A, B, C) nonreactive, gluten sensitivity mitochondrial antibody negative, smooth muscle antibody negative, fibrosis stage F0 6. History of colon resection 11 inches removed Aug 2021 due to diverticulutitis. 7. Adenomatous polyp; serrated adenoma 8. GERD w/hiatal hernia 4 cm --omeprazole 40 mg daily --EGD 02/20/2023 revealed possible short segment Tsang's esophagus. 4 cm hiatal hernia. Mild nonerosive gastritis.Pathology negative for dysplasia or H. pylori 9. History of cholecystectomy August 2019 10. Elevated BMI 11. Former smoker 2019 12. No known family history of esophageal, gastric or colon cancer 13. Mon celiac gluten sensitivity. Recommendations: 1. Obtain alpha-gal for further evaluation of diarrhea. 2. Schedule capsule endoscopy of small bowel 3. Continue omeprazole 40 mg PO daily 4. Continue Fiber supplement Metamucil 1 tbsp in 8 oz glass of water daily 5. Gluten free diet. 6. Follow up in 4 weeks for clinical reassessment. [email or web address] Not available 03/13/2023 17:25:36 Plan of Treatment Reminders Order Date Submit Date Provider Last Modified By Organization Details Last Modified Time Details Appointments None recorded. Lab alpha-gal ige, serum 2022 023 [facility] (Lab)_do Not Use, [address], [place], [address], 3 16:58:34 beef ige, serum 2022 023 [facility] (Lab)_do Not Use, [address], [place], [address], 3 11:18:32 pork ige, serum 2022 023 [facility] (Lab)_do Not Use, [address], [place], [address], 3 11:18:32 venison IgE Ab, serum [email or web address] [facility] (Lab)_do Not Use, [address], [place], [address], 3 16:58:35 celiac disease comprehens norbert panel, serum [address] [facility] (Lab)_do Not Use, [address], [place], [address], 3 17:54:37 mitochondr ial Ab titer, serum [address] (Lab)_do Not Use, [address], [place], [address], 3 17:54:37 hepatitis C liver status biomarker panel, serum [email or web address] [facility] (Lab)_do Not Use, [address], [place], [address], 3 17:54:37 PT/INR [email or web address] [facility] (Lab), [address], [place], [address], 3 17:54:37 TSH, serum or plasma [email or web address] [facility] (Lab)_do Not Use, [address], [place], [address], 3 17:54:37 lipid panel, serum [email or web address] [facility] (Lab)_do Not Use, [address], [place], [address], 3 17:54:37 CBC w/ auto diff [address] [facility] (Lab)_do Not Use, [address], [place], [address], 3 17:54:37 CMP, serum or plasma [email or web address] [facility] (Lab)_do Not Use, [address], [place], [address], 3 17:54:37 mitochondr ial Ab, serum [email or web address] [facility] (Lab)_do Not Use, [address], [place], [address], 3 17:54:37 hepatitis panel (A+B+C), acute, serum 2022 023 [facility] (Lab), [address], [place], [address], 3 23:40:06 ceruloplas min, serum 2022 023 [facility] (Lab), [address], [place], [address], 3 10:28:54 iron, serum 2022 023 [email or web address] [facility] (Lab), [address], [place], [address], 3 17:54:37 TIBC (total iron-kirt ng capacity), serum 2022 023 [email or web address] [facility] (Lab), [address], [place], [address], 3 17:54:37 ferritin, serum or plasma 2022 023 [email or web address] [facility] (Lab), [address], [place], [address], 3 17:54:37 transferri n, serum 2022 023 [facility] (Lab), [address], [place], [address], 3 10:28:51 afp (alpha-fet oprotein) tumor marker, serum or plasma 2022 023 [facility] (Lab)_do Not Use, [address], [place], [address], 3 23:28:25 alpha-1-an titrypsin (aat) phenotype, serum 2022 023 [email or web address] [facility] (Lab), [address], [place], [address], 3 17:54:37 CLAY (antinucle ar antibodies ) screen, ifa, serum 2022 023 [facility] (Lab)_do Not Use, [address], [place], [address], 3 15:19:18 smooth muscle Ab, serum 2022 023 [facility] (Lab), [address], [place], [address], 3 17:54:37 CBC w/ manual diff [address] [facility] (Lab)_do Not Use, [address], [place], [address], 2 05:03:12 CMP, serum or plasma 2020 021 [facility] (Lab)_do Not Use, [address], [place], [place], [address], 1 18:11:27 ESR (erythrocy te sedimentat ion rate), blood 2020 021 [facility] (Lab)_do Not Use, [address], [place], [place], [address], 18:40:33 CRP, high sensitivit y, csf [address] [facility] (Lab)_do Not Use, [address] [place], [address], 2 05:03:12 Referral None recorded. Procedures None recorded. Surgeries colonoscop y (SURG) 2020 021 [facility], [address] [place], [address], 1 12:16:09 Imaging US, abdomen, complete 2022 023 [facility] (Radiology), [address], [place], [address], 3 16:06:23 CT, abdomen + pelvis, w/ contrast [email or web address] [facility] (Radiology), [address], [place], [address], 3 16:20:39 CT, abdomen + pelvis, w/ contrast 2020 021 [facility] (Radiology), [address], [place], [address], 1 12:35:13 Medication Orders metronidaz ole 500 mg tablet [email or web address] [facility], [address], [place], [address], 3 14:53:20 ciprofloxa jeannette 500 mg tablet [email or web address] [facility], [address], [place], [address], 3 11:56:40 Suprep Bowel Prep Kit 17.5 gram-3.13 gram-1.6 gram oral solution 2020 [email or web address] [facility], [address], [place], [address], 3 14:52:24 Patient TargetsNo targets recorded. Patient Instructions Encounter Date Encounter Id Patient Instructions Last Modified By Organization Details Last Modified Time 07/17/2020 [id number] advised to quit smoking Not available 07/17/2020 15:51:56 diverticulitis: care instructions Not available 07/17/2020 15:51:28 learning about diverticulosis and diverticulitis Not available 07/17/2020 15:51:28 diverticulosis diet Not available 07/17/2020 15:51:28 Learning About Benefits of Quitting Smoking Not available 07/17/2020 15:51:56 tobacco cessation Not avail able 07/17/2020 15:51:56 Quitting Tobacco : Care Instructions Not available 07/17/2020 15:51:56 body mass index: care instructions Not available 07/17/2020 15:51:28 learning about healthy weight Not available 07/17/2020 15:51:28 increase exercise Not avail able 07/17/2020 15:51:28 advised to lose weight Not available 07/17/2020 15:51:28 01/26/2023 [id number] learning about healthy weight [email or web address] Not available 01/26/2023 17:06:40 body mass index: care instructions [email or web address] Not available 01/26/2023 17:06:40 eating healthy foods: care instructions [email or web address] Not available 01/26/2023 17:06:40 Reason for Referral None Reported. Results Created Date Observation Date Name Description Value Unit Range Abnormal Flag Note LastModifiedBy Organization Detail LastModifiedTime 06/29/20 21 06/29/2021 CBC WITH PLATE LET AND DIFFE RENTI AL WBC 10.9 K/uL 4.0-[address] [facility] (Lab)_do Not Use [address], [place], [address], 06/29/2021 17:38:42 06/29/20 21 06/29/2021 CBC WITH PLATE LET AND DIFFE RENTI AL RBC 4.72 M/uL 4.44-[address] [facility] (Lab)_do Not Use [address], [place], [address], 06/29/2021 17:38:42 06/29/20 21 06/29/2021 CBC WITH PLATE LET AND DIFFE RENTI AL HGB 14.5 g/dL 13.3-[address] [facility] (Lab)_do Not Use [address], [place], [address], 06/29/2021 17:38:42 06/29/20 21 06/29/2021 CBC WITH PLATE LET AND DIFFE RENTI AL HCT 41.8 % 40.0-[address] [facility] (Lab)_do Not Use [address], [place], [address], 06/29/2021 17:38:42 06/29/20 21 06/29/2021 CBC WITH PLATE LET AND DIFFE RENTI AL MCV 88.6 fL 80.0-[address] [facility] (Lab)_do Not Use [address], [place], [address], 06/29/2021 17:38:42 06/29/20 21 06/29/2021 CBC WITH PLATE LET AND DIFFE RENTI AL MCH 30.6 pg 27.0-[address] [facility] (Lab)_do Not Use [address], [place], [address], 06/29/2021 17:38:42 06/29/20 21 06/29/2021 CBC WITH PLATE LET AND DIFFE RENTI AL MCHC 34.6 g/dL 32.0-[address] [facility] (Lab)_do Not Use [address], [place], [address], 06/29/2021 17:38:42 06/29/20 21 06/29/2021 CBC WITH PLATE LET AND DIFFE RENTI AL RDW 13.5 % 11.5-[address] [facility] (Lab)_do Not Use [address], [place], [address], 06/29/2021 17:38:42 06/29/20 21 06/29/2021 CBC WITH PLATE LET AND DIFFE RENTI AL MPV 7.4 fL 7.4-[address] [facility] (Lab)_do Not Use [address], [place], [address], 06/29/2021 17:38:42 06/29/20 21 06/29/2021 CBC WITH PLATE LET AND DIFFE RENTI AL platelet count 372 K/uL 150-[address] [facility] (Lab)_do Not Use [address], [place], [address], 06/29/2021 17:38:42 06/29/20 21 06/29/2021 CBC WITH PLATE LET AND DIFFE RENTI AL neutrophils 70.5 % 37.0-7 [address] [facility] (Lab)_do Not Use [address], [place], [address], 06/29/2021 17:38:42 06/29/20 21 06/29/2021 CBC WITH PLATE LET AND DIFFE RENTI AL lymphocytes 19.1 % 21.0-5 [address] [facility] (Lab)_do Not Use [address], [place], [address], 06/29/2021 17:38:42 06/29/20 21 06/29/2021 CBC WITH PLATE LET AND DIFFE RENTI AL monocytes 9.0 % 2.0-9. [address] [facility] (Lab)_do Not Use [address], [place], [address], 06/29/2021 17:38:42 06/29/20 21 06/29/2021 CBC WITH PLATE LET AND DIFFE RENTI AL eosinophils 0.8 % 0.0-3. [address] [facility] (Lab)_do Not Use [address], [place], [address], 06/29/2021 17:38:42 06/29/20 21 06/29/2021 CBC WITH PLATE LET AND DIFFE RENTI AL basophils 0.6 % 0.0-1. [address] [facility] (Lab)_do Not Use [address], [place], [address], 06/29/2021 17:38:42 06/29/20 21 06/29/2021 CBC WITH PLATE LET AND DIFFE RENTI AL absolute neutrophils 7.7 K/uL 2.0-8. [address] [facility] (Lab)_do Not Use [address], [place], [address], 06/29/2021 17:38:42 06/29/20 21 06/29/2021 CBC WITH PLATE LET AND DIFFE RENTI AL absolute lymphocytes 2.1 K/uL 1.0-5. [address] [facility] (Lab)_do Not Use [address], [place], [address], 06/29/2021 17:38:42 06/29/20 21 06/29/2021 CBC WITH PLATE LET AND DIFFE RENTI AL absolute monocytes 1.0 K/uL 0.3-0. [address] [facility] (Lab)_do Not Use [address], [place], [address], 06/29/2021 17:38:42 06/29/20 21 06/29/2021 CBC WITH PLATE LET AND DIFFE RENTI AL absolute eosinophils 0.1 K/uL 0.0-0. [address] [facility] (Lab)_do Not Use [address], [place], [address], 06/29/2021 17:38:42 06/29/20 21 06/29/2021 CBC WITH PLATE LET AND DIFFE RENTI AL absolute basophils 0.1 K/uL 0.0-0. [address] [facility] (Lab)_do Not Use [address], [place], [address], 06/29/2021 17:38:42 06/29/20 21 06/29/2021 COMPR EHENS NORBERT METAB OLIC PANEL glucose 86 mg/dL 70-110 Not Available [facility] (Lab)_do Not Use [address], [place], [address], 06/29/2021 18:11:23 06/29/20 21 06/29/2021 COMPR EHENS NORBERT METAB OLIC PANEL BUN 11 mg/dL 7-18 Not Available [facility] (Lab)_do Not Use [address], [place], [address], 06/29/2021 18:11:23 06/29/20 21 06/29/2021 COMPR EHENS NORBERT METAB OLIC PANEL creatinine 1.0 mg/dL 0.5-1. [address] [facility] (Lab)_do Not Use [address], [place], [address], 06/29/2021 18:11:23 06/29/20 21 06/29/2021 COMPR EHENS NORBERT METAB OLIC PANEL calcium 8.9 mg/dL 8.5-[address] [facility] (Lab)_do Not Use [address], [place], [address], 06/29/2021 18:11:23 06/29/20 21 06/29/2021 COMPR EHENS NORBERT METAB OLIC PANEL sodium 136 mmol/ L 135-[address] [facility] (Lab)_do Not Use [address], [place], [address], 06/29/2021 18:11:23 06/29/20 21 06/29/2021 COMPR EHENS NORBERT METAB OLIC PANEL potassium 3.4 mEq/L 3.5-5. [address] [facility] (Lab)_do Not Use [address], [place], [address], 06/29/2021 18:11:23 06/29/20 21 06/29/2021 COMPR EHENS NORBERT METAB OLIC PANEL chloride 100 mmol/ L 95-[address] [facility] (Lab)_do Not Use [address], [place], [address], 06/29/2021 18:11:23 06/29/20 21 06/29/2021 COMPR EHENS NORBERT METAB OLIC PANEL CO2 23 mmol/ L 21-34 Not Available [facility] (Lab)_do Not Use [address], [place], [address], 06/29/2021 18:11:23 06/29/20 21 06/29/2021 COMPR EHENS NORBERT METAB OLIC PANEL albumin 3.8 g/dL 3.5-5. 0 Not Available [facility] (Lab)_do Not Use [address], [place], [address], 06/29/2021 18:11:23 06/29/20 21 06/29/2021 COMPR EHENS NORBERT METAB OLIC PANEL bilirubin 0.6 mg/dL 0.0-1. 0 Not Available [facility] (Lab)_do Not Use [address], [place], [address], 06/29/2021 18:11:23 06/29/20 21 06/29/2021 COMPR ENS NORBERT METAB OLIC PANEL alkaline phosphatase 76 U/L 50-136 Not Available [facility] (Lab)_do Not Use [address], [place], [address], 06/29/2021 18:11:23 06/29/20 21 06/29/2021 COMPR EHENS NORBERT METAB OLIC PANEL protein 8.4 g/dL 6.4-8. 3 high Not Available [facility] (Lab)_do Not Use [address], [place], [address], 06/29/2021 18:11:23 06/29/20 21 06/29/2021 COMPR EHENS NORBERT METAB OLIC PANEL ALT (SGPT) 78 U/L 30-[address] [facility] (Lab)_do Not Use [address], [place], [address], 06/29/2021 18:11:23 06/29/20 21 06/29/2021 COMPR EHENS NORBERT METAB OLIC PANEL AST (SGOT) 40 U/L 15-[address] [facility] (Lab)_do Not Use [address], [place], [address], 06/29/2021 18:11:23 06/29/20 21 06/29/2021 COMPR EHENS NORBERT METAB OLIC PANEL A/G ratio 0.83 Na 1.00-2 .[address] [facility] (Lab)_do Not Use [address], [place], [address], 06/29/2021 18:11:23 06/29/20 21 06/29/2021 COMPR EHENS NORBERT METAB OLIC PANEL BUN/creatine ratio 11.00 Na 6.00-2 0.00 Not Available [facility] (Lab)_do Not Use [address], [place], [address], 06/29/2021 18:11:23 06/29/20 21 06/29/2021 COMPR EHENS NORBERT METAB OLIC PANEL anion gap 13.0 mmol/ L 3.0-11 .[address] [facility] (Lab)_do Not Use [address], [place], [address], 06/29/2021 18:11:23 06/29/20 21 06/29/2021 COMPR EHENS NORBERT METAB OLIC PANEL osmolality calcuated 271 mOsm/ kg 275-29 [address] [facility] (Lab)_do Not Use [address], [place], [address], 06/29/2021 18:11:23 06/29/20 21 06/29/2021 GFR GFR >60.00 mL/mi n >60.00 Not Available [facility] (Lab)_do Not Use [address], [place], [address], 06/29/2021 18:11:37 06/29/20 21 06/29/2021 SEDIM ENTAT ION RATE sedimentatio n rate 74 mm/HR 0-[address] [facility] (Lab)_do Not Use [address], [place], [address], 06/29/2021 18:40:30 06/29/20 21 07/01/2021 CARDI O CRP(R ) cardio CRP(R) >10.0 mg/L high Refer ence Range Optim al <1.0 Dixie rodriguez PS et al. Endoc r Pract .2017 ;23(S uppl 2):1- 87. For ages >17 Years : hs-CR P mg/L Risk Accor ding to AHA/C DC Guide lines <1.0 Lower relat norbert cardi ovasc ular risk. 1.0-3 .0 [place] ge relat norbert cardi ovasc ular risk. 3.1-1 0.0 Highe r relat norbert cardi ovasc ular risk. Consi abby retes ting in 1 to 2 weeks to exclu de a benig n trans ient eleva tion in the basel ine CRP value secon melany to infec tion or infla mmati on. >10.0 Persi stent eleva tion, upon retes ting, may be assoc iated with infec tion and infla mmati on. TEST PERFO RMED AT: [facility] [place] [address] [place] [address] FREDI Waters,DO, MPH Not Available [facility] (Lab)_do Not Use [address], [place], [address], 07/01/2021 14:56:22 01/27/20 23 01/26/2023 COMPL ETE BLOOD COUNT WBC 9.4 K/uL 4.6-10 .9 Not Available [facility] (Lab) [address], [place], [address], 01/26/2023 16:33:03 01/27/20 23 01/26/2023 COMPL ETE BLOOD COUNT RBC cnt 4.75 4.45-5 .99 Not Available [facility] (Lab) [address] [facility] [place] [place], [place], [address], 01/26/2023 16:33:03 01/27/20 23 01/26/2023 COMPL ETE BLOOD COUNT HGB 15.1 g/dL 13.4-1 7.6 Not Available [facility] (Lab) [address] [facility] [place] [place], [place], [address], 01/26/2023 16:33:03 01/27/20 23 01/26/2023 COMPL ETE BLOOD COUNT HCT 43.3 % 40.1-5 3.9 Not Available [facility] (Lab) [address] [facility] [facility] [place] [place], [place], [address], 01/26/2023 16:33:03 01/27/20 23 01/26/2023 COMPL ETE BLOOD COUNT MCV 91.3 fL 80.1-9 6.9 Not Available [facility] (Lab) [address] [facility] [facility] [place] [place], [place], [address], 01/26/2023 16:33:03 01/27/20 23 01/26/2023 COMPL ETE BLOOD COUNT MCH 31.7 pg 27.1-3 2.9 Not Available [facility] (Lab) [address] [facility] [facility] [place] [place], [place], [address], 01/26/2023 16:33:03 01/27/20 23 01/26/2023 COMPL ETE BLOOD COUNT MCHC 34.8 32.1-3 5.9 Not Available [facility] (Lab) [address] [facility] [facility] [place] [place], [place], [address], 01/26/2023 16:33:03 01/27/20 23 01/26/2023 COMPL ETE BLOOD COUNT RDW 13.6 % 11.6-1 4.4 Not Available [facility] (Lab) [address] [place] [address], [place], [address], 01/26/2023 16:33:03 01/27/20 23 01/26/2023 COMPL ETE BLOOD COUNT plt cnt 269 x10(3 )/mcL 151-44 9 Not Available [facility] (Lab) [address] [place] [address], [place], [address], 01/26/2023 16:33:03 01/27/20 23 01/26/2023 COMPL ETE BLOOD COUNT MPV 7.8 fL 7.5-10 .3 Not Available [facility] (Lab) [address] [place] [address], [place], [address], 01/26/2023 16:33:03 01/27/20 23 01/26/2023 PROTH ROMBI N TIME W/ INR PT 10.3 secon d(s) 9.6-12 .4 Not Available [facility] (Lab) [address] [place] [address], [place], [address], 01/26/2023 16:43:26 01/27/20 23 01/26/2023 PROTH ROMBI N TIME W/ INR INR 0.9 no reference range INR Inter preti ve Data Throm botic Disor abby Recom katy d INR Proph ylaxi s/pollo atmen t of: Venou s Throm bosis 2.0-3 .0 Pulmo nary Embol ism 2.0-3 .0 Preve ntion of Syste yaritza Embol ism from: Tissu e Heart Valve s 2.0-3 .0 Myoca rdial Infar ction 2.0-3 .0 (prev ent syste yaritza embol ism) Valvu lar Heart Disea se 2.0-3 .0 Atria l Fibri latio n 2.0-3 .0 Mecha nical Prost hetic Valve s 2.5.3 .5 Not Available [facility] (Lab) [address] [place] [address], [place], [address], 01/26/2023 16:43:26 01/27/20 23 01/26/2023 LIPID PANEL cholesterol 180 mg/dL 166-26 9 The Ameri can Heart Assoc iatio n (AHA) recom mends keepi ng total magaly stero l level s below 200 mg/dL . Level s from 200-2 39 mg/dL are consi dered borde rline high, while level s above 240 mg/dL are consi dered high. The expec samson range based on appar ently healt hy popul ation s is highe r than the recom katy d range . Not Available [facility] (Lab) [address] [place] [address], [address], 01/26/2023 17:11:30 01/27/20 23 01/26/2023 LIPID PANEL triglyceride s 444 mg/dL 51-199 high Not Available [facility] (Lab) [address] [place] [address], [address], 01/26/2023 17:11:30 01/27/20 23 01/26/2023 LIPID PANEL lipoprotein HDL 42 mg/dL 36-59 Not Available [facility] (Lab) [address] [place] [address], [address], 01/26/2023 17:11:30 01/27/20 23 01/26/2023 LIPID PANEL LDL calculation 49 mg/dL no reference range Not Available [facility] (Lab) [address] [place] [address], [address], 01/26/2023 17:11:30 01/27/20 23 01/26/2023 LIPID PANEL chol/HDL ratio 4.29 0.01-4 .97 Not Available [facility] (Lab) [address] [place] [address], [address], 01/26/2023 17:11:30 01/27/20 23 01/26/2023 THYRO ID STIMU LATIN G HORMO NE TSH 1.83 uIU/m L 0.35-3 .99 Not Available [facility] (Lab) [address] [place], [address], 01/26/2023 17:11:32 01/27/20 23 01/26/2023 COMPR EHENS NORBERT METAB OLIC PROFI LE eGFR 88 mL/mi n/1.7 3_m2 >=90 low CKD is defin ed by the prese nce of glome rular filtr ation rate (GFR) <60 mL for >3 month s and/o r evide nce of kidne y damag e (eg, struc tural abnor malit ies, histo logic abnor malit ies, album inuri a, urina ry sedim ent abnor malit ies, renal tubul ar disor ders, and/o r histo ry of kidne y trans plant ation ) for >3mon ths. This table provi minnie inter preta tion of speci fic eGFR value s. Creat inine measu remen ts, and there fore eGFR calcu latio ns, are affec samson by very high or very low muscl e mass, muscl e injur y, a diet very high in meat, hepat ic cirrh osis, certa in drugs , etc. Stage s of CKD: Stage Descr iptio n GFR mL/mi n 1 Kidne y damag e with deandra l or incre ased GFR 90 2 Kidne y damag e with mild decre ase in GFR 60 to 89 3 Moder ate decre ase in GFR 30 to 59 4 Sever e decre ase in GFR 15 to 29 5 Kidne y failu re <15 (or dialy sis) Note: GFR Deandra l range >60, equat ion not valid ated for ages <18 and >70 and pregn ant women . Not Available [facility] (Lab) [address] [place], [address], 01/26/2023 17:11:41 01/27/20 23 01/26/2023 COMPR EHENS NORBERT METAB OLIC PROFI LE glucose 99 mg/dL 71-109 Not Available [facility] (Lab) [address] [place], [address], 01/26/2023 17:11:41 01/27/20 23 01/26/2023 COMPR EHENS NORBERT METAB OLIC PROFI LE BUN 15 mg/dL 8-17 Not Available [facility] (Lab) [address], [place], [address], 01/26/2023 17:11:41 01/27/20 23 01/26/2023 COMPR EHENS NORBERT METAB OLIC PROFI LE creatinine 1.1 mg/dL 0.6-1. 3 Not Available [facility] (Lab) [address] [facility], [place], [address], 01/26/2023 17:11:41 01/27/20 23 01/26/2023 COMPR EHENS NORBERT METAB OLIC PROFI LE BUN/crea ratio 13.64 6.01-1 9.99 Not Available [facility] (Lab) [address] [facility], [place], [address], 01/26/2023 17:11:41 01/27/20 23 01/26/2023 COMPR EHENS NORBERT METAB OLIC PROFI LE sodium 140 mmol/ L 136-14 9 Not Available [facility] (Lab) [address] [facility], [place], [address], 01/26/2023 17:11:41 01/27/20 23 01/26/2023 COMPR EHENS NORBERT METAB OLIC PROFI LE potassium 3.4 mEq/L 3.6-5. 2 low Not Available [facility] (Lab) [address] [facility], [place], [address], 01/26/2023 17:11:41 01/27/20 23 01/26/2023 COMPR EHENS NORBERT METAB OLIC PROFI LE chloride 103 mmol/ L 96-109 Not Available [facility] (Lab) [address] [facility], [place], [address], 01/26/2023 17:11:41 01/27/20 23 01/26/2023 COMPR EHENS NORBERT METAB OLIC PROFI LE carbon dioxide 26 mmol/ L 22-33 Not Available [facility] (Lab) [address], [place], [address], 01/26/2023 17:11:41 01/27/20 23 01/26/2023 COMPR EHENS NORBERT METAB OLIC PROFI LE calcium 8.8 mg/dL 8.6-10 .0 Not Available [facility] (Lab) [address] [facility] [place] [place], [place], [address], 01/26/2023 17:11:41 01/27/20 23 01/26/2023 COMPR EHENS NORBERT METAB OLIC PROFI LE Ca corrected 9.0 mg/dL 8.6-10 .0 Not Available [facility] (Lab) [address] [place] [address], [place], [address], 01/26/2023 17:11:41 01/27/20 23 01/26/2023 COMPR EHENS NORBERT METAB OLIC PROFI LE prot total 8.2 g/dL 6.5-8. 2 Not Available [facility] (Lab) [address] [facility] [place] [place], [place], [address], 01/26/2023 17:11:41 01/27/20 23 01/26/2023 COMPR EHENS NORBERT METAB OLIC PROFI LE albumin 3.7 g/dL 3.6-4. 9 Not Available [facility] (Lab) [address] [facility] [place] [place], [place], [address], 01/26/2023 17:11:41 01/27/20 23 01/26/2023 COMPR EHENS NORBERT METAB OLIC PROFI LE globulin 4 no reference range Not Available [facility] (Lab) [address] [facility] [place] [place], [place], [address], 01/26/2023 17:11:41 01/27/20 23 01/26/2023 COMPR EHENS NORBERT METAB OLIC PROFI LE albumin/glob ulin ratio 0.82 1.01-2 .49 low Not Available [facility] (Lab) [address] [facility] [place] [place], [place], [address], 01/26/2023 17:11:41 01/27/20 23 01/26/2023 COMPR EHENS NORBERT METAB OLIC PROFI LE anion gap 11.0 mmol/ L 3.1-10 .9 high Not Available [facility] (Lab) [address] [facility] [place] [place], [place], [address], 01/26/2023 17:11:41 01/27/20 23 01/26/2023 COMPR EHENS NORBERT METAB OLIC PROFI LE alkaline phosphatase 60 U/L 51-135 Not Available [facility] (Lab) [address] [facility] [facility] [place], [place], [address], 01/26/2023 17:11:41 01/27/20 23 01/26/2023 COMPR EHENS NORBERT METAB OLIC PROFI LE AST 28 U/L 16-36 Not Available [facility] (Lab) [address] [facility] [place] [place], [place], [address], 01/26/2023 17:11:41 01/27/20 23 01/26/2023 COMPR EHENS NORBERT METAB OLIC PROFI LE ALT 59 U/L 31-64 Not Available [facility] (Lab) [address] [facility] [place] [place], [place], [address], 01/26/2023 17:11:41 01/27/20 23 01/26/2023 COMPR EHENS NORBERT METAB OLIC PROFI LE bili total 0.5 mg/dL 0.1-0. 9 Not Available [facility] (Lab) [address] [place] [place], [place], [address], 01/26/2023 17:11:41 01/27/20 23 01/26/2023 COMPR EHENS NORBERT METAB OLIC PROFI LE osmol calc 280 mOsm/ kg 276-29 4 Not Available [facility] (Lab) [address] [facility] [place] [place], [place], [address], 01/26/2023 17:11:41 01/27/20 23 01/26/2023 IRON KIRT NG CAPAC ITY PNL DM iron 114 ug/dL 36-149 Iron value s may be false ly eleva samson in serum sampl es from [facility] treat ed with antic oagul ants (e.g. ,hemo dialy sis, hepar in [facility]) Not Available [facility] (Lab) [address] [place] [address], [place], [address], 01/26/2023 17:23:47 01/27/20 23 01/26/2023 IRON KIRT NG CAPAC ITY PNL DM iron sat DM 34 % 15-50 Not Available [facility] (Lab) [address] [facility] [facility] [place] [place], [place], [address], 01/26/2023 17:23:47 01/27/20 23 01/26/2023 IRON KIRT NG CAPAC ITY PNL DM ibc total DM 331 ug/dL 251-44 9 Not Available [facility] (Lab) [address] [place] [address], [address], 01/26/2023 17:23:47 01/27/20 23 01/31/2023 MITOC HONDR IA M2 ANTIB ELIZABET IGG - SEND OUT [id number] gcq <=20.0 unit( s) <=20.0 no reference range Refer ence Range : Negat norbert: <=20. 0 U Equiv ocal: 20.1 - 24.9 U Posit norbert: >=25. 0 U Lab test perfo rmed by: Lab Mnemo siena: [facility] [id number] [facility] [email or web address] [place], [place] Jeet Alcaraz MD PhD Not Available [facility] (Lab) [address] [place], [address], 01/31/2023 12:43:39 01/27/20 23 02/02/2023 ANTI NUCLE AR ANTIB ODIES IFA SCREE N W/REF anascrifacq NEGATI VE negati ve no reference range CLAY IFA is a first line scree n for detec ting the prese nce of up to appro ximat jose m 150 autoa ntibo dies in vario us autoi mmune disea ses. A negat norbert CLAY IFA resul t sugge sts CLAY-a ssoci ated autoi mmune disea se is not prese nt at this time, but is not defin itive . If there is high clini stephanie suspi cion for Sjogr en's Syndr ome, testi ng for anti- SS-A/ Ro antib elizabet shoul d be consi dered . Anti- Tammy-1 antib elizabet shoul d be consi dered for clini sandy suspe cted infla mmato ry myopa jeana . AC-0: Negat norbert Inter natio nal Conse nsus on CLAY Patte rns https ://do i.org /10.1 515/c clm-2 018-0 052 For addit ional infor tarik pedroza e refer to http: //cristo raymond.Que stDia gnost ics.c om/fa q/FAQ 177 (This link is being provi ded for infor matio nal/ educa fredy l purpo ses only. ) Lab test perfo rmed by: Lab Mnemo siena: [facility] [id number] [place], [place] Jeet Alcaraz MD PhD Not Available [facility] (Lab) [address] [place] [address], [address], 05/29/2023 23:40:08 01/27/20 23 05/29/2023 ANTI NUCLE AR ANTIB ODIES IFA SCREE N W/REF [id number] SEE [facility] IMAGE no reference range Not Available [facility] (Lab) [address] [place], [address], 05/29/2023 23:40:08 01/27/20 23 05/29/2023 ANTI NUCLE AR ANTIB ODIES IFA SCREE N W/REF CLAY ifa screen w/rflx to titer and patte SEE [facility] IMAGE no reference range Not Available [facility] (Lab) [address] [place] [address], [address], 05/29/2023 23:40:08 01/27/20 23 02/02/2023 JOSE H MUSCL E ANTIB ELIZABET W REFLE X TO TITER smooth muscle antibody screen cq NEGATI VE negati ve no reference range Test perfo rmed by [facility] [id number] [place] [address] Phone : Medic al Direc tor: GERDA HASSAN M.D. Test Repor samson by [employer] [facility], [facility], [id number] [employer] [place], [place] Jeet Alcaraz M.D., Ph.D. , [facility] of Labor atori es [phone], CLIA [id number] Lab test perfo rmed by: Lab Mnemo siena: [facility] [address] [employer] [place], [place] Jeet Alcaraz MD PhD Not Available [facility] (Lab) [address] [place] [address], [address], 02/02/2023 18:05:51 01/27/20 23 02/02/2023 ALPHA FETOP ROTEI N TUMOR MARKE R - SEND OU alphafetopro tcq 5.5 NG/mL <6.1 no reference range This test was perfo rmed using the Beckm an Coult er chemi lumin escen t metho d. Value s obtai elvira from diffe rent assay metho ds canno t be used inter esparza eably . AFP level s, regar dless of value , shoul d not be inter prete d as absol chicken ranch evide nce of the prese nce or absen ce of disea se. Test perfo rmed by [facility] [id number] [address] [facility] [place] [address] Phone : [phone] Medic al Direc tor: Marcie london MD,PH D,CARLTON Test Repor samson by [facility], [facility], [address] [employer] [place], [place] Jeet Alcaraz M.D., Ph.D. , [facility] atori es , CLIA [id number] Lab test perfo rmed by: Lab Mnemo siena: [facility] [address] [employer] [place], [place] Jeet Alcaraz MD PhD Not Available [facility] (Lab) [address] [place] [address], [place], [address], 02/02/2023 23:28:25 01/27/20 23 02/03/2023 TRANS YONY N - SEND OUT TO transferrinc q 269 mg/dL 188-34 1 no reference range Lab test perfo rmed by: Lab Mnemo siena: [facility] [address] [employer] [place], [place] Jeet Alcaraz MD PhD Not Available [facility] (Lab) [address] [place] [address], [address], 02/03/2023 10:28:51 01/27/20 23 02/03/2023 VALARIE C DISEA SE PANEL - SEND OUT TO interpretati on 1 cq SEE BELOW no reference range No serol ogica l evide nce of valarie c disea se. Total serum IgA is eleva samson. Consi abby mucos al infla mmato ry condi tions or under lying gammo nelly . Not Available [facility] (Lab) [address] [place] [address], [address], 02/03/2023 10:28:53 01/27/20 23 02/03/2023 VALARIE C DISEA SE PANEL - SEND OUT TO ttgigacq <1.0 unit/ mL <15.0 no reference range Value Inter preta tion <15.0 Antib elizabet not detec samson > or = 15.0 Antib elizabet detec samson Not Available [facility] (Lab) [address] [place] [address], [address], 02/03/2023 10:28:53 01/27/20 23 02/03/2023 VALARIE C DISEA SE PANEL - SEND OUT TO igacq 394 mg/dL 47-310 high Lab test perfo rmed by: Lab Mnemo siena: [facility] [id number] [employer] [place], [place] Jeet Alcaraz MD PhD Not Available [facility] (Lab) [address] [place] [address], [address], 02/03/2023 10:28:53 01/27/20 23 02/03/2023 CERUL OPLAS MIN - SEND OUT TO ceruloplasmi ncq 20 mg/dL 18-36 no reference range Lab test perfo rmed by: Lab Mnemo siena: [facility] [id number] [employer] [facility] [place] Jeet Alcaraz MD PhD Not Available [facility] (Lab) [address] [place] [address], [address], 02/03/2023 10:28:54 01/27/20 23 02/03/2023 MITOC HONDR IA ANTIB ELIZABET W/REF DALIA TITER - S mitoabscrcq Negati ve negati ve no reference range Lab test perfo rmed by: Lab Mnemo siena: [facility] [id number] [place], [place] Jeet Alcaraz MD PhD Not Available [facility] (Lab) [address] [place] [address], [place], [address], 02/03/2023 12:53:10 01/27/20 23 02/03/2023 LIVER FIBRO SIS PANEL CQ fibrosis score cq 0.14 no reference range Not Available [facility] (Lab) [address] [place] [address], [place], [address], 02/03/2023 15:35:15 01/27/20 23 02/03/2023 LIVER FIBRO SIS PANEL CQ fibrosis stage cq F0 no reference range Not Available [facility] (Lab) [address] [place] [address], [place], [address], 02/03/2023 15:35:15 01/27/20 23 02/03/2023 LIVER FIBRO SIS PANEL CQ fibrosis interpretati on cq SEE BELOW no reference range no fibro sis Fibro Test Score (f) Metav ir Score f>=0 and f<=0. 21 : F0 (no fibro sis) f>0.2 1 and f<=0. 27 : F0-F1 (no fibro sis) f>0.2 7 and f<=0. 31 : F1 (mini mal fibro sis) f>0.3 1 and f<=0. 48 : F1-F2 (mini mal fibro sis) f>0.4 8 and f<=0. 58 : F2 (mode rate fibro sis) f>0.5 8 and f<=0. 72 : F3 (adva nced fibro sis) f>0.7 2 and f<=0. 74 : F3-F4 (adva nced fibro sis) f>0.7 4 and f<=1. 00 : F4 (sandy re fibro sis) Not Available [facility] (Lab) [address] [facility], [place], [address], 02/03/2023 15:35:15 01/27/20 23 02/03/2023 LIVER FIBRO SIS PANEL CQ necroinflamm at act score cq 0.20 no reference range Not Available [facility] (Lab) [address], [place], [address], 02/03/2023 15:35:15 01/27/20 23 02/03/2023 LIVER FIBRO SIS PANEL CQ necroinflamm at act grade cq A0-A1 no reference range Not Available [facility] (Lab) [address], [place], [address], 02/03/2023 15:35:15 01/27/20 23 02/03/2023 LIVER FIBRO SIS PANEL CQ necroinflamm at interp cq SEE BELOW no reference range no activ ity ActiT est Score (a) Metav ir Score a>=0 and a<=0. 17 : A0 (no activ ity) a>0.1 7 and a<=0. 29 : A0-A1 (no activ ity) a>0.2 9 and a<=0. 36 : A1 (mini mal activ ity) a>0.3 6 and a< =0.52 : A1-A2 (mini mal activ ity) a>0.5 2 and a<=0. 60 : A2 (sign ifica nt activ ity) a>0.6 0 and a<=0. 62 : A2-A3 (sign ifica nt activ ity) a>0.6 2 and a<=1. 00 : A3 (sandy re activ ity) Not Available [facility] (Lab) [address] [facility] [place], [place], [address], 02/03/2023 15:35:15 01/27/20 23 02/03/2023 LIVER FIBRO SIS PANEL CQ [id number] oglobulin cq 179 mg/dL 106-27 9 no reference range Not Available [facility] (Lab) [address] [facility] [place], [place], [address], 02/03/2023 15:35:15 01/27/20 23 02/03/2023 LIVER FIBRO SIS PANEL CQ haptoglobin cq 154 mg/dL 43-212 no reference range Not Available [facility] (Lab) [address] [facility] [facility] [place] [place], [place], [address], 02/03/2023 15:35:15 01/27/20 23 02/03/2023 LIVER FIBRO SIS PANEL CQ apolipoprote in A1 cq 182 mg/dL 94-176 high Not Available [facility] (Lab) [address] [facility] [place], [place], [address], 02/03/2023 15:35:15 01/27/20 23 02/03/2023 LIVER FIBRO SIS PANEL CQ total bilirubin cq 0.5 mg/dL 0.2-1. 2 no reference range Not Available [facility] (Lab) [address] [place] [address], [place], [address], 02/03/2023 15:35:15 01/27/20 23 02/03/2023 LIVER FIBRO SIS PANEL CQ ggtcq 59 unit/ L 3-95 no reference range Not Available [facility] (Lab) [address] [place] [address], [place], [address], 02/03/2023 15:35:15 01/27/20 23 02/03/2023 LIVER FIBRO SIS PANEL CQ ALT cq 44 unit/ L 9-46 no reference range Not Available [facility] (Lab) [address] [place] [address], [place], [address], 02/03/2023 15:35:15 01/27/20 23 02/03/2023 LIVER FIBRO SIS PANEL CQ reference id cq [id number] no reference range Not Available [facility] (Lab) [address] [place] [address], [place], [address], 02/03/2023 15:35:15 01/27/20 23 02/03/2023 LIVER FIBRO SIS PANEL CQ footnote id cq SEE BELOW no reference range The relia bilit y of resul ts is depen dent on compl iance with the prean alyti stephanie and colby tical condi tions recom katy d by BioPr edict norbert. The tests have to be defer red for: acute hemol ysis, acute hepat itis, acute infla mmati on, extra hepat ic magaly stasi s. The advic e of a speci alist shoul d be sough t for inter preta tion in chron ic hemol ysis and Gilbe rt's syndr ome. The test inter preta tion is not valid ated in liver trans plant patie nts. [place] samson extre me value s of one of the compo nents shoul d lead to cauti on in inter preti ng the resul ts. In case of disco rdanc e betwe en a biops y resul t and a test, it is recom katy d to seek the advic e of a speci alist . The cause s of these disco rdanc es could be due to a flaw of the test or to a flaw in the biops y: i.e. a liver biops y has a 33% varia bilit y rate for one fibro sis stage . Fibro Test is inter preta ble for chron ic hepat itis B and C, alcoh olic and non alcoh olic steat osis. ActiT est is inter preta ble for chron ic hepat itis B and C. The perfo rmanc e tk cteri stics have been deter mined by [facility] Joni banda [place] . It has not been clear ed or appro malik by the U.S. Food and Drug Admin istra tion. Perfo rmanc e tk cteri stics refer to the colby tical perfo rmanc e of the test. [facility] , [facility], the assoc iated logo, Joni banda and all assoc iated [facility] [place] are the юлия tered trade [place] of [facility]. All third green party [place] - (R) and (TM) - are the prope rty of their respe ctive major league baseball umpire s. (C) 1999- 2013 [facility] [employer] porat ed. All right s reser malik. Test perfo rmed by [facility] Joni band[place] [address] [facility], [place] [address] Phone : [phone] Medic al Direc tor: Marcie london MD,PH D,CARLTON Test Repor samson by [facility] , [facility], [facility] Diagn ostic s Jon[place] Inst[place], [address] [employer] [place], [place] Jeet Alcaraz M.D., Ph.D. , [facility] es , CLIA [id number] Lab test perfo rmed by: Lab Mnemo siena: AMD [facility] [place] [address] [address] [address] [employer] [place], [place] Jeet Alcaraz MD PhD Not Available [facility] (Lab) [address] [place] [address], [address], 02/03/2023 15:35:15 01/27/20 23 02/05/2023 YONY TIN CQ ferritin cq. 156 NG/mL 38-380 no reference range Lab test perfo rmed by: Lab Mnemo siena: AMD [facility] [place] [address] [address] [address] [employer] [place], [place] Jeet Alcaraz MD PhD Not Available [facility] (Lab) [address] [place] [address], [address], 02/05/2023 05:57:30 01/27/20 23 02/06/2023 ALPHA 1 ANTIT RYPSI N PHENO TYPE- SEND OUT [id number] ycq SEE BELOW no reference range THIS PATIE NT'S ALPHA -1-AN TITRY PSIN PHENO TYPE IS PI*MM . 90% of deandra l indiv idual s have the MM pheno type, with deandra l quant itati ve AAT level s. Many pheno typic patte rns have been descr ibed, inclu ding defic iency state s with F, S, Z, or other allel es. As a gener al estim ation , danelle red to M allel e of 100% of deandra l A-1-A ntitr ypsin prote in, the S allel e produ ade appro ximat jose m 60% and the Z allel e 20%. For examp le, an MS pheno type would have about 80% of deandra l A-1-A ntitr ypsin prote in level , a 50% contr ibuti on from the M allel e and 30% from the S allel e. A ZZ pheno type would have about 20% of deandra l level s, a 10% contr ibuti on from each Z gene. The F allel e has deandra l A-1-A ntitr ypsin level s, but the kinet ics of elast ase inhib ition is not as effic ient as an M allel e produ ct; F allel es shoul d be consi dered funct ional ly mildl y defic ient. Other varia nts are ident ifiab le by pheno typic colby sis. These inclu de CM, DP, EM, GM, IS, LM, M1M2, M3M3, MP, MT, XX, MY, and M1N. I, P, T and null allel es are consi dered delet eriou s. C, D, E, G, L, M1, M2, M3, X and Y allel es are gener ally consi dered deandra l varia nts. The MZ-Pr att pheno type is a deandra l varia nt; care shoul d be taken to avoid confu kim with the defic ient MZ pheno type. Test perfo rmed by [facility] [place] [address] [address] [place] [address] Phone : [phone] Medic al Direc tor: Marcie london MD,PH D,CARLTON Test Repor samson by [employer] [facility], [facility], [address] [employer] , [facility] [employer], [place] Jeet Alcaraz M.D., Ph.D. , [facility] of Labor atori es [phone], CLIA [id number] Lab test perfo rmed by: Lab Mnemo siena: AMD [facility] [address] [address] [employer] [facility] [employer], [place] Jeet Alcaraz MD PhD Not Available [facility] (Lab) [address] [facility] [place], [place], [address], 02/06/2023 16:54:21 01/27/20 23 01/31/2023 HEPAT ITIS PANEL ACUTE W/REF DALIA CONFI RMAT hbsagcq NONREA CTIVE nonrea ctive no reference range Confi rmati on Not requi red accor ding to the curre nt packa ge inser t. Not Available [facility] (Lab) [address] [place] [address], [place], [address], 05/29/2023 23:40:06 01/27/20 23 01/31/2023 HEPAT ITIS PANEL ACUTE W/REF DALIA CONFI RMAT hbcoreabigmc q NONREA CTIVE nonrea ctive no reference range Not Available [facility] (Lab) [address] [place] [address], [place], [address], 05/29/2023 23:40:06 01/27/20 23 01/31/2023 HEPAT ITIS PANEL ACUTE W/REF DALIA CONFI RMAT haigmcq NONREA CTIVE no reference range Refer ence range : Nonre activ e For addit ional infor tarik pedroza e refer to https ://ed ucati on.qu wilmerNoteSick. PeerApp/f aq/FA Q202 (This link is being provi ded for infor roxann hale/ educa fredy l purpo ses only. ) Not Available [facility] (Lab) [address] [place] [address], [place], [address], 05/29/2023 23:40:06 01/27/20 23 01/31/2023 HEPAT ITIS PANEL ACUTE W/REF DALIA CONFI RMAT hcabcq NONREA CTIVE no reference range HCV antib elizabet was non-r eacti ve. There is no labor atory evide nce of HCV infec tion. In most cases , no furth er actio n is requi red. Howev er, if recen t HCV expos ure is suspe cted, a test for HCV RNA (test code 12571 ) is kayla shannon. REFER ENCE RANGE : NONRE ACTIV E For addit ional infor roxann raymond pleas e refer to http: //[facility] valentín alexque stdia gnost ics.c om/fa q/FAQ 22v1 (This link is being provi ded for infor roxann nal/ educa fredy l purpo ses only. ) Lab test perfo rmed by: Lab Mnemo siena: AMD [facility] [address] [place] [address] [address] [place], [place] Jeet Alcaraz MD PhD Not Available [facility] (Lab) [address] [place] [address], [place], [address], 05/29/2023 23:40:06 01/27/20 23 05/29/2023 HEPAT ITIS PANEL ACUTE W/REF DALIA CONFI RMAT confirmation cq SEE QUEST IMAGE no reference range Not Available [facility] (Lab) [address] [place] [address], [place], [address], 05/29/2023 23:40:06 01/27/20 23 05/29/2023 HEPAT ITIS PANEL ACUTE W/REF DALIA CONFI RMAT signalcutoff cq SEE QUEST IMAGE no reference range Not Available [facility] (Lab) [address] [place] [address], [place], [address], 05/29/2023 23:40:06 01/27/20 23 05/29/2023 HEPAT ITIS PANEL ACUTE W/REF DALIA CONFI RMAT hepaddtestin gcq SEE QUEST IMAGE no reference range Not Available [facility] (Lab) [address] [place] [address], [place], [address], 05/29/2023 23:40:06 01/27/20 23 02/03/2023 VALARIE C DISEA SE PANEL - SEND OUT TO CQ interpretati on 1 cq SEE BELOW no reference range No serol ogica l evide nce of valarie c disea se. Total serum IgA is eleva samson. Consi abby mucos al infla mmato ry condi tions or under lying gammo nelly . Not Available [facility] (Lab) [address] [facility] [place], [place], [address], 05/29/2023 23:40:09 01/27/20 23 02/03/2023 VALARIE C DISEA SE PANEL - SEND OUT TO CQ ttgigacq <1.0 unit/ mL <15.0 no reference range Value Inter preta tion <15.0 Antib elizabet not detec samson > or = 15.0 Antib elizabet detec samson Not Available [facility] (Lab) [address] [place] [address], [place], [address], 05/29/2023 23:40:09 01/27/20 23 02/03/2023 VALARIE C DISEA SE PANEL - SEND OUT TO CQ igacq 394 mg/dL 47-310 high Lab test perfo rmed by: Lab Mnemo siena: AMD [facility] [place] [address] [address] [place], [place] Jeet Alcaraz MD PhD Not Available [facility] (Lab) [address] [place] [address], [place], [address], 05/29/2023 23:40:09 01/27/20 23 05/29/2023 VALARIE C DISEA SE PANEL - SEND OUT TO CQ addtestcq see quest image no reference range Not Available [facility] (Lab) [address] [place] [address], [address], 05/29/2023 23:40:09 01/27/20 23 05/29/2023 VALARIE C DISEA SE PANEL - SEND OUT TO CQ bridxqu5mg see quest image no reference range Not Available [facility] (Lab) [address] [place] [address], [place], [address], 05/29/2023 23:40:09 01/27/20 23 02/02/2023 JOSE H MUSCL E ANTIB ELIZABET W REFLE X TO TITER smooth muscle antibody screen cq NEGATI VE negati ve no reference range Test perfo rmed by [facility] [address] [address] [address] [place] [address] Phone : [phone] Medic al Dire tor: GERDA HASSAN M.D. Test Repor samson by [employer] [facility], [facility] [address] [address], [address] [employer] [place], [place] Jeet Alcaraz M.D., Ph.D. , [facility] [phone], CLIA [id number] Lab test perfo rmed by: Lab Mnemo siena: AMD [facility] [address] [address] [employer] [place], [place] Jeet Alcaraz MD PhD Not Available [facility] (Lab) [address] [place] [address], [address], 05/29/2023 23:40:10 01/27/20 23 05/29/2023 JOSE H MUSCL E ANTIB ELIZABET W REFLE X TO TITER smooth muscle antibody titer cq see quest image no reference range Not Available [facility] (Lab) [address] [place] [address], [address], 05/29/2023 23:40:10 03/13/20 23 03/19/2023 PORK IGE - SEND OUT CQ pork cq 0.25 <0.10 high Not Available [facility] (Lab) [address] [place] [address], [address], 03/19/2023 03:12:41 03/13/20 23 03/19/2023 PORK IGE - SEND OUT CQ pork cls cq 0/1 >0 high Lab test perfo rmed by: Lab Mnemo siena: AMD [facility] [place] [address] [address] [employer] [place], [place] Jeet Alcaraz MD PhD Not Available [facility] (Lab) [address], [place], [address], 03/19/2023 03:12:41 03/13/2003/19/2023 BEEF (F27) IGE - SEND OUT CQ beef cq 0.57 <0.10 high Not Available [facility] (Lab) [address], [place], [address], 03/19/2023 03:12:42 03/13/2003/19/2023 BEEF (F27) IGE - SEND OUT CQ beef cls cq 1 >0 high INTER PRETA TION SPECI FIC LEVEL OF ALLER GEN IgE CLASS kU/L SPECI FIC IgE ANTIB ELIZABET ----- ---- ----- ---- ----- ----- ----- ----- - 0 <0.10 Absen t/Und etect able 0/1 0.10- 0.34 Very Low Level 1 0.35- 0.69 Low Level 2 0.70- 3.49 Moder ate Level 3 3.50- 17.4 High Level 4 17.5- 49.9 Very High Level 5 50-10 0 Very High Level 6 >100 Very High Level The clini stephanie relev ance of aller gen resul ts of 0.10- 0.34 kU/L are undet ermin ed and inten ded for speci alist use. Aller gens denot ed with a inclu de resul ts using one or more colby te speci fic reage nts. In those cases , the test was devel oped and its colby tical perfo rmanc e tk cteri stics have been deter mined by [facility]. It has not been clear ed or appro malik by the U.S. Food and Drug Admin istra tion. The FDA has deter mined that such clear ance or appro laci is not neces luz. This assay has been valid ated pursu ant to the CLIA regul ation s and is used for clini stephanie purpo ses. Lab test perfo rmed by: Lab Mnemo siena: AMD [facility] [address] [place], [place] Jeet Alcaraz MD PhD Not Available [facility] (Lab) [address] [place] [address], [place], [address], 03/19/2023 03:12:42 03/13/20 23 03/20/2023 GALAC TOSE- ALPHA -1,3- GALAC TOSE (ALPH A-GAL galactosealp haige cq 2.08 kunit s/L <0.10 high Resul ts above 0.1 kU/L indic ate an aller gen-s pecif ic IgE sensi tizat ion to galac tose- a-1,3 -gala ctose , and such patie nts are at risk for delay ed aller gic react ions follo wing beef, pork, or bond consu mptio n. Circu latin g IgE antib odies may remai n undet ectab le despi te a convi ncing clini stephanie histo ry becau se these antib odies may be direc samson towar ds aller gens revea led or alter ed durin g indus trial proce ssing , cooki ng, or diges tion and there fore do not exist in the origi nal food for which the patie nt is teste d. Somet imes indiv idual s diagn osed with chron ic urtic aria may devel op IgE antib odies direc samson again st human thyro globu meme. Such antib odies may cross -reac t with the bovin e thyro globu meme used in Immun oCAP( R) Aller gen o215, alpha -Gal, leadi ng to a false -posi tive test resul t. A defin itive diagn osis shoul d be based on the evalu ation of both clini stephanie and labor atory findi ngs and not on any singl e diagn ostic metho d. Addit ional infor roxann raymond can be found at http: //www .phad ia.co m Test perfo rmed by [facility] [address] [address] [address] [place] [address] Phone : [phone] Medic al Direc tor: GERDA HASSAN M.D. Test Repor samson by [facility], [facility] [address], [address] [employer] [employer] [facility], [place] Jeet Alcaraz M.D., Ph.D. , [facility] , CLIA [id number] Lab test perfo rmed by: Lab Mnemo siena: AMD [facility] [address] [address] [address] [employer] [facility], [place] Jeet Alcaraz MD PhD Not Available [facility] (Lab) [address] [facility] [place] [place], [place], [address], 03/20/2023 21:50:50 03/13/2003/21/2023 VENIS ON IGE - SEND OUT CQ venisonigecq SEE BELOW no reference range ----- ----- ----T ESTS- ----- ----- --RES ULTS- ----- --UNI TS--R EF. RANGE --- Venis onCon E <0.35 kU/L <0.35 CLASS 0 CLASS INTER PRETA TION: <0.35 kU/L= 0, Below Detec tion; 0.35- 0.69 kU/L= 1, Low Posit norbert; 0.70- 3.49 kU/L= 2, Moder ate Posit norbert; 3.50- 17.49 kU/L= 3, Posit norbert; 17.50 -49.9 9 kU/L= 4, Stron g Posit norbert; >49.9 9 kU/L= 5, Very Stron g Posit norbert *This test was devel oped and its perfo rmanc e tk cteri stics deter mined by [employer]. It has not been clear ed or appro malik by the U.S. Food and Drug Admin istra tion. Resul ts Recei malik 03/21 Refer ence lab acces kim: [phone] Test perfo rmed by: [employer] [address], [address] [place] [address] Phone : [phone] Lab Direc tor: Christoph Urbano, PhD MIGUEL (ABB) CLIA # [id number] Lab test perfo rmed by: Lab Mnemo siena: AMD [facility] [address] [address] [address] [facility] [employer] [place], [place] Jeet Alcaraz MD PhD Not Available [facility] (Lab) [address], [place], [address], 03/21/2023 17:41:16 07/08/20 20 07/08/2020 CT, abdom en + pelvi s, w/ contr ast No observ ation record ed. [facility] (Imaging) [address], [place], [address], 07/17/2020 15:48:17 07/06/20 21 07/06/2021 CT, abdom en + pelvi s, w/ contr ast R10.32 LEFT LOWER QUADRA NT PAIN Proced ure Acknow ledge Date: 2020 09:46 AM EXAM: CT ABDOME N AND PELVIS WITH CONTRA ST HISTOR Y: Left lower quadra nt pain. TECHNI QUE: CT acquis ition of the abdome n and pelvis from the lower thorax throug h the pelvis follow ing IV and oral contra st admini strati on. IV Contra st: Admini stered . Oral Contra st: Admini stered . CT Dose Reduct ion Techni ques Perfor med: Yes COMPAR SHEBA: None. FINDIN GS: Liver: Diffus e hepati c steato sis. Biliar y: No biliar y ductal dilati on. Cholec ystect sandra. Pancre as: No duct dilati on. No mass. Spleen : No mass. No spleno megaly . Adrena ls: No mass. Kidney s/Uret ers: No mass, calcul us, or hydron ephros is. GI Tract: Divert iculos is within the proxim al sigmoi d colon with associ ated coloni c wall thicke bri and mild jake lonic fat strand ing. No fluid collec tion. Normal append ix. No bowel dilati on. Perito ankit Cavity : No ascite s. Small fat contai bri perium bilica l hernia . Retrop eriton eum: No fluid collec tion. Lymph Nodes: No lympha denopa thy. Vascul ature: Minima l aortic athero sclero tic calcif icatio ns. No aortic or iliac aneury sm. Celiac , superi or mesent torres, and inferi or mesent torres arteri es are patent . Limite d assess ment of the portal and hepati c veins and IVC is unrema rkable within limita tions of the phase of IV contra st. Pelvis : No free fluid. Bladde r is mostly decomp ressed . Bones/ Soft Tissue s: Partia l lumbar izatio n of S1. Grade 1 bibi listhe sis of L5 on S1 with left L5 pars defect . Mild degene rative change s of the spine. Visual ized soft tissue s are within normal limits . Lower Thorax : Within normal limits . IMPRES KIM: Acute uncomp licate d sigmoi d divert iculit is. All CT scans are perfor med using dose optimi zation techni ques as approp riate to the perfor med exam and includ e at least one of the follow ing: Automa samson exposu re contro l, adjust ment of the mA and/or kV accord ing to size, and the use of iterat norbert recons tructi on techni que. DICTAT ED DATE: 1129 DICTAT ED BY: Ayanna Alcaraz D.O. TRANSC RIBED DATE: 1129 TRANSC RIBED BY: ILEANA SIGNED BY: Ayanna Alcaraz D.O. DT: 2020 11:30 AM Dictat ed By: AYANNA ALCARAZ DO DF: 2020 11:30 AM Signed By: AYANNA ALCARAZ Provid er(s): Orderi ng Provid er: Result Copies To: Attend ing Doctor : SUNNY RUBIN Referr ing Doctor : Russell hernandez Doctor : Romulo núñez Doctor : Other Health care Provid er: [facility] (Radiology) [address], [place], [address], 01/26/2023 17:02:49 07/06/20 21 07/06/2021 CT, abdom en + pelvi s, w/ contr ast No observ ation record ed. [facility] (Radiology) [address], [place], [place], [address], 01/26/2023 17:02:50 03/07/20 23 03/07/2023 xr abdom en AP KUB [place] [facility] al [facility] [address] [place] Patien t: CIARAN MALDONADO 1 : [phone] Sex: Male Locati on: MOPB XR Orderi ng Physic bebo: AGUSTO ESCALANTE MD Diagno stic Radiol ogy Access ion Exam Date/T dinora [id number] 03/07/20 23 11:55 CDT Reason for Exam Verify passag e of small bowel patenc y capsul e Report EXAM: KUB. HISTOR Y: Abdome n pain. COMPAR SHEBA: TECHNI QUE: A single fronta l view of the abdome n and pelvis . FINDIN GS: No eviden ce of bowel patenc y capsul e identi fied. Bowel gas patter n: Normal Abnorm al calcif icatio ns: None Bones: Normal for age. Other: Clips in the upper quadra nt from prior cholec ystect sandra. IMPRES KIM: No signif icant radiog raphic abnorm ality. No patenc y capsul e identi fied. Final Signed by: VÍCTOR REBOLLEDO MD Signed (Elect kaylee Signat ure): 2022 12:[email or web address] [facility] (Radiology) [address], [place], [address], 03/15/2023 09:29:56 03/07/20 23 03/07/2023 XR, abdom en No observ ation record ed. [email or web address] [facility] [address], [place], [address], 03/15/2023 09:29:41 Result Notes Documentation Provider Name and Address Organization Details Recorded Time Ct, Abdomen + Pelvis, W/ Contrast : R10.32 LEFT LOWER QUADRANT PAIN Procedure Acknowledge Date: 07/06/2021 09:46 AM EXAM: CT ABDOMEN AND PELVIS WITH CONTRAST HISTORY: Left lower quadrant pain. TECHNIQUE: CT acquisition of the abdomen and pelvis from the lower thorax through the pelvis following IV and oral contrast administration. IV Contrast: Administered. Oral Contrast: Administered. CT Dose Reduction Techniques Performed: Yes COMPARISON: None. FINDINGS: Liver: Diffuse hepatic steatosis. Biliary: No biliary ductal dilation. Cholecystectomy. Pancreas: No duct dilation. No mass. Spleen: No mass. No splenomegaly. Adrenals: No mass. Kidneys/Ureters: No mass, calculus, or hydronephrosis. GI Tract: Diverticulosis within the proximal sigmoid colon with associated colonic wall thickening and mild pericolonic fat stranding. No fluid collection. Normal appendix. No bowel dilation. Peritoneal Cavity: No ascites. Small fat containing periumbilical hernia. Retroperitoneum: No fluid collection. Lymph Nodes: No lymphadenopathy. Vasculature: Minimal aortic atherosclerotic calcifications. No aortic or iliac aneurysm. Celiac, superior mesenteric, and inferior mesenteric arteries are patent. Limited assessment of the portal and hepatic veins and IVC is unremarkable within limitations of the phase of IV contrast. Pelvis: No free fluid. Bladder is mostly decompressed. Bones/Soft Tissues: Partial lumbarization of S1. Grade 1 anterolisthesis of L5 on S1 with left L5 pars defect. Mild degenerative changes of the spine. Visualized soft tissues are within normal limits. Lower Thorax: Within normal limits. IMPRESSION: Acute uncomplicated sigmoid diverticulitis. All CT scans are performed using dose optimization techniques as appropriate to the performed exam and include at least one of the following: Automated exposure control, adjustment of the mA and/or kV according to size, and the use of iterative reconstruction technique. DICTATED DATE: 07/06/211129 DICTATED BY: Ayanna Alcaraz D.O. TRANSCRIBED DATE: 07/06/211129 TRANSCRIBED BY: ILEANA SIGNED BY: Ayanna Alcaraz D.O. Dictated By: AYANNA ALCARAZ DO DF: 07/06/2021 11:30 AM Signed By: AYANNA ALCARAZ DO Supporting Provider(s): Ordering Provider: Result Copies To: Attending Doctor: SUNNY RUBIN Referring Doctor: Consulting Doctor: Admitting Doctor: Other Healthcare Provider: SUNNY RUBIN, ALEXANDR [address], [place], [address], [place] [facility] [place] 01/26/2023 17:02:49 Problems Name Problem SNOMED Code Status Onset Date Resolution Date Notes Provider Name and Address Organization Details Recorded Time Body mass index 30+ - obesity 951667279 Active 2019 PATIENCE LANGE N, SENIOR PROJECT LEADER/TEAM LEAD [address], [place], [address], [place] [facility] [place] 0 11:46:50 Adenomato us polyp of colon 118811058 Active 2019 PATIENCESA LANGE N, SENIOR PROJECT LEADER/TEAM LEAD [address], [place], [address], [place] [facility] [place] 0 11:46:53 Serrated polyp of colon 135571127 Active 2019 PATIENCESA LANGE N, SENIOR PROJECT LEADER/TEAM LEAD [address], [place], [address], [place] [facility] [place] 0 11:46:54 Hiatal hernia with gastroeso phageal reflux 174236735 Active 2019 PATIENCESA LANGE N, SENIOR PROJECT LEADER/TEAM LEAD [address], [place], [address], [place] [facility] [place] 0 11:47:00 Nonerosiv e nonspecif ic gastritis 58024476 Active 2019 PATIENCESA LANGE N, SENIOR PROJECT LEADER/TEAM LEAD [address], [place], [address], [place] [facility] [place] 0 11:47:12 Internal hemorrhoi ds 67017729 Active 2019 PATIENCESA LANGE N, SENIOR PROJECT LEADER/TEAM LEAD [address], [place], [address], [place] [facility] [place] 0 11:47:16 Diverticu lar disease 995432625 Active 2019 PATIENCESA NAZARIO Raymond, SENIOR PROJECT LEADER/TEAM LEAD [address], [place], [address], [place] [facility] [place] 0 11:47:25 Polyp of sigmoid colon 300467205 Active 2019 PATIENCE Raymond, SENIOR PROJECT LEADER/TEAM LEAD [address], [place], [address], [place] [facility] [place] 0 11:47:38 Polyp of hepatic flexure of colon 442445512 Active 2019 PATIENCE Raymond, SENIOR PROJECT LEADER/TEAM LEAD [address], [place], [address], [place] [facility] [place] 0 11:47:40 Polyp of colon 48070634 Active 2019 PATIENCE Raymond, SENIOR PROJECT LEADER/TEAM LEAD [address], [place], [address], [place] [facility] [place] 0 11:47:41 Blood glucose outside reference range 784738883 Active 2019 PATIENCE Raymond, SENIOR PROJECT LEADER/TEAM LEAD [address], [place], [address], [place] [facility] [place] 0 11:47:46 Laborator y test result abnormal 181801199 Active 2019 PATIENCE Raymond, SENIOR PROJECT LEADER/TEAM LEAD [address], [place], [address], [place] [facility] [place] 0 11:47:47 Tobacco user 654216365 Active 2019 PATIENCE Raymond, SENIOR PROJECT LEADER/TEAM LEAD [address], [place], [address], [place] [facility] [place] 0 11:47:48 Tobacco use cessation education Active 2019 PATIENCE Raymond, SENIOR PROJECT LEADER/TEAM LEAD [address], [place], [address], [place] [facility] [place] 0 11:47:51 Diarrhea 83876463 Completed 201906/03/2020 Anastasia Benjamin, GRAVEL WHEELER null, [place] - [facility] [place] 3 15:08:09 Abdominal bloating 896121465 Active 2019 PATIENCE Raymond, SENIOR PROJECT LEADER/TEAM LEAD [address], [place], [address], [place] [facility] [place] 0 11:48:37 Regurgita tion of gastric content 64464009 Active 2019 PATIENCESA NAZARIO Raymond, SENIOR PROJECT LEADER/TEAM LEAD [address], [place], [address], [place] [facility] [place] 0 11:48:44 Nausea and vomiting 78096968 Active 2019 PATIENCE LANGE N, SENIOR PROJECT LEADER/TEAM LEAD [address], [place], [address], [place] [facility] [place] 0 11:49:01 Left lower quadrant pain 085723242 Active 2019 PATIENCE Raymond, SENIOR PROJECT LEADER/TEAM LEAD [address], [place], [address], [place] [facility] [place] 0 09:48:39 Nausea 506125784 Active 2019 PATIENCE Raymond, SENIOR PROJECT LEADER/TEAM LEAD [address], [place], [address], [place] [facility] [place] 0 09:48:43 Chronic diarrhea 606254337 Active 2019 PATIENCE Raymond, SENIOR PROJECT LEADER/TEAM LEAD [address], [place], [address], [place] [facility] [place] 0 09:48:52 History of cholecyst ectomy 304584593 Active 2019 PATIENCE LANGE N, SENIOR PROJECT LEADER/TEAM LEAD [address], [place], [address], [place] [facility] [place] 0 09:49:02 History of diverticu litis 687897170656 100 Active 2019 PATIENCE LANGE N, SENIOR PROJECT LEADER/TEAM LEAD [address], [place], [address], [place] [facility] [place] 0 09:49:09 User of smokeless tobacco 551097743 Active 2019 PATIENCE LANGE N, SENIOR PROJECT LEADER/TEAM LEAD [address], [place], [address], [place] - [facility] [place] 0 09:49:16 Diverticu litis of sigmoid colon 117552550 Active 2019 PATIENCE Raymond, SENIOR PROJECT LEADER/TEAM LEAD [address] [facility], [place], [address], [facility] - [facility] [place] 0 12:45:48 Diverticu litis 285829418 Active 2020 Anastasia Sourav GRAVEL WHEELER null, [place] - [facility] [place] 1 10:00:38 Altered bowel function 22942836 Active 2022 Anastasia Benjamin GRAVEL WHEELER null, [place] - [facility] [place] 3 17:11:54 Diarrhea 83516358 Active 2022 Anastasia Sourav GRAVEL WHEELER null, [place] - [facility] [place] 3 15:08:09 Problem Notes None recorded. Medical Equipment None Reported. Allergies No known drug allergies Medications Name Sig Start Date Stop Date Status Note LastModified by Organization Details LastModified Time cyclobenzap rine 10 mg tablet 06/29 completed Not Available Not Available Not Available bupropion HCl SR 150 mg tablet,12 hr sustained-r elease 06/29 completed Not Available Not Available Not Available sulfasalazi ne 500 mg tablet 06/29 completed Not Available Not Available Not Available benzonatate 200 mg capsule TAKE 1 CAPSULE BY MOUTH EVERY 8 HOURS NEEDED FOR COUGH active Not Available Not Available No t Available hydrocodone 5 mg-acetamin ophen 325 mg tablet TAKE 1 TABLET BY MOUTH EVERY 6 HOURS NEEDED FOR PAIN active Not Available Not Available No t Available prednisone 20 mg tablet TAKE 3 TABLETS BY MOUTH EVERY DAY FOR 5 DAYS 06/29 completed Not Available Not Available Not Available metronidazo le 500 mg tablet Take 1 tablet every 8 hours by oral route for 10 days. 01/26 completed Not Available Not Available Not Available phentermine 37.5 mg tablet 06/29 completed Not Available Not Available Not Available ciprofloxac in 500 mg tablet Take 1 tablet every 12 hours by oral route for 10 days. 01/24 completed Not Available Not Available Not Available omeprazole 40 mg capsule,del ayed release Take 1 capsule every day by oral route before meals. active Not Available Not Available No t Available sildenafil 100 mg tablet Take 1 tablet every week by oral route. 06/29 completed Not Available Not Available Not Available modafinil 200 mg tablet Take 0.5 tablets every day by oral route. 06/29 completed Not Available Not Available Not Available meclizine 25 mg tablet TAKE 1 TABLET BY MOUTH THREE TIMES DAILY NEEDED FOR DIZZINESS 01/26 completed Not Available Not Available Not Available gemfibrozil 600 mg tablet Take 1 tablet twice a day by oral route. 06/29 completed Not Available Not Available Not Available hydroxyzine HCl 25 mg tablet active Not Available Not Available Not Available hydrochloro thiazide 25 mg tablet active Not Available Not Available No t Available ergocalcife rol (vitamin D2) 1,250 mcg (50,000 unit) capsule 06/29 completed Not Available Not Available Not Available methylpredn isolone 4 mg tablets in a dose pack TAKE DIRECTED ON PACKAGE active Not Available Not Available No t Available albuterol sulfate HFA 90 mcg/actuati on aerosol inhaler INHALE 2 PUFFS BY MOUTH EVERY 6 HOURS NEEDED active Not Available Not Available No t Available paroxetine 40 mg tablet active Not Available Not Available Not Available ondansetron 4 mg disintegrat ing tablet DISSOLVE 1 TABLET IN MOUTH EVERY 6 HOURS NEEDED FOR NAUSEA AND VOMITING active Not Available Not Available No t Available doxycycline hyclate 100 mg tablet TAKE 1 TABLET BY MOUTH TWICE DAILY 06/29 completed Not Available Not Available Not Available naproxen 500 mg tablet 06/29 completed Not Available Not Available Not Available amoxicillin 875 mg-potassiu m clavulanate 125 mg tablet TAKE 1 TABLET BY MOUTH TWICE DAILY FOR 10 DAYS 06/29 completed Not Available Not Available Not Available duloxetine 20 mg capsule,del ayed release Take 1 capsule every day by oral route. 06/29 completed Not Available Not Available Not Available ibuprofen as needed 01/26 completed Not Available Not Available Not Available Paxil active Not Available Not Availa ble Not Available Tylenol as needed 01/26 completed Not Available Not Available Not Available Vitamin D3 active Not Available Not Av ailable Not Available Metamucil Daily 06/29 completed Not Available Not Available Not Available rosuvastati n active Not Available Not Available Not Available Chantix 1 mg tablet 06/29 completed Not Available Not Available Not Available hydrochloro thiazide 12.5 mg tablet 01/26 completed Not Available Not Available Not Available cholecalcif ly (vit D3)(bulk) 2,000 unit tablet, 1 tablet daily 06/29 completed Not Available Not Available Not Available Vitamin D3 50 mcg (2,000 unit) tablet 06/29 completed Not Available Not Available Not Available Suprep Bowel Prep Kit 17.5 gram-3.13 gram-1.6 gram oral solution Take 177 mL twice a day by oral route as directed for 1 day. 03/13 completed Not Available Not Available Not Available Niacin (niacinamid e) 500 mg tablet Take 1 tablet every day by oral route. 06/29 completed Not Available Not Available Not Available Vitals Date Recorded Body mass index (BMI) Body height Provider Name and Address Organization Details Last Updated DateTime 01/26/2023 36 kg/m2 170.18 cm SUNNY RUBIN NP [address] [place], [address], [address] 01/26/2023 17:04:21 Date Recorded Body weight Oxygen saturation Heart rate Systolic And Diastolic Provider Name and Address Organization Details Last Updated DateTime 01/26/2023 016259.25 g 98 % 71 /min 128/82 mm[Hg] Tamiko Sanchez [address] 01/26/2023 14:53:02 Date Recorded Body height Body mass index (BMI) Body weight Oxygen saturation Heart rate Systolic And Diastolic Provider Name and Address Organization Details Last Updated DateTime 3 170.18 cm 36.6 kg/m2 149280. 82 g 98 % 85 /min 154/86 mm[Hg] Anastasia Benjamin LPN [address] 3 14:52:16 Date Recorded Body height Pain severity - 0-10 verbal numeric rating [Score] - Reported Body temperature Respiratory rate Body mass index (BMI) Body weight Heart rate Systolic And Diastolic Provider Name and Address Organization Details Last Updated DateTime 1 170.18 cm 0 98.6 [degF] 20 /min 37.6 kg/m2 387785. 17 g 80 /min 146/90 mm[Hg] [facility] [address] 1 14:34:05 Date Recorded Body height Body mass index (BMI) Body weight Body temperature Heart rate Oxygen saturation Systolic And Diastolic Provider Name and Address Organization Details Last Updated DateTime 1 170.18 cm 36 kg/m2 240292. 89 g 98.1 [degF] 81 /min 98 % 150/88 mm[Hg] Anastasia Benjamin LPN [address] 1 14:52:40 Date Recorded Body height Body mass index (BMI) Body weight Body temperature Heart rate Oxygen saturation Systolic And Diastolic Provider Name and Address Organization Details Last Updated DateTime 0 170.18 cm 36.6 kg/m2 100310. 18 g 97.9 [degF] 88 /min 97 % 124/81 mm[Hg] Pino Lang GRAVEL WHEELER [address] 0 15:31:21 Social History Question Answer Notes LastModified by [employer] ion Details LastModified Time Tobacco Smoking Status Current Every Day Smoker Marilyn Maldonado LPN [address] 07/19/2019 14:37:51 What Is Your Level Of Caffeine Consumption? Heavy [email or web address] Information not available 07/19/2019 How Much Tobacco Do You Chew? 1/day [email or web address] Information not available 07/19/2019 Which Illicit Or Recreational Drugs Have You Used? None [email or web address] Information not available 07/19/2019 Marital Status [email or web address] Informatio n not available 07/19/2019 How Much Tobacco Do You Smoke? 0.5 PPD [email or web address] Information not available 07/19/2019 Sex: Unknown Functional Status Question Answer Note LastModified by [employer] Details LastModified Time What is your level of alcohol consumption? Occasional Information not available 07/19/2019 Do you or have you ever used smokeless tobacco? Currently chews tobacco Information not available 07/19/2019 Do you or have you ever used e-cigarettes or vape? Never used electronic cigarettes [email or web address] Information not available 07/19/2019 Mental Status None recorded. Family History Relationship Description Onset Age of this Age Resolved Age Notes LastModified by Organization Details LastModified Time Father No current problems or disability [email or web address] Not available 07/19 14:37:46 Mother No current problems or disability [email or web address] Not available 07/19 14:37:46 Medical History Condition Response ARTHRITIS Y USE OF BLOOD THINNERS N HEADACHES N STROKE N DIZZINESS N DIABETES N HIGH CHOLESTEROL N HYPERTENSION N ANEMIA/BLOOD DISORDER N PULMONARY EMBOLISM N HEPATITIS / LIVER DISEASE N HEART DISEASE N PULMONARY DISEASE N SEIZURES N CANCER N HERPES N Past Encounters Encounter ID Performer Location Encounter Start Date Encounter Closed Date Diagnosis/Indication Diagnosis SNOMED-CT Code Diagnosis ICD10 Code Diagnosis IMO Codes Diagnosis Note [id number] Agusto Clement MD [facility] [address] [place] [address] [place] [address] 07/19/2019 14:31:07 07/22/2019 08:53:30 Gastroesophageal reflux disease 486745638 K21.9 Diarrhea 53440687 R19.7 Irregular bowel habits 813265539 R19.4 Abdominal bloating 61978 9008 R14.0 [id number] Agusto Clement MD [facility] [address] [place] [address] 08/14/2019 10:41:58 08/14/2019 12:05:05 Adenomatous polyp of colon 838886447 D12.6 Serrated p olyp of colon 223106508 K63.5 Hiatal her kleber with gastroesophageal reflux 669644307 K21.9 Nonerosive nonspecific gastritis 40876274 K29.70 Internal hemorrhoids 904 70987 K64.8 Diverticular disease 397 431691 K57.90 Polyp of s igmoid colon 979408810 D12.5 Polyp of h epatic flexure of colon 149269394 D12.3 Polyp of colon 31801572 K63.5 Blood gluc ose outside reference range 987914333 R73.09 Laboratory test result abnormal 620400585 R89.9 Tobacco user 647751899 Z 72.0 Tobacco us e cessation education 595143596 Z71.6 Body mass index 30+ - obesity 049390395 Z68.36 Diarrhea 46395554 R19.7 [id number] Agusto Clement MD [facility] [address] [place] [address] 06/03/2020 08:42:44 06/03/2020 11:20:52 Tobacco user 825150564 Z72.0 Tobacco us e cessation education 773661087 Z71.6 User of sm okeless tobacco 712451317 Z72.0 History of diverticulitis 2907620690 20798 Z87.19 Left lower quadrant pain 963609163 R10.32 Chronic diarrhea 3573249 09 K52.9 Nausea 504822034 R11.0 Reports related to abdominal pain History of cholecystectomy 408454554 Z90.August Body mass index 30+ - obesity 507872928 Z68.36 [id number] Agusto Clement MD [facility] [address] [place] [address] 06/18/2020 11:45:43 06/18/2020 12:59:53 Diverticulitis of sigmoid colon 297936692 K57.32 Left lower quadrant pain 390604934 R10.32 Tobacco user 160572385 Z 72.0 Tobacco us e cessation education 483007143 Z71.6 User of sm okeless tobacco 950989155 Z72.0 [id number] Agusto Clement MD [facility] [address] [place] [address] 07/17/2020 15:26:22 07/17/2020 15:55:03 Diverticulitis of sigmoid colon 228552867 K57.32 Body mass index 30+ - obesity 795920251 Z68.36 Tobacco user 435033220 Z 72.0 Tobacco us e cessation education 696743918 Z71.6 [id number] Agusto Clement MD [facility] [address] [place] [address] 05/26/2021 14:19:10 05/27/2021 10:21:49 Screening colonoscopy 273867767 Z12.11 Diverticul osis of colon 272539720 K57.30 Adenomatou s polyp of colon 975449442 D12.6 [id number] Agusto Clement MD [facility] [address] [place] [address] 06/29/2021 14:28:17 06/29/2021 18:07:01 History of diverticulitis 6575989988 46607 Z87.19 Diverticul osis of sigmoid colon 437313411 K57.30 Left lower quadrant pain 995046218 R10.32 [id number] Agusto Clement MD [facility] [address] [place] [address] 01/26/2023 14:30:02 01/26/2023 16:48:55 Metabolic dysfunction-associate d steatohepatitis 031875720 K75.81 Hematochezia 394037000 K 92.1 Constipati on alternates with diarrhea 568863426 K59.00 Abdominal bloating 59681 9008 R14.0 History of partial resection of colon 960625060 Z90.49 Gastroesop hageal reflux disease 429097134 K21.9 Obesity 458541380 E66.9 [id number] Agusto Clement MD [facility] [address] [place] [address] 03/13/2023 14:42:51 03/13/2023 17:51:04 Diarrhea 87876481 R19.7 Non-celiac gluten sensitivity 179121319 K90.41 Hiatal her kleber with gastroesophageal reflux 635260593 K21.9 History of cholecystectomy 478544498 Z90.49 Nausea 640173568 R11.0 Health Concerns Section Related Observation LastModified by Organization Detai ls LastModified Time None Recorded Concern Status LastModified by Organization Details LastModified Time None Recorded Advance Directives Directive None Recorded Payers Insurance Date Sequence Insurance Name Policy Number Policy Barrios Covered Member ID Barrios Member ID Guarantor Name 05/23/2023 [employer] - [facility] Ciaran [place] [id number] Ciaran Maldonado 01/26/2023 [facility] [id number] [facility] Notes Date Note Type Note Provider Name and Address Organization Details Recorded Time 07/17/2020 text/html Patient presents to clinic for urgent/non-urgent outpatient visit. Patient denies any symptoms of fever, cough, shortness of breath, close contact with a person known to have COVID-19 (aka coronavirus) and denies recent travel to an area with ongoing spread of COVID-19 (aka coronavirus). Educated patient on potential risks of visit which could lead to potential exposure to COVID-19 (aka coronavirus). Patient verbalized understanding and accepts the potential risks and responsibilities of possible exposure to COVID-19 (aka coronavirus). If patient is being scheduled for urgent/non-urgent procedure patient is aware of the increased potential exposure to COVID-19 (aka coronavirus). Educated patient to perform hand hygiene on exit from the exam room. Patient verbalized understanding. Follow up on CT results. Patient denies any upper or lower GI complaints at this time and reports he is doing much better. CT revealed improved sigmoid diverticulitis with improved small adjacent fluid collection and no evidence of drainable abscess or fluid collection. Encouraged patient to start probiotics daily and continue Metamucil daily. Patient to follow up based on clinical course. PATIENCE DURAN NP [address] [place], [address], [facility] - [facility] [place] 07/17/2020 15:52:39 05/26/2021 text/html ROS as noted in the HPI This is a 46-year-old male who presents for follow-up. Patient reports that another bout of diverticulitis. Patient has completed antibiotic therapy. Clinical symptoms improved. Patient was eating peanuts prior to the onset of his clinical symptoms. Impression: 1. Recurrent diverticulitis --CT abd/pelvis 07/08/2020 revealed improved sigmoid diverticulitis with improved small adjacent fluid collection. No evidence of drainable abscess or fluid collection. Diffuse fatty infiltration of liver. Cholecystectomy clips. Slight anterolisthesis L5 on S1 with chronic bilateral pars defects, no other significant changes from previous CT --CT abd/pelvis 06/05/2020 revealed sigmoid diverticulitis with perforation but no abscess unchanged. --CT abd/pelvis 05/17/2020 from [place] revealed evidence again of mid sigmoid acute diverticulitis with perforation. There has been increase in the volume of the extraluminal walled-off gas since last evaluation. This increase in the pericolonic fat inflammatory phlegmonhoud response. Currently no visible ovulation fluid collection to suggest formation of any organized abscess. The appendix lies immediately adjacent to the inflammatory sigmoid diverticulitis focus and demonstrates mild reactive inflammatory response. --CT abd/pelvis 1 the the from [place] revealed acute sigmoid diverticulitis with micro perforation. No abscess or generalized free air. No bowel obstruction or ileus --patient reports he was in [facility] 1-2 weeks ago for diverticulitis and was treated with IV Cipro and Flagyl and sent home with amoxicillin and prednisone and reports he is almost finished with ease to oral medications. Patient complains of nausea, left lower quadrant abdominal pain, and diarrhea and increase in diarrhea may be related to antibiotic therapy 2. GERD w/hiatal hernia 4 cm (07/29/2019) - controlled --omeprazole 40 mg daily --EGD 07/29/2019 revealed hiatal hernia 4 cm, mild nonerosive gastritis --acid reflux with history of pyrosis, nausea, vomiting, bloating, nocturnal regurgitation and symptomatic since 2003 --currently on omeprazole 20 mg 2 tablets daily at bedtime --previously treated with Zantac 3. Chronic diarrhea x 12 years - improved --Metamucil daily --colonoscopy 07/29/2019 revealed moderate size internal hemorrhoids, 10 mm sigmoid polyp removed, 12 mm left colon polyp removed, 10 mm hepatic flexure polyp removed, mild cooper diverticulosis --biopsies reveal sessile serrated adenoma --07/19/2019 glucose 135, otherwise unremarkable --history of unexplained diarrhea - improving with 1-2 BM daily with some consistency 4. Adenomatous polyp; serrated adenoma (07/29/2019)-repeat colonoscopy in 2-3 years 5. Diverticulosis; mild (07/29/2019) 6. History of fatty liver 7. History of dyslipidemia 8. History of cholecystectomy August 2019 9. Elevated BMI 10. Tobacco use 1/2 ppd and smokeless tobacco 11. No known family history of esophageal, gastric or colon cancer Recommendations: 1. Increase oral hydration and dietary fiber 2. Fiber supplementation daily with Metamucil or Citrucel 3. Schedule screening/surveillance colonoscopy 4. Continue omeprazole 40 mg p.o. daily 5. Follow-up in 2 weeks for clinical reassessment. Agusto Clement MD [address] [facility], [place], [address], [facility] - [address] 05/26/2021 19:32:18 06/29/2021 text/html 46 y/o male presents to clinic for follow up after having colonoscopy for evaluation of recurrent diverticulitis. He reports that since his colonoscopy he has had a lot of abdominal pain, low grade fever. He reports that he had a bowel movement yesterday. He reports that he if he has a full bladder it makes the pain worse. He reports that he has to strain with his bowel movement. He is reports that he has not been taking the metamucil for the past couple days. SUNNY RUBIN, SENIOR PROJECT LEADER/TEAM LEAD [address] [facility], [place], [address], [facility] - [facility] [place] 06/29/2021 17:39:57 01/26/2023 text/html 47 y/o male presents to clinic c/o Hematochezia, constipation alternates with diarrhea, abdominal pain, bloating and nausea. He had colon surgery with 11 inches removed in Aug 2021 in [place] for diverticulitis. He reports that his stools vary and they are either hard or diarrhea. He reports that he is drinking about 1/2 gallon of water per day. He has been taking his metamucil to try help balance out his stools. He would like to have follow up on his fatty liver. Impression:1. Hematochezia.-- Colonoscopy 06/22/2021 revealed moderate-sized internal hemorrhoids. Mild sigmoid diverticulosis.2. Abdominal bloating3. Altered bowel function constipation alternates with diarrhea4. Nausea5. CISNEROS 6. History of colon resection 11 inches removed Aug 2021 due to diverticulutitis.-- Colonoscopy 06/22/2021 revealed moderate-sized internal hemorrhoids. Mild sigmoid diverticulosis.--colon oscopy 07/29/2019 revealed moderate size internal hemorrhoids, 10 mm sigmoid polyp removed, 12 mm left colon polyp removed, 10 mm hepatic flexure polyp removed, mild cooper diverticulosis. Biopsies reveal sessile serrated adenoma--07/19/2019 glucose 135, otherwise unremarkable--history of unexplained diarrhea - improving with 1-2 BM daily with some consistency7. Adenomatous polyp; serrated adenoma 8. GERD w/hiatal hernia 4 cm--omeprazole 40 mg daily--EGD 07/29/2019 revealed hiatal hernia 4 cm, mild nonerosive gastritis--acid reflux with history of pyrosis, nausea, vomiting, bloating, nocturnal regurgitation and symptomatic since 2003--currently on omeprazole 20 mg 2 tablets daily at bedtime--previously treated with Zantac9. History of cholecystectomy August. Elevated BMI11. Former smoker quit [id number]. No known family history of esophageal, gastric or colon cancerRecommendations: 1. Schedule EGD and Colonoscopy2. Obtain chronic liver workup3. Schedule CT scan of abdomen and pelvis with contrast.4. Continue omeprazole 40 mg PO daily5. Continue Fiber supplement Metamucil 1 tbsp in 8 oz glass of water daily6. Follow up in 3 weeks for clinical reassessment. SUNNY RUBIN NP [address] [place], [address], [facility] [place] [facility] [place] 01/26/2023 17:06:43 03/13/2023 text/html 48 y/o male presents to clinic for follow up He reports that he still having a lot of diarrhea. He has not had his capsule endoscopic completed. He has completed the patency pill. He reports that he feels like he needs to continuously have a bowel movement. He reports having straining this morning he reports his stools are #7 on the [employer] chart. He reports he has about 3-4 bowel movements per day. Impression:1. Hematochezia.--Colonos copy 02/20/2023 revealed small internal hemorrhoids. Mild sigmoid diverticulosis. Random colon biopsies obtained.Pathology no histopathological abnormality.-- Colonoscopy 06/22/2021 revealed moderate-sized internal hemorrhoids. Mild sigmoid diverticulosis.--colon oscopy 07/29/2019 revealed moderate size internal hemorrhoids, 10 mm sigmoid polyp removed, 12 mm left colon polyp removed, 10 mm hepatic flexure polyp removed, mild cooper diverticulosis. Biopsies reveal sessile serrated adenoma 2. Abdominal bloating3. Altered bowel function constipation alternates with diarrhea4. Nausea5. CISNEROS--01/26/2023 hemoglobin 15.1, hematocrit 43.3, MCV 91.3, platelets 269, PT 10.3, INR 0.9, alk phos 60, ALT 59, AST 28, bilirubin 0.5, iron 114, iron saturation 34, iron binding capacity 331, TSH 1.83, cholesterol 180, triglycerides 144, AFP 5.5, CLAY negative, serum plasmin 20, ferritin 156, hepatitis (A, B, C) nonreactive, gluten sensitivity mitochondrial antibody negative, smooth muscle antibody negative, fibrosis stage F0 6. History of colon resection 11 inches removed Aug 2021 due to diverticulutitis.7. Adenomatous polyp; serrated adenoma8. GERD w/hiatal hernia 4 cm--omeprazole 40 mg daily--EGD 02/20/2023 revealed possible short segment Tsang's esophagus. 4 cm hiatal hernia. Mild nonerosive gastritis.Pathology negative for dysplasia or H. pylori9. History of cholecystectomy August. Elevated BMI11. Former smoker quit [id number]. No known family history of esophageal, gastric or colon [id number]. Mon celiac gluten sensitivity. Recommendations:1. Obtain alpha-gal for further evaluation of diarrhea.2. Schedule capsule endoscopy of small bowel3. Continue omeprazole 40 mg PO daily4. Continue Fiber supplement Metamucil 1 tbsp in 8 oz glass of water daily5. Gluten free diet.6. Follow up in 4 weeks for clinical reassessment. SUNNY RUBIN, ALEXANDR [address] [place], [address], [facility] [place] [facility] [place] 03/13/2023 17:26:14
--- OUTSIDE RECORDS SUMMARY | 2025-06-24 15:45 | XMS_ITS | Clinical Summary ---
Author Organization [employer] Address [address] [place] [address] Care Team Providers Care Casting Agent Name Role Phone Unavailable Primary Care Provider Unavailabl e Allergies Active Allergy Reactions Criticality Noted Date Comments Alpha-Gal (Qvjgdtdwv-Ouilx-0,3-Galac tose) Nausea and Vomiting,Swelling,Dizziness Low 03/27/2024 Medications omeprazole (PriLOSEC) 40 mg Capsule, Delayed Release(E.C.) Take 1 Capsule (40 mg) by mouth daily. 15 Capsule None 10/08/19 16 Active amLODIPine (NORVASC) 10 mg tablet Take 10 mg by mouth daily. Active empagliflozin (JARDIANCE) 25 mg tablet Take 25 mg by mouth daily in the morning. Active hydrOXYzine HCL (ATARAX) 25 mg tablet Take 25 mg by mouth every 8 hours as needed for Itching. Active carvediloL (COREG) 6.25 mg tablet Take 6.25 mg by mouth 2 times daily with meals. Active rosuvastatin (CRESTOR) 20 mg tablet Take 20 mg by mouth daily. Active bi-level machine Bi-level (E0470) at 19/15 cm/H2O with heated humidifier (E0562), MASK OF CHOICE, headgear(A7035), cushions (A7031) 1/1 month, (A7032) (A7033) 2 pair/1 month. Heated tubing A4604 1/3mo,water chamber A7046 1/6mo,filter disp A7038 2/mo,Reusable filter A7039 1/6mo, Chin strap A7036 a/6mo JAMIR 99mo DX: STEPH (G47.33) 1 Each 05/24/20 24 Active albuterol sulfate HFA 90 mcg/actuation aerosol inhaler INHALE 2 PUFFS BY MOUTH EVERY 6 HOURS NEEDED Active cholecalciferol , Vitamin D3, 50 mcg (2,000 unit) Tablet Take 100 mcg by mouth. 11/02/19 24 Active folic acid (FOLVITE) 400 mcg Tablet Take 0.4 mg by mouth. 11/02/19 24 Active PARoxetine HCl (PAXIL) 20 mg tablet Take 50 mg by mouth. 02/13/20 24 Active tadalafil (CIALIS) 5 mg tablet Take 2.5 mg by mouth. 08/08/19 25 Active testosterone (ANDROGEL) 20.25 mg/1.25 gram (1.62 %) Gel in Metered-dose Pump Apply to affected area. 10/02/19 25 Active hydroxychloroqu ine (PLAQUENIL,SOVU NA) 200 mg tabletIndicatio ns:Rheumatoid arthritis, involving unspecified site, unspecified whether rheumatoid factor present (CMS/HCC) Take 1 Tablet (200 mg) by mouth daily. 90 Tablet 1 06/11/20 25 Active tirzepatide, weight loss, (ZEPBOUND) 5 mg/0.5 mL Pen Injector Inject 5 mg by subcutaneous injection every 7 days. Active sildenafiL (VIAGRA) 50 mg tablet Take 25 mg by mouth. 05/27/20 24 025 Discontin ued(Patie nt choice) docusate sodium (COLACE) 50 mg capsule Take 1 Capsule (50 mg) by mouth 2 times daily. 60 Capsule 3 08/01/19 025 Discontin ued(Patie nt choice) sucralfate (CARAFATE) 1 gram tablet Crush 1 tablet and mix with 15 ml water, gargle and swallow three times a day 42 Tablet 08/01/19 25 025 Discontin ued(Patie nt choice) oxyCODONE (ROXICODONE) 5 mg tabletIndicatio ns:Postoperativ e pain Take 1 Tablet (5 mg) by mouth every 4 hours as needed for Pain. Max Daily Amount: 30 mg 18 Tablet 08/02/19 25 025 Discontin ued(Patie nt choice) predniSONE (DELTASONE) 50 mg tablet Take 1 Tablet by mouth daily. 03/ 025 Discontin ued(Patie nt choice) tirzepatide, weight loss, (Zepbound) 2.5 mg/0.5 mL Solution Inject 2.5 mg by subcutaneous injection every 7 days. 025 Discontin ued(Dose/ form adjustmen t) Active Problems Problem Noted Date Diagnosed Date History of tonsillectomy 08/30/2024 Anxiety 06/26/2024 Overview (06/26/2024): Per [facility] Chronic cough 06/26/2024 Dental caries on pit and fis sure surface penetrating into dentin 06/26/2024 Depression 06/26/2024 Overview (06/26/2024): Per [facility] Dyspepsia 06/26/2024 Exposure to potentially hazardous substance 06/01 Fatigue 06/26/2024 STEPH (obstructive sleep apnea) 06/26/2024 BiPAP (biphasic positive airway pressure) depend ence 06/26/2024 Tonsillar hypertrophy 06/26/2024 Former smoker 06/26/2024 History of cleft palate with cleft lip 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 Abdominal bloating 08/13/2019 Abnormal laboratory test result 08/13/2019 Adenomatous polyp of colon 08/13/2019 Blood glucose abnormal 08/13/2019 Diverticular disease 08/13/2019 History of traumatic brain injury 06/11/2019 Tobacco use 10/08/2015 Fibromyalgia 08/22/2014 PTSD (post-traumatic stress disorder) 08/22/2014 Gout 01/01/2010 Rheumatoid arthritis 01/01/2010 Pain in joint involving multiple sites 0 Resolved Problems Problem Noted Date Diagnosed Date Resolved Date Alcohol dependence in remission 10/08/2015 04/29/2020 Encounters Date Type Department Care Team Description 06/23/2025 Abstract [facility] Lora Alicia [address] [address] Provider, Abstract 06/11/2025 2:40 PM TRAVEL MED SURG RN Office Visit [facility] Lora Alicia [address] [phone] [place], JOHN Rheumatoid arthritis, involving unspecified site, unspecified whether rheumatoid factor present ([facility]) (Primary Dx); Morbid obesity with body mass index of 40.0-49.9 ([facility]) 06/04/2025 External Device Data STL ABSTRACTION Provider, Abstract 05/28/2025 External Device Data ST[facility] ABSTRACTION Provider, Abstract 04/02/2025 External Device Data STL ABSTRACTION Provider, Abstract 04/01/2025 External Device Data STL ABSTRACTION Provider, Abstract 04/01/2025 External Device Data STL ABSTRACTION Provider, Abstract from Last 3 Months Immunizations Immunization Administration Dates Next Due (ADACEL/BOOSTRIX)(10 YR UP) TDAP VACCINE, 0.5ML, IM 11/02/2023,07/23/2013 (TDVAX)(7 YRS UP) TETANUS AN D DIPHTHERIA TOXOIDS, ADSORBED (2 LF OF TETANUS TOXOID AND 2 LF OF DIPHTHERIA TOXOID), 0.5ML (PF), IM 01/09/2011 Td(adult) Unspecified Formulation 11/02/2023 Family History Medical History Relation Name Comments Healthy Father Unknown Maternal Grandfather Unknown Maternal Grandmother Healthy Mother Cancer Paternal Grandfather Cancer Paternal Grandmother Breast Cancer Neg Hx Colon Cancer Neg Hx Relation Name Status Comments Father Alive Maternal Grandfather Maternal Grandmother Mother Alive Paternal Grandfather Paternal Grandmother Social History Tobacco Use Types Packs/Day Years Used Date Smoking Tobacco: Former Cigarettes 0.5 Q uit: 11/28/2020 Smokeless Tobacco: Former Chew Tobacco Cessation:Counseling Given: No Comments:Quit smoking: one can per week x 20 years, no chewing since 03-31-2020 Alcohol Use Standard Drinks/Week Comments Not Currently 1 (1 standard drink = 0.6 oz pur e alcohol) Feeling Safe Answer Date Recorded Are you in a relationship wi th someone who hurts you emotionally and/or physically? No 08/01/2024 Sex and Gender Information Value Date Recorded Sex Assigned at Not on file Legal Sex Male 6:31 AM TRAVEL MED SURG RN Gender Identity Not on file Sexual Orientation Not on file Last Filed Vital Signs Vital Sign Reading Time Taken Comments Blood Pressure 132/84 06/11/2025 2:48 PM TRAVEL MED SURG RN Pulse 69 06/11/2025 2:48 PM TRAVEL MED SURG RN Temperature 36.9 C (98.4 F) 06/11/2025 2:48 PM TRAVEL MED SURG RN Respiratory Rate 18 06/11/2025 2:48 PM TRAVEL MED SURG RN Oxygen Saturation 95% 06/11/2025 2:48 PM TRAVEL MED SURG RN Inhaled Oxygen Concentration - - Weight 110.8 kg (244 lb 3.2 oz) 06/11/2025 2:48 PM TRAVEL MED SURG RN Height 167.6 cm (5' 6 ) 06/11/2025 2:48 PM TRAVEL MED SURG RN Body Mass Index 39.41 06/11/2025 2:48 PM TRAVEL MED SURG RN Plan of Treatment Upcoming Encounters Date Type Department Care Team (Late st Contact Info) Description 12/23/2025 3:00 PM CDT Office Visit [facility] Rheumatology- Ottoniel Frederick Kirklin [address] [place] [address] Adrian Martínez MD [address] [place] [address] Health Maintenance Due Date Last Done Comments DIABETES ANNUAL FOOT EXAM 1995 DIABETES MICROALBUMIN ANNUAL SCREEN 1995 HEPATITIS B VACCINES (1 of 3 - 19+ 3-dose series) 02/24/1996 COLORECTAL SCREENING 2022 Colorectal Cancer Screening 2022 FIT-DNA Q 3 years 2022 FIT/FOBT Q 1 year 2022 Flex Sig/CT Colonography Q 5 years 2022 Traditional Medicare (ACO) A nnual Wellness Visit 07/06/2022 07/05/2021 Preventative Visit- Commercial 07/31/2024 07/05/2021 INFLUENZA VACCINE (#1) 2025 , 05/08/2020, 07/26/2019 DIABETES HBA1C Q 6 MONTHS 06/28/20252024, 10/04/2024, 06/19/2024, Additional history exists DIABETES ANNUAL RETINAL EXAM 09/25/2025 09/25/2024, 09/25/2024 LDL CHOLESTEROL ANNUAL 12/26/2025 5, 10/04/2024, 06/19/2024, Additional history exists DTAP/TDAP/TD VACCINES (4 - T d or Tdap) 11/01/2033 11/02/2023, 11/02/2023, 07/23/2013, Additional history exists Abdominal Aortic Aneurysm (A AA) Screening Completed 08/28/2019 Medical Devices Implanted Type Area Thermodynamics Teacher Device Identifier Shelf Expiration Date Model / Serial / Lot Hemostatic Surg Powder [id number] - [id number] Implanted:Qty: 1 on 08/01/2024 by Antonio Ambriz MD at [facility] Hemostatic N/A: Throat [employer] 09/27/2025 [id number] / / [id number] Procedures Procedure Name Priority Date/Time Associated Diagnosis Comments LIPID PANEL Routine 12/26/2024 HEMOGLOBIN A1C Routine 12/26/2024 DIABETES EYE EXAM Routine 09/25/2024 12:48 PM TRAVEL MED SURG RN US ABDOMEN COMPLETE Routine 08/28/2019 9 :33 AM TRAVEL MED SURG RN Abdominal pain, acute, right upper quadrant from Last 3 Months or Most Recently Relevant to Health Maintenance Results * HEMOGLOBIN A1C (12/26/2024) ABSTRACTED HGB A1C 6.5 % Blood 12/26/2024 us Abstract Provider CHEMISTRY ORDERABLES Final Res ult * LIPID PANEL (12/26/2024) ABSTRACTED CHOLESTEROL 150 ABSTRACTED TRIGLYCERIDE 227 ABSTRACTED HDL 46 ABSTRACTED LDL CALCULATED 59 ABSTRACTED LDL CHOLESTEROL, DIRECT 70 Blood 12/26/2024 us Abstract Provider CHEMISTRY ORDERABLES Final Res ult * HM DIABETES EYE EXAM (09/25/2024 12:48 PM TRAVEL MED SURG RN) us Abstract Provider HEALTH MAINTENANCE Edited Resu lt - Final * US ABDOMEN COMPLETE (08/28/2019 9:33 AM TRAVEL MED SURG RN) Anatomical Region Laterality Modality Abdomen Other Impressions 08/28/2019 6:05 PM TRAVEL MED SURG RN Please see below. Exam: US ABDOMEN COMPLETE Date/Time of Exam: 08/28/2019 9:33 AM Reason For Exam: See Diagnosis. Diagnosis: Abdominal pain, acute, right upper quadrant. Findings: The head of the pancreas is visualized and appears somewhat prominent measuring 4.5 cm in AP dimension. There is no definable pancreatic head mass. The neck and a portion of the body the pancreas are visualized appear normal. The tail the pancreas is obscured by bowel gas. The liver is enlarged measuring 17 cm in length. The hepatic parenchyma is diffusely and markedly hyperechoic consistent with fatty infiltration. The gallbladder is abnormal and contains sludge and shadowing sand-like echogenic stones. Gallbladder wall thickness is increased at 7.2 mm. The spleen is normal. The abdominal aorta and IVC are scattered by bowel gas. Right kidney measures 11.6 cm in length. The left kidney measures 10.8 cm in length. IMPRESSION: 1. Hepatomegaly and fatty infiltration of the liver. 2. Cholelithiasis. Gallbladder wall thickness is abnormally increased. This can be seen with cholecystitis but may also be seen with right heart failure, hepatitis and hypoproteinemia. 3. The pancreatic head appears generous. The pancreas appears fatty infiltrated. There is no definable mass. Narrative Procedure Note Willow Nicholas MD - 12/30/2020 IMPRESSION Please see below. Exam: US ABDOMEN COMPLETE Date/Time of Exam: 08/28/2019 9:33 AM Reason For Exam: See Diagnosis. Diagnosis: Abdominal pain, acute, right upper quadrant. Findings: The head of the pancreas is visualized and appears somewhat prominent measuring 4.5 cm in AP dimension. There is no definable pancreatic head mass. The neck and a portion of the body the pancreas are visualized appear normal. The tail the pancreas is obscured by bowel gas. The liver is enlarged measuring 17 cm in length. The hepatic parenchyma is diffusely and markedly hyperechoic consistent with fatty infiltration. The gallbladder is abnormal and contains sludge and shadowing sand-like echogenic stones. Gallbladder wall thickness is increased at 7.2 mm. The spleen is normal. The abdominal aorta and IVC are scattered by bowel gas. Right kidney measures 11.6 cm in length. The left kidney measures 10.8 cm in length. IMPRESSION: 1. Hepatomegaly and fatty infiltration of the liver. 2. Cholelithiasis. Gallbladder wall thickness is abnormally increased. This can be seen with cholecystitis but may also be seen with right heart failure, hepatitis and hypoproteinemia. 3. The pancreatic head appears generous. The pancreas appears fatty infiltrated. There is no definable mass. us [place]ys [place] [facility] ORDERABLES Final Result from Last 3 Months or Most Recently Relevant to Health Maintenance Insurance MEDICARE PART A AND B [employer] [place] [address] [employer] * Guarantor: [employer] Account Type Relation to Patient Date of Phone Billing Address Corporate Other DEFAULT ADDRESS [address] [employer] * Guarantor: [employer] [employer] Account Type Relation to Patient Date of Phone Billing Address Corporate Other DEFAULT ADDRESS [address] [employer] Advance Directives For more information, please contact: [phone] * Full Code (Latest Code Status on File) Date Activated Date Inactivated Comments 08/01/2024 7:46 AM 08/01/2024 12:50 PM * Full Code Date Activated Date Inactivated Comments 07/04/2024 7:52 AM 07/04/2024 11:09 AM
--- OUTSIDE RECORDS SUMMARY | 2025-06-24 15:45 | XMS_ITS | Encounter Summary ---
Author Organization [facility] Address 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
[2025-06-24 15:53] LABS: Hematocrit 51.6 % (37-53); Hemoglobin 17.20 g/dL (11.27-16.99); Mean Corpuscular HGB Conc 33.3 g/dL (30-55); Mean Corpuscular Hemoglobin 29.3 pg (27-33); Mean Corpuscular Volume 87.8 fl (82-101); Nucleated Red Blood Cells % 0 %; Platelet Count 275 10^3/cmm (157-399); Red Blood Count 5.88 10^6/uL (3.85-5.65); White Blood Count 8.59 10^3/uL (3.29-11.43)
[2025-06-24] MEDS: iohexol 350 mg/mL 500 mL Btl (per mL) IV (16:02)
[2025-06-24 16:14] LABS: Alanine Aminotransferase 29 U/L (0-41); Albumin Level 4.7 g/dL (3.5-5.2); Alkaline Phosphatase 95 U/L (40-130); Anion Gap 16.1 (5-19); Aspartate Amino Transferase 23 U/L (0-40); Blood Urea Nitrogen 15 mg/dL (6-20); Calcium 9.8 mg/dL (8.5-10.5); Carbon Dioxide 24 mmol/L (22-29); Chloride 103 mmol/L (98-107); Globulin 3.9 g/dL (1.3-4.6); Glucose 91 mg/dL (65-115); Lipase 19 U/L (13-60); Osmolality Calculated 288 mOsm/kg (285-295); Potassium 4.1 mmol/L (3.5-5.1); Sodium 139 mmol/L (136-145); Total Protein 8.6 g/dL (6.6-8.7)
[2025-06-24 16:42] VITALS: BP 123/79; PULSE 65; RESP 16; O2SAT 94
== END 2025-06-24 16:43 | disposition home or self-care (01) ==
PROVIDERS: Emergency Provider Emergency Medicine; PCP Family Medicine
DX: R10.9 Unspecified abdominal pain (principal); Z87.891 Personal history of nicotine dependence; E78.5 Hyperlipidemia, unspecified
CPT/HCPCS: 36415; 74177; 80053; 83690; 85025; 96374; 96375; 99285; J2270; J2405